=== PATIENT | male | born 1940 | race Caucasian/White ===

== ENCOUNTER 2017-04-26 20:16 | Emergency (ER) | payer MEDICARE ==
[~2017-04-26] VITALS: Ht 175.3 cm; Wt 79.4 kg
[~2017-04-26 20:16] MED LIST: PANT40TA5 PO; PRED-220 PO; PREG25CA PO
[2017-04-26] MEDS ORDERED: predniSONE 20 MG TABLET PO ONE (21:15)
[2017-04-26] MEDS ORDERED: ORPHENADRINE CITRATE 60 MG/2 ML VIAL. IM ONE (21:15)
--- NOTE | 2017-04-26 21:32 | PHYS DOC ---
Past Medical History Past Medical History: Angina, DVT, Other Additional Past Medical Histor: CELLULITIS, back pain, Past Surgical History: Other Additional Past Surgical Histo: R LEG SURG Alcohol Use: Occasionally Drug Use: None Adult General Chief Complaint Chief Complaint: Neck Pain HPI HPI Patient is a 77 year old male who presents with complaint of left-sided neck pain. Patient states his symptoms started earlier this evening. The patient states that he fell sleep in his recliner for a nap. Patient states that he awoke approximately 2-3 hours prior to arrival stating that he started feeling sharp pain in the left side of his neck as he woke. Patient states the pain radiates towards the proximal portion of the left shoulder but does not radiate into his left arm. Patient states that the pain worsens when he tries to turn his head to the left. Patient states that he does not feel any significant pain when turning his head to the right. Patient does not have any associated chest pain, vision loss, difficulty with speech or swallowing, or shortness of breath. Patient has not taken medications for his symptoms. Patient states he has not experienced any pain similar to what he is complaining of at this time which caused him concern, thus he came to the emergency department for evaluation. Patient rates his pain as 9 out of 10 one every tries to turn his head to the left. Review of Systems Review of Systems Constitutional: Denies fever or chills [] Eyes: Denies change in visual acuity, redness, or eye pain [] HENT: Denies nasal congestion or sore throat [] Respiratory: Denies cough or shortness of breath [] Cardiovascular: Denies chest pain or edema[] GI: Denies abdominal pain, nausea, vomiting, bloody stools or diarrhea [] : Denies dysuria or hematuria [] Musculoskeletal: Left-sided neck pain[] Integument: Denies rash or skin lesions [] Neurologic: Denies headache, focal weakness or sensory changes [] All other systems were reviewed and found to be within normal limits, except as documented in this note. Current Medications Current Medications Current Medications Medications (Trade) Dose Ordered Sig/Christina Start Time Stop Time Status Last Admin Dose Admin Orphenadrine Citrate (Norflex) 60 mg 1X ONCE 04/26/17 21:15 04/26/17 21:16 DC 04/26/17 21:16 60 MG Prednisone (Prednisone) 40 mg 1X ONCE 04/26/17 21:15 04/26/17 21:16 DC 04/26/17 21:13 40 MG Allergies Allergies Allergies Coded Allergies Type Severity Reaction Last Updated Verified No Known Drug Allergies 09/22/16 No Physical Exam Physical Exam Constitutional: Alert, afebrile, appears in mild to moderate discomfort[] HENT: Normocephalic, atraumatic, bilateral external ears normal, oropharynx moist, no oral exudates, nose normal. [] Eyes: PERRLA, EOMI, conjunctiva normal, no discharge. [] Neck: Tenderness palpation along left sternocleidomastoid muscle causing reproducible tenderness, palpable spasm, no midline tenderness, trachea midline , no stridor. [] Cardiovascular:Heart rate regular rhythm, no murmur [] Lungs & Thorax: Bilateral breath sounds clear to auscultation [] Abdomen: Bowel sounds normal, soft, no tenderness, no masses, no pulsatile masses. [] Skin: Warm, dry, no erythema, no rash. [] Back: No tenderness, no CVA tenderness. [] Extremities: No tenderness, no cyanosis, no clubbing, ROM intact, no edema. [] Neurologic: Alert and oriented X 3, normal motor function, normal sensory function, no focal deficits noted. [] Current Patient Data Vital Signs Vital Signs Date Time Temp Pulse Resp B/P (MAP) Pulse Ox O2 Delivery O2 Flow Rate FiO2 04/26/17 20:30 98.4 106 14 155/79 (104) 94 Room Air 98.4 EKG EKG Not performed[] Radiology/Procedures Radiology/Procedures Not performed[] Course & Med Decision Making Course & Med Decision Making Pertinent Labs and Imaging studies reviewed. (See chart for details) Patient was given IM Norflex and oral prednisone in the emergency department. The patient's symptoms appear consistent with acute neck muscle strain versus possible cervical radiculopathy. Patient will continue on Flexeril and prednisone for outpatient treatment. Advise follow-up in 3-5 days a primary doctor for reevaluation and return to emergency department for any worsening symptoms. Patient voiced understanding and in agreement with treatment plan. Dragon Disclaimer Dragon Disclaimer This electronic medical record was generated, in whole or in part, using a voice recognition dictation system. Departure Departure Impression: Primary Impression: Strain of sternocleidomastoid muscle Disposition: HOME, SELF-CARE Condition: IMPROVED Referrals: NO PCP (PCP) Patient Instructions: Muscle Strain Additional Instructions: Follow-up with your primary doctor in 3-5 days for reevaluation. Return to emergency department for any worsening symptoms. Scripts Cyclobenzaprine Hcl (CYCLOBENZAPRINE HCL) 10 Mg Tablet 1 TAB PO QHS Y for MUSCLE PAIN, #30 TAB Prov: GIFTY OLIVARES MD 04/26/17 Methylprednisolone (MEDROL) 4 Mg Tab.ds.pk 1 PKG PO UD, #1 PKG Prov: GIFTY OLIVARES MD 04/26/17 Problem Qualifiers Primary Impression: Strain of sternocleidomastoid muscle Encounter type: initial encounter Qualified Codes: S16.1XXA - Strain of muscle, fascia and tendon at neck level, initial encounter GIFTY OLIVARES MD Apr 26, 2017 21:32
[2017-04-26] MEDS ORDERED: CYCL10TA2 PO (22:06)
[2017-04-26] MEDS ORDERED: METH4TAB2 PO (22:06)
[2017-04-26 22:15] VITALS: BP 115/67
== END 2017-04-26 22:18 | disposition home or self-care (01) ==
LOC: ER 20:16
DX: S16.1XXA Strain of muscle, fascia and tendon at neck level, initial encounter (principal); Z86.718 Personal history of other venous thrombosis and embolism; X58.XXXA Exposure to other specified factors, initial encounter; Y93.89 Activity, other specified; Y92.89 Other specified places as the place of occurrence of the external cause; Y99.8 Other external cause status
CPT/HCPCS: 96372; 99284; J2360; J7512

== ENCOUNTER 2018-05-07 18:13 | Inpatient (IN) | payer MEDICARE ==
[~2018-05-07] VITALS: Ht 177.8 cm; Wt 73.2 kg
[~2018-05-07 18:13] MED LIST changes: +APIX5TAB PO; +CYCL10TA2 PO; +METH4TAB2 PO
[2018-05-07] MEDS ORDERED: IV NORMAL SALINE 1000ML BAG 1,000 ML IV ONE (19:00)
[2018-05-07 19:33] LABS: BASO % 0 % (0-3); EOS # 0.1 x10^3/uL (0.0-0.7); EOS % 2 % (0-3); HEMOGLOBIN 20.1 g/dL (13.0-17.5); LYMPH # 1.4 x10^3/uL (1.0-4.8); LYMPH % 19 % (24-48); MEAN CORPUSCULAR HEMOGLOBIN 33 pg (25-35); MEAN CORPUSCULAR HGB CONC 35 g/dL (31-37); MEAN CORPUSCULAR VOLUME 94 fL (79-100); MONO # 0.9 x10^3/uL (0.0-1.1); MONO % 12 % (0-9); NEUT # 4.9 x10^3uL (1.8-7.7); NEUT % 67 % (31-73); PLATELET COUNT 148 x10^3/uL (140-400); RED BLOOD COUNT 6.19 x10^6/uL (4.30-5.70); RED CELL DISTRIBUTION WIDTH 17.2 % (11.5-14.5); WHITE BLOOD COUNT 7.4 x10^3/uL (4.0-11.0)
--- NOTE | 2018-05-07 19:36 | PHYS DOC ---
Past Medical History Past Medical History: Angina, DVT, Other Additional Past Medical Histor: CELLULITIS, back pain, Past Surgical History: Other Additional Past Surgical Histo: R LEG SURG Alcohol Use: Occasionally Drug Use: None Adult General Chief Complaint Chief Complaint: FOOT INJURY PAIN HPI HPI Patient is a 78 year old male with history of DVT, cellulitis who presents with right foot read leg swelling for the past several days with deep foot ulcer over the dorsum of right lateral mid foot. Patient states ulcer began as a blister which burst and he then developed a rash. Patient denies fever chills, nausea vomiting or sweats. He has not seen by a doctor for this condition. Denies injury.[] Review of Systems Review of Systems ROS as per HPI All other systems were reviewed and found to be within normal limits, except as documented in this note. Current Medications Current Medications Current Medications Medications (Trade) Dose Ordered Sig/Christina Start Time Stop Time Status Last Admin Dose Admin Sodium Chloride 1,000 ml @ 1,000 mls/hr 1X ONCE 05/07/18 19:00 05/07/18 19:59 05/07/18 19:19 1,000 MLS/HR Allergies Allergies Allergies Coded Allergies Type Severity Reaction Last Updated Verified No Known Drug Allergies 09/22/16 No Physical Exam Physical Exam Constitutional: Well developed, well nourished, no acute distress, non-toxic appearance. [] HENT: Normocephalic, atraumatic, bilateral external ears normal, oropharynx moist,, nose normal. [] Eyes: PERRLA, EOMI, conjunctiva normal, no discharge. [] Neck: Normal range of motion, no tenderness, supple, no stridor. [] Cardiovascular:Heart rate regular rhythm, no murmur [] Lungs & Thorax: Bilateral breath sounds clear to auscultation [] Abdomen: Bowel sounds normal, soft, no tenderness, no masses, no pulsatile masses. [] Skin: Ichthyosis of B lower extremity with warm, dry, cracked skin. Moderate erythema involving R foot and calf, extending from toes toes to mid calf. Deep ulcer over medial aspect of R lateral forefoot. 1+ bipedal pulses, symmetric.[] Extremities: of bilateral lower extremities, negative Homans sign. [] Neurologic: Alert and oriented X 3, normal motor function, normal sensory function. [] Psychologic: Affect normal, judgement normal, mood normal. [] Current Patient Data Vital Signs Vital Signs Date Time Temp Pulse Resp B/P (MAP) Pulse Ox O2 Delivery O2 Flow Rate FiO2 05/07/18 18:30 98.5 107 20 130/70 (90) 93 Room Air 98.5 EKG EKG [] Radiology/Procedures Radiology/Procedures [XR r foot: No obvious displaced fx on preliminary ED read. ] Course & Med Decision Making Course & Med Decision Making Pertinent Labs and Imaging studies reviewed. (See chart for details) [Right foot ulcer with cellulitis of the right lower extremity. Patient clinically does not appear to be septic. IV fluids antibiotics started. Will admit to the hospital service.] Dragon Disclaimer Dragon Disclaimer This electronic medical record was generated, in whole or in part, using a voice recognition dictation system. Departure Departure Impression: Primary Impression: Right foot ulcer Additional Impression: Cellulitis of right lower leg Disposition: ADMITTED INPATIENT Admitting Physician: Brittney Hunter Referrals: NO PCP (PCP) Problem Qualifiers JOANN OLIVER DO May 07, 2018 19:36
[2018-05-07 19:41] LABS: CALCIUM 9.2 mg/dL (8.5-10.1); GFR 72.3; POTASSIUM 4.4 mmol/L (3.5-5.1)
[2018-05-07] MEDS ORDERED: VANCOMYCIN 2 GM in IV NORMAL SALINE 500ML BAG 500 ML IV ONE (19:45)
[2018-05-07 19:46] LABS: ALBUMIN 3.5 g/dL (3.4-5.0); ALBUMIN/GLOBULIN RATIO 0.9 (1.0-1.7); C-REACTIVE PROTEIN 7.7 mg/L (0-3.3); TOTAL BILIRUBIN 0.6 mg/dL (0.2-1.0); TOTAL PROTEIN 7.4 g/dL (6.4-8.2)
--- NOTE | 2018-05-07 21:14 | RAD ---
Examination: VENOUS LOWER EXTREMITY RIGHT History: RT FOOT PAIN, OPEN WOUND RT FOOT, THICK SCALY SKIN RT LOWER LEG

NO EVIDENCE OF DVT
REACTIVE LYMPH NODE IN GROIN

LIMITED VIS OF CALF VEINS Comparison/Correlation: None Findings: Right lower extremity venous duplex ultrasound exam was performed. Visualization of the calf veins is limited. Compression and augmentation utilized. Spectral, color Doppler, and grayscale imaging was performed. Right common femoral, superficial femoral, popliteal, and partially visualized posterior tibial veins are unremarkable. Partially visualized right profunda femoris vein is unremarkable. Right groin lymph node is borderline and presumably reactive. Impression: No right lower extremity DVT. Electronically signed by: Hal Muñoz MD (05/07/2018 9:10 PM) [facility]
[2018-05-07] MEDS ORDERED: ONDANSETRON PF 4 MG/2 ML VIAL. IV PRN (21:15)
[2018-05-07 23:01] VITALS: BP 136/73
[2018-05-08] MEDS: IV NORMAL SALINE 1000ML BAG 1,000 ML IV SCH ×3 (01:08→20:01)
[2018-05-08] MEDS: fentaNYL PF VIAL 100 MCG/2 ML VIAL IV PRN ×4 (01:58→20:01)
[2018-05-08] MEDS: VANCOMYCIN PER PHARMACY MC PRN (02:01)
[2018-05-08 03:18] VITALS: BP 134/69
[2018-05-08 07:00] VITALS: BP 121/73
--- NOTE | 2018-05-08 08:45 | RAD ---
Examination: 3 views of the right foot HISTORY: History of infection of the right foot COMPARISON: None available FINDINGS: The alignment of the tarsal bones grossly appears unremarkable. The tarsometatarsal joints, tarsophalangeal, interphalangeal joints grossly appears unremarkable. Mild soft tissue swelling identified dorsal to the metatarsals. IMPRESSION: 1. Mild soft tissue swelling identified dorsal to the metatarsal could be edema or soft tissue infection. 2. No acute osseous findings. Electronically signed by: Johnathan Dumont MD (05/08/2018 8:41 AM) [id number]
[2018-05-08] MEDS: VANCOMYCIN 1.25 GM in IV NORMAL SALINE 250ML 250 ML IV SCH ×2 (09:14→20:10)
[2018-05-08] MEDS: LACTOBACILLUS RHAMNOSUS GG 1 CAPSULE. PO SCH ×2 (09:15→20:01)
[2018-05-08 10:10] LABS: BASO % 0 % (0-3); EOS # 0.1 x10^3/uL (0.0-0.7); EOS % 2 % (0-3); HEMOGLOBIN 18.7 g/dL (13.0-17.5); LYMPH # 1.3 x10^3/uL (1.0-4.8); LYMPH % 17 % (24-48); MEAN CORPUSCULAR HEMOGLOBIN 32 pg (25-35); MEAN CORPUSCULAR HGB CONC 33 g/dL (31-37); MEAN CORPUSCULAR VOLUME 95 fL (79-100); MONO # 0.9 x10^3/uL (0.0-1.1); MONO % 11 % (0-9); NEUT # 5.5 x10^3uL (1.8-7.7); NEUT % 70 % (31-73); PLATELET COUNT 133 x10^3/uL (140-400); RED BLOOD COUNT 5.89 x10^6/uL (4.30-5.70); WHITE BLOOD COUNT 7.9 x10^3/uL (4.0-11.0)
--- NOTE | 2018-05-08 10:36 | PDOC1 ---
History and Physical Date of Admission Date of Admission DATE: 05/08/18 TIME: 10:35 Identification/Chief Complaint Chief Complaint SEEN IN ER 78 year old male with history of DVT, cellulitis who presented with right foot read leg swelling for the past several days with deep foot ulcer over the dorsum of right lateral mid foot. Patient states ulcer began as a blister which burst and he then developed a rash.,denies fever chills, nausea vomiting or sweats Past Medical History Past Medical History Past Medical History Past Medical History: Angina, DVT, Other PVD Additional Past Medical Histor: CELLULITIS, back pain, Past Surgical History: Other Additional Past Surgical Histo: R LEG SURG Alcohol Use: Occasionally Drug Use: None family hx ashd Cardiovascular: No pertinent hx, Hyperlipidemia Pulmonary: No pertinent hx, COPD GI: No pertinent hx Hepatobiliary: No pertinent hx Psych: Addictions Musculoskeletal: Osteoarthritis Infectious disease: Other Renal/: No pertinent hx Endocrine: No pertinent hx Family History Family History: No Significant, High Cholestrol Social History Smoke: <1 pack per day ALCOHOL: rare Drugs: None Current Problem List Problem List Problems Medical Problems: (1) Cellulitis of right lower leg Status: Acute (2) Right foot ulcer Status: Acute Current Medications Current Medications Current Medications Sodium Chloride 1,000 ml @ 1,000 mls/hr 1X ONCE IV Last administered on 05/07at 19:19; Start 05/07/18 at 19:00; Stop 05/07/18 at 19:59; Status DC Vancomycin HCl (Vanco Per Pharmacy) 1 each PRN DAILY PRN MC SEE COMMENTS Last administered on 05/08/18at 02:01; Start 05/07/18 at 19:45 Vancomycin HCl 2 gm/Sodium Chloride 500 ml @ 250 mls/hr ONCE ONCE IV Last administered on 05/07/18at 20:00; Start 05/07/18 at 19:45; Stop 05/07/18 at 21 :44; Status DC Ondansetron HCl (Zofran) 4 mg PRN Q8HRS PRN IV NAUSEA/VOMITING 1ST CHOICE; Start 05/07/18 at 21:15; Stop 05/08/18 at 21:14 Sodium Chloride 1,000 ml @ 125 mls/hr Q8H IV Last administered on 05/08/18at 09:14; Start 05/07/18 at 21:03; Stop 05/08/18 at 21:02 Fentanyl Citrate (Fentanyl 2ml Vial) 25 mcg PRN Q2HR PRN IV SEVERE PAIN Last administered on 05/08/18at 09:14; Start 05/08/18 at 01:45 Vancomycin HCl 1.25 gm/Sodium Chloride 250 ml @ 167 mls/hr Q12H IV Last administered on 05/08/18at 09:14; Start 05/08/18 at 08:00 Vancomycin HCl (Vancomycin Trough Level) 1 each 1X ONCE MC ; Start 05/10/18 at 07:30; Stop 05/10/18 at 07:31 Lactobacillus Rhamnosus (Culturelle) 1 cap BID PO Last administered on at 09:15; Start 05/08/18 at 09:00 Active Scripts Active Reported Eliquis (Apixaban) 5 Mg Tablet 5 Mg PO BID Allergies Allergies: Coded Allergies: No Known Drug Allergies (Unverified , 09/22/16) ROS Review of System Review of Systems Review of Systems ROS as per HPI 14 pt systems were reviewed and found to be within normal limits, except as documented PSYCHOLOGICAL ROS: No: Anxiety, Behavioral Disorder, Concentration difficultie , Decreased libido, Depression, Disorientation, Hallucinations, Hostility, Irritablity, Memory difficulties, Mood Swings, Obsessive thoughts, Physical abuse, Sexual abuse, Sleep disturbances, Suicidal ideation, Other ALLERGY AND IMMUNOLOGY: No: Hives, Insect Bite Sensitivity, Itchy/Watery Eyes, Nasal Congestion, Post Nasal Drip, Seasonal Allergies, Other Hematological and Lymphatic: No: Bleeding Problems, Blood Clots, Blood Transfusions, Brusing, Night Sweats, Pallor, Swollen Lymph Nodes, Other Respiratory: No: Cough, Hemoptysis, Orthopnea, Pleuritic Pain, Shortness of breath, SOB with excertion, Sputum Changes, Stridor, Tachypnea, Wheezing, Other Cardiovascular: No Chest Pain, No Palpitations, No Orthopnea, No Paroxysmal Noc. Dyspnea, No Edema, No Lt Headedness, No Other Gastrointestinal: No Nausea, No Vomiting, No Abdominal Pain, No Diarrhea, No Constipation, No Melena, No Hematochezia, No Other Musculoskeletal: Yes Gait Disturbance, Yes Joint Pain, Yes Joint Swelling Skin: Yes Skin Lesion Changes Physical Exam Physical Exam Physical Exam Physical Exam Constitutional: Well developed, well nourished, no acute distress, non-toxic appearance. [] HENT: Normocephalic, atraumatic, bilateral external ears normal, oropharynx moist,, nose normal. [] Eyes: PERRLA, EOMI, conjunctiva normal, no discharge. [] Neck: Normal range of motion, no tenderness, supple, no stridor. [] Cardiovascular:Heart rate regular rhythm, no murmur [] Lungs & Thorax: Bilateral breath sounds clear to auscultation [] Abdomen: Bowel sounds normal, soft, no tenderness, no masses, no pulsatile masses. [] Skin: Ichthyosis of B lower extremity with warm, dry, cracked skin. Moderate erythema involving R foot and calf, extending from toes toes to mid calf. Deep ulcer over medial aspect of R lateral forefoot. 1+ bipedal pulses, symmetric.[] Extremities: of bilateral lower extremities, negative Homans sign. [] Neurologic: Alert and oriented X 3, normal motor function, normal sensory function. [] Psychologic: Affect normal, judgement normal, mood normal. [] General: Alert, Oriented X3, Cooperative, mild distress HEENT: Atraumatic, PERRLA, EOMI, Mucous membr. moist/pink Lungs: Clear to auscultation, Normal air movement Heart: no gallops Breasts: Not examined Abdomen: Normal bowel sounds, Soft Rectal Exam: not examined Extremities: No cyanosis Neuro: Normal speech, Cranial nerves 3-12 NL Psych/Mental Status: Mood NL Vitals Vitals Vital Signs Date Time Temp Pulse Resp B/P (MAP) Pulse Ox O2 Delivery O2 Flow Rate FiO2 05/08/18 09:14 93 Room Air 05/08/18 07:00 98.3 89 20 121/73 (89) 2.0 98.3 Labs Labs Laboratory Tests Test 05/07/18 19:20 05/08/18 08:35 White Blood Count 7.4 x10^3/uL (4.0-11.0) 7.9 x10^3/uL (4.0-11.0) Red Blood Count 6.19 x10^6/uL (4.30-5.70) 5.89 x10^6/uL (4.30-5.70) Hemoglobin 20.1 g/dL (13.0-17.5) 18.7 g/dL (13.0-17.5) Hematocrit 58.0 % (39.0-53.0) 56.0 % (39.0-53.0) Mean Corpuscular Volume 94 fL (79-100) 95 fL (79-100) Mean Corpuscular Hemoglobin 33 pg (25-35) 32 pg (25-35) Mean Corpuscular Hemoglobin Concent 35 g/dL (31-37) 33 g/dL (31-37) Red Cell Distribution Width 17.2 % (11.5-14.5) 17.0 % (11.5-14.5) Platelet Count 148 x10^3/uL (140-400) 133 x10^3/uL (140-400) Neutrophils (%) (Auto) 67 % (31-73) 70 % (31-73) Lymphocytes (%) (Auto) 19 % (24-48) 17 % (24-48) Monocytes (%) (Auto) 12 % (0-9) 11 % (0-9) Eosinophils (%) (Auto) 2 % (0-3) 2 % (0-3) Basophils (%) (Auto) 0 % (0-3) 0 % (0-3) Neutrophils # (Auto) 4.9 x10^3uL (1.8-7.7) 5.5 x10^3uL (1.8-7.7) Lymphocytes # (Auto) 1.4 x10^3/uL (1.0-4.8) 1.3 x10^3/uL (1.0-4.8) Monocytes # (Auto) 0.9 x10^3/uL (0.0-1.1) 0.9 x10^3/uL (0.0-1.1) Eosinophils # (Auto) 0.1 x10^3/uL (0.0-0.7) 0.1 x10^3/uL (0.0-0.7) Basophils # (Auto) 0.0 x10^3/uL (0.0-0.2) 0.0 x10^3/uL (0.0-0.2) Erythrocyte Sedimentation Rate 0 (0-15) Sodium Level 140 mmol/L (136-145) Potassium Level 4.4 mmol/L (3.5-5.1) Chloride Level 103 mmol/L (98-107) Carbon Dioxide Level 29 mmol/L (21-32) Anion Gap 8 (6-14) Blood Urea Nitrogen 10 mg/dL (8-26) Creatinine 1.0 mg/dL (0.7-1.3) Estimated GFR (Cockcroft-Gault) 72.3 BUN/Creatinine Ratio 10 (6-20) Glucose Level 88 mg/dL (70-99) Calcium Level 9.2 mg/dL (8.5-10.1) Total Bilirubin 0.6 mg/dL (0.2-1.0) Aspartate Amino Transf (AST/SGOT) 16 U/L (15-37) Alanine Aminotransferase (ALT/SGPT) 15 U/L (16-63) Alkaline Phosphatase 101 U/L (46-116) C-Reactive Protein, Quantitative 7.7 mg/L (0-3.3) Total Protein 7.4 g/dL (6.4-8.2) Albumin 3.5 g/dL (3.4-5.0) Albumin/Globulin Ratio 0.9 (1.0-1.7) Laboratory Tests Test 05/07/18 19:20 05/08/18 08:35 White Blood Count 7.4 x10^3/uL (4.0-11.0) 7.9 x10^3/uL (4.0-11.0) Red Blood Count 6.19 x10^6/uL (4.30-5.70) 5.89 x10^6/uL (4.30-5.70) Hemoglobin 20.1 g/dL (13.0-17.5) 18.7 g/dL (13.0-17.5) Hematocrit 58.0 % (39.0-53.0) 56.0 % (39.0-53.0) Mean Corpuscular Volume 94 fL (79-100) 95 fL (79-100) Mean Corpuscular Hemoglobin 33 pg (25-35) 32 pg (25-35) Mean Corpuscular Hemoglobin Concent 35 g/dL (31-37) 33 g/dL (31-37) Red Cell Distribution Width 17.2 % (11.5-14.5) 17.0 % (11.5-14.5) Platelet Count 148 x10^3/uL (140-400) 133 x10^3/uL (140-400) Neutrophils (%) (Auto) 67 % (31-73) 70 % (31-73) Lymphocytes (%) (Auto) 19 % (24-48) 17 % (24-48) Monocytes (%) (Auto) 12 % (0-9) 11 % (0-9) Eosinophils (%) (Auto) 2 % (0-3) 2 % (0-3) Basophils (%) (Auto) 0 % (0-3) 0 % (0-3) Neutrophils # (Auto) 4.9 x10^3uL (1.8-7.7) 5.5 x10^3uL (1.8-7.7) Lymphocytes # (Auto) 1.4 x10^3/uL (1.0-4.8) 1.3 x10^3/uL (1.0-4.8) Monocytes # (Auto) 0.9 x10^3/uL (0.0-1.1) 0.9 x10^3/uL (0.0-1.1) Eosinophils # (Auto) 0.1 x10^3/uL (0.0-0.7) 0.1 x10^3/uL (0.0-0.7) Basophils # (Auto) 0.0 x10^3/uL (0.0-0.2) 0.0 x10^3/uL (0.0-0.2) Erythrocyte Sedimentation Rate 0 (0-15) Sodium Level 140 mmol/L (136-145) Potassium Level 4.4 mmol/L (3.5-5.1) Chloride Level 103 mmol/L (98-107) Carbon Dioxide Level 29 mmol/L (21-32) Anion Gap 8 (6-14) Blood Urea Nitrogen 10 mg/dL (8-26) Creatinine 1.0 mg/dL (0.7-1.3) Estimated GFR (Cockcroft-Gault) 72.3 BUN/Creatinine Ratio 10 (6-20) Glucose Level 88 mg/dL (70-99) Calcium Level 9.2 mg/dL (8.5-10.1) Total Bilirubin 0.6 mg/dL (0.2-1.0) Aspartate Amino Transf (AST/SGOT) 16 U/L (15-37) Alanine Aminotransferase (ALT/SGPT) 15 U/L (16-63) Alkaline Phosphatase 101 U/L (46-116) C-Reactive Protein, Quantitative 7.7 mg/L (0-3.3) Total Protein 7.4 g/dL (6.4-8.2) Albumin 3.5 g/dL (3.4-5.0) Albumin/Globulin Ratio 0.9 (1.0-1.7) Images Images : 1940 LOCATION: [address] [place] [address] AGE: 76 SEX: M EXAM STATUS: ADM IN ORD. PHYSICIAN: DUSTY YAÑEZ MD REASON: leg pain PROCEDURE: CT ANGIO ABD ILEO/FEMOR RUNOFF Indication pain. CTA targeted to the abdominal aorta and the major runoff vessels was performed. Images were reformatted in the coronal and sagittal planes. Volume rendered images were also generated and reviewed. Note is made of the abnormal arterial Doppler study earlier in the day. Approximately 95 cc of Omnipaque 350 was administered. No similar imaging is available. There is some minimal volume loss, likely reflecting scar, in the right middle lobe. A definite significant finding and the visualized lung bases is not seen. There is a periumbilical hernia containing a bowel loop which appears uncomplicated. There is a right inguinal hernia containing fat also appearing uncomplicated. The liver and spleen appear unremarkable and the gallbladder appears grossly normal. No adrenal or renal anomalies are seen. The pancreas appears unremarkable. Acute finding in the abdomen is not seen. The prostate is moderately enlarged. No acute finding is seen in the pelvis. There are a few lymph nodes seen in the groin which are likely incidental. A significant soft tissue finding in either lower extremity is not seen There is intimal thickening involving the abdominal aorta. There is no aneurysm. The celiac and SMA are widely patent at their origins. The SHANNAN is not seen. There are single main renal arteries bilaterally which are widely patent. 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 Collateral vessels reconstitute the internal iliac artery. The superficial femoral artery reconstitutes in the upper thigh there is severe narrowing of the more distal right superficial femoral artery. There is no significant flow seen in the popliteal artery. There is two-vessel runoff to the ankle. On the left there is a web with probable moderate stenosis associated with the common iliac artery. The internal and external iliac arteries are patent. The common femoral is patent. There is marked narrowing of the distal superficial femoral artery. There is no significant flow seen in the popliteal artery. There is single vessel runoff to the ankle. The posterior tibial artery is patent to the ankle. The peroneal artery reconstitutes in the mid calf. 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 Collateral flow reconstitutes the right superficial femoral artery proximally but more distally the vessel is severely tapered and probably occluded. There is no significant flow seen in the right popliteal artery. There is two-vessel runoff to the ankle from reconstituted collateral vessels. On the left there is some moderate narrowing associated with the common iliac artery. There is marked narrowing of the superficial femoral artery distally and no significant flow is seen in the popliteal artery. There is single vessel runoff to the foot. Ventral wall abdominal hernia and right inguinal hernia, both of which appear uncomplicated.. Enlarged prostate. PQRS Compliance Statement: One or more of the following individualized dose reduction techniques were utilized for this examination: 1. Automated exposure control 2. Adjustment of the mA and/or kV according to patient size 3. Use of iterative reconstruction technique VTE Prophylaxis Ordered VTE Prophylaxis Devices: Contraindicated VTE Pharmacological Prophylaxi: Yes Assessment/Plan Assessment/Plan impression 1. cellulitis right foot and leg 2. Mild soft tissue swelling identified dorsal to the metatarsal could be edema or soft tissue infection. 3. No acute osseous findings. 4. tobacco abuse disorder 5. 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 Collateral flow reconstitutes the right superficial femoral artery proximally but more distally the vessel is severely tapered and probably occluded. There is no significant flow seen in the right popliteal artery. There is two-vessel runoff to the ankle from reconstituted collateral vessels. in 2017 6. HX PE plan iv vanc Q 12 HRS ID CONSULT WOUND CARE CONSULT dvt prophylaxis blood cult vascular consult NAZIA MORRIS MD May 08, 2018 10:36
[2018-05-08 10:38] LABS: ALBUMIN 3.1 g/dL (3.4-5.0); ALBUMIN/GLOBULIN RATIO 0.9 (1.0-1.7); CALCIUM 8.6 mg/dL (8.5-10.1); CREATININE 0.9 mg/dL (0.7-1.3); GFR 81.6; POTASSIUM 3.9 mmol/L (3.5-5.1); TOTAL BILIRUBIN 0.8 mg/dL (0.2-1.0); TOTAL PROTEIN 6.4 g/dL (6.4-8.2)
[2018-05-08 11:00] VITALS: BP 104/50
[2018-05-08 15:00] VITALS: BP 99/50
[2018-05-08] MEDS: APIXABAN 5 MG TABLET. PO SCH (17:13)
[2018-05-08 19:00] VITALS: BP 102/46
[2018-05-08 23:03] VITALS: BP 95/56
[2018-05-09] MEDS: fentaNYL PF VIAL 100 MCG/2 ML VIAL IV PRN ×2 (01:04→09:05)
[2018-05-09 03:22] VITALS: BP 112/51
[2018-05-09 07:00] VITALS: BP 116/53
[2018-05-09 08:32] LABS: VANC TR 15.6 mcg/mL (10.0-20.0)
[2018-05-09] MEDS: APIXABAN 5 MG TABLET. PO SCH ×2 (09:04→21:12)
[2018-05-09] MEDS: VANCOMYCIN 1.25 GM in IV NORMAL SALINE 250ML 250 ML IV SCH ×2 (09:04→21:10)
[2018-05-09] MEDS: LACTOBACILLUS RHAMNOSUS GG 1 CAPSULE. PO SCH ×2 (09:04→21:12)
[2018-05-09 11:00] VITALS: BP 120/55
--- NOTE | 2018-05-09 11:33 | PDOC ---
PROGRESS NOTES History of Present Illness History of Present Illness Assessment/Plan Assessment/Plan impression 1. cellulitis right foot and leg 2. Mild soft tissue swelling identified dorsal to the metatarsal could be edema or soft tissue infection. 3. No acute osseous findings. 4. tobacco abuse disorder 5. 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 Collateral flow reconstitutes the right superficial femoral artery proximally but more distally the vessel is severely tapered and probably occluded. There is no significant flow seen in the right popliteal artery. There is two-vessel runoff to the ankle from reconstituted collateral vessels. in 2017 6. HX PE plan iv vanc Q 12 HRS ID CONSULT WOUND CARE CONSULT dvt prophylaxis blood cult vascular consult Vitals Vitals Vital Signs Date Time Temp Pulse Resp B/P (MAP) Pulse Ox O2 Delivery O2 Flow Rate FiO2 05/09/18 09:35 Room Air 05/09/18 09:05 92 05/09/18 07:00 98.7 83 22 116/53 (74) 98.7 05/08/18 15:00 2.0 Physical Exam General: Alert, Oriented X3, Cooperative, mild distress Heart: Regular rate, Normal S1, Normal S2 Lungs: Clear Abdomen: Normal bowel sounds, Soft Extremities: No cyanosis, Other (ISCHEMIC ULCER RIGHT FOOT/ CELLULITIS) Labs LABS STATUS: ADM IN ORD. PHYSICIAN: DUSTY YAÑEZ MD REASON: leg pain PROCEDURE: CT ANGIO ABD ILEO/FEMOR RUNOFF Indication pain. CTA targeted to the abdominal aorta and the major runoff vessels was performed. Images were reformatted in the coronal and sagittal planes. Volume rendered images were also generated and reviewed. Note is made of the abnormal arterial Doppler study earlier in the day. Approximately 95 cc of Omnipaque 350 was administered. No similar imaging is available. There is some minimal volume loss, likely reflecting scar, in the right middle lobe. A definite significant finding and the visualized lung bases is not seen. There is a periumbilical hernia containing a bowel loop which appears uncomplicated. There is a right inguinal hernia containing fat also appearing uncomplicated. The liver and spleen appear unremarkable and the gallbladder appears grossly normal. No adrenal or renal anomalies are seen. The pancreas appears unremarkable. Acute finding in the abdomen is not seen. The prostate is moderately enlarged. No acute finding is seen in the pelvis. There are a few lymph nodes seen in the groin which are likely incidental. A significant soft tissue finding in either lower extremity is not seen There is intimal thickening involving the abdominal aorta. There is no aneurysm. The celiac and SMA are widely patent at their origins. The SHANNAN is not seen. There are single main renal arteries bilaterally which are widely patent. 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 Collateral vessels reconstitute the internal iliac artery. The superficial femoral artery reconstitutes in the upper thigh there is severe narrowing of the more distal right superficial femoral artery. There is no significant flow seen in the popliteal artery. There is two-vessel runoff to the ankle. On the left there is a web with probable moderate stenosis associated with the common iliac artery. The internal and external iliac arteries are patent. The common femoral is patent. There is marked narrowing of the distal superficial femoral artery. There is no significant flow seen in the popliteal artery. There is single vessel runoff to the ankle. The posterior tibial artery is patent to the ankle. The peroneal artery reconstitutes in the mid calf. 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 Collateral flow reconstitutes the right superficial femoral artery proximally but more distally the vessel is severely tapered and probably occluded. There is no significant flow seen in the right popliteal artery. There is two-vessel runoff to the ankle from reconstituted collateral vessels. On the left there is some moderate narrowing associated with the common iliac artery. There is marked narrowing of the superficial femoral artery distally and no significant flow is seen in the popliteal artery. There is single vessel runoff to the foot. Ventral wall abdominal hernia and right inguinal hernia, both of which appear uncomplicated.. Enlarged prostate. 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 Collateral flow reconstitutes the right superficial femoral artery proximally but more distally the vessel is severely tapered and probably occluded. There is no significant flow seen in the right popliteal artery. There is two-vessel runoff to the ankle from reconstituted collateral vessels. Comment Review of Relevant I have reviewed the following items lee (where applicable) has been applied. Labs Laboratory Tests Test 05/07/18 19:20 05/08/18 08:35 05/09/18 07:35 White Blood Count 7.4 x10^3/uL (4.0-11.0) 7.9 x10^3/uL (4.0-11.0) Red Blood Count 6.19 x10^6/uL (4.30-5.70) 5.89 x10^6/uL (4.30-5.70) Hemoglobin 20.1 g/dL (13.0-17.5) 18.7 g/dL (13.0-17.5) Hematocrit 58.0 % (39.0-53.0) 56.0 % (39.0-53.0) Mean Corpuscular Volume 94 fL (79-100) 95 fL (79-100) Mean Corpuscular Hemoglobin 33 pg (25-35) 32 pg (25-35) Mean Corpuscular Hemoglobin Concent 35 g/dL (31-37) 33 g/dL (31-37) Red Cell Distribution Width 17.2 % (11.5-14.5) 17.0 % (11.5-14.5) Platelet Count 148 x10^3/uL (140-400) 133 x10^3/uL (140-400) Neutrophils (%) (Auto) 67 % (31-73) 70 % (31-73) Lymphocytes (%) (Auto) 19 % (24-48) 17 % (24-48) Monocytes (%) (Auto) 12 % (0-9) 11 % (0-9) Eosinophils (%) (Auto) 2 % (0-3) 2 % (0-3) Basophils (%) (Auto) 0 % (0-3) 0 % (0-3) Neutrophils # (Auto) 4.9 x10^3uL (1.8-7.7) 5.5 x10^3uL (1.8-7.7) Lymphocytes # (Auto) 1.4 x10^3/uL (1.0-4.8) 1.3 x10^3/uL (1.0-4.8) Monocytes # (Auto) 0.9 x10^3/uL (0.0-1.1) 0.9 x10^3/uL (0.0-1.1) Eosinophils # (Auto) 0.1 x10^3/uL (0.0-0.7) 0.1 x10^3/uL (0.0-0.7) Basophils # (Auto) 0.0 x10^3/uL (0.0-0.2) 0.0 x10^3/uL (0.0-0.2) Erythrocyte Sedimentation Rate 0 (0-15) Sodium Level 140 mmol/L (136-145) 142 mmol/L (136-145) Potassium Level 4.4 mmol/L (3.5-5.1) 3.9 mmol/L (3.5-5.1) Chloride Level 103 mmol/L (98-107) 107 mmol/L (98-107) Carbon Dioxide Level 29 mmol/L (21-32) 25 mmol/L (21-32) Anion Gap 8 (6-14) 10 (6-14) Blood Urea Nitrogen 10 mg/dL (8-26) 7 mg/dL (8-26) Creatinine 1.0 mg/dL (0.7-1.3) 0.9 mg/dL (0.7-1.3) Estimated GFR (Cockcroft-Gault) 72.3 81.6 BUN/Creatinine Ratio 10 (6-20) 8 (6-20) Glucose Level 88 mg/dL (70-99) 105 mg/dL (70-99) Calcium Level 9.2 mg/dL (8.5-10.1) 8.6 mg/dL (8.5-10.1) Total Bilirubin 0.6 mg/dL (0.2-1.0) 0.8 mg/dL (0.2-1.0) Aspartate Amino Transf (AST/SGOT) 16 U/L (15-37) 13 U/L (15-37) Alanine Aminotransferase (ALT/SGPT) 15 U/L (16-63) 11 U/L (16-63) Alkaline Phosphatase 101 U/L (46-116) 86 U/L (46-116) C-Reactive Protein, Quantitative 7.7 mg/L (0-3.3) Total Protein 7.4 g/dL (6.4-8.2) 6.4 g/dL (6.4-8.2) Albumin 3.5 g/dL (3.4-5.0) 3.1 g/dL (3.4-5.0) Albumin/Globulin Ratio 0.9 (1.0-1.7) 0.9 (1.0-1.7) Vancomycin Level Trough 15.6 mcg/mL (10.0-20.0) Vancomycin Last Dose Date 05/08/18 Vancomycin Last Dose Time 1999 Laboratory Tests Test 05/09/18 07:35 Vancomycin Level Trough 15.6 mcg/mL (10.0-20.0) Vancomycin Last Dose Date 05/08/18 Vancomycin Last Dose Time 1999 Microbiology 05/07/18 Blood Culture - Preliminary, Resulted NO GROWTH AFTER 1 DAY Medications Current Medications Sodium Chloride 1,000 ml @ 1,000 mls/hr 1X ONCE IV Last administered on 05/07at 19:19; Start 05/07/18 at 19:00; Stop 05/07/18 at 19:59; Status DC Vancomycin HCl (Vanco Per Pharmacy) 1 each PRN DAILY PRN MC SEE COMMENTS Last administered on 05/08/18at 02:01; Start 05/07/18 at 19:45 Vancomycin HCl 2 gm/Sodium Chloride 500 ml @ 250 mls/hr ONCE ONCE IV Last administered on 05/07/18at 20:00; Start 05/07/18 at 19:45; Stop 05/07/18 at 21 :44; Status DC Ondansetron HCl (Zofran) 4 mg PRN Q8HRS PRN IV NAUSEA/VOMITING 1ST CHOICE; Start 05/07/18 at 21:15; Stop 05/08/18 at 21:14; Status DC Sodium Chloride 1,000 ml @ 125 mls/hr Q8H IV Last administered on 05/08/18at 20:01; Start 05/07/18 at 21:03; Stop 05/08/18 at 21:02; Status DC Fentanyl Citrate (Fentanyl 2ml Vial) 25 mcg PRN Q2HR PRN IV SEVERE PAIN Last administered on 05/08/18at 13:59; Start 05/08/18 at 01:45; Stop 05/08/18 at 14 :39; Status DC Vancomycin HCl 1.25 gm/Sodium Chloride 250 ml @ 167 mls/hr Q12H IV Last administered on 05/09/18at 09:04; Start 05/08/18 at 08:00 Vancomycin HCl (Vancomycin Trough Level) 1 each 1X ONCE MC ; Start 05/10/18 at 07:30; Stop 05/10/18 at 07:31 Lactobacillus Rhamnosus (Culturelle) 1 cap BID PO Last administered on at 09:04; Start 05/08/18 at 09:00 Fentanyl Citrate (Fentanyl 2ml Vial) 50 mcg PRN Q2HR PRN IV SEVERE PAIN Last administered on 05/09/18at 09:05; Start 05/08/18 at 14:45 Apixaban (Eliquis) 5 mg BID PO Last administered on 05/09/18at 09:04; Start at 15:00 Acetaminophen/ Hydrocodone Bitart (Lortab 7.5/325) 1 tab PRN Q4HRS PRN PO PAIN ; Start 05/09/18 at 11:15 Info (Anti-Coagulation Monitoring By Pharmacy) 1 each PRN DAILY PRN MC SEE COMMENTS; Start 05/09/18 at 11:30 Active Scripts Active Reported Eliquis (Apixaban) 5 Mg Tablet 5 Mg PO BID Vitals/I & O Vital Sign - Last 24 Hours 05/08/18 05/08/18 05/08/18 05/08/18 13:59 14:01 15:00 19:00 Temp 98.4 98.2 98.4 98.2 Pulse 83 86 Resp 20 20 B/P (MAP) 99/50 (66) 102/46 (64) Pulse Ox 96 92 93 O2 Delivery Room Air Room Air Nasal Cannula Room Air O2 Flow Rate 2.0 2.0 05/08/18 05/08/18 05/08/18 05/09/18 20:00 20:01 23:03 01:04 Temp 97.9 97.9 Pulse 65 Resp 20 20 20 B/P (MAP) 95/56 (69) Pulse Ox 93 92 92 O2 Delivery Room Air Room Air Room Air Room Air 05/09/18 05/09/18 05/09/18 05/09/18 01:34 03:22 07:00 09:05 Temp 98.5 98.7 98.5 98.7 Pulse 83 83 Resp 18 20 22 B/P (MAP) 112/51 (71) 116/53 (74) Pulse Ox 93 93 92 92 O2 Delivery Room Air Room Air Room Air 05/09/18 09:35 O2 Delivery Room Air Intake and Output 05/08/18 05/08/18 05/09/18 15:01 23:01 07:01 Output Total 500 ml 200 ml 800 ml Balance -500 ml -200 ml -800 ml NAZIA MORRIS MD May 09, 2018 11:33
[2018-05-09] MEDS: VANCOMYCIN PER PHARMACY MC PRN (13:03)
[2018-05-09] MEDS: MAGNESIUM HYDROXIDE 2,400 MG/30 ML ORAL.SUSP. PO PRN (14:28)
[2018-05-09 15:00] VITALS: BP 102/50
[2018-05-09] MEDS: HYDROcodone/APAP 7.5/325MG 1 TAB TABLET PO PRN ×2 (17:30→22:48)
--- NOTE | 2018-05-09 17:38 | PDOC2 ---
CONSULT Date of Consult Date of Consult DATE: 05/09/18 TIME: 17:20 Reason for Consult Reason for Consult: Painful ulceration right foot and right gotti Identification/Chief Complaint Chief Complaint Painful ulceration of the right gotti and right foot History of Present Illness Reason for Visit: This is a 78-year-old male with a long-standing history of chronic tobacco use. He has known peripheral vascular disease. He had a CTA performed September 2016. CTA showed that he had a right common iliac and external iliac artery occlusion. He reconstitutes his profunda femoris artery and he had a right superficial femoral artery occlusion with reconstitution of the popliteal artery. Despite extensive arterial occlusive disease patient was not having any right leg symptoms. In addition the patient had a focal high-grade left common iliac artery stenosis. Patient had a long-standing history of chronic tobacco use and underlying polycythemia This admission patient comes in with a painful ulceration anterolateral aspect of his right gotti and an open ulcer on the right foot. He has a history of peripheral edema which is under control at this point in time with diuretic therapy. His hemoglobin remains elevated Past Medical History Cardiovascular: No pertinent hx, Hyperlipidemia Pulmonary: No pertinent hx, COPD GI: No pertinent hx Hepatobiliary: No pertinent hx Psych: Addictions Musculoskeletal: Osteoarthritis Infectious disease: Other Renal/: No pertinent hx Endocrine: No pertinent hx Past Surgical History Past Surgical History Right femoral popliteal bypass [place] [address] Herrera Family History Family History: No Significant, High Cholestrol Social History <1 pack per day ALCOHOL: rare Drugs: None Current Problem List Problem List Problems Medical Problems: (1) Cellulitis of right lower leg Status: Acute (2) Right foot ulcer Status: Acute Current Medications Current Medications Current Medications Sodium Chloride 1,000 ml @ 1,000 mls/hr 1X ONCE IV Last administered on 05/07at 19:19; Start 05/07/18 at 19:00; Stop 05/07/18 at 19:59; Status DC Vancomycin HCl (Vanco Per Pharmacy) 1 each PRN DAILY PRN MC SEE COMMENTS Last administered on 05/09/18at 13:03; Start 05/07/18 at 19:45 Vancomycin HCl 2 gm/Sodium Chloride 500 ml @ 250 mls/hr ONCE ONCE IV Last administered on 05/07/18at 20:00; Start 05/07/18 at 19:45; Stop 05/07/18 at 21 :44; Status DC Ondansetron HCl (Zofran) 4 mg PRN Q8HRS PRN IV NAUSEA/VOMITING 1ST CHOICE; Start 05/07/18 at 21:15; Stop 05/08/18 at 21:14; Status DC Sodium Chloride 1,000 ml @ 125 mls/hr Q8H IV Last administered on 05/08/18at 20:01; Start 05/07/18 at 21:03; Stop 05/08/18 at 21:02; Status DC Fentanyl Citrate (Fentanyl 2ml Vial) 25 mcg PRN Q2HR PRN IV SEVERE PAIN Last administered on 05/08/18at 13:59; Start 05/08/18 at 01:45; Stop 05/08/18 at 14 :39; Status DC Vancomycin HCl 1.25 gm/Sodium Chloride 250 ml @ 167 mls/hr Q12H IV Last administered on 05/09/18at 09:04; Start 05/08/18 at 08:00 Vancomycin HCl (Vancomycin Trough Level) 1 each 1X ONCE MC ; Start 05/10/18 at 07:30; Stop 05/10/18 at 07:30; Status DC Lactobacillus Rhamnosus (Culturelle) 1 cap BID PO Last administered on at 09:04; Start 05/08/18 at 09:00 Fentanyl Citrate (Fentanyl 2ml Vial) 50 mcg PRN Q2HR PRN IV SEVERE PAIN Last administered on 05/09/18at 09:05; Start 05/08/18 at 14:45 Apixaban (Eliquis) 5 mg BID PO Last administered on 05/09/18at 09:04; Start at 15:00 Acetaminophen/ Hydrocodone Bitart (Lortab 7.5/325) 1 tab PRN Q4HRS PRN PO PAIN ; Start 05/09/18 at 11:15 Info (Anti-Coagulation Monitoring By Pharmacy) 1 each PRN DAILY PRN MC SEE COMMENTS; Start 05/09/18 at 11:30 Magnesium Hydroxide (Milk Of Magnesia) 2,400 mg PRN DAILY PRN PO CONSTIPATION Last administered on 05/09/18at 14:28; Start 05/09/18 at 14:15 Active Scripts Active Reported Eliquis (Apixaban) 5 Mg Tablet 5 Mg PO BID Allergies Allergies: Coded Allergies: No Known Drug Allergies (Unverified , 09/22/16) Physical Exam Physical Exam 2+ radial pulses bilaterally absent femoral pulses bilaterally Absent popliteal pulses bilaterally absent pedal pulses bilaterally General: Alert, Oriented X3 Abdomen: Normal bowel sounds, No tenderness, Other MUSCULOSKELETAL: Other (open ulcer on the anterolateral aspect of the right foot which extends down through the skin and subcutaneous tissue) Vitals VITALS Vital Signs Date Time Temp Pulse Resp B/P (MAP) Pulse Ox O2 Delivery O2 Flow Rate FiO2 05/09/18 15:00 98.8 85 20 102/50 (67) 94 Room Air 98.8 05/08/18 15:00 2.0 Labs Labs Laboratory Tests Test 05/07/18 19:20 05/08/18 08:35 05/09/18 07:35 White Blood Count 7.4 x10^3/uL (4.0-11.0) 7.9 x10^3/uL (4.0-11.0) Red Blood Count 6.19 x10^6/uL (4.30-5.70) 5.89 x10^6/uL (4.30-5.70) Hemoglobin 20.1 g/dL (13.0-17.5) 18.7 g/dL (13.0-17.5) Hematocrit 58.0 % (39.0-53.0) 56.0 % (39.0-53.0) Mean Corpuscular Volume 94 fL (79-100) 95 fL (79-100) Mean Corpuscular Hemoglobin 33 pg (25-35) 32 pg (25-35) Mean Corpuscular Hemoglobin Concent 35 g/dL (31-37) 33 g/dL (31-37) Red Cell Distribution Width 17.2 % (11.5-14.5) 17.0 % (11.5-14.5) Platelet Count 148 x10^3/uL (140-400) 133 x10^3/uL (140-400) Neutrophils (%) (Auto) 67 % (31-73) 70 % (31-73) Lymphocytes (%) (Auto) 19 % (24-48) 17 % (24-48) Monocytes (%) (Auto) 12 % (0-9) 11 % (0-9) Eosinophils (%) (Auto) 2 % (0-3) 2 % (0-3) Basophils (%) (Auto) 0 % (0-3) 0 % (0-3) Neutrophils # (Auto) 4.9 x10^3uL (1.8-7.7) 5.5 x10^3uL (1.8-7.7) Lymphocytes # (Auto) 1.4 x10^3/uL (1.0-4.8) 1.3 x10^3/uL (1.0-4.8) Monocytes # (Auto) 0.9 x10^3/uL (0.0-1.1) 0.9 x10^3/uL (0.0-1.1) Eosinophils # (Auto) 0.1 x10^3/uL (0.0-0.7) 0.1 x10^3/uL (0.0-0.7) Basophils # (Auto) 0.0 x10^3/uL (0.0-0.2) 0.0 x10^3/uL (0.0-0.2) Erythrocyte Sedimentation Rate 0 (0-15) Sodium Level 140 mmol/L (136-145) 142 mmol/L (136-145) Potassium Level 4.4 mmol/L (3.5-5.1) 3.9 mmol/L (3.5-5.1) Chloride Level 103 mmol/L (98-107) 107 mmol/L (98-107) Carbon Dioxide Level 29 mmol/L (21-32) 25 mmol/L (21-32) Anion Gap 8 (6-14) 10 (6-14) Blood Urea Nitrogen 10 mg/dL (8-26) 7 mg/dL (8-26) Creatinine 1.0 mg/dL (0.7-1.3) 0.9 mg/dL (0.7-1.3) Estimated GFR (Cockcroft-Gault) 72.3 81.6 BUN/Creatinine Ratio 10 (6-20) 8 (6-20) Glucose Level 88 mg/dL (70-99) 105 mg/dL (70-99) Calcium Level 9.2 mg/dL (8.5-10.1) 8.6 mg/dL (8.5-10.1) Total Bilirubin 0.6 mg/dL (0.2-1.0) 0.8 mg/dL (0.2-1.0) Aspartate Amino Transf (AST/SGOT) 16 U/L (15-37) 13 U/L (15-37) Alanine Aminotransferase (ALT/SGPT) 15 U/L (16-63) 11 U/L (16-63) Alkaline Phosphatase 101 U/L (46-116) 86 U/L (46-116) C-Reactive Protein, Quantitative 7.7 mg/L (0-3.3) Total Protein 7.4 g/dL (6.4-8.2) 6.4 g/dL (6.4-8.2) Albumin 3.5 g/dL (3.4-5.0) 3.1 g/dL (3.4-5.0) Albumin/Globulin Ratio 0.9 (1.0-1.7) 0.9 (1.0-1.7) Vancomycin Level Trough 15.6 mcg/mL (10.0-20.0) Vancomycin Last Dose Date 05/08/18 Vancomycin Last Dose Time 1999 Laboratory Tests Test 05/09/18 07:35 Vancomycin Level Trough 15.6 mcg/mL (10.0-20.0) Vancomycin Last Dose Date 05/08/18 Vancomycin Last Dose Time 1999 Assessment/Plan Assessment/Plan Ischemic ulceration of the right foot and right gotti. Known arterial occlusive disease. Given the extent of disease noted on his 2016 CTA the patient will need aorto femoral bypass graft and possible right femoral popliteal bypass graft. Have recommended preoperative cardiac assessment. Patient will need to be evaluated by claims technician regarding his polycythemia. His hemoglobin will need to be controlled around 15 g postoperatively and further duration is his polycythemia increases his risk of graft thrombosis Patient needs carotid duplex imaging studies. When Studies have been completed and consultation is completed we will schedule him for surgical intervention. TUYET MERCER MD May 09, 2018 17:38
[2018-05-09 19:00] VITALS: BP 90/45
[2018-05-09 23:00] VITALS: BP 112/59
[2018-05-10 02:46] VITALS: BP 102/48
[2018-05-10 06:44] LABS: CREATININE 0.9 mg/dL (0.7-1.3); GFR 81.6
[2018-05-10 07:00] VITALS: BP 125/56
[2018-05-10] MEDS: HYDROcodone/APAP 7.5/325MG 1 TAB TABLET PO PRN ×2 (08:40→20:30)
[2018-05-10] MEDS: LACTOBACILLUS RHAMNOSUS GG 1 CAPSULE. PO SCH ×2 (08:41→20:02)
[2018-05-10] MEDS: APIXABAN 5 MG TABLET. PO SCH ×2 (08:41→20:02)
[2018-05-10] MEDS: VANCOMYCIN 1.25 GM in IV NORMAL SALINE 250ML 250 ML IV SCH ×2 (08:41→20:02)
--- NOTE | 2018-05-10 09:00 | RAD ---
DOPPLER CAROTID BILAT Clinical Indication: PRE-OP. Procedure: Pulsed wave and color-flow duplex imaging was utilized to evaluate the extracranial carotid arteries. Comparison: None. Findings: RIGHT SIDE: Mild atherosclerotic plaque on xiong-scale images. Distal CCA peak systolic velocity 119 cm/sec. ICA peak systolic velocity 94 cm/sec. The right ICA/CCA ratio is 0.8. Flow within the right vertebral artery and right ECA is directed antegrade. Biphasic waveforms are seen in the subclavian artery without elevated velocities. LEFT SIDE: Mild atherosclerotic plaque on xiong-scale images. Distal CCA peak systolic velocity 111 cm/sec. ICA peak systolic velocity 97 cm/sec. The left ICA/CCA ratio is 0.9. Flow within the left vertebral artery and left ECA is directed antegrade. Carotid legend: CCA = common carotid artery ICA = internal carotid artery ECA = external carotid artery IMPRESSION: No hemodynamically significant stenosis. Electronically signed by: Gregorio Britton DO (05/10/2018 8:56 AM) [facility]
--- NOTE | 2018-05-10 09:27 | PDOC ---
PROGRESS NOTES History of Present Illness History of Present Illness Assessment/Plan Assessment/Plan impression 1. cellulitis right foot and leg 2. Mild soft tissue swelling identified dorsal to the metatarsal could be edema or soft tissue infection. 3. No acute osseous findings. 4. tobacco abuse disorder 5. 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 Collateral flow reconstitutes the right superficial femoral artery proximally but more distally the vessel is severely tapered and probably occluded. There is no significant flow seen in the right popliteal artery. There is two-vessel runoff to the ankle from reconstituted collateral vessels. in 2017 6. HX PE 7. POLYCYTHEMIA plan KERRY-2 assay PULM CONSULT HEME CONSULT iv vanc Q 12 HRS ID CONSULT WOUND CARE CONSULT dvt prophylaxis blood cult vascular consult reviewed Vitals Vitals Vital Signs Date Time Temp Pulse Resp B/P (MAP) Pulse Ox O2 Delivery O2 Flow Rate FiO2 05/10/18 08:40 18 Room Air 05/10/18 07:00 98.0 86 125/56 (79) 94 98.0 Physical Exam General: Alert, Oriented X3, Cooperative, mild distress Heart: Regular rate, Normal S1, Normal S2 Lungs: Clear Abdomen: Normal bowel sounds, No tenderness, Other Extremities: No cyanosis, Other (ISCHEMIC ULCER RIGHT FOOT/ CELLULITIS) Labs LABS Indication pain. CTA targeted to the abdominal aorta and the major runoff vessels was performed. Images were reformatted in the coronal and sagittal planes. Volume rendered images were also generated and reviewed. Note is made of the abnormal arterial Doppler study earlier in the day. Approximately 95 cc of Omnipaque 350 was administered. No similar imaging is available. There is some minimal volume loss, likely reflecting scar, in the right middle lobe. A definite significant finding and the visualized lung bases is not seen. There is a periumbilical hernia containing a bowel loop which appears uncomplicated. There is a right inguinal hernia containing fat also appearing uncomplicated. The liver and spleen appear unremarkable and the gallbladder appears grossly normal. No adrenal or renal anomalies are seen. The pancreas appears unremarkable. Acute finding in the abdomen is not seen. The prostate is moderately enlarged. No acute finding is seen in the pelvis. There are a few lymph nodes seen in the groin which are likely incidental. A significant soft tissue finding in either lower extremity is not seen There is intimal thickening involving the abdominal aorta. There is no aneurysm. The celiac and SMA are widely patent at their origins. The SHANNAN is not seen. There are single main renal arteries bilaterally which are widely patent. 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 Collateral vessels reconstitute the internal iliac artery. The superficial femoral artery reconstitutes in the upper thigh there is severe narrowing of the more distal right superficial femoral artery. There is no significant flow seen in the popliteal artery. There is two-vessel runoff to the ankle. On the left there is a web with probable moderate stenosis associated with the common iliac artery. The internal and external iliac arteries are patent. The common femoral is patent. There is marked narrowing of the distal superficial femoral artery. There is no significant flow seen in the popliteal artery. There is single vessel runoff to the ankle. The posterior tibial artery is patent to the ankle. The peroneal artery reconstitutes in the mid calf. 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 Collateral flow reconstitutes the right superficial femoral artery proximally but more distally the vessel is severely tapered and probably occluded. There is no significant flow seen in the right popliteal artery. There is two-vessel runoff to the ankle from reconstituted collateral vessels. On the left there is some moderate narrowing associated with the common iliac artery. There is marked narrowing of the superficial femoral artery distally and no significant flow is seen in the popliteal artery. There is single vessel runoff to the foot. Ventral wall abdominal hernia and right inguinal hernia, both of which appear uncomplicated.. Enlarged prostate. PQRS Compliance Statement: Laboratory Tests STATUS: ADM IN ORD. PHYSICIAN: JOANN OLIVER DO REASON: foot pain PROCEDURE: VENOUS LOWER EXTREMITY RIGHT Examination: VENOUS LOWER EXTREMITY RIGHT History: RT FOOT PAIN, OPEN WOUND RT FOOT, THICK SCALY SKIN RT LOWER LEG

NO EVIDENCE OF DVT
REACTIVE LYMPH NODE IN GROIN

LIMITED VIS OF CALF VEINS Comparison/Correlation: None Findings: Right lower extremity venous duplex ultrasound exam was performed. Visualization of the calf veins is limited. Compression and augmentation utilized. Spectral, color Doppler, and grayscale imaging was performed. Right common femoral, superficial femoral, popliteal, and partially visualized posterior tibial veins are unremarkable. Partially visualized right profunda femoris vein is unremarkable. Right groin lymph node is borderline and presumably reactive. Impression: No right lower extremity DVT. Electronically signed by: Hal Muñoz MD (05/07/2018 9:10 PM) [facility] DOPPLER CAROTID BILAT Clinical Indication: PRE-OP. Procedure: Pulsed wave and color-flow duplex imaging was utilized to evaluate the extracranial carotid arteries. Comparison: None. Findings: RIGHT SIDE: Mild atherosclerotic plaque on xiong-scale images. Distal CCA peak systolic velocity 119 cm/sec. ICA peak systolic velocity 94 cm/sec. The right ICA/CCA ratio is 0.8. Flow within the right vertebral artery and right ECA is directed antegrade. Biphasic waveforms are seen in the subclavian artery without elevated velocities. LEFT SIDE: Mild atherosclerotic plaque on xiong-scale images. Distal CCA peak systolic velocity 111 cm/sec. ICA peak systolic velocity 97 cm/sec. The left ICA/CCA ratio is 0.9. Flow within the left vertebral artery and left ECA is directed antegrade. Carotid legend: CCA = common carotid artery ICA = internal carotid artery ECA = external carotid artery IMPRESSION: No hemodynamically significant stenosis. Electronically signed by: Gregorio Britton DO (05/10/2018 8:56 AM) [facility] Laboratory Tests Test 05/10/18 05:40 Creatinine 0.9 mg/dL (0.7-1.3) Estimated GFR (Cockcroft-Gault) 81.6 Assessment and Plan Assessmemt and Plan Problems Medical Problems: (1) Cellulitis of right lower leg Status: Acute (2) Right foot ulcer Status: Acute Comment Review of Relevant I have reviewed the following items lee (where applicable) has been applied. Labs Laboratory Tests Test 05/09/18 07:35 05/10/18 05:40 Vancomycin Level Trough 15.6 mcg/mL (10.0-20.0) Vancomycin Last Dose Date 05/08/18 Vancomycin Last Dose Time 1999 Creatinine 0.9 mg/dL (0.7-1.3) Estimated GFR (Cockcroft-Gault) 81.6 Laboratory Tests Test 05/10/18 05:40 Creatinine 0.9 mg/dL (0.7-1.3) Estimated GFR (Cockcroft-Gault) 81.6 Microbiology 05/07/18 Blood Culture - Preliminary, Resulted NO GROWTH AFTER 2 DAYS Medications Current Medications Sodium Chloride 1,000 ml @ 1,000 mls/hr 1X ONCE IV Last administered on 05/07at 19:19; Start 05/07/18 at 19:00; Stop 05/07/18 at 19:59; Status DC Vancomycin HCl (Vanco Per Pharmacy) 1 each PRN DAILY PRN MC SEE COMMENTS Last administered on 05/09/18at 13:03; Start 05/07/18 at 19:45 Vancomycin HCl 2 gm/Sodium Chloride 500 ml @ 250 mls/hr ONCE ONCE IV Last administered on 05/07/18at 20:00; Start 05/07/18 at 19:45; Stop 05/07/18 at 21 :44; Status DC Ondansetron HCl (Zofran) 4 mg PRN Q8HRS PRN IV NAUSEA/VOMITING 1ST CHOICE; Start 05/07/18 at 21:15; Stop 05/08/18 at 21:14; Status DC Sodium Chloride 1,000 ml @ 125 mls/hr Q8H IV Last administered on 05/08/18at 20:01; Start 05/07/18 at 21:03; Stop 05/08/18 at 21:02; Status DC Fentanyl Citrate (Fentanyl 2ml Vial) 25 mcg PRN Q2HR PRN IV SEVERE PAIN Last administered on 05/08/18at 13:59; Start 05/08/18 at 01:45; Stop 05/08/18 at 14 :39; Status DC Vancomycin HCl 1.25 gm/Sodium Chloride 250 ml @ 167 mls/hr Q12H IV Last administered on 05/10/18at 08:41; Start 05/08/18 at 08:00 Vancomycin HCl (Vancomycin Trough Level) 1 each 1X ONCE MC ; Start 05/10/18 at 07:30; Stop 05/10/18 at 07:30; Status DC Lactobacillus Rhamnosus (Culturelle) 1 cap BID PO Last administered on at 08:41; Start 05/08/18 at 09:00 Fentanyl Citrate (Fentanyl 2ml Vial) 50 mcg PRN Q2HR PRN IV SEVERE PAIN Last administered on 05/09/18at 09:05; Start 05/08/18 at 14:45 Apixaban (Eliquis) 5 mg BID PO Last administered on 05/10/18at 08:41; Start at 15:00 Acetaminophen/ Hydrocodone Bitart (Lortab 7.5/325) 1 tab PRN Q4HRS PRN PO PAIN Last administered on 05/10/18at 08:40; Start 05/09/18 at 11:15 Info (Anti-Coagulation Monitoring By Pharmacy) 1 each PRN DAILY PRN MC SEE COMMENTS; Start 05/09/18 at 11:30 Magnesium Hydroxide (Milk Of Magnesia) 2,400 mg PRN DAILY PRN PO CONSTIPATION Last administered on 05/09/18at 14:28; Start 05/09/18 at 14:15 Active Scripts Active Reported Eliquis (Apixaban) 5 Mg Tablet 5 Mg PO BID Vitals/I & O Vital Sign - Last 24 Hours 05/09/18 05/09/18 05/09/18 05/09/18 09:35 11:00 15:00 17:30 Temp 98.5 98.8 98.5 98.8 Pulse 82 85 Resp 20 20 18 B/P (MAP) 120/55 (76) 102/50 (67) Pulse Ox 92 94 O2 Delivery Room Air Room Air Room Air Room Air 05/09/18 05/09/18 05/09/18 05/09/18 18:39 19:00 21:10 22:48 Temp 98.6 98.6 Pulse 80 Resp 17 20 B/P (MAP) 90/45 (60) Pulse Ox 94 96 O2 Delivery Room Air Room Air Room Air 05/09/18 05/09/18 05/10/18 05/10/18 23:00 23:56 02:46 07:00 Temp 98.4 98.0 98.4 98.0 Pulse 73 73 86 Resp 17 20 19 20 B/P (MAP) 112/59 (76) 102/48 (66) 125/56 (79) Pulse Ox 96 93 94 O2 Delivery Room Air Room Air Room Air Room Air 05/10/18 08:40 Resp 18 O2 Delivery Room Air Intake and Output 05/09/18 05/09/18 05/10/18 15:00 23:00 07:00 Intake Total 360 ml 430 ml Output Total 650 ml 600 ml 400 ml Balance -290 ml -170 ml -400 ml NAZIA MORRIS MD May 10, 2018 09:27
[2018-05-10 11:00] VITALS: BP 103/52
--- NOTE | 2018-05-10 11:37 | PDOC ---
PULMONARY PROGRESS NOTES Vitals Vital Signs Date Time Temp Pulse Resp B/P (MAP) Pulse Ox O2 Delivery O2 Flow Rate FiO2 05/10/18 09:40 16 Room Air 05/10/18 07:00 98.0 86 125/56 (79) 94 98.0 Lungs: Clear Cardiovascular: S1, S2 Abdomen: Soft Extremities: No Edema Labs Laboratory Tests Test 05/09/18 07:35 05/10/18 05:40 Vancomycin Level Trough 15.6 mcg/mL (10.0-20.0) Vancomycin Last Dose Date 05/08/18 Vancomycin Last Dose Time 1999 Creatinine 0.9 mg/dL (0.7-1.3) Estimated GFR (Cockcroft-Gault) 81.6 Laboratory Tests Test 05/10/18 05:40 Creatinine 0.9 mg/dL (0.7-1.3) Estimated GFR (Cockcroft-Gault) 81.6 Medications Active Scripts Medications Dose Route/Sig Max Daily Dose Days Date Category Eliquis (Apixaban) 5 Mg Tablet 5 Mg PO BID 07/18/17 Reported Impression . NOTE DICTATED H/O PE PT NEVER FOLLOW UP WITH ME WILL REPEAT CTA OF CHEST CONTINUE THE SAME FOR NOW IF SURGERY IS NEEDED RESP STATUS IS COMPENSATED TO [facility] YUE JARAMILLO MD May 10, 2018 11:37
[2018-05-10] MEDS ORDERED: IOHEXOL 300 MG/ML 100ML VIAL. IV ONE (11:45)
[2018-05-10] MEDS ORDERED: CONTRAST GIVEN. MC PRN (11:45)
--- NOTE | 2018-05-10 12:28 | CONS ---
DATE OF CONSULTATION: 05/10/2018 ATTENDING PHYSICIAN: Ji Candelaria MD. REASON FOR CONSULTATION: The patient seen in pulmonary consultation at the request of Dr. Candelaria for history of PE and preoperative evaluation. HISTORY OF PRESENT ILLNESS: The patient is a 78-year-old that was last seen by our service back in June. At that time, he presented with increasing shortness of breath, hemoptysis, had a CT chest, which revealed pulmonary embolism and pneumonia. The patient was treated for the above. He was discharged home. He has not followed up in the office. He claims that he does not have a primary care doctor. He presented now with a history of peripheral vascular disease with right common iliac and external iliac artery occlusion. He has been seen by Vascular Surgery for the ischemic ulceration of the right foot and right gotti. There is a possibility of requiring aortofemoral bypass graft and possible right femoral popliteal bypass graft. I was asked to see him in consultation for preoperative evaluation. The patient is currently on Eliquis. He denies hemoptysis. No progressive dyspnea or tachypnea. No fever, chills or night sweats. PAST MEDICAL HISTORY: 1. COPD, he does not wear oxygen at home. 2. Peripheral vascular disease as indicated above. 3. Coronary artery disease. 4. Hyperlipidemia. 5. Tobacco dependence. PAST SURGICAL HISTORY: Status post previous inguinal hernia repair. FAMILY HISTORY: Diabetes. SOCIAL HISTORY: He continues to smoke. Denies any alcohol intake. REVIEW OF SYSTEMS: CONSTITUTIONAL: No fever or chills. EYES: No changes in visual acuity. HENT: No nasal congestion or sore throat. PULMONARY: As indicated above. CARDIOVASCULAR: No chest pain or pressure. GASTROINTESTINAL: No nausea, vomiting, diarrhea. GENITOURINARY: No dysuria or frequency. MUSCULOSKELETAL: No localized muscle aches or joint pain. SKIN: No new skin rashes. ALLERGIES: No known drug allergies. CURRENT MEDICATIONS: List was reviewed. PHYSICAL EXAMINATION: GENERAL: The patient was in no respiratory distress. VITAL SIGNS: Stable. O2 saturation currently 94%. HEENT: Eyes, the sclerae were nonicteric. NECK: Jugular venous distention was not elevated. No lymphadenopathy. CHEST: Full expansion. LUNGS: Adequate airway flow with no wheezes. CARDIOVASCULAR: Regular rate and rhythm with distant S1, S2, no S3. ABDOMEN: Soft, nontender, nondistended. EXTREMITIES: No clubbing or cyanosis. He had dressing on the right foot. NEUROLOGIC: The patient was awake, alert, following commands. A detailed neuro exam was not performed. LABORATORY DATA: Reviewed. White count was normal. Hemoglobin and hematocrit were noted. Electrolytes were noted. Right lower extremity venous Doppler was negative. IMPRESSION: 1. History of pulmonary embolism. 2. Chronic obstructive pulmonary disease. 3. Tobacco dependence. 4. Peripheral vascular disease. 5. Chronic obstructive pulmonary disease. 6. 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 PLAN: 1. We will repeat CT angiogram, the patient has not followed up in the outpatient department. I do not think he needs long-term anticoagulation. 2. Follow Cardiology input. 3. Follow Hematology input. 4. Nebulized treatments. I do appreciate the privilege in sharing in the patient's care. If the patient requires surgical intervention, I do not see any absolute contraindications, from a pulmonary standpoint of view. YUE JARAMILLO MD DR: BERHANE/regina JOB#: [id number] / [id number]
[2018-05-10] MEDS: VANCOMYCIN PER PHARMACY MC PRN (12:34)
[2018-05-10] MEDS: ANTI-COAG MONITOR BY PHARMACY. MC PRN (12:39)
--- NOTE | 2018-05-10 12:52 | RAD ---
PQRS Compliance statement: One or more of the following individualized dose reduction techniques were utilized for this examination: 1. Automated exposure control. 2. Adjustment of the mA and/or kV according to patient size. 3. Use of iterative reconstruction technique. Indication:SHORTNESS OF BREATH, R/O PE, HX OF DVT
OMNI 300 100ML, PRIOR SENT TECHNIQUE: CT angiogram of the chest with IV contrast with multiplanar MIP reformats. COMPARISON:07/14/2017 FINDINGS: Diagnostic quality PE study. There are no central, segmental or subsegmental filling defects in the pulmonary arteries. Heart is normal in size. No pericardial or pleural effusion. Calcified subcarinal and right hilar lymph nodes. No enlarged axillary adenopathy. Central airways are patent. Subpleural scarring or subsegmental atelectasis is seen in the right middle lobe, lingula and right lower lobe. Visualized sections through the liver, spleen, gallbladder, pancreas, adrenals and kidneys within normal limits. No suspicious bony lesion. IMPRESSION: 1. No PE. 2. No pneumonia. Electronically signed by: Gregorio Britton DO (05/10/2018 12:48 PM) [facility]
--- NOTE | 2018-05-10 13:02 | RAD ---
Indication:COPD/polycythemia vera TECHNIQUE:Portable AP chest X-ray COMPARISON: CT from the same day FINDINGS: Heart is normal in size. Mild bilateral subpleural scarring or subsegmental atelectasis seen better seen on CT chest from the same day. No focal consolidation. No pneumothorax or pleural effusion. Visualized bony thorax is within normal limits. IMPRESSION: No acute pulmonary process. Please see report on CT chest from the same day. Electronically signed by: Gregorio Britton DO (05/10/2018 12:59 PM) [facility]
--- NOTE | 2018-05-10 14:11 | PDOC2 ---
CONSULT Date of Consult Date of Consult DATE: 05/10/18 TIME: 14:04 Reason for Consult Reason for Consult: Probable history of coronary artery disease, preoperative evaluation Referring Physician Referring Physician: Dr. Hunter Identification/Chief Complaint Chief Complaint Right foot pain Source Source: Chart review, Patient History of Present Illness Reason for Visit: The patient is a 78-year-old male who developed a right foot ulcer and pain over the last several days. He came to the emergency room for workup. He is a somewhat difficult historian but does have a history of possible coronary artery disease, a pulmonary embolism, cellulitis, peripheral arterial disease. Initial workup on CT scanning shows severe peripheral arterial disease with an occluded right common iliac and severe disease in the left superficial femoral artery. He has an ulcer on his right foot and has been evaluated by the vascular surgery service probable upcoming surgery. He has a history of COPD and continues to smoke less than one pack per day. He is relatively comfortable in his bed this morning. Past Medical History Cardiovascular: No pertinent hx, HTN, Hyperlipidemia, Other (possible coronary artery disease) Pulmonary: No pertinent hx, COPD GI: No pertinent hx Hepatobiliary: No pertinent hx Psych: Addictions Musculoskeletal: Osteoarthritis Infectious disease: Other Renal/: No pertinent hx Endocrine: No pertinent hx Family History Family History: No Significant, High Cholestrol, Hypertension Social History <1 pack per day ALCOHOL: rare Drugs: None Current Problem List Problem List Problems Medical Problems: (1) Cellulitis of right lower leg Status: Acute (2) Right foot ulcer Status: Acute Current Medications Current Medications Current Medications Sodium Chloride 1,000 ml @ 1,000 mls/hr 1X ONCE IV Last administered on 05/07at 19:19; Start 05/07/18 at 19:00; Stop 05/07/18 at 19:59; Status DC Vancomycin HCl (Vanco Per Pharmacy) 1 each PRN DAILY PRN MC SEE COMMENTS Last administered on 05/10/18at 12:34; Start 05/07/18 at 19:45 Vancomycin HCl 2 gm/Sodium Chloride 500 ml @ 250 mls/hr ONCE ONCE IV Last administered on 05/07/18at 20:00; Start 05/07/18 at 19:45; Stop 05/07/18 at 21 :44; Status DC Ondansetron HCl (Zofran) 4 mg PRN Q8HRS PRN IV NAUSEA/VOMITING 1ST CHOICE; Start 05/07/18 at 21:15; Stop 05/08/18 at 21:14; Status DC Sodium Chloride 1,000 ml @ 125 mls/hr Q8H IV Last administered on 05/08/18at 20:01; Start 05/07/18 at 21:03; Stop 05/08/18 at 21:02; Status DC Fentanyl Citrate (Fentanyl 2ml Vial) 25 mcg PRN Q2HR PRN IV SEVERE PAIN Last administered on 05/08/18at 13:59; Start 05/08/18 at 01:45; Stop 05/08/18 at 14 :39; Status DC Vancomycin HCl 1.25 gm/Sodium Chloride 250 ml @ 167 mls/hr Q12H IV Last administered on 05/10/18 08:41; Start 05/08/18 at 08:00 Vancomycin HCl (Vancomycin Trough Level) 1 each 1X ONCE MC ; Start 05/10/18 at 07:30; Stop 05/10/18 at 07:30; Status DC Lactobacillus Rhamnosus (Culturelle) 1 cap BID PO Last administered on at 08:41; Start 05/08/18 at 09:00 Fentanyl Citrate (Fentanyl 2ml Vial) 50 mcg PRN Q2HR PRN IV SEVERE PAIN Last administered on 05/09/18 09:05; Start 05/08/18 at 14:45 Apixaban (Eliquis) 5 mg BID PO Last administered on 05/10/18 08:41; Start at 15:00 Acetaminophen/ Hydrocodone Bitart (Lortab 7.5/325) 1 tab PRN Q4HRS PRN PO PAIN Last administered on 05/10/18at 08:40; Start 05/09/18 at 11:15 Info (Anti-Coagulation Monitoring By Pharmacy) 1 each PRN DAILY PRN MC SEE COMMENTS Last administered on 05/10/18 12:39; Start 05/09/18 at 11:30 Magnesium Hydroxide (Milk Of Magnesia) 2,400 mg PRN DAILY PRN PO CONSTIPATION Last administered on 05/09/18 14:28; Start 05/09/18 at 14:15 Iohexol (Omnipaque 300 Mg/ml) 100 ml 1X ONCE IV Last administered on at 11:45; Start 05/10/18 at 11:45; Stop 05/10/18 at 11:46; Status DC Info (CONTRAST GIVEN -- Rx MONITORING) 1 each PRN DAILY PRN MC SEE COMMENTS; Start 05/10/18 at 11:45; Stop 05/12/18 at 11:44 Active Scripts Active Reported Eliquis (Apixaban) 5 Mg Tablet 5 Mg PO BID Allergies Allergies: Coded Allergies: No Known Drug Allergies (Unverified , 09/22/16) ROS Skin: Yes Other (right foot pain) Physical Exam General: mild distress HEENT: Atraumatic Lungs: Clear to auscultation Heart: Regular rate Abdomen: Normal bowel sounds Vitals VITALS Vital Signs Date Time Temp Pulse Resp B/P (MAP) Pulse Ox O2 Delivery O2 Flow Rate FiO2 05/10/18 11:00 98.4 73 21 103/52 (69) 99 Room Air 98.4 05/10/18 08:00 2.0 Labs Labs Laboratory Tests Test 05/09/18 07:35 05/10/18 05:40 Vancomycin Level Trough 15.6 mcg/mL (10.0-20.0) Vancomycin Last Dose Date 05/08/18 Vancomycin Last Dose Time 1999 Creatinine 0.9 mg/dL (0.7-1.3) Estimated GFR (Cockcroft-Gault) 81.6 Laboratory Tests Test 05/10/18 05:40 Creatinine 0.9 mg/dL (0.7-1.3) Estimated GFR (Cockcroft-Gault) 81.6 Images Images Lower extremity CTA as above. Assessment/Plan Assessment/Plan 1. Severe peripheral arterial disease. Right foot ulcer as above. CTA showing severe bilateral disease. Evaluated by the vascular surgery service with probable upcoming surgery. Antibiotics as per ID. From a cardiac viewpoint we will check an echocardiogram for LV function. We'll also check a Lexiscan nuclear test to exclude underlying coronary ischemia. 2. Hypertension. Patient's blood pressures under better control. Will continue to monitor. 3. Uncertain cholesterol level. We'll check a cholesterol panel. 4. History of a PE. CT scan of the chest is pending. 5. COPD. Adjusting medications. Pulmonary consult in progress. Thank you for allowing us to participate in the care of your patient. YANG JENKINS MD May 10, 2018 14:11
[2018-05-10 15:00] VITALS: BP 96/51
--- NOTE | 2018-05-10 16:22 | CONS ---
DATE OF CONSULTATION: 05/10/2018 REQUESTING PHYSICIAN: Dr. Ji Candelaria. REASON FOR CONSULTATION: Evaluation for polycythemia in a patient needing surgery for peripheral vascular disease. HISTORY OF PRESENT ILLNESS: The patient is a 78-year-old gentleman who was noted to have polycythemia at least since 2014. He has had a hematocrit around 20 and his platelets have been low at times around 110. He had an erythropoietin level done in 2014 that was low at 2.5. A JAK2 mutation was done previously, but was negative. He was evaluated by Dr. Nichole Holbrook on 09/24/2016 at [facility] when he was admitted for hip pain. Dr. Holbrook recommended phlebotomy and JAK2 NGS testing, which was not done as it was not available. Dr. Holbrook recommended a followup, but he never returned to the office. He did receive 1 phlebotomy on 09/24/2016. I reviewed labs from [facility] including old records. He has had elevated hemoglobin of 19.9 on 09/22/2016 and the hematocrit was 58.6 on 09/22/2016 and it was 56.0 on 05/08/2018. He denies any nosebleeds or gum bleeding. No hematemesis, melena or hematochezia. No hemoptysis or hematuria. He has a history of pulmonary embolism in 2018. A CT angiogram on 07/14/2017 revealed suboptimal study. There was evidence of proximal segmental PE on the right side, supplying right middle lobe and right lower lobe and distal segmental PE in the left lower lobe. Suggestion of pulmonary infarct in the right middle lobe. He was started on Eliquis. The patient was supposed to follow up with Pulmonary Medicine, but he never kept his appointment. He had a followup CT angiogram on 05/10/2018, which was negative for pulmonary embolism and negative for pneumonia. I discussed with Dr. Arzola. The patient was admitted to [facility] on 05/07/2018 for management of cellulitis. His right foot was red and swollen. The patient was evaluated by Vascular Surgery. The patient was noted to have painful ulceration of the right gotti and the right foot. 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 There is also high-grade left common iliac artery stenosis. The patient will need aortofemoral bypass graft and possible right femoral popliteal bypass graft per Dr. Bobby Wick. Dr. Wick recommended a Hematology consultation for evaluation of polycythemia and to hopefully bring the hemoglobin down to around 15 before he proceed with surgery. Hence, I was consulted for further evaluation. PAST MEDICAL HISTORY: History of angina, DVT, history of pulmonary embolism in 06/2017, which has resolved per CT angiogram of 04/2018. He has a history of polycythemia, but never diagnosed as polycythemia vera and he has had 1 phlebotomy on 09/24/2016 and he declined further phlebotomies and he declined further followup with Dr. Nichole Holbrook. He also has a history of COPD, osteoarthritis. FAMILY HISTORY: Positive for hypercholesterolemia. SOCIAL HISTORY: He has history of smoking less than 1 pack per day. REVIEW OF SYSTEMS: A 12-point review of system was performed. Pertinent positives are mentioned in the history of present illness. Rest of the system review is negative. PHYSICAL EXAMINATION: GENERAL APPEARANCE: The patient is a 78-year-old gentleman who is in no acute cardiorespiratory distress. VITAL SIGNS: Blood pressure 125/56, temperature 98 degrees. HEAD: Atraumatic, normocephalic. EYES: No icterus. NECK: Supple. CHEST: Bilaterally symmetrical. No crepitations or rhonchi heard. HEART: S1, S2 normal. ABDOMEN: Soft, nontender, no hepatosplenomegaly. CENTRAL NERVOUS SYSTEM: No focal deficits. LYMPHATICS: No lymphadenopathy. SKIN: No rashes. PSYCHOLOGIC: Mood and affect are appropriate. MUSCULOSKELETAL: He has open ulcer on the anterolateral aspect of the right foot, which extends down through the skin and subcutaneous tissue. He has dressing in place. LABORATORY DATA: On 05/08/2018, WBC 7.9, hemoglobin 18.7, platelet count 133, hematocrit 56, creatinine 0.9. IMPRESSION AND PLAN: 1. Polycythemia. He has had elevated hemoglobin and hematocrit since 2014. His erythropoietin was low at 2.5 in 2014. However, the JAK2 mutation was negative. I agree to proceed with further testing with next generation sequencing for JAK2 mutation. It appears that this was ordered by Dr. Nichole Holbrook in 2016 and I will check with Pathology if this was completed. 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 The patient does understand that he had a phlebotomy on 09/24/2016, but he did not understand that it is therapeutic phlebotomy and he felt the old bag of blood was taken for testing. I educated him that phlebotomy was a therapeutic procedure. In addition, he has not been compliant with followup appointments. He did not keep his appointment with Dr. Nichole Holbrook and he did not keep his appointment with Dr. Michael Arzola. I have advised him to be compliant for followup and management. 2. Pulmonary embolism in 06/2017. He also has a history of DVT in the past. He is on Eliquis and the pulmonary embolism has resolved as of CT angiogram done on 05/10/2018. I discussed with Dr. Arzola and Dr. Arzola is considering to discontinue, so I discussed with Dr. Arzola. 3. Peripheral arterial disease. Appreciate Vascular Surgery consultation. He will need surgery after the hemoglobin and hematocrit are controlled and after the workup is completed. 4. Thrombocytopenia. AMY SWEENEY MD DR: MILAGROS/regina JOB#: [id number] / [id number] SUDHA
--- NOTE | 2018-05-10 18:10 | PDOC ---
Infectious Disease Note Vital Sign Vital Signs Vital Signs Date Time Temp Pulse Resp B/P (MAP) Pulse Ox O2 Delivery O2 Flow Rate FiO2 05/10/18 15:00 98.2 92 20 96/51 (66) 94 Room Air 98.2 05/10/18 08:00 2.0 Labs Lab Laboratory Tests Test 05/10/18 05:40 Creatinine 0.9 mg/dL (0.7-1.3) Estimated GFR (Cockcroft-Gault) 81.6 Micro Microbiology 05/07/18 Blood Culture - Preliminary, Resulted NO GROWTH AFTER 2 DAYS Objective Assessment RLE ulcerations and cellulitis Arterial occlusive disease, vascular following. May need aorto-fem bypass graft and possible right [id number] graft h/o DVT/PE Tobacco dependence COPD Plan Plan of Care continue vanc and add Zosyn wound culture in process Monitor labs/temp/renal function closely Local wound care Thank you [phone] Patient seen and examined. Chart reviewed in detail. Case discussed with GETTERER. Agree with above plan MICHELLE WARD APRN May 10, 2018 18:10 INDU ROMEO MD May 10, 2018 20:19
[2018-05-10] MEDS: PIPERACILLIN/TAZOBACTAM 3.375 GM in IV NORMAL SALINE 50ML 50 ML IV SCH ×2 (18:14→23:45)
[2018-05-10 19:00] VITALS: BP 105/54
[2018-05-10] MEDS: MAGNESIUM HYDROXIDE 2,400 MG/30 ML ORAL.SUSP. PO PRN (20:01)
[2018-05-10 23:00] VITALS: BP 94/56
[2018-05-11] MEDS: HYDROcodone/APAP 7.5/325MG 1 TAB TABLET PO PRN ×3 (00:43→20:07)
[2018-05-11 03:00] VITALS: BP 93/57
[2018-05-11] MEDS: PIPERACILLIN/TAZOBACTAM 3.375 GM in IV NORMAL SALINE 50ML 50 ML IV SCH ×4 (05:45→23:46)
--- NOTE | 2018-05-11 06:14 | CONS ---
DATE OF CONSULTATION: 05/10/2018 Kam Tipton APRN, dictating for Indu Romeo MD REFERRING PHYSICIAN: Dr. Candelaria. REASON FOR CONSULTATION: Ischemic foot with cellulitis and wound. HISTORY OF PRESENT ILLNESS: This patient is a 78-year-old male with a past medical history of polycythemia, DVT/PE and peripheral arterial disease. He says he noticed an ulcer develop on his right foot about 3 weeks ago that has increased in size and depth with drainage and area of redness and swelling. He also has developed a smaller ulcer along the right gotti. An x-ray of the right foot showed mild soft tissue swelling identified dorsal to the metatarsal. No acute osseous findings. Venous ultrasound was negative for DVT. Right groin lymph node borderline and presumably reactive. He had a normal white blood cell count and a sed rate of 0 and CRP 7.7. A culture was obtained earlier today. He is currently on vancomycin. The patient was evaluated by Dr. Wick. A CTA in 2017 showed occlusive disease of the right common iliac artery with collateral flow. The need for aortofemoral bypass graft and possible right femoral popliteal bypass graft is under consideration. The patient says he has had history of cellulitis in the past along with chronic swelling of his right leg. He complains of quite a bit of dryness as well as dry skin. He denies fevers, chills, sweats or body aches. Denies nausea, vomiting or diarrhea. Denies shortness of air, cough or chest discomfort. PAST MEDICAL HISTORY: Peripheral vascular disease, tinnitus, constipation, hyperlipidemia, chronic obstructive pulmonary disease, addictions and osteoarthritis. PAST SURGICAL HISTORY: Right femoral popliteal bypass graft in 2003. FAMILY HISTORY: Positive for hypercholesterol. SOCIAL HISTORY: The patient is single and lives at home. He is a current smoker and drinks alcohol rarely. ALLERGIES: No known drug allergies. MEDICATIONS: Vancomycin. Other medications are available and have been reviewed on the JUL. PHYSICAL EXAMINATION: VITAL SIGNS: Temperature 98.2, blood pressure 96/51, heart rate 92, respiratory rate 20, pulse oximetry 94% on room air. GENERAL: The patient is propped up in bed, alert and watching TV. HEENT: Pupils equally round. Normal conjunctivae. Oral cavity: Pharynx pink and moist. NECK: Supple. LUNGS: Clear to auscultation. HEART: S1, S2. ABDOMEN: Nondistended, soft and nontender with bowel sounds present. EXTREMITIES: No gross edema or cyanosis. Right lower extremity rubor with wrinkles and dry flaky skin. He has 2 ulcers located anterolateral aspect of the gotti and dorsal aspect of the right foot with bleeding. Dorsalis pedis pulse difficult to palpate. His toe nails are thick and yellow. SKIN: Warm without rash. NEUROLOGIC: Alert and oriented x 3. LABORATORY DATA: From 05/08/2018, WBC 7.9; hemoglobin 18.7; platelet count 133,000. Recent creatinine 0.9, BUN 7, electrolytes unremarkable. Glucose 105, AST 13, ALT 11, total bilirubin 0.8, albumin 3.1. Vancomycin trough from 05/09 is 15.6. Blood cultures from 05/07 negative to date. Chest CTA showed no PE or pneumonia. Chest x-ray showed no acute pulmonary process. Carotid Doppler study showed no hemodynamically significant stenosis. Lower extremity ultrasound as mentioned above. Foot x-ray as mentioned above. Anaerobic, aerobic culture pending. IMPRESSION: 1. Right lower extremity ulcerations and cellulitis. 2. Arterial occlusive disease. Vascular is following. 3. History of deep venous thrombosis/pulmonary embolism. 4. Tobacco dependence. 5. Chronic obstructive pulmonary disease. PLAN: Continue the vancomycin and add Zosyn. We will follow up on wound culture results. Continue to monitor laboratory values, temperature and renal function closely. Local wound care. Thank you, Dr. Candelaria, for asking us to participate in this patient's care. Should you have further questions or concerns, please call. INDU ROMEO MD DR: ABRAM/regina JOB#: [id number] / [id number]
[2018-05-11 07:00] VITALS: BP 100/50
--- NOTE | 2018-05-11 08:13 | PDOC ---
Infectious Disease Note Subjective Subjective Feeling alright this morning Denies pain/F/C/N/V/D/SOA ROS ROS per HPI Vital Sign Vital Signs Vital Signs Date Time Temp Pulse Resp B/P (MAP) Pulse Ox O2 Delivery O2 Flow Rate FiO2 05/11/18 03:00 97.9 70 20 93/57 (69) 91 Room Air 97.9 05/10/18 08:00 2.0 Physical Exam PHYSICAL EXAM GENERAL: Resting quietly HEENT: Normal conjunctivae. Oral cavity: Pharynx pink and moist. NECK: Supple. LUNGS: Clear to auscultation. HEART: S1, S2. ABDOMEN: Nondistended, soft and nontender with bowel sounds present. EXTREMITIES: No gross edema or cyanosis. Right lower extremity rubor with wrinkles and dry flaky skin. He has 2 ulcers located anterolateral aspect of the gotti and dorsal aspect of the right foot with bleeding. Dorsalis pedis pulse difficult to palpate. His toe nails are thick and yellow. SKIN: Warm without rash. NEUROLOGIC: Alert and oriented x 3. Labs Micro 05/07/18 Blood Culture - Preliminary, Resulted NO GROWTH AFTER 3 DAYS Objective Assessment RLE ulcerations and cellulitis Arterial occlusive disease, vascular following. May need aorto-fem bypass graft and possible right [id number]-rkl-[id number] graft h/o DVT/PE Tobacco dependence COPD Plan Plan of Care continue vanc and Zosyn wound culture in process Monitor labs/temp/renal function closely Local wound care Patient seen and examined. Chart reviewed in detail. Case discussed with LABORATORY ASST. Agree with above Plan MICHELLE WARD APRN May 11, 2018 08:13 INDU ROMEO MD May 11, 2018 22:16
[2018-05-11] MEDS: VANCOMYCIN 1.25 GM in IV NORMAL SALINE 250ML 250 ML IV SCH ×2 (08:14→20:04)
[2018-05-11] MEDS: LACTOBACILLUS RHAMNOSUS GG 1 CAPSULE. PO SCH ×2 (09:39→20:05)
[2018-05-11] MEDS: APIXABAN 5 MG TABLET. PO SCH ×2 (09:39→20:05)
--- NOTE | 2018-05-11 10:55 | PDOC ---
PULMONARY PROGRESS NOTES Subjective PT NOT MORE SOA Vitals Vital Signs Date Time Temp Pulse Resp B/P (MAP) Pulse Ox O2 Delivery O2 Flow Rate FiO2 05/11/18 09:39 18 Room Air 05/11/18 07:00 97.9 79 100/50 (67) 91 97.9 05/10/18 08:00 2.0 ROS: No Nausea, No Chest Pain, No Abdominal Pain, No Increase Cough Lungs: Clear Cardiovascular: S1, S2 Abdomen: Soft Neuro Exam: Alert Extremities: No Edema Skin: Warm Labs Laboratory Tests Test 05/10/18 05:40 Creatinine 0.9 mg/dL (0.7-1.3) Estimated GFR (Cockcroft-Gault) 81.6 Medications Active Scripts Medications Dose Route/Sig Max Daily Dose Days Date Category Eliquis (Apixaban) 5 Mg Tablet 5 Mg PO BID 07/18/17 Reported Impression . IMPRESSION: 1. History of pulmonary embolism. 2. Chronic obstructive pulmonary disease. 3. Tobacco dependence. 4. Peripheral vascular disease. 5. Chronic obstructive pulmonary disease. 6. 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 CT CHEST IMPRESSION: 1. No PE. 2. No pneumonia. Plan . RESP STATUS IS COMPENSATED D/W DR SWEENEY YESTERDAY POSSIBLE BONE MARROW NO PE NO NEED FOR CONTINUED ANTICOAGULATION IF SURGERY IS NEEDED OK BY YUE BEACH MD May 11, 2018 10:55
[2018-05-11 11:00] VITALS: BP 104/52
--- NOTE | 2018-05-11 11:03 | PDOC ---
PROGRESS NOTES History of Present Illness History of Present Illness Assessment/Plan Assessment/Plan impression 1. cellulitis right foot and leg 2. Mild soft tissue swelling identified dorsal to the metatarsal could be edema or soft tissue infection. 3. No acute osseous findings. 4. tobacco abuse disorder 5. 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 Collateral flow reconstitutes the right superficial femoral artery proximally but more distally the vessel is severely tapered and probably occluded. There is no significant flow seen in the right popliteal artery. There is two-vessel runoff to the ankle from reconstituted collateral vessels. in 2017 6. HX PE 7. POLYCYTHEMIA 8. HYPOKALEMIA plan REPLACE K repeat CT angiogram to more clearly delineate arterial anatomy prior to scheduling KERRY-2 assay NEG 2017 PULM CONSULT HEME CONSULT REVIEWED iv vanc Q 12 HRS ID CONSULT WOUND CARE CONSULT dvt prophylaxis blood cult vascular consult reviewed Vitals Vitals Vital Signs Date Time Temp Pulse Resp B/P (MAP) Pulse Ox O2 Delivery O2 Flow Rate FiO2 05/11/18 09:39 18 Room Air 05/11/18 07:00 97.9 79 100/50 (67) 91 97.9 05/10/18 08:00 2.0 Physical Exam Physical Exam GENERAL: Resting quietly HEENT: Normal conjunctivae. Oral cavity: Pharynx pink and moist. NECK: Supple. LUNGS: Clear to auscultation. HEART: S1, S2. ABDOMEN: Nondistended, soft and nontender with bowel sounds present. EXTREMITIES: No gross edema or cyanosis. Right lower extremity rubor with wrinkles and dry flaky skin. He has 2 ulcers located anterolateral aspect of the gotti and dorsal aspect of the right foot with bleeding. Dorsalis pedis pulse difficult to palpate. His toe nails are thick and yellow. SKIN: Warm without rash. NEUROLOGIC: Alert and oriented x 3. General: Alert, Oriented X3, Cooperative, mild distress Heart: Regular rate, Normal S1 Lungs: Clear Abdomen: Normal bowel sounds Extremities: No cyanosis, Other (ISCHEMIC ULCER RIGHT FOOT/ CELLULITIS) Assessment and Plan Assessmemt and Plan Problems Medical Problems: (1) Cellulitis of right lower leg Status: Acute (2) Right foot ulcer Status: Acute Comment Review of Relevant I have reviewed the following items lee (where applicable) has been applied. Labs Laboratory Tests Test 05/10/18 05:40 Creatinine 0.9 mg/dL (0.7-1.3) Estimated GFR (Cockcroft-Gault) 81.6 Microbiology 05/07/18 Blood Culture - Preliminary, Resulted NO GROWTH AFTER 3 DAYS Medications Current Medications Sodium Chloride 1,000 ml @ 1,000 mls/hr 1X ONCE IV Last administered on 05/07at 19:19; Start 05/07/18 at 19:00; Stop 05/07/18 at 19:59; Status DC Vancomycin HCl (Vanco Per Pharmacy) 1 each PRN DAILY PRN MC SEE COMMENTS Last administered on 05/10/18at 12:34; Start 05/07/18 at 19:45 Vancomycin HCl 2 gm/Sodium Chloride 500 ml @ 250 mls/hr ONCE ONCE IV Last administered on 05/07/18at 20:00; Start 05/07/18 at 19:45; Stop 05/07/18 at 21 :44; Status DC Ondansetron HCl (Zofran) 4 mg PRN Q8HRS PRN IV NAUSEA/VOMITING 1ST CHOICE; Start 05/07/18 at 21:15; Stop 05/08/18 at 21:14; Status DC Sodium Chloride 1,000 ml @ 125 mls/hr Q8H IV Last administered on 05/08/18at 20:01; Start 05/07/18 at 21:03; Stop 05/08/18 at 21:02; Status DC Fentanyl Citrate (Fentanyl 2ml Vial) 25 mcg PRN Q2HR PRN IV SEVERE PAIN Last administered on 05/08/18at 13:59; Start 05/08/18 at 01:45; Stop 05/08/18 at 14 :39; Status DC Vancomycin HCl 1.25 gm/Sodium Chloride 250 ml @ 167 mls/hr Q12H IV Last administered on 05/11/18at 08:14; Start 05/08/18 at 08:00 Vancomycin HCl (Vancomycin Trough Level) 1 each 1X ONCE MC ; Start 05/10/18 at 07:30; Stop 05/10/18 at 07:30; Status DC Lactobacillus Rhamnosus (Culturelle) 1 cap BID PO Last administered on at 09:39; Start 05/08/18 at 09:00 Fentanyl Citrate (Fentanyl 2ml Vial) 50 mcg PRN Q2HR PRN IV SEVERE PAIN Last administered on 05/09/18at 09:05; Start 05/08/18 at 14:45 Apixaban (Eliquis) 5 mg BID PO Last administered on 05/11/18at 09:39; Start at 15:00 Acetaminophen/ Hydrocodone Bitart (Lortab 7.5/325) 1 tab PRN Q4HRS PRN PO PAIN Last administered on 05/11/18at 09:39; Start 05/09/18 at 11:15 Info (Anti-Coagulation Monitoring By Pharmacy) 1 each PRN DAILY PRN MC SEE COMMENTS Last administered on 05/10/18at 12:39; Start 05/09/18 at 11:30 Magnesium Hydroxide (Milk Of Magnesia) 2,400 mg PRN DAILY PRN PO CONSTIPATION Last administered on 05/10/18at 20:01; Start 05/09/18 at 14:15 Iohexol (Omnipaque 300 Mg/ml) 100 ml 1X ONCE IV Last administered on at 11:45; Start 05/10/18 at 11:45; Stop 05/10/18 at 11:46; Status DC Info (CONTRAST GIVEN -- Rx MONITORING) 1 each PRN DAILY PRN MC SEE COMMENTS; Start 05/10/18 at 11:45; Stop 05/12/18 at 11:44 Piperacillin Sod/ Tazobactam Sod 3.375 gm/Sodium Chloride 50 ml @ 100 mls/hr Q6HRS IV Last administered on 05/11/18at 05:45; Start 05/10/18 at 18:30 Active Scripts Active Reported Eliquis (Apixaban) 5 Mg Tablet 5 Mg PO BID Vitals/I & O Vital Sign - Last 24 Hours 05/10/18 05/10/18 05/10/18 05/10/18 15:00 19:00 20:00 20:30 Temp 98.2 96.6 98.2 96.6 Pulse 92 80 Resp 20 20 20 B/P (MAP) 96/51 (66) 105/54 (71) Pulse Ox 94 90 94 O2 Delivery Room Air Room Air Room Air Room Air 05/10/18 05/10/18 05/11/18 05/11/18 21:30 23:00 00:43 03:00 Temp 98.1 97.9 98.1 97.9 Pulse 75 70 Resp 18 20 20 20 B/P (MAP) 94/56 (69) 93/57 (69) Pulse Ox 91 90 92 91 O2 Delivery Room Air Nasal Cannula Room Air Room Air 05/11/18 05/11/18 07:00 09:39 Temp 97.9 97.9 Pulse 79 Resp 20 18 B/P (MAP) 100/50 (67) Pulse Ox 91 O2 Delivery Room Air Room Air Intake and Output 05/10/18 05/10/18 05/11/18 15:01 23:01 07:01 Intake Total 120 ml 200 ml Output Total 150 ml 850 ml Balance -30 ml -650 ml NAZIA MORRIS MD May 11, 2018 11:03
--- NOTE | 2018-05-11 11:41 | PDOC ---
Provider Note Provider Note Vascular F/U Consultation from cardiology, hematology and infectious disease appreciated. We'll obtain a repeat CT angiogram to more clearly delineate arterial anatomy prior to scheduling this patient for aortofemoral reconstruction TUYET MERCER MD May 11, 2018 11:41
[2018-05-11 11:54] LABS: BASO % 1 % (0-3); EOS # 0.3 x10^3/uL (0.0-0.7); EOS % 4 % (0-3); HEMATOCRIT 54.6 % (39.0-53.0); HEMOGLOBIN 18.4 g/dL (13.0-17.5); LYMPH # 0.9 x10^3/uL (1.0-4.8); LYMPH % 14 % (24-48); MEAN CORPUSCULAR HEMOGLOBIN 32 pg (25-35); MEAN CORPUSCULAR HGB CONC 34 g/dL (31-37); MEAN CORPUSCULAR VOLUME 95 fL (79-100); MONO # 0.7 x10^3/uL (0.0-1.1); MONO % 11 % (0-9); NEUT # 4.5 x10^3uL (1.8-7.7); NEUT % 70 % (31-73); PLATELET COUNT 138 x10^3/uL (140-400); RED BLOOD COUNT 5.74 x10^6/uL (4.30-5.70); RED CELL DISTRIBUTION WIDTH 16.7 % (11.5-14.5); WHITE BLOOD COUNT 6.5 x10^3/uL (4.0-11.0)
[2018-05-11 12:25] LABS: ALBUMIN 2.7 g/dL (3.4-5.0); ALBUMIN/GLOBULIN RATIO 0.8 (1.0-1.7); CALCIUM 8.4 mg/dL (8.5-10.1); CREATININE 0.9 mg/dL (0.7-1.3); GFR 81.6; POTASSIUM 3.4 mmol/L (3.5-5.1); TOTAL PROTEIN 6.3 g/dL (6.4-8.2)
--- NOTE | 2018-05-11 12:25 | PDOC ---
PROGRESS NOTES Subjective Subjective HPI - f/u of Polycythemia ROS - no CP Objective Objective Vital Signs Date Time Temp Pulse Resp B/P (MAP) Pulse Ox O2 Delivery O2 Flow Rate FiO2 05/11/18 10:39 16 05/11/18 09:39 Room Air 05/11/18 08:00 2.0 05/11/18 07:00 97.9 79 100/50 (67) 91 97.9 Intake and Output 05/11/18 07:01 Intake Total 320 ml Output Total 1000 ml Balance -680 ml Intake Oral 320 ml Output Urine Total 1000 ml Physical Exam Heart: Regular rate, Normal S1, Normal S2 General: Alert, Oriented X3 Lungs: Clear to auscultation Neuro: Normal speech Psych/Mental Status: Mental status NL Assessment Assessment Problems Medical Problems: (1) Cellulitis of right lower leg Status: Acute (2) Right foot ulcer Status: Acute IMPRESSION AND PLAN: 1. Polycythemia. He has had elevated hemoglobin and hematocrit since 2014. His erythropoietin was low at 2.5 in 2014. However, the JAK2 mutation was negative. I agree to proceed with further testing with next generation sequencing for JAK2 mutation. It appears that this was ordered by Dr. Nichole Holbrook in 2016 and I will check with Pathology if this was completed. 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 The patient does understand that he had a phlebotomy on 09/24/2016, but he did not understand that it is therapeutic phlebotomy and he felt the old bag of blood was taken for testing. I educated him that phlebotomy was a therapeutic procedure. In addition, he has not been compliant with followup appointments. He did not keep his appointment with Dr. Nichole Holbrook and he did not keep his appointment with Dr. Michael Arzola. I have advised him to be compliant for followup and management. Hb 18.4 on 05/11/18. 2. Pulmonary embolism in 06/2017. He also has a history of DVT in the past. He is on Eliquis and the pulmonary embolism has resolved as of CT angiogram done on 05/10/2018. I discussed with Dr. Arzola and Dr. Arzola is considering to discontinue. No h/o DVT, he reports blood clot in rt leg in 2004, but did not receive anticoagulation per pt and hence unlikely that this was DVT. 3. Peripheral arterial disease. Appreciate Vascular Surgery consultation. He will need surgery after the hemoglobin and hematocrit are controlled and after the workup is completed. 4. Thrombocytopenia, monitor cbc Comment Review of Relevant I have reviewed the following items lee (where applicable) has been applied. Labs Laboratory Tests Test 05/10/18 05:40 05/11/18 09:15 Creatinine 0.9 mg/dL (0.7-1.3) Estimated GFR (Cockcroft-Gault) 81.6 White Blood Count 6.5 x10^3/uL (4.0-11.0) Red Blood Count 5.74 x10^6/uL (4.30-5.70) Hemoglobin 18.4 g/dL (13.0-17.5) Hematocrit 54.6 % (39.0-53.0) Mean Corpuscular Volume 95 fL (79-100) Mean Corpuscular Hemoglobin 32 pg (25-35) Mean Corpuscular Hemoglobin Concent 34 g/dL (31-37) Red Cell Distribution Width 16.7 % (11.5-14.5) Platelet Count 138 x10^3/uL (140-400) Neutrophils (%) (Auto) 70 % (31-73) Lymphocytes (%) (Auto) 14 % (24-48) Monocytes (%) (Auto) 11 % (0-9) Eosinophils (%) (Auto) 4 % (0-3) Basophils (%) (Auto) 1 % (0-3) Neutrophils # (Auto) 4.5 x10^3uL (1.8-7.7) Lymphocytes # (Auto) 0.9 x10^3/uL (1.0-4.8) Monocytes # (Auto) 0.7 x10^3/uL (0.0-1.1) Eosinophils # (Auto) 0.3 x10^3/uL (0.0-0.7) Basophils # (Auto) 0.0 x10^3/uL (0.0-0.2) Laboratory Tests Test 05/11/18 09:15 White Blood Count 6.5 x10^3/uL (4.0-11.0) Red Blood Count 5.74 x10^6/uL (4.30-5.70) Hemoglobin 18.4 g/dL (13.0-17.5) Hematocrit 54.6 % (39.0-53.0) Mean Corpuscular Volume 95 fL (79-100) Mean Corpuscular Hemoglobin 32 pg (25-35) Mean Corpuscular Hemoglobin Concent 34 g/dL (31-37) Red Cell Distribution Width 16.7 % (11.5-14.5) Platelet Count 138 x10^3/uL (140-400) Neutrophils (%) (Auto) 70 % (31-73) Lymphocytes (%) (Auto) 14 % (24-48) Monocytes (%) (Auto) 11 % (0-9) Eosinophils (%) (Auto) 4 % (0-3) Basophils (%) (Auto) 1 % (0-3) Neutrophils # (Auto) 4.5 x10^3uL (1.8-7.7) Lymphocytes # (Auto) 0.9 x10^3/uL (1.0-4.8) Monocytes # (Auto) 0.7 x10^3/uL (0.0-1.1) Eosinophils # (Auto) 0.3 x10^3/uL (0.0-0.7) Basophils # (Auto) 0.0 x10^3/uL (0.0-0.2) Microbiology 05/07/18 Blood Culture - Preliminary, Resulted NO GROWTH AFTER 3 DAYS Medications Current Medications Sodium Chloride 1,000 ml @ 1,000 mls/hr 1X ONCE IV Last administered on 05/07at 19:19; Start 05/07/18 at 19:00; Stop 05/07/18 at 19:59; Status DC Vancomycin HCl (Vanco Per Pharmacy) 1 each PRN DAILY PRN MC SEE COMMENTS Last administered on 05/10/18at 12:34; Start 05/07/18 at 19:45 Vancomycin HCl 2 gm/Sodium Chloride 500 ml @ 250 mls/hr ONCE ONCE IV Last administered on 05/07/18at 20:00; Start 05/07/18 at 19:45; Stop 05/07/18 at 21 :44; Status DC Ondansetron HCl (Zofran) 4 mg PRN Q8HRS PRN IV NAUSEA/VOMITING 1ST CHOICE; Start 05/07/18 at 21:15; Stop 05/08/18 at 21:14; Status DC Sodium Chloride 1,000 ml @ 125 mls/hr Q8H IV Last administered on 05/08/18at 20:01; Start 05/07/18 at 21:03; Stop 05/08/18 at 21:02; Status DC Fentanyl Citrate (Fentanyl 2ml Vial) 25 mcg PRN Q2HR PRN IV SEVERE PAIN Last administered on 05/08/18at 13:59; Start 05/08/18 at 01:45; Stop 05/08/18 at 14 :39; Status DC Vancomycin HCl 1.25 gm/Sodium Chloride 250 ml @ 167 mls/hr Q12H IV Last administered on 05/11/18at 08:14; Start 05/08/18 at 08:00 Vancomycin HCl (Vancomycin Trough Level) 1 each 1X ONCE MC ; Start 05/10/18 at 07:30; Stop 05/10/18 at 07:30; Status DC Lactobacillus Rhamnosus (Culturelle) 1 cap BID PO Last administered on at 09:39; Start 05/08/18 at 09:00 Fentanyl Citrate (Fentanyl 2ml Vial) 50 mcg PRN Q2HR PRN IV SEVERE PAIN Last administered on 05/09/18at 09:05; Start 05/08/18 at 14:45 Apixaban (Eliquis) 5 mg BID PO Last administered on 05/11/18at 09:39; Start at 15:00 Acetaminophen/ Hydrocodone Bitart (Lortab 7.5/325) 1 tab PRN Q4HRS PRN PO PAIN Last administered on 05/11/18at 09:39; Start 05/09/18 at 11:15 Info (Anti-Coagulation Monitoring By Pharmacy) 1 each PRN DAILY PRN MC SEE COMMENTS Last administered on 05/10/18at 12:39; Start 05/09/18 at 11:30 Magnesium Hydroxide (Milk Of Magnesia) 2,400 mg PRN DAILY PRN PO CONSTIPATION Last administered on 05/10/18at 20:01; Start 05/09/18 at 14:15 Iohexol (Omnipaque 300 Mg/ml) 100 ml 1X ONCE IV Last administered on at 11:45; Start 05/10/18 at 11:45; Stop 05/10/18 at 11:46; Status DC Info (CONTRAST GIVEN -- Rx MONITORING) 1 each PRN DAILY PRN MC SEE COMMENTS; Start 05/10/18 at 11:45; Stop 05/12/18 at 11:44 Piperacillin Sod/ Tazobactam Sod 3.375 gm/Sodium Chloride 50 ml @ 100 mls/hr Q6HRS IV Last administered on 05/11/18at 11:30; Start 05/10/18 at 18:30 Active Scripts Active Reported Eliquis (Apixaban) 5 Mg Tablet 5 Mg PO BID Vitals/I & O Vital Sign - Last 24 Hours 05/10/18 05/10/18 05/10/18 05/10/18 15:00 19:00 20:00 20:30 Temp 98.2 96.6 98.2 96.6 Pulse 92 80 Resp 20 20 20 B/P (MAP) 96/51 (66) 105/54 (71) Pulse Ox 94 90 94 O2 Delivery Room Air Room Air Room Air Room Air 05/10/18 05/10/18 05/11/18 05/11/18 21:30 23:00 00:43 03:00 Temp 98.1 97.9 98.1 97.9 Pulse 75 70 Resp 20 20 20 B/P (MAP) 94/56 (69) 93/57 (69) Pulse Ox 91 90 92 91 O2 Delivery Room Air Nasal Cannula Room Air Room Air 05/11/18 05/11/18 05/11/18 05/11/18 07:00 08:00 09:39 10:39 Temp 97.9 97.9 Pulse 79 Resp 20 18 16 B/P (MAP) 100/50 (67) Pulse Ox 91 O2 Delivery Room Air Room Air Room Air O2 Flow Rate 2.0 Intake and Output 05/10/18 05/10/18 05/11/18 15:01 23:01 07:01 Intake Total 120 ml 200 ml Output Total 150 ml 850 ml Balance -30 ml -650 ml AMY SWEENEY MD May 11, 2018 12:25
[2018-05-11] MEDS: ANTI-COAG MONITOR BY PHARMACY. MC PRN (13:08)
[2018-05-11] MEDS: VANCOMYCIN PER PHARMACY MC PRN (13:44)
[2018-05-11] MEDS ORDERED: POTASSIUM CHLORIDE 20 MEQ TABLET.ER. PO ONE (14:30)
[2018-05-11] MEDS ORDERED: IOHEXOL 300 MG/ML 100ML VIAL. IV ONE (14:45)
[2018-05-11] MEDS ORDERED: CONTRAST GIVEN. MC PRN (15:00)
[2018-05-11 15:28] VITALS: BP 100/50
--- NOTE | 2018-05-11 16:03 | RAD ---
PQRS Compliance statement: One or more of the following individualized dose reduction techniques were utilized for this examination: 1. Automated exposure control. 2. Adjustment of the mA and/or kV according to patient size. 3. Use of iterative reconstruction technique. Indication:ulcer to left foot TECHNIQUE: CT angiogram of the abdomen, pelvis and bilateral extrarenal of with IV contrast with multiplanar MIP reformats. COMPARISON: 09/22/2016 FINDINGS: Heart is normal in size. No pericardial or pleural effusion. Mild diffuse atherosclerotic disease seen of the suprarenal aorta. The celiac axis, splenic artery, left gastric artery, common hepatic artery, SMA, bilateral renal arteries are patent. Moderate atherosclerotic disease is seen of the infrarenal aorta with circumferential soft plaque and mild narrowing of the aortic lumen. 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 The right internal iliac artery supplied by lumbar collaterals. Mild narrowing seen in the proximal left common iliac artery which demonstrates circumferential soft plaque. There is complete occlusion of the left external iliac artery which is new from previous exam. The left internal iliac arteries patent. The bilateral common femoral arteries are occluded. The right superficial femoral artery and popliteal arteries are occluded. The right profunda femoris artery is patent. The right anterior tibial artery is nonvisualized which may be secondary to diffuse high-grade stenosis or occlusion. The right peroneal artery is patent up to the level of hindfoot. The right posterior tibial artery is patent up to the level of plantar branches. The peroneal and posterior tibial arteries are supplied by collaterals from genicular arteries. The left superficial femoral and popliteal artery is occluded. The left profunda femoris artery is patent and is supplied by gluteal collaterals. The anterior tibial artery is nonopacified likely secondary to diffuse high-grade stenosis or occlusion. The left peroneal arteries are visualized. The posterior tibial artery is patent up to the level of plantar branches. Mild bibasilar subsegmental atelectasis or scarring seen in the subpleural region. The arterial phase appearance of the liver, spleen, gallbladder, pancreas, adrenals and kidneys is within normal limits. No enlarged retroperitoneal or pelvic adenopathy. No free pelvic fluid or ascites. Small bilateral fat-containing inguinal hernias. Prostate is enlarged measuring 5.8 x 4.8 cm. Urinary bladder within normal limits. No bowel obstruction. No enlarged retroperitoneal or pelvic adenopathy. No pneumoperitoneum. Small omental fat-containing medical hernia. Enlarged right groin lymph node measuring 2.7 x 1.0 cm and left groin lymph node measuring 1.8 x 1.1 cm. No suspicious bony lesion. IMPRESSION: 1. 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 2. 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 3. Nonvisualization of the bilateral anterior tibial arteries be secondary to a diffuse high-grade stenosis or complete occlusion. Please see above for details. 4. Enlarged prostate. Correlate with physical exam and PSA. 5. 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 6. Mildly enlarged bilateral inguinal lymph nodes, nonspecific most likely reactive. Critical findings were identified on 05/11/2018 3:39 PM, read back and verified with Nurse Susan on 05/11/2018 3:[address] Gregorio Britton DO. Electronically signed by: Gregorio Britton DO (05/11/2018 3:58 PM) [facility]
--- NOTE | 2018-05-11 17:09 | PDOC ---
PROGRESS NOTES Subjective Subjective Patient seen and examined Objective Objective Vital Signs Date Time Temp Pulse Resp B/P (MAP) Pulse Ox O2 Delivery O2 Flow Rate FiO2 05/11/18 15:28 98.2 75 20 100/50 (67) 94 Room Air 98.2 05/11/18 08:00 2.0 Intake and Output 05/11/18 07:01 Intake Total 320 ml Output Total 1000 ml Balance -680 ml Intake Oral 320 ml Output Urine Total 1000 ml Physical Exam Abdomen: Normal bowel sounds Heart: Regular rate General: mild distress Lungs: Clear to auscultation Assessment Assessment Problems Medical Problems: (1) Cellulitis of right lower leg Status: Acute (2) Right foot ulcer Status: Acute 1. Severe peripheral arterial disease. Right foot ulcer as above. CTA showing severe bilateral disease. Followed by the vascular surgery service. Echocardiogram today. Lexiscan nuclear stress test scheduled today will need to be removed tomorrow since the patient was given breakfast. Evaluated by the vascular surgery service with probable upcoming surgery. 2. Hypertension. Patient's blood pressures under better control. Will continue to monitor. 3. Uncertain cholesterol level. Cholesterol panel. 4. History of a PE. CT scan of the chest. 5. COPD. Adjusting medications. Pulmonary consult in progress. Comment Review of Relevant I have reviewed the following items lee (where applicable) has been applied. Labs Laboratory Tests Test 05/10/18 05:40 05/11/18 09:15 Creatinine 0.9 mg/dL (0.7-1.3) 0.9 mg/dL (0.7-1.3) Estimated GFR (Cockcroft-Gault) 81.6 81.6 White Blood Count 6.5 x10^3/uL (4.0-11.0) Red Blood Count 5.74 x10^6/uL (4.30-5.70) Hemoglobin 18.4 g/dL (13.0-17.5) Hematocrit 54.6 % (39.0-53.0) Mean Corpuscular Volume 95 fL (79-100) Mean Corpuscular Hemoglobin 32 pg (25-35) Mean Corpuscular Hemoglobin Concent 34 g/dL (31-37) Red Cell Distribution Width 16.7 % (11.5-14.5) Platelet Count 138 x10^3/uL (140-400) Neutrophils (%) (Auto) 70 % (31-73) Lymphocytes (%) (Auto) 14 % (24-48) Monocytes (%) (Auto) 11 % (0-9) Eosinophils (%) (Auto) 4 % (0-3) Basophils (%) (Auto) 1 % (0-3) Neutrophils # (Auto) 4.5 x10^3uL (1.8-7.7) Lymphocytes # (Auto) 0.9 x10^3/uL (1.0-4.8) Monocytes # (Auto) 0.7 x10^3/uL (0.0-1.1) Eosinophils # (Auto) 0.3 x10^3/uL (0.0-0.7) Basophils # (Auto) 0.0 x10^3/uL (0.0-0.2) Sodium Level 140 mmol/L (136-145) Potassium Level 3.4 mmol/L (3.5-5.1) Chloride Level 104 mmol/L (98-107) Carbon Dioxide Level 27 mmol/L (21-32) Anion Gap 9 (6-14) Blood Urea Nitrogen 12 mg/dL (8-26) BUN/Creatinine Ratio 13 (6-20) Glucose Level 127 mg/dL (70-99) Calcium Level 8.4 mg/dL (8.5-10.1) Total Bilirubin 1.0 mg/dL (0.2-1.0) Aspartate Amino Transf (AST/SGOT) 22 U/L (15-37) Alanine Aminotransferase (ALT/SGPT) 17 U/L (16-63) Alkaline Phosphatase 78 U/L (46-116) Total Protein 6.3 g/dL (6.4-8.2) Albumin 2.7 g/dL (3.4-5.0) Albumin/Globulin Ratio 0.8 (1.0-1.7) Laboratory Tests Test 05/11/18 09:15 White Blood Count 6.5 x10^3/uL (4.0-11.0) Red Blood Count 5.74 x10^6/uL (4.30-5.70) Hemoglobin 18.4 g/dL (13.0-17.5) Hematocrit 54.6 % (39.0-53.0) Mean Corpuscular Volume 95 fL (79-100) Mean Corpuscular Hemoglobin 32 pg (25-35) Mean Corpuscular Hemoglobin Concent 34 g/dL (31-37) Red Cell Distribution Width 16.7 % (11.5-14.5) Platelet Count 138 x10^3/uL (140-400) Neutrophils (%) (Auto) 70 % (31-73) Lymphocytes (%) (Auto) 14 % (24-48) Monocytes (%) (Auto) 11 % (0-9) Eosinophils (%) (Auto) 4 % (0-3) Basophils (%) (Auto) 1 % (0-3) Neutrophils # (Auto) 4.5 x10^3uL (1.8-7.7) Lymphocytes # (Auto) 0.9 x10^3/uL (1.0-4.8) Monocytes # (Auto) 0.7 x10^3/uL (0.0-1.1) Eosinophils # (Auto) 0.3 x10^3/uL (0.0-0.7) Basophils # (Auto) 0.0 x10^3/uL (0.0-0.2) Sodium Level 140 mmol/L (136-145) Potassium Level 3.4 mmol/L (3.5-5.1) Chloride Level 104 mmol/L (98-107) Carbon Dioxide Level 27 mmol/L (21-32) Anion Gap 9 (6-14) Blood Urea Nitrogen 12 mg/dL (8-26) Creatinine 0.9 mg/dL (0.7-1.3) Estimated GFR (Cockcroft-Gault) 81.6 BUN/Creatinine Ratio 13 (6-20) Glucose Level 127 mg/dL (70-99) Calcium Level 8.4 mg/dL (8.5-10.1) Total Bilirubin 1.0 mg/dL (0.2-1.0) Aspartate Amino Transf (AST/SGOT) 22 U/L (15-37) Alanine Aminotransferase (ALT/SGPT) 17 U/L (16-63) Alkaline Phosphatase 78 U/L (46-116) Total Protein 6.3 g/dL (6.4-8.2) Albumin 2.7 g/dL (3.4-5.0) Albumin/Globulin Ratio 0.8 (1.0-1.7) Microbiology 05/07/18 Blood Culture - Preliminary, Resulted NO GROWTH AFTER 3 DAYS Medications Current Medications Sodium Chloride 1,000 ml @ 1,000 mls/hr 1X ONCE IV Last administered on 05/07at 19:19; Start 05/07/18 at 19:00; Stop 05/07/18 at 19:59; Status DC Vancomycin HCl (Vanco Per Pharmacy) 1 each PRN DAILY PRN MC SEE COMMENTS Last administered on 05/11/18at 13:44; Start 05/07/18 at 19:45 Vancomycin HCl 2 gm/Sodium Chloride 500 ml @ 250 mls/hr ONCE ONCE IV Last administered on 05/07/18at 20:00; Start 05/07/18 at 19:45; Stop 05/07/18 at 21 :44; Status DC Ondansetron HCl (Zofran) 4 mg PRN Q8HRS PRN IV NAUSEA/VOMITING 1ST CHOICE; Start 05/07/18 at 21:15; Stop 05/08/18 at 21:14; Status DC Sodium Chloride 1,000 ml @ 125 mls/hr Q8H IV Last administered on 05/08/18at 20:01; Start 05/07/18 at 21:03; Stop 05/08/18 at 21:02; Status DC Fentanyl Citrate (Fentanyl 2ml Vial) 25 mcg PRN Q2HR PRN IV SEVERE PAIN Last administered on 05/08/18at 13:59; Start 05/08/18 at 01:45; Stop 05/08/18 at 14 :39; Status DC Vancomycin HCl 1.25 gm/Sodium Chloride 250 ml @ 167 mls/hr Q12H IV Last administered on 05/11/18at 08:14; Start 05/08/18 at 08:00 Vancomycin HCl (Vancomycin Trough Level) 1 each 1X ONCE MC ; Start 05/10/18 at 07:30; Stop 05/10/18 at 07:30; Status DC Lactobacillus Rhamnosus (Culturelle) 1 cap BID PO Last administered on at 09:39; Start 05/08/18 at 09:00 Fentanyl Citrate (Fentanyl 2ml Vial) 50 mcg PRN Q2HR PRN IV SEVERE PAIN Last administered on 05/09/18at 09:05; Start 05/08/18 at 14:45 Apixaban (Eliquis) 5 mg BID PO Last administered on 05/11/18at 09:39; Start at 15:00 Acetaminophen/ Hydrocodone Bitart (Lortab 7.5/325) 1 tab PRN Q4HRS PRN PO PAIN Last administered on 05/11/18at 09:39; Start 05/09/18 at 11:15 Info (Anti-Coagulation Monitoring By Pharmacy) 1 each PRN DAILY PRN MC SEE COMMENTS Last administered on 05/11/18at 13:08; Start 05/09/18 at 11:30 Magnesium Hydroxide (Milk Of Magnesia) 2,400 mg PRN DAILY PRN PO CONSTIPATION Last administered on 05/10/18at 20:01; Start 05/09/18 at 14:15 Iohexol (Omnipaque 300 Mg/ml) 100 ml 1X ONCE IV Last administered on at 11:45; Start 05/10/18 at 11:45; Stop 05/10/18 at 11:46; Status DC Info (CONTRAST GIVEN -- Rx MONITORING) 1 each PRN DAILY PRN MC SEE COMMENTS; Start 05/10/18 at 11:45; Stop 05/12/18 at 11:44 Piperacillin Sod/ Tazobactam Sod 3.375 gm/Sodium Chloride 50 ml @ 100 mls/hr Q6HRS IV Last administered on 05/11/18at 11:30; Start 05/10/18 at 18:30 Potassium Chloride (Klor-Con) 40 meq 1X ONCE PO ; Start 05/11/18 at 14:30; Stop 05/11/18 at 14:31; Status DC Potassium Chloride (Klor-Con) 20 meq DAILYWBKFT PO ; Start 05/12/18 at 08:00 Iohexol (Omnipaque 300 Mg/ml) 95 ml 1X ONCE IV Last administered on at 15:09; Start 05/11/18 at 14:45; Stop 05/11/18 at 14:47; Status DC Info (CONTRAST GIVEN -- Rx MONITORING) 1 each PRN DAILY PRN MC SEE COMMENTS; Start 05/11/18 at 15:00; Stop 05/13/18 at 14:59 Active Scripts Active Reported Eliquis (Apixaban) 5 Mg Tablet 5 Mg PO BID Vitals/I & O Vital Sign - Last 24 Hours 05/10/18 05/10/18 05/10/1805/10/18 19:00 20:00 20:30 21:30 Temp 96.6 96.6 Pulse 80 Resp 20 20 B/P (MAP) 105/54 (71) Pulse Ox 90 94 91 O2 Delivery Room Air Room Air Room Air Room Air 05/10/18 05/11/18 05/11/18 05/11/18 23:00 00:43 03:00 07:00 Temp 98.1 97.9 97.9 98.1 97.9 97.9 Pulse 75 70 79 Resp 20 20 20 20 B/P (MAP) 94/56 (69) 93/57 (69) 100/50 (67) Pulse Ox 90 92 91 91 O2 Delivery Nasal Cannula Room Air Room Air Room Air 05/11/18 05/11/18 05/11/18 05/11/18 08:00 09:39 10:39 11:00 Temp 98.1 98.1 Pulse 76 Resp 18 16 18 B/P (MAP) 104/52 (69) Pulse Ox 94 O2 Delivery Room Air Room Air Nasal Cannula O2 Flow Rate 2.0 05/11/18 15:28 Temp 98.2 98.2 Pulse 75 Resp 20 B/P (MAP) 100/50 (67) Pulse Ox 94 O2 Delivery Room Air Intake and Output 05/10/18 05/10/18 05/11/18 15:01 23:01 07:01 Intake Total 120 ml 200 ml Output Total 150 ml 850 ml Balance -30 ml -650 ml YANG JENKINS MD May 11, 2018 17:09
--- NOTE | 2018-05-11 18:57 | CARD ---
MR#: [id number] Date of Study: 05/11/2018 Ordering Physician: YANG ALEXANDER, Referring Physician: MICKY DURHAM Tech: Shandra Walker RDCS APPROVED REPORT EXAM: Two-dimensional and M-mode echocardiogram with Doppler and color Doppler. Other Information Quality : Good INDICATION Cardiac Disease: CAD 2D DIMENSIONS RVDd2.6 (2.9-3.5cm)Left Atrium(2D)3.9 (1.6-4.0cm) IVSd1.2 (0.7-1.1cm)Aortic Root(2D)3.2 (2.0-3.7cm) LVDd5.0 (3.9-5.9cm)LVOT Diameter2.0 (1.8-2.4cm) PWd1.3 (0.7-1.1cm)LVDs3.3 (2.5-4.0cm) FS (%) 35.6 %SV78.4 ml LVEF(%)60.0 (>50%) Aortic Valve AoV Peak Jesus.108.1cm/sAoV VTI17.5cm AO Peak GR.4.7mmHgLVOT VTI 13.31cm AO Mean GR.2mmHgAVA (VTI)2.40cm2 Mitral Valve MV E Hoxzgtvd27.3cm/sMV DECEL [id number] MV A Tcvtlgqm76.0cm/sE/A Ratio0.7 TDI Lateral E' P. V7.59cm/sMedial E' P. V9.53cm/s E/Lateral E'7.4E/Medial E'5.9 Tricuspid Valve TR P. Fdclxxln304fo/sRAP [id number] TR Peak Gr.12hzHzRTSY56xvGm Pulmonary Vein S1 Xirkzxoo70.0cm/sS2 Nrjzrabg53.89cm/s D2 Jawsmrqe82.9cm/s LEFT VENTRICLE The left ventricle is normal size. There is mild concentric left ventricular hypertrophy. The left ve ntricular systolic function is normal and the ejection fraction is within normal range. The Ejection Fraction is 55-60%. There is normal LV segmental wall motion. Transmitral Doppler flow pattern is Gra de I-abnormal relaxation pattern. RIGHT VENTRICLE The right ventricle is normal size. The right ventricular systolic function is normal. ATRIA The left atrium size is normal. The right atrium size is normal. The interatrial septum is intact wit h no evidence for an atrial septal defect or patent foramen ovale as noted on 2-D or Doppler imaging. AORTIC VALVE The aortic valve is calcified but opens well. Doppler and Color Flow revealed no significant aortic r egurgitation. There is no significant aortic valvular stenosis. MITRAL VALVE The mitral valve is calcified but opens well. There is no evidence of mitral valve prolapse. There is no mitral valve stenosis. Doppler and Color Flow revealed no mitral valve regurgitation noted. TRICUSPID VALVE The tricuspid valve is normal in structure and function. Doppler and Color Flow revealed mild tricusp id regurgitation. There is mild pulmonary hypertension. The PA pressure was estimated at 36 mmHg. The re is no tricuspid valve stenosis. PULMONIC VALVE The pulmonic valve is not well visualized. Doppler and Color Flow revealed no pulmonic valvular regur gitation. There is no pulmonic valvular stenosis. GREAT VESSELS The aortic root is normal in size. The ascending aorta is normal in size. The IVC is normal in size a nd collapses <50% with inspiration. PERICARDIAL EFFUSION There is no evidence of significant pericardial effusion. Critical Notification Critical Value: No <Conclusion> The left ventricle is normal size. The left ventricular systolic function is normal and the ejection fraction is within normal range. The Ejection Fraction is 55-60%. There is mild concentric left ventricular hypertrophy. There is no significant aortic valvular stenosis. Doppler and Color Flow revealed no significant aortic regurgitation. Doppler and Color Flow revealed no mitral valve regurgitation noted. Doppler and Color Flow revealed mild tricuspid regurgitation. There is mild pulmonary hypertension. The PA pressure was estimated at 36 mmHg. Signed by : Yang Alexander MD Electronically Approved : 05/11/2018 18:55:36
[2018-05-11 19:00] VITALS: BP 125/47
[2018-05-11 23:00] VITALS: BP 105/48
[2018-05-12] VITALS (9 sets, daily range): BP systolic 99–123; BP diastolic 51–94
[2018-05-12] MEDS: HYDROcodone/APAP 7.5/325MG 1 TAB TABLET PO PRN ×2 (01:14→05:27)
[2018-05-12] MEDS: PIPERACILLIN/TAZOBACTAM 3.375 GM in IV NORMAL SALINE 50ML 50 ML IV SCH ×3 (05:02→17:00)
[2018-05-12 07:28] LABS: BASO % 1 % (0-3); EOS # 0.3 x10^3/uL (0.0-0.7); EOS % 5 % (0-3); HEMATOCRIT 53.1 % (39.0-53.0); LYMPH # 1.1 x10^3/uL (1.0-4.8); LYMPH % 18 % (24-48); MEAN CORPUSCULAR HEMOGLOBIN 32 pg (25-35); MEAN CORPUSCULAR HGB CONC 34 g/dL (31-37); MEAN CORPUSCULAR VOLUME 95 fL (79-100); MONO # 0.8 x10^3/uL (0.0-1.1); MONO % 13 % (0-9); NEUT # 3.8 x10^3uL (1.8-7.7); NEUT % 63 % (31-73); PLATELET COUNT 145 x10^3/uL (140-400); RED BLOOD COUNT 5.59 x10^6/uL (4.30-5.70); RED CELL DISTRIBUTION WIDTH 16.3 % (11.5-14.5); WHITE BLOOD COUNT 6.1 x10^3/uL (4.0-11.0)
[2018-05-12 07:45] LABS: CALCIUM 8.5 mg/dL (8.5-10.1); GFR 72.3; POTASSIUM 4.1 mmol/L (3.5-5.1)
[2018-05-12] MEDS ORDERED: REGADENOSON 0.4 MG/5 ML DISP.SYRIN. IV ONE (08:30)
--- NOTE | 2018-05-12 08:36 | PDOC ---
PROGRESS NOTES Subjective Subjective HPI - f/u of Polycythemia ROS - no fever Objective Objective Vital Signs Date Time Temp Pulse Resp B/P (MAP) Pulse Ox O2 Delivery O2 Flow Rate FiO2 05/12/18 07:00 98.1 68 18 113/70 (84) 92 Room Air 98.1 05/12/18 05:27 2.0 Intake and Output 05/12/18 07:01 Intake Total 400 ml Output Total 1300 ml Balance -900 ml IV Total 400 ml Output Urine Total 1300 ml Physical Exam General: Alert, Oriented X3, No acute distress Neuro: Normal speech Psych/Mental Status: Mental status NL Assessment Assessment Problems Medical Problems: (1) Cellulitis of right lower leg Status: Acute (2) Right foot ulcer Status: Acute IMPRESSION AND PLAN: 1. Polycythemia. He has had elevated hemoglobin and hematocrit since 2014. His erythropoietin was low at 2.5 in 2014. However, the JAK2 mutation was negative. I agree to proceed with further testing with next generation sequencing for JAK2 mutation. It appears that this was ordered by Dr. Nichole Holbrook in 2016 and I will check with Pathology if this was completed. 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 The patient does understand that he had a phlebotomy on 09/24/2016, but he did not understand that it is therapeutic phlebotomy and he felt the old bag of blood was taken for testing. I educated him that phlebotomy was a therapeutic procedure. In addition, he has not been compliant with followup appointments. He did not keep his appointment with Dr. Nichole Holbrook and he did not keep his appointment with Dr. Michael Arzola. I have advised him to be compliant for followup and management. Hb 18.4 on 05/11/18. Hb 18 on 05/12/18. Bone marrow bx 05/12/18. f/u with me in 2 weeks. 2. Pulmonary embolism in 06/2017. He also has a history of DVT in the past. He is on Eliquis and the pulmonary embolism has resolved as of CT angiogram done on 05/10/2018. I discussed with Dr. Arzola and Dr. Arzola is considering to discontinue. No h/o DVT, he reports blood clot in rt leg in 2004, but did not receive anticoagulation per pt and hence unlikely that this was DVT. 3. Peripheral arterial disease. Appreciate Vascular Surgery consultation. He will need surgery after the hemoglobin and hematocrit are controlled and after the workup is completed. 4. Thrombocytopenia, monitor cbc, plt better at 145 on 05/12/18. Comment Review of Relevant I have reviewed the following items lee (where applicable) has been applied. Labs Laboratory Tests Test 05/11/18 09:15 05/12/18 06:05 05/12/18 06:50 White Blood Count 6.5 x10^3/uL (4.0-11.0) 6.1 x10^3/uL (4.0-11.0) Red Blood Count 5.74 x10^6/uL (4.30-5.70) 5.59 x10^6/uL (4.30-5.70) Hemoglobin 18.4 g/dL (13.0-17.5) 18.0 g/dL (13.0-17.5) Hematocrit 54.6 % (39.0-53.0) 53.1 % (39.0-53.0) Mean Corpuscular Volume 95 fL (79-100) 95 fL (79-100) Mean Corpuscular Hemoglobin 32 pg (25-35) 32 pg (25-35) Mean Corpuscular Hemoglobin Concent 34 g/dL (31-37) 34 g/dL (31-37) Red Cell Distribution Width 16.7 % (11.5-14.5) 16.3 % (11.5-14.5) Platelet Count 138 x10^3/uL (140-400) 145 x10^3/uL (140-400) Neutrophils (%) (Auto) 70 % (31-73) 63 % (31-73) Lymphocytes (%) (Auto) 14 % (24-48) 18 % (24-48) Monocytes (%) (Auto) 11 % (0-9) 13 % (0-9) Eosinophils (%) (Auto) 4 % (0-3) 5 % (0-3) Basophils (%) (Auto) 1 % (0-3) 1 % (0-3) Neutrophils # (Auto) 4.5 x10^3uL (1.8-7.7) 3.8 x10^3uL (1.8-7.7) Lymphocytes # (Auto) 0.9 x10^3/uL (1.0-4.8) 1.1 x10^3/uL (1.0-4.8) Monocytes # (Auto) 0.7 x10^3/uL (0.0-1.1) 0.8 x10^3/uL (0.0-1.1) Eosinophils # (Auto) 0.3 x10^3/uL (0.0-0.7) 0.3 x10^3/uL (0.0-0.7) Basophils # (Auto) 0.0 x10^3/uL (0.0-0.2) 0.0 x10^3/uL (0.0-0.2) Sodium Level 140 mmol/L (136-145) 141 mmol/L (136-145) Potassium Level 3.4 mmol/L (3.5-5.1) 4.1 mmol/L (3.5-5.1) Chloride Level 104 mmol/L (98-107) 106 mmol/L (98-107) Carbon Dioxide Level 27 mmol/L (21-32) 26 mmol/L (21-32) Anion Gap 9 (6-14) 9 (6-14) Blood Urea Nitrogen 12 mg/dL (8-26) 10 mg/dL (8-26) Creatinine 0.9 mg/dL (0.7-1.3) 1.0 mg/dL (0.7-1.3) Estimated GFR (Cockcroft-Gault) 81.6 72.3 BUN/Creatinine Ratio 13 (6-20) Glucose Level 127 mg/dL (70-99) 80 mg/dL (70-99) Calcium Level 8.4 mg/dL (8.5-10.1) 8.5 mg/dL (8.5-10.1) Total Bilirubin 1.0 mg/dL (0.2-1.0) Aspartate Amino Transf (AST/SGOT) 22 U/L (15-37) Alanine Aminotransferase (ALT/SGPT) 17 U/L (16-63) Alkaline Phosphatase 78 U/L (46-116) Total Protein 6.3 g/dL (6.4-8.2) Albumin 2.7 g/dL (3.4-5.0) Albumin/Globulin Ratio 0.8 (1.0-1.7) Prothrombin Time 15.0 SEC (11.7-14.0) Prothromb Time International Ratio 1.2 (0.8-1.1) Laboratory Tests Test 05/11/18 09:15 05/12/18 06:05 05/12/18 06:50 White Blood Count 6.5 x10^3/uL (4.0-11.0) 6.1 x10^3/uL (4.0-11.0) Red Blood Count 5.74 x10^6/uL (4.30-5.70) 5.59 x10^6/uL (4.30-5.70) Hemoglobin 18.4 g/dL (13.0-17.5) 18.0 g/dL (13.0-17.5) Hematocrit 54.6 % (39.0-53.0) 53.1 % (39.0-53.0) Mean Corpuscular Volume 95 fL (79-100) 95 fL (79-100) Mean Corpuscular Hemoglobin 32 pg (25-35) 32 pg (25-35) Mean Corpuscular Hemoglobin Concent 34 g/dL (31-37) 34 g/dL (31-37) Red Cell Distribution Width 16.7 % (11.5-14.5) 16.3 % (11.5-14.5) Platelet Count 138 x10^3/uL (140-400) 145 x10^3/uL (140-400) Neutrophils (%) (Auto) 70 % (31-73) 63 % (31-73) Lymphocytes (%) (Auto) 14 % (24-48) 18 % (24-48) Monocytes (%) (Auto) 11 % (0-9) 13 % (0-9) Eosinophils (%) (Auto) 4 % (0-3) 5 % (0-3) Basophils (%) (Auto) 1 % (0-3) 1 % (0-3) Neutrophils # (Auto) 4.5 x10^3uL (1.8-7.7) 3.8 x10^3uL (1.8-7.7) Lymphocytes # (Auto) 0.9 x10^3/uL (1.0-4.8) 1.1 x10^3/uL (1.0-4.8) Monocytes # (Auto) 0.7 x10^3/uL (0.0-1.1) 0.8 x10^3/uL (0.0-1.1) Eosinophils # (Auto) 0.3 x10^3/uL (0.0-0.7) 0.3 x10^3/uL (0.0-0.7) Basophils # (Auto) 0.0 x10^3/uL (0.0-0.2) 0.0 x10^3/uL (0.0-0.2) Sodium Level 140 mmol/L (136-145) 141 mmol/L (136-145) Potassium Level 3.4 mmol/L (3.5-5.1) 4.1 mmol/L (3.5-5.1) Chloride Level 104 mmol/L (98-107) 106 mmol/L (98-107) Carbon Dioxide Level 27 mmol/L (21-32) 26 mmol/L (21-32) Anion Gap 9 (6-14) 9 (6-14) Blood Urea Nitrogen 12 mg/dL (8-26) 10 mg/dL (8-26) Creatinine 0.9 mg/dL (0.7-1.3) 1.0 mg/dL (0.7-1.3) Estimated GFR (Cockcroft-Gault) 81.6 72.3 BUN/Creatinine Ratio 13 (6-20) Glucose Level 127 mg/dL (70-99) 80 mg/dL (70-99) Calcium Level 8.4 mg/dL (8.5-10.1) 8.5 mg/dL (8.5-10.1) Total Bilirubin 1.0 mg/dL (0.2-1.0) Aspartate Amino Transf (AST/SGOT) 22 U/L (15-37) Alanine Aminotransferase (ALT/SGPT) 17 U/L (16-63) Alkaline Phosphatase 78 U/L (46-116) Total Protein 6.3 g/dL (6.4-8.2) Albumin 2.7 g/dL (3.4-5.0) Albumin/Globulin Ratio 0.8 (1.0-1.7) Prothrombin Time 15.0 SEC (11.7-14.0) Prothromb Time International Ratio 1.2 (0.8-1.1) Microbiology 05/07/18 Blood Culture - Preliminary, Resulted NO GROWTH AFTER 4 DAYS Medications Current Medications Sodium Chloride 1,000 ml @ 1,000 mls/hr 1X ONCE IV Last administered on 05/07at 19:19; Start 05/07/18 at 19:00; Stop 05/07/18 at 19:59; Status DC Vancomycin HCl (Vanco Per Pharmacy) 1 each PRN DAILY PRN MC SEE COMMENTS Last administered on 05/11/18at 13:44; Start 05/07/18 at 19:45 Vancomycin HCl 2 gm/Sodium Chloride 500 ml @ 250 mls/hr ONCE ONCE IV Last administered on 05/07/18at 20:00; Start 05/07/18 at 19:45; Stop 05/07/18 at 21 :44; Status DC Ondansetron HCl (Zofran) 4 mg PRN Q8HRS PRN IV NAUSEA/VOMITING 1ST CHOICE; Start 05/07/18 at 21:15; Stop 05/08/18 at 21:14; Status DC Sodium Chloride 1,000 ml @ 125 mls/hr Q8H IV Last administered on 05/08/18at 20:01; Start 05/07/18 at 21:03; Stop 05/08/18 at 21:02; Status DC Fentanyl Citrate (Fentanyl 2ml Vial) 25 mcg PRN Q2HR PRN IV SEVERE PAIN Last administered on 05/08/18at 13:59; Start 05/08/18 at 01:45; Stop 05/08/18 at 14 :39; Status DC Vancomycin HCl 1.25 gm/Sodium Chloride 250 ml @ 167 mls/hr Q12H IV Last administered on 05/11/18at 20:04; Start 05/08/18 at 08:00 Vancomycin HCl (Vancomycin Trough Level) 1 each 1X ONCE MC ; Start 05/10/18 at 07:30; Stop 05/10/18 at 07:30; Status DC Lactobacillus Rhamnosus (Culturelle) 1 cap BID PO Last administered on at 20:05; Start 05/08/18 at 09:00 Fentanyl Citrate (Fentanyl 2ml Vial) 50 mcg PRN Q2HR PRN IV SEVERE PAIN Last administered on 05/09/18at 09:05; Start 05/08/18 at 14:45 Apixaban (Eliquis) 5 mg BID PO Last administered on 05/11/18at 09:39; Start at 15:00 Acetaminophen/ Hydrocodone Bitart (Lortab 7.5/325) 1 tab PRN Q4HRS PRN PO PAIN Last administered on 05/12/18at 05:27; Start 05/09/18 at 11:15 Info (Anti-Coagulation Monitoring By Pharmacy) 1 each PRN DAILY PRN MC SEE COMMENTS Last administered on 05/11/18at 13:08; Start 05/09/18 at 11:30 Magnesium Hydroxide (Milk Of Magnesia) 2,400 mg PRN DAILY PRN PO CONSTIPATION Last administered on 05/10/18at 20:01; Start 05/09/18 at 14:15 Iohexol (Omnipaque 300 Mg/ml) 100 ml 1X ONCE IV Last administered on at 11:45; Start 05/10/18 at 11:45; Stop 05/10/18 at 11:46; Status DC Info (CONTRAST GIVEN -- Rx MONITORING) 1 each PRN DAILY PRN MC SEE COMMENTS; Start 05/10/18 at 11:45; Stop 05/12/18 at 11:44 Piperacillin Sod/ Tazobactam Sod 3.375 gm/Sodium Chloride 50 ml @ 100 mls/hr Q6HRS IV Last administered on 05/12/18at 05:02; Start 05/10/18 at 18:30 Potassium Chloride (Klor-Con) 40 meq 1X ONCE PO Last administered on at 17:44; Start 05/11/18 at 14:30; Stop 05/11/18 at 14:31; Status DC Potassium Chloride (Klor-Con) 20 meq DAILYWBKFT PO ; Start 05/12/18 at 08:00 Iohexol (Omnipaque 300 Mg/ml) 95 ml 1X ONCE IV Last administered on at 15:09; Start 05/11/18 at 14:45; Stop 05/11/18 at 14:47; Status DC Info (CONTRAST GIVEN -- Rx MONITORING) 1 each PRN DAILY PRN MC SEE COMMENTS; Start 05/11/18 at 15:00; Stop 05/13/18 at 14:59 Regadenoson (Lexiscan) 0.4 mg 1X ONCE IV ; Start 05/12/18 at 08:30; Stop at 08:31; Status DC Active Scripts Active Reported Eliquis (Apixaban) 5 Mg Tablet 5 Mg PO BID Vitals/I & O Vital Sign - Last 24 Hours 05/11/18 05/11/18 05/11/18 05/11/18 09:39 11:00 15:28 19:00 Temp 98.1 98.2 98.1 98.1 98.2 98.1 Pulse 76 75 71 Resp 18 18 20 17 B/P (MAP) 104/52 (69) 100/50 (67) 125/47 (73) Pulse Ox 94 94 94 O2 Delivery Room Air Nasal Cannula Room Air Room Air 05/11/18 05/11/18 05/11/18 05/12/18 20:00 20:07 23:00 01:14 Temp 98.2 98.2 Pulse 77 Resp 18 18 B/P (MAP) 105/48 (67) Pulse Ox 94 93 93 O2 Delivery Room Air Room Air Room Air Room Air O2 Flow Rate 2.0 05/12/18 05/12/18 05/12/18 05/12/18 03:00 05:27 06:27 07:00 Temp 98.1 98.1 98.1 98.1 Pulse 75 68 Resp 16 18 18 18 B/P (MAP) 102/52 (69) 113/70 (84) Pulse Ox 93 93 93 92 O2 Delivery Room Air Room Air Room Air Room Air O2 Flow Rate 2.0 Intake and Output 05/11/18 05/11/18 05/12/18 15:01 23:01 07:01 Intake Total 300 ml 100 ml Output Total 100 ml 1200 ml Balance -100 ml 300 ml -1100 ml AMY SWEENEY MD May 12, 2018 08:36
--- NOTE | 2018-05-12 08:44 | PDOC ---
Provider Note Provider Note Spoke with pt briefly prior to transport taking him down for stress test. Discussed his arterial disease and need for surgery, however pending cardiac clearance and heme workup. He exhibited understanding. Please see full consult note for details. Pt is going for stress test and bone marrow biopsy today. Had CTA yesterday confirming severity of disease. Pt Will need aortofemoral reconstruction after the hemoglobin and hematocrit are controlled and after the workup is completed. He is undergoing preoperative cardiac assessment. His hemoglobin will need to be controlled around 15 g postoperatively and further duration as his polycythemia increases his risk of graft thrombosis. Pt does not have significant carotid stenosis, US done . Surgery scheduling pending the above. MASTER NAPOLES May 12, 2018 08:44
[2018-05-12] MEDS ORDERED: fentaNYL PF VIAL 100 MCG/2 ML VIAL ONE (09:55)
[2018-05-12] MEDS ORDERED: MIDAZOLAM HCL/PF 2 MG/2 ML VIAL. ONE (09:55)
[2018-05-12] MEDS ORDERED: LIDOCAINE WITH 8.4% SOD BICARB 3 ML DISP.SYRIN. ONE (09:57)
[2018-05-12] MEDS ORDERED: LIDOCAINE WITH 8.4% SOD BICARB 3 ML DISP.SYRIN. IJ ONE (10:00)
[2018-05-12] MEDS ORDERED: MIDAZOLAM HCL/PF 2 MG/2 ML VIAL. IV ONE (10:00)
[2018-05-12] MEDS ORDERED: fentaNYL PF VIAL 100 MCG/2 ML VIAL IV ONE (10:00)
--- NOTE | 2018-05-12 11:27 | RAD ---
CT-guided bone marrow biopsy. 05/12/2018 11:22 AM Indication: polycythemia Discussion: The risks and benefits of the procedure, including but not limited to, bleeding and infection were discussed patient. Informed consent was obtained. The patient was brought to the CT scanner and placed in the prone position. A timeout procedure was performed. Turbine Engine Assembler CT imaging of the pelvis demonstrated left ilium amenable to bone marrow biopsy. The overlying soft tissues were prepped and draped using maximum sterile barrier technique. 1% lidocaine without epinephrine was administered for local anesthesia. Under intermittent CT guidance, an OncControl needle was advanced into the bone marrow of the left iliac crest. 2 Aspirates and 1 core biopsy samples were obtained. Samples were delivered to pathology was present at the time of procedure. The needle was removed and manual pressure held to achieve hemostasis. No immediate complications were identified. The procedure was performed under conscious sedation including continuous cardiopulmonary monitoring via dedicated sedation nurse. Sedation time: 20 minutes Impression: Successful CT-guided bone marrow biopsy of the left iliac crest . PQRS Compliance Statement: One or more of the following individualized dose reduction techniques were utilized for this examination: 1. Automated exposure control 2. Adjustment of the mA and/or kV according to patient size 3. Use of iterative reconstruction technique
--- NOTE | 2018-05-12 11:31 | PDOC ---
Infectious Disease Note Subjective Subjective Feeling alright this morning Denies pain/F/C/N/V/D/SOA ROS ROS no n/v/d/sob Vital Sign Vital Signs Vital Signs Date Time Temp Pulse Resp B/P (MAP) Pulse Ox O2 Delivery O2 Flow Rate FiO2 05/12/18 10:28 85 16 96 Nasal Cannula 2.0 05/12/18 07:00 98.1 113/70 (84) 98.1 Physical Exam PHYSICAL EXAM GENERAL: Resting quietly HEENT: Normal conjunctivae. Oral cavity: Pharynx pink and moist. NECK: Supple. LUNGS: Clear to auscultation. HEART: S1, S2. ABDOMEN: Nondistended, soft and nontender with bowel sounds present. EXTREMITIES: No gross edema or cyanosis. Right lower extremity rubor with wrinkles and dry flaky skin. He has 2 ulcers located anterolateral aspect of the gotti and dorsal aspect of the right foot with bleeding. Dorsalis pedis pulse difficult to palpate. His toe nails are thick and yellow. SKIN: Warm without rash. NEUROLOGIC: Alert and oriented x 3. Labs Lab Laboratory Tests Test 05/12/18 06:05 05/12/18 06:50 White Blood Count 6.1 x10^3/uL (4.0-11.0) Red Blood Count 5.59 x10^6/uL (4.30-5.70) Hemoglobin 18.0 g/dL (13.0-17.5) Hematocrit 53.1 % (39.0-53.0) Mean Corpuscular Volume 95 fL (79-100) Mean Corpuscular Hemoglobin 32 pg (25-35) Mean Corpuscular Hemoglobin Concent 34 g/dL (31-37) Red Cell Distribution Width 16.3 % (11.5-14.5) Platelet Count 145 x10^3/uL (140-400) Neutrophils (%) (Auto) 63 % (31-73) Lymphocytes (%) (Auto) 18 % (24-48) Monocytes (%) (Auto) 13 % (0-9) Eosinophils (%) (Auto) 5 % (0-3) Basophils (%) (Auto) 1 % (0-3) Neutrophils # (Auto) 3.8 x10^3uL (1.8-7.7) Lymphocytes # (Auto) 1.1 x10^3/uL (1.0-4.8) Monocytes # (Auto) 0.8 x10^3/uL (0.0-1.1) Eosinophils # (Auto) 0.3 x10^3/uL (0.0-0.7) Basophils # (Auto) 0.0 x10^3/uL (0.0-0.2) Reticulocyte Count (auto) 0.9 % (0.5-2.5) Prothrombin Time 15.0 SEC (11.7-14.0) Prothromb Time International Ratio 1.2 (0.8-1.1) Sodium Level 141 mmol/L (136-145) Potassium Level 4.1 mmol/L (3.5-5.1) Chloride Level 106 mmol/L (98-107) Carbon Dioxide Level 26 mmol/L (21-32) Anion Gap 9 (6-14) Blood Urea Nitrogen 10 mg/dL (8-26) Creatinine 1.0 mg/dL (0.7-1.3) Estimated GFR (Cockcroft-Gault) 72.3 Glucose Level 80 mg/dL (70-99) Calcium Level 8.5 mg/dL (8.5-10.1) Micro ANAEROBIC-AEROBIC CULTURE PENDING ANAEROBIC RES 1 PENDING AEROBIC CULT PENDING AEROBIC RES 1 PENDING GRAM STAIN Final Final report GRAM STAIN RES 1 Final Comment No white blood cells seen. GRAM STAIN RES 2 Final Comment Moderate number of gram negative diplococci. Performed at: DA - [facility], [place], [place] [id number] Garage Door Service Technician: ADIEL Lorenzo MD, Phone: [phone] Objective Assessment RLE ulcerations and cellulitis Arterial occlusive disease, vascular following. May need aorto-fem bypass graft and possible right [id number] graft h/o DVT/PE Tobacco dependence COPD Plan Plan of Care continue vanc and Zosyn wound culture in process Monitor labs/temp/renal function closely Local wound care ROLO GALVAN MD May 12, 2018 11:31
--- NOTE | 2018-05-12 11:49 | PDOC ---
TJ VILLAFUERTE INTEGRATED CIRCUIT FABRICATOR 05/12/18 1149: CARDIO Progress Notes Date and Time Date of Service 05/12/18 Subjective Subjective: No Chest Pain, No shortness of breath, No Palpitations Vitals Vitals Vital Signs Date Time Temp Pulse Resp B/P (MAP) Pulse Ox O2 Delivery O2 Flow Rate FiO2 05/12/18 10:28 85 16 96 Nasal Cannula 2.0 05/12/18 07:00 98.1 113/70 (84) 98.1 Weight Weight [ ] Input and Output Intake and Output Intake and Output 05/12/18 07:01 Intake Total 400 ml Output Total 1300 ml Balance -900 ml IV Total 400 ml Output Urine Total 1300 ml Laboratory Labs Laboratory Tests Test 05/12/18 06:05 05/12/18 06:50 White Blood Count 6.1 x10^3/uL (4.0-11.0) Red Blood Count 5.59 x10^6/uL (4.30-5.70) Hemoglobin 18.0 g/dL (13.0-17.5) Hematocrit 53.1 % (39.0-53.0) Mean Corpuscular Volume 95 fL (79-100) Mean Corpuscular Hemoglobin 32 pg (25-35) Mean Corpuscular Hemoglobin Concent 34 g/dL (31-37) Red Cell Distribution Width 16.3 % (11.5-14.5) Platelet Count 145 x10^3/uL (140-400) Neutrophils (%) (Auto) 63 % (31-73) Lymphocytes (%) (Auto) 18 % (24-48) Monocytes (%) (Auto) 13 % (0-9) Eosinophils (%) (Auto) 5 % (0-3) Basophils (%) (Auto) 1 % (0-3) Neutrophils # (Auto) 3.8 x10^3uL (1.8-7.7) Lymphocytes # (Auto) 1.1 x10^3/uL (1.0-4.8) Monocytes # (Auto) 0.8 x10^3/uL (0.0-1.1) Eosinophils # (Auto) 0.3 x10^3/uL (0.0-0.7) Basophils # (Auto) 0.0 x10^3/uL (0.0-0.2) Reticulocyte Count (auto) 0.9 % (0.5-2.5) Prothrombin Time 15.0 SEC (11.7-14.0) Prothromb Time International Ratio 1.2 (0.8-1.1) Sodium Level 141 mmol/L (136-145) Potassium Level 4.1 mmol/L (3.5-5.1) Chloride Level 106 mmol/L (98-107) Carbon Dioxide Level 26 mmol/L (21-32) Anion Gap 9 (6-14) Blood Urea Nitrogen 10 mg/dL (8-26) Creatinine 1.0 mg/dL (0.7-1.3) Estimated GFR (Cockcroft-Gault) 72.3 Glucose Level 80 mg/dL (70-99) Calcium Level 8.5 mg/dL (8.5-10.1) Microbiology Micro Microbiology 05/07/18 Blood Culture - Preliminary, Resulted NO GROWTH AFTER 4 DAYS 05/10/18 Anaerobic/Aerobic Culture, Resulted Pending 05/10/18 Anaerobic Culture Result 1 (JUHI), Resulted Pending 05/10/18 Aerobic Culture, Resulted Pending 05/10/18 Aerobic Culture Result 1 (JUHI), Resulted Pending 05/10/18 Gram Stain - Final, Resulted 05/10/18 Gram Stain Result 1 (JUHI) - Final, Resulted 05/10/18 Gram Stain Result 2 (JUHI) - Final, Resulted Physical Exam HEENT: Neck Supple W Full Motion Chest: Symmetric LUNGS: Clear to Auscultation Heart: S1S2, RRR, no gallops Abdomen: Soft N/T Extremities: Other (DRSg intact to bilateral LE. erythema of RLE) Neurology: alert, follow commands, other Assessment Assessment 1. Severe bilateral PAD with RLE wound/ulceration. CTA showing extensive disease. Vascular surgery following; aortofemoral reconstruction planned pending further workup. Echo showed preserved LV systolic function. 2. RLE cellulitis 3. Hypertension; low normotensive 4. Hyperlipidemia 5. H/o PE; tx with Eliquis. CTA with resolution 6. Polycythemia; bone marrow biopsy today. Recommendations Check lipids; statin if indications Add ASA MPI today for further risk stratification. CRISTY LUEVANO MD 05/12/18 1412: CARDIO Progress Notes Plan Plan Pt. seen and examined. Agree with above MOTORCYCLE MECHANIC APPRENTICE note. MPI negative. He will undergoing extensive vascular surgery, from a purely CV standpoint, he would be deemed low to moderate risk. Supportive care. Eliquis stopped. Will start asa. Statin added. TJ VILLAFUERTE APRN May 12, 2018 11:49 CRISTY LUEVANO MD May 12, 2018 14:12
[2018-05-12] MEDS: VANCOMYCIN PER PHARMACY MC PRN (12:02)
--- NOTE | 2018-05-12 12:47 | PDOC ---
PROGRESS NOTES History of Present Illness History of Present Illness Assessment/Plan Assessment/Plan impression 1. cellulitis right foot and leg DEEP DORSAL FOOT WOUND POOR CAPILLARY REFILL 2. Mild soft tissue swelling identified dorsal to the metatarsal could be edema or soft tissue infection. 3. No acute osseous findings. 4. tobacco abuse disorder 5. 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 Collateral flow reconstitutes the right superficial femoral artery proximally but more distally the vessel is severely tapered and probably occluded. There is no significant flow seen in the right popliteal artery. There is two-vessel runoff to the ankle from reconstituted collateral vessels. in 2017 6. HX PE 7. POLYCYTHEMIA 8. HYPOKALEMIA 9. SEPSIS plan REPLACE K repeat CT angiogram to more clearly delineate arterial anatomy prior to scheduling KERRY-2 assay NEG 2017 PULM CONSULT HEME CONSULT REVIEWED iv vanc Q 12 HRS ID CONSULT WOUND CARE CONSULT dvt prophylaxis blood cult vascular consult reviewed Vitals Vitals Vital Signs Date Time Temp Pulse Resp B/P (MAP) Pulse Ox O2 Delivery O2 Flow Rate FiO2 05/12/18 11:00 97.2 76 18 101/59 (73) 93 Room Air 97.2 05/12/18 10:28 2.0 Physical Exam Physical Exam GENERAL: Resting quietly HEENT: Normal conjunctivae. Oral cavity: Pharynx pink and moist. NECK: Supple. LUNGS: Clear to auscultation. HEART: S1, S2. ABDOMEN: Nondistended, soft and nontender with bowel sounds present. EXTREMITIES: No gross edema or cyanosis. Right lower extremity rubor with wrinkles and dry flaky skin. He has 2 ulcers located anterolateral aspect of the gotti and dorsal aspect of the right foot with bleeding. Dorsalis pedis pulse difficult to palpate. His toe nails are thick and yellow. SKIN: Warm without rash. NEUROLOGIC: Alert and oriented x 3. General: Alert, Oriented X3, No acute distress Heart: Regular rate, Normal S1, Normal S2, No murmurs Lungs: Clear Abdomen: Normal bowel sounds, Soft, No tenderness Extremities: No cyanosis, Other (ISCHEMIC ULCER RIGHT FOOT/ CELLULITIS DEEP DORSAL FOOT WOUND) Skin: Other (MARKED VASCULAR INSUFF CHANGES RIGHT LOWER LEG, SKIN DRY,FRAGILE) Labs LABS YUE JARAMILLO MD ORDERED: ANAER/AEROB/GS Procedure Result ANAEROBIC-AEROBIC CULTURE PENDING ANAEROBIC RES 1 PENDING AEROBIC CULT PENDING AEROBIC RES 1 PENDING GRAM STAIN Final Final report GRAM STAIN RES 1 Final Comment No white blood cells seen. GRAM STAIN RES 2 Final Comment Moderate number of gram negative diplococci. Performed at: - [facility], [place], [place] [id number] Piano Accompanist: ADIEL Lorenzo MD, Phone: [phone] Laboratory Tests Test 05/12/18 06:05 05/12/18 06:50 White Blood Count 6.1 x10^3/uL (4.0-11.0) Red Blood Count 5.59 x10^6/uL (4.30-5.70) Hemoglobin 18.0 g/dL (13.0-17.5) Hematocrit 53.1 % (39.0-53.0) Mean Corpuscular Volume 95 fL (79-100) Mean Corpuscular Hemoglobin 32 pg (25-35) Mean Corpuscular Hemoglobin Concent 34 g/dL (31-37) Red Cell Distribution Width 16.3 % (11.5-14.5) Platelet Count 145 x10^3/uL (140-400) Neutrophils (%) (Auto) 63 % (31-73) Lymphocytes (%) (Auto) 18 % (24-48) Monocytes (%) (Auto) 13 % (0-9) Eosinophils (%) (Auto) 5 % (0-3) Basophils (%) (Auto) 1 % (0-3) Neutrophils # (Auto) 3.8 x10^3uL (1.8-7.7) Lymphocytes # (Auto) 1.1 x10^3/uL (1.0-4.8) Monocytes # (Auto) 0.8 x10^3/uL (0.0-1.1) Eosinophils # (Auto) 0.3 x10^3/uL (0.0-0.7) Basophils # (Auto) 0.0 x10^3/uL (0.0-0.2) Reticulocyte Count (auto) 0.9 % (0.5-2.5) Prothrombin Time 15.0 SEC (11.7-14.0) Prothromb Time International Ratio 1.2 (0.8-1.1) Sodium Level 141 mmol/L (136-145) Potassium Level 4.1 mmol/L (3.5-5.1) Chloride Level 106 mmol/L (98-107) Carbon Dioxide Level 26 mmol/L (21-32) Anion Gap 9 (6-14) Blood Urea Nitrogen 10 mg/dL (8-26) Creatinine 1.0 mg/dL (0.7-1.3) Estimated GFR (Cockcroft-Gault) 72.3 Glucose Level 80 mg/dL (70-99) Calcium Level 8.5 mg/dL (8.5-10.1) Assessment and Plan Assessmemt and Plan Problems Medical Problems: (1) Cellulitis of right lower leg Status: Acute (2) Right foot ulcer Status: Acute INTERPRETATION Stress EKG Conclusion: No evidence of stress induced EKG changes. Imaging Protocol IMAGE PROTOCOL: Rest Tc-99m/stress Tc-99m 1 day Rest: Stress: Viability: Radiopharm. Tc99m Sestamibi Tc99m Sestamibi Dose 10.4mCi 32.8mCi Duration 13min. 13min. Img Date 05/12/2018 05/12/2018 Inj-Img Time 60min. 60min. Rest Admin Site: IV - Left [employer] Building Supervisor: Sandrine Cain, RT (R)(N ) Stress Admin Site: IV - Left [employer] Supervisor: LATRICIA Beltran STRESS DATA End Diast. Vol. 90.0ml Av. Heart Rate 74.0bpm LVEDV index BSA 48.0ml Cardiac Output 0.0L/min End Syst. Vol. 34.0ml CO Index BSA 0.0L/min LVESV index BSA 18.0ml Myocardial Mass 120.0g Eject. Fraction 62.0% Stress Scores Regional WT 2.00 Summed WT 23.00 Regional WM 0.00 Summed WM 0.00 The rest and stress images show normal perfusion, normal contraction and thickening. LV Perf. Quant 17 Seg. SSS 2.00 17 Seg. SRS 9.00 17 Seg. SDS 0.00 Stress Defect Extent (% LAD) 5.00 Rest Defect Extent (% LAD) 10.00 Rev. Defect Extent (% LAD) 0.00 Stress Defect Extent (% LCX) 8.80 Rest Defect Extent (% LCX) 37.50 Rev. Defect Extent (% LCX) 0.00 Stress Defect Extent (% RCA) 0.00 Rest Defect Extent (% RCA) 25.60 Rev. Defect Extent (% RCA) 0.00 Stress Defect Extent (% CLARISSA) 4.80 Rest Defect Extent (% CLARISSA) 21.30 Rev. Defect Extent (% CLARISSA) 0.00 Other Information Quality:Good Risk Assessment: Low Risk Signed by : Cristy Roe, Electronically Approved : 05/12/2018 13:34:51 DICTATED and SIGNED BY: CRISTY ROE MD DATE: 05/12/18 [id number] Comment Review of Relevant I have reviewed the following items lee (where applicable) has been applied. Labs Laboratory Tests Test 05/11/18 09:15 05/12/18 06:05 05/12/18 06:50 White Blood Count 6.5 x10^3/uL (4.0-11.0) 6.1 x10^3/uL (4.0-11.0) Red Blood Count 5.74 x10^6/uL (4.30-5.70) 5.59 x10^6/uL (4.30-5.70) Hemoglobin 18.4 g/dL (13.0-17.5) 18.0 g/dL (13.0-17.5) Hematocrit 54.6 % (39.0-53.0) 53.1 % (39.0-53.0) Mean Corpuscular Volume 95 fL (79-100) 95 fL (79-100) Mean Corpuscular Hemoglobin 32 pg (25-35) 32 pg (25-35) Mean Corpuscular Hemoglobin Concent 34 g/dL (31-37) 34 g/dL (31-37) Red Cell Distribution Width 16.7 % (11.5-14.5) 16.3 % (11.5-14.5) Platelet Count 138 x10^3/uL (140-400) 145 x10^3/uL (140-400) Neutrophils (%) (Auto) 70 % (31-73) 63 % (31-73) Lymphocytes (%) (Auto) 14 % (24-48) 18 % (24-48) Monocytes (%) (Auto) 11 % (0-9) 13 % (0-9) Eosinophils (%) (Auto) 4 % (0-3) 5 % (0-3) Basophils (%) (Auto) 1 % (0-3) 1 % (0-3) Neutrophils # (Auto) 4.5 x10^3uL (1.8-7.7) 3.8 x10^3uL (1.8-7.7) Lymphocytes # (Auto) 0.9 x10^3/uL (1.0-4.8) 1.1 x10^3/uL (1.0-4.8) Monocytes # (Auto) 0.7 x10^3/uL (0.0-1.1) 0.8 x10^3/uL (0.0-1.1) Eosinophils # (Auto) 0.3 x10^3/uL (0.0-0.7) 0.3 x10^3/uL (0.0-0.7) Basophils # (Auto) 0.0 x10^3/uL (0.0-0.2) 0.0 x10^3/uL (0.0-0.2) Sodium Level 140 mmol/L (136-145) 141 mmol/L (136-145) Potassium Level 3.4 mmol/L (3.5-5.1) 4.1 mmol/L (3.5-5.1) Chloride Level 104 mmol/L (98-107) 106 mmol/L (98-107) Carbon Dioxide Level 27 mmol/L (21-32) 26 mmol/L (21-32) Anion Gap 9 (6-14) 9 (6-14) Blood Urea Nitrogen 12 mg/dL (8-26) 10 mg/dL (8-26) Creatinine 0.9 mg/dL (0.7-1.3) 1.0 mg/dL (0.7-1.3) Estimated GFR (Cockcroft-Gault) 81.6 72.3 BUN/Creatinine Ratio 13 (6-20) Glucose Level 127 mg/dL (70-99) 80 mg/dL (70-99) Calcium Level 8.4 mg/dL (8.5-10.1) 8.5 mg/dL (8.5-10.1) Total Bilirubin 1.0 mg/dL (0.2-1.0) Aspartate Amino Transf (AST/SGOT) 22 U/L (15-37) Alanine Aminotransferase (ALT/SGPT) 17 U/L (16-63) Alkaline Phosphatase 78 U/L (46-116) Total Protein 6.3 g/dL (6.4-8.2) Albumin 2.7 g/dL (3.4-5.0) Albumin/Globulin Ratio 0.8 (1.0-1.7) Reticulocyte Count (auto) 0.9 % (0.5-2.5) Prothrombin Time 15.0 SEC (11.7-14.0) Prothromb Time International Ratio 1.2 (0.8-1.1) Laboratory Tests Test 05/12/18 06:05 05/12/18 06:50 White Blood Count 6.1 x10^3/uL (4.0-11.0) Red Blood Count 5.59 x10^6/uL (4.30-5.70) Hemoglobin 18.0 g/dL (13.0-17.5) Hematocrit 53.1 % (39.0-53.0) Mean Corpuscular Volume 95 fL (79-100) Mean Corpuscular Hemoglobin 32 pg (25-35) Mean Corpuscular Hemoglobin Concent 34 g/dL (31-37) Red Cell Distribution Width 16.3 % (11.5-14.5) Platelet Count 145 x10^3/uL (140-400) Neutrophils (%) (Auto) 63 % (31-73) Lymphocytes (%) (Auto) 18 % (24-48) Monocytes (%) (Auto) 13 % (0-9) Eosinophils (%) (Auto) 5 % (0-3) Basophils (%) (Auto) 1 % (0-3) Neutrophils # (Auto) 3.8 x10^3uL (1.8-7.7) Lymphocytes # (Auto) 1.1 x10^3/uL (1.0-4.8) Monocytes # (Auto) 0.8 x10^3/uL (0.0-1.1) Eosinophils # (Auto) 0.3 x10^3/uL (0.0-0.7) Basophils # (Auto) 0.0 x10^3/uL (0.0-0.2) Reticulocyte Count (auto) 0.9 % (0.5-2.5) Prothrombin Time 15.0 SEC (11.7-14.0) Prothromb Time International Ratio 1.2 (0.8-1.1) Sodium Level 141 mmol/L (136-145) Potassium Level 4.1 mmol/L (3.5-5.1) Chloride Level 106 mmol/L (98-107) Carbon Dioxide Level 26 mmol/L (21-32) Anion Gap 9 (6-14) Blood Urea Nitrogen 10 mg/dL (8-26) Creatinine 1.0 mg/dL (0.7-1.3) Estimated GFR (Cockcroft-Gault) 72.3 Glucose Level 80 mg/dL (70-99) Calcium Level 8.5 mg/dL (8.5-10.1) Microbiology 05/07/18 Blood Culture - Preliminary, Resulted NO GROWTH AFTER 4 DAYS 05/10/18 Anaerobic/Aerobic Culture, Resulted Pending 05/10/18 Anaerobic Culture Result 1 (JUHI), Resulted Pending 05/10/18 Aerobic Culture, Resulted Pending 05/10/18 Aerobic Culture Result 1 (JUHI), Resulted Pending 05/10/18 Gram Stain - Final, Resulted 05/10/18 Gram Stain Result 1 (JUHI) - Final, Resulted 05/10/18 Gram Stain Result 2 (JUHI) - Final, Resulted Medications Current Medications Sodium Chloride 1,000 ml @ 1,000 mls/hr 1X ONCE IV Last administered on 05/07at 19:19; Start 05/07/18 at 19:00; Stop 05/07/18 at 19:59; Status DC Vancomycin HCl (Vanco Per Pharmacy) 1 each PRN DAILY PRN MC SEE COMMENTS Last administered on 05/12/18at 12:02; Start 05/07/18 at 19:45 Vancomycin HCl 2 gm/Sodium Chloride 500 ml @ 250 mls/hr ONCE ONCE IV Last administered on 05/07/18at 20:00; Start 05/07/18 at 19:45; Stop 05/07/18 at 21 :44; Status DC Ondansetron HCl (Zofran) 4 mg PRN Q8HRS PRN IV NAUSEA/VOMITING 1ST CHOICE; Start 05/07/18 at 21:15; Stop 05/08/18 at 21:14; Status DC Sodium Chloride 1,000 ml @ 125 mls/hr Q8H IV Last administered on 05/08/18at 20:01; Start 05/07/18 at 21:03; Stop 05/08/18 at 21:02; Status DC Fentanyl Citrate (Fentanyl 2ml Vial) 25 mcg PRN Q2HR PRN IV SEVERE PAIN Last administered on 05/08/18at 13:59; Start 05/08/18 at 01:45; Stop 05/08/18 at 14 :39; Status DC Vancomycin HCl 1.25 gm/Sodium Chloride 250 ml @ 167 mls/hr Q12H IV Last administered on 05/11/18at 20:04; Start 05/08/18 at 08:00 Vancomycin HCl (Vancomycin Trough Level) 1 each 1X ONCE MC ; Start 05/10/18 at 07:30; Stop 05/10/18 at 07:30; Status DC Lactobacillus Rhamnosus (Culturelle) 1 cap BID PO Last administered on at 20:05; Start 05/08/18 at 09:00 Fentanyl Citrate (Fentanyl 2ml Vial) 50 mcg PRN Q2HR PRN IV SEVERE PAIN Last administered on 05/09/18at 09:05; Start 05/08/18 at 14:45 Apixaban (Eliquis) 5 mg BID PO Last administered on 05/11/18at 09:39; Start at 15:00; Stop 05/12/18 at 11:45; Status DC Acetaminophen/ Hydrocodone Bitart (Lortab 7.5/325) 1 tab PRN Q4HRS PRN PO PAIN Last administered on 05/12/18at 05:27; Start 05/09/18 at 11:15 Info (Anti-Coagulation Monitoring By Pharmacy) 1 each PRN DAILY PRN MC SEE COMMENTS Last administered on 05/11/18at 13:08; Start 05/09/18 at 11:30; Stop 05/12/18 at 11:45; Status DC Magnesium Hydroxide (Milk Of Magnesia) 2,400 mg PRN DAILY PRN PO CONSTIPATION Last administered on 05/10/18at 20:01; Start 05/09/18 at 14:15 Iohexol (Omnipaque 300 Mg/ml) 100 ml 1X ONCE IV Last administered on at 11:45; Start 05/10/18 at 11:45; Stop 05/10/18 at 11:46; Status DC Info (CONTRAST GIVEN -- Rx MONITORING) 1 each PRN DAILY PRN MC SEE COMMENTS; Start 05/10/18 at 11:45; Stop 05/12/18 at 11:33; Status DC Piperacillin Sod/ Tazobactam Sod 3.375 gm/Sodium Chloride 50 ml @ 100 mls/hr Q6HRS IV Last administered on 05/12/18at 05:02; Start 05/10/18 at 18:30 Potassium Chloride (Klor-Con) 40 meq 1X ONCE PO Last administered on at 17:44; Start 05/11/18 at 14:30; Stop 05/11/18 at 14:31; Status DC Potassium Chloride (Klor-Con) 20 meq DAILYWBKFT PO ; Start 05/12/18 at 08:00 Iohexol (Omnipaque 300 Mg/ml) 95 ml 1X ONCE IV Last administered on at 15:09; Start 05/11/18 at 14:45; Stop 05/11/18 at 14:47; Status DC Info (CONTRAST GIVEN -- Rx MONITORING) 1 each PRN DAILY PRN MC SEE COMMENTS; Start 05/11/18 at 15:00; Stop 05/13/18 at 14:59 Regadenoson (Lexiscan) 0.4 mg 1X ONCE IV Last administered on 05/12/18at 08:30 ; Start 05/12/18 at 08:30; Stop 05/12/18 at 08:31; Status DC Midazolam HCl (Versed) 2 mg STK-MED ONCE .ROUTE ; Start 05/12/18 at 09:55; Stop 05/12/18 at 09:56; Status DC Fentanyl Citrate (Fentanyl 2ml Vial) 100 mcg STK-MED ONCE .ROUTE ; Start at 09:55; Stop 05/12/18 at 09:56; Status DC Lidocaine/Sodium Bicarbonate (Buffered Lidocaine 1%) 3 ml STK-MED ONCE .ROUTE ; Start 05/12/18 at 09:57; Stop 05/12/18 at 09:58; Status DC Lidocaine/Sodium Bicarbonate (Buffered Lidocaine 1%) 3 ml 1X ONCE IJ Last administered on 05/12/18at 10:25; Start 05/12/18 at 10:00; Stop 05/12/18 at 10 :12; Status DC Midazolam HCl (Versed) 2 mg 1X ONCE IV Last administered on 05/12/18at 10:26; Start 05/12/18 at 10:00; Stop 05/12/18 at 10:12; Status DC Fentanyl Citrate (Fentanyl 2ml Vial) 100 mcg 1X ONCE IV Last administered on 05/12/18at 10:27; Start 05/12/18 at 10:00; Stop 05/12/18 at 10:12; Status DC Active Scripts Active Reported Eliquis (Apixaban) 5 Mg Tablet 5 Mg PO BID Vitals/I & O Vital Sign - Last 24 Hours 05/11/18 05/11/18 05/11/18 05/11/18 15:28 19:00 20:00 20:07 Temp 98.2 98.1 98.2 98.1 Pulse 75 71 Resp 20 17 18 B/P (MAP) 100/50 (67) 125/47 (73) Pulse Ox 94 94 94 O2 Delivery Room Air Room Air Room Air Room Air O2 Flow Rate 2.0 05/11/18 05/12/18 05/12/18 05/12/18 23:00 01:14 03:00 05:27 Temp 98.2 98.1 98.2 98.1 Pulse 77 75 Resp 18 16 18 B/P (MAP) 105/48 (67) 102/52 (69) Pulse Ox 93 93 93 93 O2 Delivery Room Air Room Air Room Air Room Air O2 Flow Rate 2.0 05/12/18 05/12/18 05/12/18 05/12/18 06:27 07:00 07:45 10:16 Temp 98.1 98.1 Pulse 68 84 Resp 18 18 16 B/P (MAP) 113/70 (84) Pulse Ox 93 92 98 O2 Delivery Room Air Room Air Room Air Nasal Cannula O2 Flow Rate 2.0 2.0 05/12/18 05/12/18 05/12/18 05/12/18 10:21 10:27 10:28 11:00 Temp 97.2 97.2 Pulse 93 85 76 Resp 14 14 16 18 B/P (MAP) 101/59 (73) Pulse Ox 97 96 96 93 O2 Delivery Nasal Cannula Nasal Cannula Nasal Cannula Room Air O2 Flow Rate 2.0 2.0 2.0 Intake and Output 05/11/18 05/11/18 05/12/18 15:01 23:01 07:01 Intake Total 300 ml 100 ml Output Total 100 ml 1200 ml Balance -100 ml 300 ml -1100 ml NAZIA MORRIS MD May 12, 2018 12:47
[2018-05-12] MEDS: POTASSIUM CHLORIDE 20 MEQ TABLET.ER. PO SCH (12:54)
[2018-05-12] MEDS: LACTOBACILLUS RHAMNOSUS GG 1 CAPSULE. PO SCH ×2 (12:54→22:10)
[2018-05-12] MEDS: VANCOMYCIN 1.25 GM in IV NORMAL SALINE 250ML 250 ML IV SCH ×2 (12:58→20:11)
--- NOTE | 2018-05-12 13:36 | RAD ---
MR#: [id number] Date of Study: 05/12/2018 Ordering Physician: YANG JENKINS, Referring Physician: BRADFORD PURVIS Tech: RT Ginna Randall) (N) APPROVED REPORT Test Type: Pharmacological Stress Nurse/Tech: Sunita Romeo RN Test Indications: CAD, preop foot wound Cardiac History: Hypertension,smoker,COPD Medications: See Electronic Medical Record Medical History: See Electronic Medical Record Resting ECG: SR with BBB Resting Heart Rate: 79 bpm Resting Blood Pressure: 108/55mmHg Pretest Chest Pain: No chest pain Nurse/Tech Notes S1,S2 and lungs are clear to auscultation. Consent: The procedure was explained to the patient in lay terms. Informed consent was witnessed. Villa eout was entered into [facility]. History and Stress Test performed by RT Tonia (R) (N) Pharm. Details Pharmacologic stress testing was performed using 0.4mg per 5ml of regadenoson given intravenously ove r 7-10 seconds. Stress Symptoms Dyspnea POST EXERCISE Reason for Termination: Infusion complete Target HR: Yes Max HR: 154 bpm Max Blood Pressure: 116/50mmHg Blood Pressure response to exercise: Normal blood pressure response during stress. Heart Rate response to exercise: WNL Chest Pain: No. Arrhythmia: No. ST Change: No. INTERPRETATION Stress EKG Conclusion: No evidence of stress induced EKG changes. Imaging Protocol IMAGE PROTOCOL: Rest Tc-99m/stress Tc-99m 1 day Rest: Stress: Viability: Radiopharm.Tc99m [id number] Sestamibi Dose10.4mCi 32.8mCi Duration 13min. 13min. Img Date 05/12/2018 05/12/2018 Inj-Img [id number]. 60min. Rest Admin Site:IV - Left AntecubitalAdministrator:RT Tonia (Chuckie)(N) Stress Admin Site: IV - Left AntecubitalAdministrator: LATRICIA Beltran STRESS DATA End Diast. Vol.90.0mlAv. Heart Rate74.0bpm LVEDV index BSA48.0mlCardiac Output0.0L/min End Syst. Vol.34.0mlCO Index BSA0.0L/min LVESV index BSA18.0mlMyocardial Eksw398.0g Eject. Tiauoryq62.0% Stress Scores Regional WT2.00Summed WT23.00 Regional WM0.00Summed WM0.00 The rest and stress images show normal perfusion, normal contraction and thickening. LV Perf. Quant 17 Seg. SSS2.00 17 Seg. SRS9.00 17 Seg. SDS0.00 Stress Defect Extent (% LAD)5.00Rest Defect Extent (% LAD)10.00Rev. Defect Extent (% LAD)0.00 Stress Defect Extent (% LCX) 8.80Rest Defect Extent (% LCX)37.50Rev. Defect Extent (% LCX)0.00 Stress Defect Extent (% RCA)0.00Rest Defect Extent (% RCA)25.60Rev. Defect Extent (% RCA)0.00 Stress Defect Extent (% CLARISSA)4.80Rest Defect Extent (% CLARISSA)21.30Rev. Defect Extent (% CLARISSA)0.00 Other Information Quality:Good Risk Assessment: Low Risk Conclusion 1. No evidence of EKG changes with stress testing. 2. Normal perfusion at stress/rest. 3. Low risk study. 4. EF > 60%. Signed by : Luis Roe, Electronically Approved : 05/12/2018 13:34:51
[2018-05-12] MEDS ORDERED: ASPIRIN ENTERIC COATED 325 MG TABLET.DR. PO ONE (14:15)
[2018-05-12] MEDS: MAGNESIUM HYDROXIDE 2,400 MG/30 ML ORAL.SUSP. PO PRN (20:09)
[2018-05-12] MEDS: ATORVASTATIN CALCIUM 40 MG TABLET. PO SCH (22:10)
[2018-05-13] MEDS: PIPERACILLIN/TAZOBACTAM 3.375 GM in IV NORMAL SALINE 50ML 50 ML IV SCH ×5 (00:06→23:40)
[2018-05-13 03:00] VITALS: BP 113/72
[2018-05-13 03:44] LABS: BASO % 1 % (0-3); EOS # 0.3 x10^3/uL (0.0-0.7); EOS % 6 % (0-3); HEMATOCRIT 53.8 % (39.0-53.0); HEMOGLOBIN 18.4 g/dL (13.0-17.5); LYMPH % 17 % (24-48); MEAN CORPUSCULAR HEMOGLOBIN 32 pg (25-35); MEAN CORPUSCULAR HGB CONC 34 g/dL (31-37); MEAN CORPUSCULAR VOLUME 95 fL (79-100); MONO # 0.8 x10^3/uL (0.0-1.1); MONO % 14 % (0-9); NEUT # 3.8 x10^3uL (1.8-7.7); NEUT % 63 % (31-73); PLATELET COUNT 146 x10^3/uL (140-400); RED BLOOD COUNT 5.69 x10^6/uL (4.30-5.70); RED CELL DISTRIBUTION WIDTH 16.8 % (11.5-14.5)
[2018-05-13 07:00] VITALS: BP 104/56
[2018-05-13] MEDS: ASPIRIN ENTERIC COATED 81 MG TABLET.DR. PO SCH (08:49)
[2018-05-13] MEDS: VANCOMYCIN 1.25 GM in IV NORMAL SALINE 250ML 250 ML IV SCH ×2 (08:49→21:02)
[2018-05-13] MEDS: LACTOBACILLUS RHAMNOSUS GG 1 CAPSULE. PO SCH ×2 (08:50→21:03)
[2018-05-13] MEDS: POTASSIUM CHLORIDE 20 MEQ TABLET.ER. PO SCH (08:50)
--- NOTE | 2018-05-13 08:54 | PDOC ---
Infectious Disease Note Subjective Subjective Feeling alright this morning Denies pain/F/C/N/V/D/SOA ROS ROS no n/v/d/ Vital Sign Vital Signs Vital Signs Date Time Temp Pulse Resp B/P (MAP) Pulse Ox O2 Delivery O2 Flow Rate FiO2 05/13/18 07:00 98.3 67 18 104/56 (72) 92 Room Air 98.3 05/12/18 11:00 2.0 Physical Exam PHYSICAL EXAM GENERAL: Resting quietly HEENT: Normal conjunctivae. Oral cavity: Pharynx pink and moist. NECK: Supple. LUNGS: Clear to auscultation. HEART: S1, S2. ABDOMEN: Nondistended, soft and nontender with bowel sounds present. EXTREMITIES: No gross edema or cyanosis. Right lower extremity rubor with wrinkles and dry flaky skin. He has 2 ulcers located anterolateral aspect of the gotti and dorsal aspect of the right foot with bleeding. Dorsalis pedis pulse difficult to palpate. His toe nails are thick and yellow. SKIN: Warm without rash. NEUROLOGIC: Alert and oriented x 3. Labs Lab Laboratory Tests Test 05/13/18 02:40 White Blood Count 6.0 x10^3/uL (4.0-11.0) Red Blood Count 5.69 x10^6/uL (4.30-5.70) Hemoglobin 18.4 g/dL (13.0-17.5) Hematocrit 53.8 % (39.0-53.0) Mean Corpuscular Volume 95 fL (79-100) Mean Corpuscular Hemoglobin 32 pg (25-35) Mean Corpuscular Hemoglobin Concent 34 g/dL (31-37) Red Cell Distribution Width 16.8 % (11.5-14.5) Platelet Count 146 x10^3/uL (140-400) Neutrophils (%) (Auto) 63 % (31-73) Lymphocytes (%) (Auto) 17 % (24-48) Monocytes (%) (Auto) 14 % (0-9) Eosinophils (%) (Auto) 6 % (0-3) Basophils (%) (Auto) 1 % (0-3) Neutrophils # (Auto) 3.8 x10^3uL (1.8-7.7) Lymphocytes # (Auto) 1.0 x10^3/uL (1.0-4.8) Monocytes # (Auto) 0.8 x10^3/uL (0.0-1.1) Eosinophils # (Auto) 0.3 x10^3/uL (0.0-0.7) Basophils # (Auto) 0.0 x10^3/uL (0.0-0.2) Micro ANAEROBIC-AEROBIC CULTURE PENDING ANAEROBIC RES 1 PENDING AEROBIC CULT PENDING AEROBIC RES 1 PENDING GRAM STAIN Final Final report GRAM STAIN RES 1 Final Comment No white blood cells seen. GRAM STAIN RES 2 Final Comment Moderate number of gram negative diplococci. Performed at: DA - [facility] [address], [place], [place] [id number] Director Of Trauma: ADIEL Lorenzo MD, Phone: [phone] Objective Assessment RLE ulcerations and cellulitis Arterial occlusive disease, vascular following. May need aorto-fem bypass graft and possible right [id number] graft h/o DVT/PE Tobacco dependence COPD Plan Plan of Care continue vanc and Zosyn wound culture in process Monitor labs/temp/renal function closely Local wound care surgery planned ROLO GALVAN MD May 13, 2018 08:54
--- NOTE | 2018-05-13 08:54 | PDOC ---
PROGRESS NOTES Chief Complaint Chief Complaint 1. Severe bilateral PAD with RLE wound/ulceration. CTA showing extensive disease. Vascular surgery following; aortofemoral reconstruction planned pending further workup. Echo showed preserved LV systolic function. 2. RLE cellulitis 3. Hypertension; low normotensive 4. Hyperlipidemia 5. H/o PE; tx with Eliquis. CTA with resolution 6. Polycythemia; bone marrow biopsy 05/12 7. Dry skin History of Present Illness History of Present Illness Extensive specialists notes reviewed Had phlebotomy by Dr. 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 has been sent VAs surgery has plans of PAD reconstruction/recirculation for extensive arterial occlusion on both legs. Patient does have claudication pain Otherwise patient has no complaints Patient lives alone at home with no assistive device of ambulation Plan: CPM Await vas surgery plans of revascularization of bilateral arterial occlusion Cardiac hernandez doing well, has preserved EF Mentions a polycythemia vera on note-hemoglobin is now normal, from hematocrit of 20 on admission dw RN at bedside Did well with PT - no PT needs so far [place] of eucerin for severe dry skin Vitals Vitals Vital Signs Date Time Temp Pulse Resp B/P (MAP) Pulse Ox O2 Delivery O2 Flow Rate FiO2 05/13/18 07:00 98.3 67 18 104/56 (72) 92 Room Air 98.3 05/12/18 11:00 2.0 Physical Exam Physical Exam GENERAL: Resting quietly HEENT: Normal conjunctivae. Oral cavity: Pharynx pink and moist. NECK: Supple. LUNGS: Clear to auscultation. HEART: S1, S2. ABDOMEN: Nondistended, soft and nontender with bowel sounds present. EXTREMITIES: No gross edema or cyanosis. Right lower extremity rubor with wrinkles and dry flaky skin. He has 2 ulcers located anterolateral aspect of the gotti and dorsal aspect of the right foot with bleeding. Dorsalis pedis pulse difficult to palpate. His toe nails are thick and yellow. SKIN: Warm without rash. NEUROLOGIC: Alert and oriented x 3. General: Alert, Oriented X3, No acute distress Heart: Regular rate, Normal S1, Normal S2, No murmurs Lungs: Clear Abdomen: Normal bowel sounds, Soft, No tenderness Extremities: No cyanosis, Other (ISCHEMIC ULCER RIGHT FOOT/ CELLULITIS DEEP DORSAL FOOT WOUND) Skin: Other (MARKED VASCULAR INSUFF CHANGES RIGHT LOWER LEG, SKIN DRY,FRAGILE) Labs LABS Laboratory Tests Test 05/13/18 02:40 White Blood Count 6.0 x10^3/uL (4.0-11.0) Red Blood Count 5.69 x10^6/uL (4.30-5.70) Hemoglobin 18.4 g/dL (13.0-17.5) Hematocrit 53.8 % (39.0-53.0) Mean Corpuscular Volume 95 fL (79-100) Mean Corpuscular Hemoglobin 32 pg (25-35) Mean Corpuscular Hemoglobin Concent 34 g/dL (31-37) Red Cell Distribution Width 16.8 % (11.5-14.5) Platelet Count 146 x10^3/uL (140-400) Neutrophils (%) (Auto) 63 % (31-73) Lymphocytes (%) (Auto) 17 % (24-48) Monocytes (%) (Auto) 14 % (0-9) Eosinophils (%) (Auto) 6 % (0-3) Basophils (%) (Auto) 1 % (0-3) Neutrophils # (Auto) 3.8 x10^3uL (1.8-7.7) Lymphocytes # (Auto) 1.0 x10^3/uL (1.0-4.8) Monocytes # (Auto) 0.8 x10^3/uL (0.0-1.1) Eosinophils # (Auto) 0.3 x10^3/uL (0.0-0.7) Basophils # (Auto) 0.0 x10^3/uL (0.0-0.2) Review of Systems Review of Systems claudication, otherwise the rest of ROS 14 point negative Assessment and Plan Assessmemt and Plan Problems Medical Problems: (1) Cellulitis of right lower leg Status: Acute (2) Right foot ulcer Status: Acute Comment Review of Relevant I have reviewed the following items lee (where applicable) has been applied. Labs Laboratory Tests Test 05/11/18 09:15 05/12/18 06:05 05/12/18 06:50 05/13/18 02:40 White Blood Count 6.5 x10^3/uL (4.0-11.0) 6.1 x10^3/uL (4.0-11.0) 6.0 x10^3/uL (4.0-11.0) Red Blood Count 5.74 x10^6/uL (4.30-5.70) 5.59 x10^6/uL (4.30-5.70) 5.69 x10^6/uL (4.30-5.70) Hemoglobin 18.4 g/dL (13.0-17.5) 18.0 g/dL (13.0-17.5) 18.4 g/dL (13.0-17.5) Hematocrit 54.6 % (39.0-53.0) 53.1 % (39.0-53.0) 53.8 % (39.0-53.0) Mean Corpuscular Volume 95 fL (79-100) 95 fL (79-100) 95 fL (79-100) Mean Corpuscular Hemoglobin 32 pg (25-35) 32 pg (25-35) 32 pg (25-35) Mean Corpuscular Hemoglobin Concent 34 g/dL (31-37) 34 g/dL (31-37) 34 g/dL (31-37) Red Cell Distribution Width 16.7 % (11.5-14.5) 16.3 % (11.5-14.5) 16.8 % (11.5-14.5) Platelet Count 138 x10^3/uL (140-400) 145 x10^3/uL (140-400) 146 x10^3/uL (140-400) Neutrophils (%) (Auto) 70 % (31-73) 63 % (31-73) 63 % (31-73) Lymphocytes (%) (Auto) 14 % (24-48) 18 % (24-48) 17 % (24-48) Monocytes (%) (Auto) 11 % (0-9) 13 % (0-9) 14 % (0-9) Eosinophils (%) (Auto) 4 % (0-3) 5 % (0-3) 6 % (0-3) Basophils (%) (Auto) 1 % (0-3) 1 % (0-3) 1 % (0-3) Neutrophils # (Auto) 4.5 x10^3uL (1.8-7.7) 3.8 x10^3uL (1.8-7.7) 3.8 x10^3uL (1.8-7.7) Lymphocytes # (Auto) 0.9 x10^3/uL (1.0-4.8) 1.1 x10^3/uL (1.0-4.8) 1.0 x10^3/uL (1.0-4.8) Monocytes # (Auto) 0.7 x10^3/uL (0.0-1.1) 0.8 x10^3/uL (0.0-1.1) 0.8 x10^3/uL (0.0-1.1) Eosinophils # (Auto) 0.3 x10^3/uL (0.0-0.7) 0.3 x10^3/uL (0.0-0.7) 0.3 x10^3/uL (0.0-0.7) Basophils # (Auto) 0.0 x10^3/uL (0.0-0.2) 0.0 x10^3/uL (0.0-0.2) 0.0 x10^3/uL (0.0-0.2) Sodium Level 140 mmol/L (136-145) 141 mmol/L (136-145) Potassium Level 3.4 mmol/L (3.5-5.1) 4.1 mmol/L (3.5-5.1) Chloride Level 104 mmol/L (98-107) 106 mmol/L (98-107) Carbon Dioxide Level 27 mmol/L (21-32) 26 mmol/L (21-32) Anion Gap 9 (6-14) 9 (6-14) Blood Urea Nitrogen 12 mg/dL (8-26) 10 mg/dL (8-26) Creatinine 0.9 mg/dL (0.7-1.3) 1.0 mg/dL (0.7-1.3) Estimated GFR (Cockcroft-Gault) 81.6 72.3 BUN/Creatinine Ratio 13 (6-20) Glucose Level 127 mg/dL (70-99) 80 mg/dL (70-99) Calcium Level 8.4 mg/dL (8.5-10.1) 8.5 mg/dL (8.5-10.1) Total Bilirubin 1.0 mg/dL (0.2-1.0) Aspartate Amino Transf (AST/SGOT) 22 U/L (15-37) Alanine Aminotransferase (ALT/SGPT) 17 U/L (16-63) Alkaline Phosphatase 78 U/L (46-116) Total Protein 6.3 g/dL (6.4-8.2) Albumin 2.7 g/dL (3.4-5.0) Albumin/Globulin Ratio 0.8 (1.0-1.7) Reticulocyte Count (auto) 0.9 % (0.5-2.5) Prothrombin Time 15.0 SEC (11.7-14.0) Prothromb Time International Ratio 1.2 (0.8-1.1) Laboratory Tests Test 05/13/18 02:40 White Blood Count 6.0 x10^3/uL (4.0-11.0) Red Blood Count 5.69 x10^6/uL (4.30-5.70) Hemoglobin 18.4 g/dL (13.0-17.5) Hematocrit 53.8 % (39.0-53.0) Mean Corpuscular Volume 95 fL (79-100) Mean Corpuscular Hemoglobin 32 pg (25-35) Mean Corpuscular Hemoglobin Concent 34 g/dL (31-37) Red Cell Distribution Width 16.8 % (11.5-14.5) Platelet Count 146 x10^3/uL (140-400) Neutrophils (%) (Auto) 63 % (31-73) Lymphocytes (%) (Auto) 17 % (24-48) Monocytes (%) (Auto) 14 % (0-9) Eosinophils (%) (Auto) 6 % (0-3) Basophils (%) (Auto) 1 % (0-3) Neutrophils # (Auto) 3.8 x10^3uL (1.8-7.7) Lymphocytes # (Auto) 1.0 x10^3/uL (1.0-4.8) Monocytes # (Auto) 0.8 x10^3/uL (0.0-1.1) Eosinophils # (Auto) 0.3 x10^3/uL (0.0-0.7) Basophils # (Auto) 0.0 x10^3/uL (0.0-0.2) Microbiology 05/07/18 Blood Culture - Final, Complete NO GROWTH AFTER 5 DAYS 05/10/18 Anaerobic/Aerobic Culture, Resulted Pending 05/10/18 Anaerobic Culture Result 1 (JUHI), Resulted Pending 05/10/18 Aerobic Culture, Resulted Pending 05/10/18 Aerobic Culture Result 1 (JUHI), Resulted Pending 05/10/18 Gram Stain - Final, Resulted 05/10/18 Gram Stain Result 1 (JUHI) - Final, Resulted 05/10/18 Gram Stain Result 2 (JUHI) - Final, Resulted Medications Current Medications Sodium Chloride 1,000 ml @ 1,000 mls/hr 1X ONCE IV Last administered on 05/07at 19:19; Start 05/07/18 at 19:00; Stop 05/07/18 at 19:59; Status DC Vancomycin HCl (Vanco Per Pharmacy) 1 each PRN DAILY PRN MC SEE COMMENTS Last administered on 05/12/18at 12:02; Start 05/07/18 at 19:45 Vancomycin HCl 2 gm/Sodium Chloride 500 ml @ 250 mls/hr ONCE ONCE IV Last administered on 05/07/18at 20:00; Start 05/07/18 at 19:45; Stop 05/07/18 at 21 :44; Status DC Ondansetron HCl (Zofran) 4 mg PRN Q8HRS PRN IV NAUSEA/VOMITING 1ST CHOICE; Start 05/07/18 at 21:15; Stop 05/08/18 at 21:14; Status DC Sodium Chloride 1,000 ml @ 125 mls/hr Q8H IV Last administered on 05/08/18at 20:01; Start 05/07/18 at 21:03; Stop 05/08/18 at 21:02; Status DC Fentanyl Citrate (Fentanyl 2ml Vial) 25 mcg PRN Q2HR PRN IV SEVERE PAIN Last administered on 05/08/18at 13:59; Start 05/08/18 at 01:45; Stop 05/08/18 at 14 :39; Status DC Vancomycin HCl 1.25 gm/Sodium Chloride 250 ml @ 167 mls/hr Q12H IV Last administered on 05/12/18at 20:11; Start 05/08/18 at 08:00 Vancomycin HCl (Vancomycin Trough Level) 1 each 1X ONCE MC ; Start 12/22/18 at 07:30; Stop 05/10/18 at 07:30; Status DC Lactobacillus Rhamnosus (Culturelle) 1 cap BID PO Last administered on at 22:10; Start 05/08/18 at 09:00 Fentanyl Citrate (Fentanyl 2ml Vial) 50 mcg PRN Q2HR PRN IV SEVERE PAIN Last administered on 05/09/18at 09:05; Start 05/08/18 at 14:45 Apixaban (Eliquis) 5 mg BID PO Last administered on 05/11/18at 09:39; Start at 15:00; Stop 05/12/18 at 11:45; Status DC Acetaminophen/ Hydrocodone Bitart (Lortab 7.5/325) 1 tab PRN Q4HRS PRN PO PAIN Last administered on 05/12/18 05:27; Start 05/09/18 at 11:15 Info (Anti-Coagulation Monitoring By Pharmacy) 1 each PRN DAILY PRN MC SEE COMMENTS Last administered on 05/11/18at 13:08; Start 05/09/18 at 11:30; Stop 05/12/18 at 11:45; Status DC Magnesium Hydroxide (Milk Of Magnesia) 2,400 mg PRN DAILY PRN PO CONSTIPATION Last administered on 05/12/18at 20:09; Start 05/09/18 at 14:15 Iohexol (Omnipaque 300 Mg/ml) 100 ml 1X ONCE IV Last administered on at 11:45; Start 05/10/18 at 11:45; Stop 05/10/18 at 11:46; Status DC Info (CONTRAST GIVEN -- Rx MONITORING) 1 each PRN DAILY PRN MC SEE COMMENTS; Start 05/10/18 at 11:45; Stop 05/12/18 at 11:33; Status DC Piperacillin Sod/ Tazobactam Sod 3.375 gm/Sodium Chloride 50 ml @ 100 mls/hr Q6HRS IV Last administered on 05/13/18at 06:36; Start 05/10/18 at 18:30 Potassium Chloride (Klor-Con) 40 meq 1X ONCE PO Last administered on at 17:44; Start 05/11/18 at 14:30; Stop 05/11/18 at 14:31; Status DC Potassium Chloride (Klor-Con) 20 meq DAILYWBKFT PO Last administered on at 12:54; Start 05/12/18 at 08:00 Iohexol (Omnipaque 300 Mg/ml) 95 ml 1X ONCE IV Last administered on at 15:09; Start 05/11/18 at 14:45; Stop 05/11/18 at 14:47; Status DC Info (CONTRAST GIVEN -- Rx MONITORING) 1 each PRN DAILY PRN MC SEE COMMENTS; Start 05/11/18 at 15:00; Stop 05/13/18 at 14:59 Regadenoson (Lexiscan) 0.4 mg 1X ONCE IV Last administered on 05/12/18at 08:30 ; Start 05/12/18 at 08:30; Stop 05/12/18 at 08:31; Status DC Midazolam HCl (Versed) 2 mg STK-MED ONCE .ROUTE ; Start 05/12/18 at 09:55; Stop 05/12/18 at 09:56; Status DC Fentanyl Citrate (Fentanyl 2ml Vial) 100 mcg STK-MED ONCE .ROUTE ; Start at 09:55; Stop 05/12/18 at 09:56; Status DC Lidocaine/Sodium Bicarbonate (Buffered Lidocaine 1%) 3 ml STK-MED ONCE .ROUTE ; Start 05/12/18 at 09:57; Stop 05/12/18 at 09:58; Status DC Lidocaine/Sodium Bicarbonate (Buffered Lidocaine 1%) 3 ml 1X ONCE IJ Last administered on 05/12/18at 10:25; Start 05/12/18 at 10:00; Stop 05/12/18 at 10 :12; Status DC Midazolam HCl (Versed) 2 mg 1X ONCE IV Last administered on 05/12/18at 10:26; Start 05/12/18 at 10:00; Stop 05/12/18 at 10:12; Status DC Fentanyl Citrate (Fentanyl 2ml Vial) 100 mcg 1X ONCE IV Last administered on 05/12/18at 10:27; Start 05/12/18 at 10:00; Stop 05/12/18 at 10:12; Status DC Atorvastatin Calcium (Lipitor) 40 mg QHS PO Last administered on 05/12/18at 22: 10; Start 05/12/18 at 21:00 Aspirin (Ecotrin) 81 mg DAILYWBKFT PO ; Start 05/13/18 at 08:00 Aspirin (Ecotrin) 325 mg 1X ONCE PO Last administered on 05/12/18at 14:15; Start 05/12/18 at 14:15; Stop 05/12/18 at 14:16; Status DC Active Scripts Active Reported Eliquis (Apixaban) 5 Mg Tablet 5 Mg PO BID Vitals/I & O Vital Sign - Last 24 Hours 05/12/18 05/12/18 05/12/18 05/12/18 10:16 10:21 10:27 10:28 Pulse 84 93 85 Resp 16 14 14 16 Pulse Ox 98 97 96 96 O2 Delivery Nasal Cannula Nasal Cannula Nasal Cannula Nasal Cannula O2 Flow Rate 2.0 2.0 2.0 2.0 05/12/18 05/12/18 05/12/18 05/12/18 11:00 11:00 15:00 19:00 Temp 97.2 98.4 97.2 98.4 Pulse 76 87 83 Resp 18 18 18 B/P (MAP) 101/59 (73) 120/94 (103) 114/61 (78) Pulse Ox 93 93 92 93 O2 Delivery Room Air Room Air O2 Flow Rate 2.0 05/12/18 05/12/18 05/13/18 05/13/18 20:30 23:00 03:00 07:00 Temp 98.1 98.1 98.3 98.1 98.1 98.3 Pulse 63 73 67 Resp 20 20 18 B/P (MAP) 99/51 (67) 113/72 (86) 104/56 (72) Pulse Ox 92 94 92 O2 Delivery Room Air Room Air Intake and Output 05/12/18 05/12/18 05/13/18 15:01 23:01 07:01 Intake Total 0 ml Output Total 650 ml 200 ml Balance -650 ml -200 ml TYRELL YEBOAH MD May 13, 2018 08:54
[2018-05-13] MEDS ORDERED: MINERAL OIL/PETROLATUM TOPICAL CREAM 113GM JAR. TP PRN (09:00)
[2018-05-13] MEDS: VANCOMYCIN PER PHARMACY MC PRN (09:44)
[2018-05-13 11:00] VITALS: BP 133/64
--- NOTE | 2018-05-13 11:27 | PDOC ---
PULMONARY PROGRESS NOTES Subjective PT NOT MORE SOA Vitals Vital Signs Date Time Temp Pulse Resp B/P (MAP) Pulse Ox O2 Delivery O2 Flow Rate FiO2 05/13/18 07:00 98.3 67 18 104/56 (72) 92 Room Air 98.3 05/12/18 11:00 2.0 ROS: No Nausea, No Chest Pain, No Abdominal Pain, No Increase Cough Lungs: Clear Cardiovascular: S1, S2 Abdomen: Soft Neuro Exam: Alert Extremities: No Edema Skin: Warm Labs Laboratory Tests Test 05/12/18 06:05 05/12/18 06:50 05/13/18 02:40 White Blood Count 6.1 x10^3/uL (4.0-11.0) 6.0 x10^3/uL (4.0-11.0) Red Blood Count 5.59 x10^6/uL (4.30-5.70) 5.69 x10^6/uL (4.30-5.70) Hemoglobin 18.0 g/dL (13.0-17.5) 18.4 g/dL (13.0-17.5) Hematocrit 53.1 % (39.0-53.0) 53.8 % (39.0-53.0) Mean Corpuscular Volume 95 fL (79-100) 95 fL (79-100) Mean Corpuscular Hemoglobin 32 pg (25-35) 32 pg (25-35) Mean Corpuscular Hemoglobin Concent 34 g/dL (31-37) 34 g/dL (31-37) Red Cell Distribution Width 16.3 % (11.5-14.5) 16.8 % (11.5-14.5) Platelet Count 145 x10^3/uL (140-400) 146 x10^3/uL (140-400) Neutrophils (%) (Auto) 63 % (31-73) 63 % (31-73) Lymphocytes (%) (Auto) 18 % (24-48) 17 % (24-48) Monocytes (%) (Auto) 13 % (0-9) 14 % (0-9) Eosinophils (%) (Auto) 5 % (0-3) 6 % (0-3) Basophils (%) (Auto) 1 % (0-3) 1 % (0-3) Neutrophils # (Auto) 3.8 x10^3uL (1.8-7.7) 3.8 x10^3uL (1.8-7.7) Lymphocytes # (Auto) 1.1 x10^3/uL (1.0-4.8) 1.0 x10^3/uL (1.0-4.8) Monocytes # (Auto) 0.8 x10^3/uL (0.0-1.1) 0.8 x10^3/uL (0.0-1.1) Eosinophils # (Auto) 0.3 x10^3/uL (0.0-0.7) 0.3 x10^3/uL (0.0-0.7) Basophils # (Auto) 0.0 x10^3/uL (0.0-0.2) 0.0 x10^3/uL (0.0-0.2) Reticulocyte Count (auto) 0.9 % (0.5-2.5) Prothrombin Time 15.0 SEC (11.7-14.0) Prothromb Time International Ratio 1.2 (0.8-1.1) Sodium Level 141 mmol/L (136-145) Potassium Level 4.1 mmol/L (3.5-5.1) Chloride Level 106 mmol/L (98-107) Carbon Dioxide Level 26 mmol/L (21-32) Anion Gap 9 (6-14) Blood Urea Nitrogen 10 mg/dL (8-26) Creatinine 1.0 mg/dL (0.7-1.3) Estimated GFR (Cockcroft-Gault) 72.3 Glucose Level 80 mg/dL (70-99) Calcium Level 8.5 mg/dL (8.5-10.1) Laboratory Tests Test 05/13/18 02:40 White Blood Count 6.0 x10^3/uL (4.0-11.0) Red Blood Count 5.69 x10^6/uL (4.30-5.70) Hemoglobin 18.4 g/dL (13.0-17.5) Hematocrit 53.8 % (39.0-53.0) Mean Corpuscular Volume 95 fL (79-100) Mean Corpuscular Hemoglobin 32 pg (25-35) Mean Corpuscular Hemoglobin Concent 34 g/dL (31-37) Red Cell Distribution Width 16.8 % (11.5-14.5) Platelet Count 146 x10^3/uL (140-400) Neutrophils (%) (Auto) 63 % (31-73) Lymphocytes (%) (Auto) 17 % (24-48) Monocytes (%) (Auto) 14 % (0-9) Eosinophils (%) (Auto) 6 % (0-3) Basophils (%) (Auto) 1 % (0-3) Neutrophils # (Auto) 3.8 x10^3uL (1.8-7.7) Lymphocytes # (Auto) 1.0 x10^3/uL (1.0-4.8) Monocytes # (Auto) 0.8 x10^3/uL (0.0-1.1) Eosinophils # (Auto) 0.3 x10^3/uL (0.0-0.7) Basophils # (Auto) 0.0 x10^3/uL (0.0-0.2) Medications Active Scripts Medications Dose Route/Sig Max Daily Dose Days Date Category Eliquis (Apixaban) 5 Mg Tablet 5 Mg PO BID 07/18/17 Reported Impression . IMPRESSION: 1. History of pulmonary embolism. 2. Chronic obstructive pulmonary disease. 3. Tobacco dependence. 4. Peripheral vascular disease. 5. Chronic obstructive pulmonary disease. 6. 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 CT CHEST IMPRESSION: 1. No PE. 2. No pneumonia. Plan . RESP STATUS IS COMPENSATED D/W DR SWEENEY YESTERDAY POSSIBLE BONE MARROW NO PE NO NEED FOR CONTINUED ANTICOAGULATION IF SURGERY IS NEEDED OK BY YUE BEACH MD May 13, 2018 11:27
--- NOTE | 2018-05-13 11:41 | PDOC ---
Provider Note Provider Note Pt will require aortobilateral femoral bypass, possible right fem pop bypass after hematology evaluation completed. Hgb still 18.4. Bone marrow biopsy pending. SIMONE SHORT II, MD May 13, 2018 11:41
[2018-05-13 15:00] VITALS: BP 120/59
[2018-05-13 19:00] VITALS: BP 106/78
[2018-05-13] MEDS: ATORVASTATIN CALCIUM 40 MG TABLET. PO SCH (21:02)
[2018-05-13] MEDS: MAGNESIUM HYDROXIDE 2,400 MG/30 ML ORAL.SUSP. PO PRN (21:09)
[2018-05-13 22:49] VITALS: BP 111/66
[2018-05-14 02:55] VITALS: BP 120/68
[2018-05-14] MEDS: PIPERACILLIN/TAZOBACTAM 3.375 GM in IV NORMAL SALINE 50ML 50 ML IV SCH ×4 (05:48→23:50)
[2018-05-14 07:00] VITALS: BP 111/70
[2018-05-14 08:19] LABS: VANC TR 20.1 mcg/mL (10.0-20.0)
[2018-05-14] MEDS: VANCOMYCIN PER PHARMACY MC PRN ×2 (08:29→12:35)
--- NOTE | 2018-05-14 09:34 | PDOC ---
PULMONARY PROGRESS NOTES Subjective PT NOT MORE SOA Vitals Vital Signs Date Time Temp Pulse Resp B/P (MAP) Pulse Ox O2 Delivery O2 Flow Rate FiO2 05/14/18 07:00 97.6 76 14 111/70 (84) 94 Room Air 97.6 ROS: No Nausea, No Chest Pain, No Abdominal Pain, No Increase Cough Lungs: Clear Cardiovascular: S1, S2 Abdomen: Soft Neuro Exam: Alert Extremities: No Edema Skin: Warm Labs Laboratory Tests Test 05/13/18 02:40 05/14/18 07:35 White Blood Count 6.0 x10^3/uL (4.0-11.0) Red Blood Count 5.69 x10^6/uL (4.30-5.70) Hemoglobin 18.4 g/dL (13.0-17.5) Hematocrit 53.8 % (39.0-53.0) Mean Corpuscular Volume 95 fL (79-100) Mean Corpuscular Hemoglobin 32 pg (25-35) Mean Corpuscular Hemoglobin Concent 34 g/dL (31-37) Red Cell Distribution Width 16.8 % (11.5-14.5) Platelet Count 146 x10^3/uL (140-400) Neutrophils (%) (Auto) 63 % (31-73) Lymphocytes (%) (Auto) 17 % (24-48) Monocytes (%) (Auto) 14 % (0-9) Eosinophils (%) (Auto) 6 % (0-3) Basophils (%) (Auto) 1 % (0-3) Neutrophils # (Auto) 3.8 x10^3uL (1.8-7.7) Lymphocytes # (Auto) 1.0 x10^3/uL (1.0-4.8) Monocytes # (Auto) 0.8 x10^3/uL (0.0-1.1) Eosinophils # (Auto) 0.3 x10^3/uL (0.0-0.7) Basophils # (Auto) 0.0 x10^3/uL (0.0-0.2) Vancomycin Level Trough 20.1 mcg/mL (10.0-20.0) Vancomycin Last Dose Date 05/13/18 Vancomycin Last Dose Time 1999 Laboratory Tests Test 05/14/18 07:35 Vancomycin Level Trough 20.1 mcg/mL (10.0-20.0) Vancomycin Last Dose Date 05/13/18 Vancomycin Last Dose Time 1999 Medications Active Scripts Medications Dose Route/Sig Max Daily Dose Days Date Category Eliquis (Apixaban) 5 Mg Tablet 5 Mg PO BID 07/18/17 Reported Impression . IMPRESSION: 1. History of pulmonary embolism. 2. Chronic obstructive pulmonary disease. 3. Tobacco dependence. 4. Peripheral vascular disease. 5. Chronic obstructive pulmonary disease. 6. 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 CT CHEST IMPRESSION: 1. No PE. 2. No pneumonia. Plan . RESP STATUS IS COMPENSATED NO PE NO NEED FOR CONTINUED ANTICOAGULATION IF SURGERY IS NEEDED OK BY YUE BEACH MD May 14, 2018 09:34
--- NOTE | 2018-05-14 10:11 | PDOC ---
Infectious Disease Note Subjective Subjective Feeling alright this morning Denies pain/F/C/N/V/D/SOA Vital Sign Vital Signs Vital Signs Date Time Temp Pulse Resp B/P (MAP) Pulse Ox O2 Delivery O2 Flow Rate FiO2 05/14/18 07:00 97.6 76 14 111/70 (84) 94 Room Air 97.6 Physical Exam PHYSICAL EXAM GENERAL: Resting quietly HEENT: Normal conjunctivae. Oral cavity: Pharynx pink and moist. NECK: Supple. LUNGS: Clear to auscultation. HEART: S1, S2. ABDOMEN: Nondistended, soft and nontender with bowel sounds present. EXTREMITIES: No gross edema or cyanosis. Right lower extremity rubor with wrinkles and dry flaky skin. He has 2 ulcers located anterolateral aspect of the gotti and dorsal aspect of the right foot with bleeding. Dorsalis pedis pulse difficult to palpate. His toe nails are thick and yellow. SKIN: Warm without rash. NEUROLOGIC: Alert and oriented x 3. Labs Lab Laboratory Tests Test 05/14/18 07:35 Vancomycin Level Trough 20.1 mcg/mL (10.0-20.0) Vancomycin Last Dose Date 05/13/18 Vancomycin Last Dose Time 2000 Micro ANAEROBIC-AEROBIC CULTURE PENDING ANAEROBIC RES 1 PENDING AEROBIC CULT PENDING AEROBIC RES 1 PENDING GRAM STAIN Final Final report GRAM STAIN RES 1 Final Comment No white blood cells seen. GRAM STAIN RES 2 Final Comment Moderate number of gram negative diplococci. Performed at: - [facility], [place], [place] [id number] [employer] Speculator: ADIEL Lorenzo MD, Phone: [phone] Objective Assessment RLE ulcerations and cellulitis Arterial occlusive disease, vascular following. May need aorto-fem bypass graft and possible right [id number] graft h/o DVT/PE Tobacco dependence COPD Plan Plan of Care continue vanc and Zosyn wound culture in process Monitor labs/temp/renal function closely Local wound care if surgery not planned for this admission then change antibiotics to po augmentin and doxy for 7 days ROLO GALVAN MD May 14, 2018 10:11
[2018-05-14] MEDS: LACTOBACILLUS RHAMNOSUS GG 1 CAPSULE. PO SCH ×2 (10:21→20:11)
[2018-05-14] MEDS: ASPIRIN ENTERIC COATED 81 MG TABLET.DR. PO SCH (10:21)
[2018-05-14] MEDS: POTASSIUM CHLORIDE 20 MEQ TABLET.ER. PO SCH (10:21)
[2018-05-14] MEDS: VANCOMYCIN 1.25 GM in IV NORMAL SALINE 250ML 250 ML IV SCH ×2 (10:22→20:10)
[2018-05-14 11:00] VITALS: BP 118/68
--- NOTE | 2018-05-14 11:38 | PDOC ---
PROGRESS NOTES Chief Complaint Chief Complaint 1. Severe bilateral PAD with RLE wound/ulceration. CTA showing extensive disease. Vascular surgery following; aortofemoral reconstruction planned pending further workup. Echo showed preserved LV systolic function. 2. RLE cellulitis 3. Hypertension; low normotensive 4. Hyperlipidemia 5. H/o PE; tx with Eliquis. CTA with resolution 6. Polycythemia; bone marrow biopsy 05/12 7. Dry skin History of Present Illness History of Present Illness Pt seen and examined, spoke with nursing staff. Pt resting with NAD, was awakened with examination of R. Lower extremity. Bandaging examined and is CDI. After more direct questioning, pt reluctantly reports tobacco dependency. Vitals Vitals Vital Signs Date Time Temp Pulse Resp B/P (MAP) Pulse Ox O2 Delivery O2 Flow Rate FiO2 05/14/18 11:00 97.9 68 16 118/68 (85) 93 Room Air 97.9 Physical Exam Physical Exam GENERAL: Resting quietly HEENT: Normal conjunctivae. Oral cavity: Pharynx pink and moist. NECK: Supple. LUNGS: Clear to auscultation. HEART: S1, S2. ABDOMEN: Nondistended, soft and nontender with bowel sounds present. EXTREMITIES: No gross edema or cyanosis. Right lower extremity rubor with wrinkles and dry flaky skin. He has 2 ulcers located anterolateral aspect of the gotti and dorsal aspect of the right foot with bleeding. Dorsalis pedis pulse difficult to palpate. His toe nails are thick and yellow. SKIN: Warm without rash. NEUROLOGIC: Alert and oriented x 3. General: Alert, Oriented X3, No acute distress Heart: Regular rate, Normal S1, Normal S2, No murmurs Lungs: Clear Abdomen: Normal bowel sounds, Soft, No tenderness Extremities: No cyanosis, Other (ISCHEMIC ULCER RIGHT FOOT/ CELLULITIS DEEP DORSAL FOOT WOUND) Skin: Other (MARKED VASCULAR INSUFF CHANGES RIGHT LOWER LEG, SKIN DRY,FRAGILE) Labs LABS Laboratory Tests Test 05/14/18 07:35 Vancomycin Level Trough 20.1 mcg/mL (10.0-20.0) Vancomycin Last Dose Date 05/13/18 Vancomycin Last Dose Time 1999 Review of Systems Review of Systems Denies CP Denies SOB Denies N/V Assessment and Plan Assessmemt and Plan Assessment: 1. Severe bilateral PAD with RLE wound/ulceration. CTA showing extensive disease. Vascular surgery following; aortofemoral reconstruction planned pending further workup. Echo showed preserved LV systolic function. 2. RLE cellulitis 3. Hypertension; low normotensive 4. Hyperlipidemia 5. H/o PE; tx with Eliquis. CTA with resolution 6. Polycythemia; bone marrow biopsy 05/12 7. Dry skin Plan: Vascular Surgeon consultation pending Wound care Continue IV antibiotics PTOT Home meds Labs D/C disposition pending Comment Review of Relevant I have reviewed the following items lee (where applicable) has been applied. Labs Laboratory Tests Test 05/13/18 02:40 05/14/18 07:35 White Blood Count 6.0 x10^3/uL (4.0-11.0) Red Blood Count 5.69 x10^6/uL (4.30-5.70) Hemoglobin 18.4 g/dL (13.0-17.5) Hematocrit 53.8 % (39.0-53.0) Mean Corpuscular Volume 95 fL (79-100) Mean Corpuscular Hemoglobin 32 pg (25-35) Mean Corpuscular Hemoglobin Concent 34 g/dL (31-37) Red Cell Distribution Width 16.8 % (11.5-14.5) Platelet Count 146 x10^3/uL (140-400) Neutrophils (%) (Auto) 63 % (31-73) Lymphocytes (%) (Auto) 17 % (24-48) Monocytes (%) (Auto) 14 % (0-9) Eosinophils (%) (Auto) 6 % (0-3) Basophils (%) (Auto) 1 % (0-3) Neutrophils # (Auto) 3.8 x10^3uL (1.8-7.7) Lymphocytes # (Auto) 1.0 x10^3/uL (1.0-4.8) Monocytes # (Auto) 0.8 x10^3/uL (0.0-1.1) Eosinophils # (Auto) 0.3 x10^3/uL (0.0-0.7) Basophils # (Auto) 0.0 x10^3/uL (0.0-0.2) Vancomycin Level Trough 20.1 mcg/mL (10.0-20.0) Vancomycin Last Dose Date 05/13/18 Vancomycin Last Dose Time 1999 Laboratory Tests Test 05/14/18 07:35 Vancomycin Level Trough 20.1 mcg/mL (10.0-20.0) Vancomycin Last Dose Date 05/13/18 Vancomycin Last Dose Time 1999 Microbiology 05/07/18 Blood Culture - Final, Complete NO GROWTH AFTER 5 DAYS 05/10/18 Anaerobic/Aerobic Culture, Resulted Pending 05/10/18 Anaerobic Culture Result 1 (JUHI), Resulted Pending 05/10/18 Aerobic Culture - Preliminary, Resulted 05/10/18 Aerobic Culture Result 1 (JUHI) - Preliminary, Resulted 05/10/18 Aerobic Culture Result 2 (JUHI) - Preliminary, Resulted 05/10/18 Aerobic Culture Result 3 (JUHI) - Preliminary, Resulted 05/10/18 Gram Stain - Final, Resulted 05/10/18 Gram Stain Result 1 (JUHI) - Final, Resulted 05/10/18 Gram Stain Result 2 (JUHI) - Final, Resulted Medications Current Medications Sodium Chloride 1,000 ml @ 1,000 mls/hr 1X ONCE IV Last administered on 05/07at 19:19; Start 05/07/18 at 19:00; Stop 05/07/18 at 19:59; Status DC Vancomycin HCl (Vanco Per Pharmacy) 1 each PRN DAILY PRN MC SEE COMMENTS Last administered on 05/14/18at 08:29; Start 05/07/18 at 19:45 Vancomycin HCl 2 gm/Sodium Chloride 500 ml @ 250 mls/hr ONCE ONCE IV Last administered on 05/07/18at 20:00; Start 05/07/18 at 19:45; Stop 05/07/18 at 21 :44; Status DC Ondansetron HCl (Zofran) 4 mg PRN Q8HRS PRN IV NAUSEA/VOMITING 1ST CHOICE; Start 05/07/18 at 21:15; Stop 05/08/18 at 21:14; Status DC Sodium Chloride 1,000 ml @ 125 mls/hr Q8H IV Last administered on 05/08/18at 20:01; Start 05/07/18 at 21:03; Stop 05/08/18 at 21:02; Status DC Fentanyl Citrate (Fentanyl 2ml Vial) 25 mcg PRN Q2HR PRN IV SEVERE PAIN Last administered on 05/08/18at 13:59; Start 05/08/18 at 01:45; Stop 05/08/18 at 14 :39; Status DC Vancomycin HCl 1.25 gm/Sodium Chloride 250 ml @ 167 mls/hr Q12H IV Last administered on 05/14/18at 10:22; Start 05/08/18 at 08:00 Vancomycin HCl (Vancomycin Trough Level) 1 each 1X ONCE MC ; Start 05/10/18 at 07:30; Stop 05/10/18 at 07:30; Status DC Lactobacillus Rhamnosus (Culturelle) 1 cap BID PO Last administered on at 10:21; Start 05/08/18 at 09:00 Fentanyl Citrate (Fentanyl 2ml Vial) 50 mcg PRN Q2HR PRN IV SEVERE PAIN Last administered on 05/09/18at 09:05; Start 05/08/18 at 14:45 Apixaban (Eliquis) 5 mg BID PO Last administered on 05/11/18at 09:39; Start at 15:00; Stop 05/12/18 at 11:45; Status DC Acetaminophen/ Hydrocodone Bitart (Lortab 7.5/325) 1 tab PRN Q4HRS PRN PO PAIN Last administered on 05/12/18at 05:27; Start 05/09/18 at 11:15 Info (Anti-Coagulation Monitoring By Pharmacy) 1 each PRN DAILY PRN MC SEE COMMENTS Last administered on 05/11/18at 13:08; Start 05/09/18 at 11:30; Stop 05/12/18 at 11:45; Status DC Magnesium Hydroxide (Milk Of Magnesia) 2,400 mg PRN DAILY PRN PO CONSTIPATION Last administered on 05/13/18at 21:09; Start 05/09/18 at 14:15 Iohexol (Omnipaque 300 Mg/ml) 100 ml 1X ONCE IV Last administered on at 11:45; Start 05/10/18 at 11:45; Stop 05/10/18 at 11:46; Status DC Info (CONTRAST GIVEN -- Rx MONITORING) 1 each PRN DAILY PRN MC SEE COMMENTS; Start 05/10/18 at 11:45; Stop 05/12/18 at 11:33; Status DC Piperacillin Sod/ Tazobactam Sod 3.375 gm/Sodium Chloride 50 ml @ 100 mls/hr Q6HRS IV Last administered on 05/14/18at 05:48; Start 05/10/18 at 18:30 Potassium Chloride (Klor-Con) 40 meq 1X ONCE PO Last administered on at 17:44; Start 05/11/18 at 14:30; Stop 05/11/18 at 14:31; Status DC Potassium Chloride (Klor-Con) 20 meq DAILYWBKFT PO Last administered on at 10:21; Start 05/12/18 at 08:00 Iohexol (Omnipaque 300 Mg/ml) 95 ml 1X ONCE IV Last administered on at 15:09; Start 05/11/18 at 14:45; Stop 05/11/18 at 14:47; Status DC Info (CONTRAST GIVEN -- Rx MONITORING) 1 each PRN DAILY PRN MC SEE COMMENTS; Start 05/11/18 at 15:00; Stop 05/13/18 at 14:59; Status DC Regadenoson (Lexiscan) 0.4 mg 1X ONCE IV Last administered on 05/12/18at 08:30 ; Start 05/12/18 at 08:30; Stop 05/12/18 at 08:31; Status DC Midazolam HCl (Versed) 2 mg STK-MED ONCE .ROUTE ; Start 05/12/18 at 09:55; Stop 05/12/18 at 09:56; Status DC Fentanyl Citrate (Fentanyl 2ml Vial) 100 mcg STK-MED ONCE .ROUTE ; Start at 09:55; Stop 05/12/18 at 09:56; Status DC Lidocaine/Sodium Bicarbonate (Buffered Lidocaine 1%) 3 ml STK-MED ONCE .ROUTE ; Start 05/12/18 at 09:57; Stop 05/12/18 at 09:58; Status DC Lidocaine/Sodium Bicarbonate (Buffered Lidocaine 1%) 3 ml 1X ONCE IJ Last administered on 05/12/18at 10:25; Start 05/12/18 at 10:00; Stop 05/12/18 at 10 :12; Status DC Midazolam HCl (Versed) 2 mg 1X ONCE IV Last administered on 05/12/18at 10:26; Start 05/12/18 at 10:00; Stop 05/12/18 at 10:12; Status DC Fentanyl Citrate (Fentanyl 2ml Vial) 100 mcg 1X ONCE IV Last administered on 05/12/18at 10:27; Start 05/12/18 at 10:00; Stop 05/12/18 at 10:12; Status DC Atorvastatin Calcium (Lipitor) 40 mg QHS PO Last administered on 05/13/18at 21: 02; Start 05/12/18 at 21:00 Aspirin (Ecotrin) 81 mg DAILYWBKFT PO Last administered on 05/14/18at 10:21; Start 05/13/18 at 08:00 Aspirin (Ecotrin) 325 mg 1X ONCE PO Last administered on 05/12/18at 14:15; Start 05/12/18 at 14:15; Stop 05/12/18 at 14:16; Status DC Multi-Ingred Cream/Lotion/Oil/ Oint (Hydrocerin Cream) 1 jorge PRN Q1HR PRN TP DRY SKIN / SCALING; Start 05/13/18 at 09:00 Vancomycin HCl (Vancomycin Trough Level) 1 each 1X ONCE MC ; Start 05/14/18 at 07:30; Stop 05/14/18 at 07:31; Status DC Active Scripts Active Reported Eliquis (Apixaban) 5 Mg Tablet 5 Mg PO BID Vitals/I & O Vital Sign - Last 24 Hours 05/13/18 05/13/18 05/13/18 05/13/18 15:00 19:00 20:20 22:49 Temp 98.3 98.7 98.5 98.3 98.7 98.5 Pulse 72 73 76 Resp 20 18 18 B/P (MAP) 120/59 (79) 106/78 (87) 111/66 (81) Pulse Ox 93 93 94 O2 Delivery Room Air Room Air Room Air Room Air 05/14/18 05/14/18 05/14/18 02:55 07:00 11:00 Temp 98.5 97.6 97.9 98.5 97.6 97.9 Pulse 74 76 68 Resp 18 14 16 B/P (MAP) 120/68 (85) 111/70 (84) 118/68 (85) Pulse Ox 93 94 93 O2 Delivery Room Air Room Air Room Air Intake and Output 05/13/18 05/13/18 05/14/18 15:01 23:01 07:01 Intake Total 540 ml 550 ml 250 ml Output Total 950 ml 400 ml 1625 ml Balance -410 ml 150 ml -1375 ml MICKY DURHAM K III DO May 14, 2018 11:38
[2018-05-14 15:00] VITALS: BP 98/57
--- NOTE | 2018-05-14 18:23 | PDOC ---
Provider Note Provider Note Vascular F/U F/U PVD, S/P remote rt fem-pop bypass [address] Javier De lower leg wounds CTA elsie common and external iliac occlusions Imp: Severe PVD Plan: Aorto bi femoral bypass when cleared for surgery ? Saturday ? KUMAR DYE MD May 14, 2018 18:23
[2018-05-14 19:00] VITALS: BP 111/59
[2018-05-14] MEDS: ATORVASTATIN CALCIUM 40 MG TABLET. PO SCH (20:11)
[2018-05-14 22:54] VITALS: BP 116/60
[2018-05-15 03:00] VITALS: BP 121/72
[2018-05-15 06:06] LABS: BASO % 1 % (0-3); EOS # 0.5 x10^3/uL (0.0-0.7); EOS % 8 % (0-3); HEMATOCRIT 54.9 % (39.0-53.0); HEMOGLOBIN 18.9 g/dL (13.0-17.5); LYMPH # 0.8 x10^3/uL (1.0-4.8); LYMPH % 14 % (24-48); MEAN CORPUSCULAR HEMOGLOBIN 32 pg (25-35); MEAN CORPUSCULAR HGB CONC 34 g/dL (31-37); MEAN CORPUSCULAR VOLUME 94 fL (79-100); MONO # 0.9 x10^3/uL (0.0-1.1); MONO % 14 % (0-9); NEUT % 64 % (31-73); PLATELET COUNT 158 x10^3/uL (140-400); RED BLOOD COUNT 5.84 x10^6/uL (4.30-5.70); RED CELL DISTRIBUTION WIDTH 16.5 % (11.5-14.5); WHITE BLOOD COUNT 6.2 x10^3/uL (4.0-11.0)
[2018-05-15] MEDS: PIPERACILLIN/TAZOBACTAM 3.375 GM in IV NORMAL SALINE 50ML 50 ML IV SCH ×3 (06:06→17:21)
[2018-05-15 06:25] LABS: CALCIUM 8.9 mg/dL (8.5-10.1); GFR 72.3; POTASSIUM 4.3 mmol/L (3.5-5.1)
[2018-05-15 07:00] VITALS: BP 118/70
--- NOTE | 2018-05-15 09:10 | PDOC ---
Infectious Disease Note Subjective Subjective Feeling alright this morning Denies pain/F/C/N/V/D/SOA Vital Sign Vital Signs Vital Signs Date Time Temp Pulse Resp B/P (MAP) Pulse Ox O2 Delivery O2 Flow Rate FiO2 05/15/18 07:00 98.0 79 20 118/70 (86) 95 Room Air 98.0 05/14/18 08:00 2.0 Physical Exam PHYSICAL EXAM GENERAL: Resting quietly HEENT: Normal conjunctivae. Oral cavity: Pharynx pink and moist. NECK: Supple. LUNGS: Clear to auscultation. HEART: S1, S2. ABDOMEN: Nondistended, soft and nontender with bowel sounds present. EXTREMITIES: No gross edema or cyanosis. Right lower extremity rubor with wrinkles and dry flaky skin. He has 2 ulcers located anterolateral aspect of the gotti and dorsal aspect of the right foot with bleeding. Dorsalis pedis pulse difficult to palpate. His toe nails are thick and yellow. SKIN: Warm without rash. NEUROLOGIC: Alert and oriented x 3. Labs Lab Laboratory Tests Test 05/15/18 04:35 White Blood Count 6.2 x10^3/uL (4.0-11.0) Red Blood Count 5.84 x10^6/uL (4.30-5.70) Hemoglobin 18.9 g/dL (13.0-17.5) Hematocrit 54.9 % (39.0-53.0) Mean Corpuscular Volume 94 fL (79-100) Mean Corpuscular Hemoglobin 32 pg (25-35) Mean Corpuscular Hemoglobin Concent 34 g/dL (31-37) Red Cell Distribution Width 16.5 % (11.5-14.5) Platelet Count 158 x10^3/uL (140-400) Neutrophils (%) (Auto) 64 % (31-73) Lymphocytes (%) (Auto) 14 % (24-48) Monocytes (%) (Auto) 14 % (0-9) Eosinophils (%) (Auto) 8 % (0-3) Basophils (%) (Auto) 1 % (0-3) Neutrophils # (Auto) 4.0 x10^3uL (1.8-7.7) Lymphocytes # (Auto) 0.8 x10^3/uL (1.0-4.8) Monocytes # (Auto) 0.9 x10^3/uL (0.0-1.1) Eosinophils # (Auto) 0.5 x10^3/uL (0.0-0.7) Basophils # (Auto) 0.0 x10^3/uL (0.0-0.2) Sodium Level 141 mmol/L (136-145) Potassium Level 4.3 mmol/L (3.5-5.1) Chloride Level 105 mmol/L (98-107) Carbon Dioxide Level 24 mmol/L (21-32) Anion Gap 12 (6-14) Blood Urea Nitrogen 20 mg/dL (8-26) Creatinine 1.0 mg/dL (0.7-1.3) Estimated GFR (Cockcroft-Gault) 72.3 Glucose Level 101 mg/dL (70-99) Calcium Level 8.9 mg/dL (8.5-10.1) Micro ANAEROBIC-AEROBIC CULTURE Preliminary Preliminary report ANAEROBIC RES 1 Preliminary Comment No anaerobes recovered in 48 hours. AEROBIC CULT Final Final report AEROBIC RES 1 Final Klebsiella oxytoca 4+ AEROBIC RES 2 Final Escherichia coli 4+ AEROBIC RES 3 Final Staphylococcus aureus 1+ Based on susceptibility to oxacillin this isolate would be susceptible to: *Penicillinase-stable penicillins, such as: Cloxacillin, Dicloxacillin, Nafcillin *Beta-lactam combination agents, such as: Amoxicillin-clavulanic acid, Ampicillin-sulbactam, Piperacillin-tazobactam *Oral cephems, such as: CONTINUED ON NEXT PAGE RUN DATE: 05/14/18 PAGE 2 RUN TIME: 2012 [facility] [address] [place] [address] Alexandru Vincent M.D., Spindle Setter SPEC: [id number] PATIENT: SHIVANI SUMMERS [id number] ( Continued) Procedure Result AEROBIC RES 3 Final (continued) Cefaclor, Cefdinir, Cefpodoxime, Cefprozil, Cefuroxime, Cephalexin, Loracarbef *Parenteral cephems, such as: Cefazolin, Cefepime, Cefotaxime, Cefotetan, Ceftaroline, Ceftizoxime, Ceftriaxone, Cefuroxime *Carbapenems, such as: Doripenem, Ertapenem, Imipenem, Meropenem ANTIMICROBIAL SUSCEPTIBILITY Final Comment S = Susceptible; I = Intermediate; R = Resistant P = Positive; N = Negative MICS are expressed in micrograms per mL Antibiotic RSLT#1 RSLT#2 RSLT#3 RSLT#4 Amoxicillin/Clavulanic Acid S<=2 S =8 Ampicillin R =R R>=32 Cefazolin R =8 Cefepime S<=0.12 S<=0.12 Ceftriaxone S<=0.25 S<=0.25 Cefuroxime S =4 S =4 Ciprofloxacin S<=0.25 S<=0.25 S<=0.5 Clindamycin S<=0.25 Ertapenem S<=0.12 S<=0.12 Erythromycin S<=0.25 Gentamicin S<=1 S<=1 S<=0.5 Imipenem S<=0.25 S<=0.25 Levofloxacin S<=0.12 S<=0.12 S<=0.12 Linezolid S =2 Meropenem S<=0.25 S<=0.25 Moxifloxacin S<=0.25 Oxacillin S<=0.25 Penicillin R>=0.5 Piperacillin/Tazobactam S<=4 Quinupristin/Dalfopristin S<=0.25 Rifampin S<=0.5 Tetracycline S<=1 S<=1 S<=1 Tobramycin S<=1 S<=1 Trimethoprim/Sulfa S<=20 R>=320 S<=10 Vancomycin S<=0.5 GRAM STAIN Final Final report CONTINUED ON NEXT PAGE RUN DATE: 05/14/18 PAGE 3 RUN TIME: 2012 [facility] [address] [place] [address] Alexandru Vincent M.D., Spindle Setter SPEC: [id number] PATIENT: SHIVANI SUMMERS [id number] ( Continued) Procedure Result GRAM STAIN RES 1 Final Comment No white blood cells seen. GRAM STAIN RES 2 Final Comment Moderate number of gram negative diplococci. Performed at: - [facility] [id number] [facility] [address], [place], [place] [id number] Purchasing Engineer: ADIEL Lorenzo MD, Phone: [phone] Objective Assessment RLE ulcerations and cellulitis Arterial occlusive disease, vascular following. May need aorto-fem bypass graft and possible right [id number] graft h/o DVT/PE Tobacco dependence COPD Plan Plan of Care continue Zosyn d/c vanc wound culture in process Monitor labs/temp/renal function closely Local wound care if surgery not planned for this admission then change antibiotics to po augmentin for 7 days ROLO GALVAN MD May 15, 2018 09:10
--- NOTE | 2018-05-15 09:16 | PDOC ---
PULMONARY PROGRESS NOTES Subjective PT NOT MORE SOA Vitals Vital Signs Date Time Temp Pulse Resp B/P (MAP) Pulse Ox O2 Delivery O2 Flow Rate FiO2 05/15/18 07:00 98.0 79 20 118/70 (86) 95 Room Air 98.0 05/14/18 08:00 2.0 ROS: No Nausea, No Chest Pain, No Abdominal Pain, No Increase Cough Lungs: Clear Cardiovascular: S1, S2 Abdomen: Soft Neuro Exam: Alert Extremities: No Edema Skin: Warm Labs Laboratory Tests Test 05/14/18 07:35 05/15/18 04:35 Vancomycin Level Trough 20.1 mcg/mL (10.0-20.0) Vancomycin Last Dose Date 05/13/18 Vancomycin Last Dose Time 1999 White Blood Count 6.2 x10^3/uL (4.0-11.0) Red Blood Count 5.84 x10^6/uL (4.30-5.70) Hemoglobin 18.9 g/dL (13.0-17.5) Hematocrit 54.9 % (39.0-53.0) Mean Corpuscular Volume 94 fL (79-100) Mean Corpuscular Hemoglobin 32 pg (25-35) Mean Corpuscular Hemoglobin Concent 34 g/dL (31-37) Red Cell Distribution Width 16.5 % (11.5-14.5) Platelet Count 158 x10^3/uL (140-400) Neutrophils (%) (Auto) 64 % (31-73) Lymphocytes (%) (Auto) 14 % (24-48) Monocytes (%) (Auto) 14 % (0-9) Eosinophils (%) (Auto) 8 % (0-3) Basophils (%) (Auto) 1 % (0-3) Neutrophils # (Auto) 4.0 x10^3uL (1.8-7.7) Lymphocytes # (Auto) 0.8 x10^3/uL (1.0-4.8) Monocytes # (Auto) 0.9 x10^3/uL (0.0-1.1) Eosinophils # (Auto) 0.5 x10^3/uL (0.0-0.7) Basophils # (Auto) 0.0 x10^3/uL (0.0-0.2) Sodium Level 141 mmol/L (136-145) Potassium Level 4.3 mmol/L (3.5-5.1) Chloride Level 105 mmol/L (98-107) Carbon Dioxide Level 24 mmol/L (21-32) Anion Gap 12 (6-14) Blood Urea Nitrogen 20 mg/dL (8-26) Creatinine 1.0 mg/dL (0.7-1.3) Estimated GFR (Cockcroft-Gault) 72.3 Glucose Level 101 mg/dL (70-99) Calcium Level 8.9 mg/dL (8.5-10.1) Laboratory Tests Test 05/15/18 04:35 White Blood Count 6.2 x10^3/uL (4.0-11.0) Red Blood Count 5.84 x10^6/uL (4.30-5.70) Hemoglobin 18.9 g/dL (13.0-17.5) Hematocrit 54.9 % (39.0-53.0) Mean Corpuscular Volume 94 fL (79-100) Mean Corpuscular Hemoglobin 32 pg (25-35) Mean Corpuscular Hemoglobin Concent 34 g/dL (31-37) Red Cell Distribution Width 16.5 % (11.5-14.5) Platelet Count 158 x10^3/uL (140-400) Neutrophils (%) (Auto) 64 % (31-73) Lymphocytes (%) (Auto) 14 % (24-48) Monocytes (%) (Auto) 14 % (0-9) Eosinophils (%) (Auto) 8 % (0-3) Basophils (%) (Auto) 1 % (0-3) Neutrophils # (Auto) 4.0 x10^3uL (1.8-7.7) Lymphocytes # (Auto) 0.8 x10^3/uL (1.0-4.8) Monocytes # (Auto) 0.9 x10^3/uL (0.0-1.1) Eosinophils # (Auto) 0.5 x10^3/uL (0.0-0.7) Basophils # (Auto) 0.0 x10^3/uL (0.0-0.2) Sodium Level 141 mmol/L (136-145) Potassium Level 4.3 mmol/L (3.5-5.1) Chloride Level 105 mmol/L (98-107) Carbon Dioxide Level 24 mmol/L (21-32) Anion Gap 12 (6-14) Blood Urea Nitrogen 20 mg/dL (8-26) Creatinine 1.0 mg/dL (0.7-1.3) Estimated GFR (Cockcroft-Gault) 72.3 Glucose Level 101 mg/dL (70-99) Calcium Level 8.9 mg/dL (8.5-10.1) Medications Active Scripts Medications Dose Route/Sig Max Daily Dose Days Date Category Eliquis (Apixaban) 5 Mg Tablet 5 Mg PO BID 07/18/17 Reported Impression . IMPRESSION: 1. History of pulmonary embolism. 2. Chronic obstructive pulmonary disease. 3. Tobacco dependence. 4. Peripheral vascular disease. 5. Chronic obstructive pulmonary disease. 6. 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 CT CHEST IMPRESSION: 1. No PE. 2. No pneumonia. Plan . RESP STATUS IS COMPENSATED FOLLOW UP ON BONE MARROW NO PE NO NEED FOR CONTINUED ANTICOAGULATION IF SURGERY IS NEEDED OK BY YUE BEACH MD May 15, 2018 09:16
[2018-05-15] MEDS: ASPIRIN ENTERIC COATED 81 MG TABLET.DR. PO SCH (09:25)
[2018-05-15] MEDS: LACTOBACILLUS RHAMNOSUS GG 1 CAPSULE. PO SCH ×2 (09:26→21:22)
[2018-05-15] MEDS: POTASSIUM CHLORIDE 20 MEQ TABLET.ER. PO SCH (09:26)
--- NOTE | 2018-05-15 09:30 | PDOC ---
Provider Note Provider Note Vascular S: Patient complains of dry skin, some tenderness right leg. O: Awake and alert HRR Non-labored respirations Abdomen soft, NTND, umbilical hernia present Right leg with foot and gotti ulcer, superficial and unchanged, extremely dry skin A/P: F/U PVD, S/P remote rt fem-pop bypass [address] Javier De lower leg wounds CTA elsie common and external iliac occlusions Imp: Severe PVD Thrombocytopenia-Hemoglobin remains at 18 Plan: Aorto bi femoral bypass when cleared for surgery, discussed with nurse she has discussed with Dr. Hunter, please see his plan of care. Will order bilateral lower and upper extremity vein mapping in anticipation that right leg bypass is needed. Will likely be next week for surgical intervention. Will schedule when patient' s Hemogram improved. PURNIMA MOONEY [employer] SALES CONSULTANT May 15, 2018 09:30
--- NOTE | 2018-05-15 11:44 | PDOC ---
PROGRESS NOTES Chief Complaint Chief Complaint 1. Severe bilateral PAD with RLE wound/ulceration. CTA showing extensive disease. Vascular surgery following; aortofemoral reconstruction planned pending further workup. Echo showed preserved LV systolic function. 2. RLE cellulitis 3. Hypertension; low normotensive 4. Hyperlipidemia 5. H/o PE; tx with Eliquis. CTA with resolution 6. Polycythemia; bone marrow biopsy 05/12 7. Dry skin History of Present Illness History of Present Illness Pt seen and examined, spoke with nursing staff. Pt was awake when prior to interview today. Pt has no complaints today, and has an increased appetite. Wound Bandages are FRANCISCO. Surgery is proposed for Saturday, if the pt's Hgb comes down to at least 15. Will consider Phlebotomy towards this end. Vitals Vitals Vital Signs Date Time Temp Pulse Resp B/P (MAP) Pulse Ox O2 Delivery O2 Flow Rate FiO2 05/15/18 07:00 98.0 79 20 118/70 (86) 95 Room Air 98.0 05/14/18 08:00 2.0 Physical Exam Physical Exam GENERAL: Resting quietly HEENT: Normal conjunctivae. Oral cavity: Pharynx pink and moist. NECK: Supple. LUNGS: Clear to auscultation. HEART: S1, S2. ABDOMEN: Nondistended, soft and nontender with bowel sounds present. EXTREMITIES: No gross edema or cyanosis. Right lower extremity rubor with wrinkles and dry flaky skin. He has 2 ulcers located anterolateral aspect of the gotti and dorsal aspect of the right foot with bleeding. Dorsalis pedis pulse difficult to palpate. His toe nails are thick and yellow. SKIN: Warm without rash. NEUROLOGIC: Alert and oriented x 3. General: Alert, Oriented X3, No acute distress Heart: Regular rate, Normal S1, Normal S2, No murmurs Lungs: Clear Abdomen: Normal bowel sounds, Soft, No tenderness Extremities: No cyanosis, Other (ISCHEMIC ULCER RIGHT FOOT/ CELLULITIS DEEP DORSAL FOOT WOUND) Skin: Other (MARKED VASCULAR INSUFF CHANGES RIGHT LOWER LEG, SKIN DRY,FRAGILE) Labs LABS Laboratory Tests Test 05/15/18 04:35 White Blood Count 6.2 x10^3/uL (4.0-11.0) Red Blood Count 5.84 x10^6/uL (4.30-5.70) Hemoglobin 18.9 g/dL (13.0-17.5) Hematocrit 54.9 % (39.0-53.0) Mean Corpuscular Volume 94 fL (79-100) Mean Corpuscular Hemoglobin 32 pg (25-35) Mean Corpuscular Hemoglobin Concent 34 g/dL (31-37) Red Cell Distribution Width 16.5 % (11.5-14.5) Platelet Count 158 x10^3/uL (140-400) Neutrophils (%) (Auto) 64 % (31-73) Lymphocytes (%) (Auto) 14 % (24-48) Monocytes (%) (Auto) 14 % (0-9) Eosinophils (%) (Auto) 8 % (0-3) Basophils (%) (Auto) 1 % (0-3) Neutrophils # (Auto) 4.0 x10^3uL (1.8-7.7) Lymphocytes # (Auto) 0.8 x10^3/uL (1.0-4.8) Monocytes # (Auto) 0.9 x10^3/uL (0.0-1.1) Eosinophils # (Auto) 0.5 x10^3/uL (0.0-0.7) Basophils # (Auto) 0.0 x10^3/uL (0.0-0.2) Sodium Level 141 mmol/L (136-145) Potassium Level 4.3 mmol/L (3.5-5.1) Chloride Level 105 mmol/L (98-107) Carbon Dioxide Level 24 mmol/L (21-32) Anion Gap 12 (6-14) Blood Urea Nitrogen 20 mg/dL (8-26) Creatinine 1.0 mg/dL (0.7-1.3) Estimated GFR (Cockcroft-Gault) 72.3 Glucose Level 101 mg/dL (70-99) Calcium Level 8.9 mg/dL (8.5-10.1) Review of Systems Review of Systems Denies CP Denies SOB Denies N/V Assessment and Plan Assessmemt and Plan Assessment: 1. Severe bilateral PAD with RLE wound/ulceration. CTA showing extensive disease. Vascular surgery following; aortofemoral reconstruction planned pending further workup. Echo showed preserved LV systolic function. 2. RLE cellulitis 3. Hypertension; low normotensive 4. Hyperlipidemia 5. H/o PE; tx with Eliquis. CTA with resolution 6. Polycythemia; bone marrow biopsy 05/12 7. Dry skin Plan: Wound care PTOT Home meds Labs Surgery proposed for Saturday [Aorto Bi Femoral bypass] if Hgb comes down to 15. D/C Disposition Pending sometime next week Comment Review of Relevant I have reviewed the following items lee (where applicable) has been applied. Labs Laboratory Tests Test 05/14/18 07:35 05/15/18 04:35 Vancomycin Level Trough 20.1 mcg/mL (10.0-20.0) Vancomycin Last Dose Date 05/13/18 Vancomycin Last Dose Time 1999 White Blood Count 6.2 x10^3/uL (4.0-11.0) Red Blood Count 5.84 x10^6/uL (4.30-5.70) Hemoglobin 18.9 g/dL (13.0-17.5) Hematocrit 54.9 % (39.0-53.0) Mean Corpuscular Volume 94 fL (79-100) Mean Corpuscular Hemoglobin 32 pg (25-35) Mean Corpuscular Hemoglobin Concent 34 g/dL (31-37) Red Cell Distribution Width 16.5 % (11.5-14.5) Platelet Count 158 x10^3/uL (140-400) Neutrophils (%) (Auto) 64 % (31-73) Lymphocytes (%) (Auto) 14 % (24-48) Monocytes (%) (Auto) 14 % (0-9) Eosinophils (%) (Auto) 8 % (0-3) Basophils (%) (Auto) 1 % (0-3) Neutrophils # (Auto) 4.0 x10^3uL (1.8-7.7) Lymphocytes # (Auto) 0.8 x10^3/uL (1.0-4.8) Monocytes # (Auto) 0.9 x10^3/uL (0.0-1.1) Eosinophils # (Auto) 0.5 x10^3/uL (0.0-0.7) Basophils # (Auto) 0.0 x10^3/uL (0.0-0.2) Sodium Level 141 mmol/L (136-145) Potassium Level 4.3 mmol/L (3.5-5.1) Chloride Level 105 mmol/L (98-107) Carbon Dioxide Level 24 mmol/L (21-32) Anion Gap 12 (6-14) Blood Urea Nitrogen 20 mg/dL (8-26) Creatinine 1.0 mg/dL (0.7-1.3) Estimated GFR (Cockcroft-Gault) 72.3 Glucose Level 101 mg/dL (70-99) Calcium Level 8.9 mg/dL (8.5-10.1) Laboratory Tests Test 05/15/18 04:35 White Blood Count 6.2 x10^3/uL (4.0-11.0) Red Blood Count 5.84 x10^6/uL (4.30-5.70) Hemoglobin 18.9 g/dL (13.0-17.5) Hematocrit 54.9 % (39.0-53.0) Mean Corpuscular Volume 94 fL (79-100) Mean Corpuscular Hemoglobin 32 pg (25-35) Mean Corpuscular Hemoglobin Concent 34 g/dL (31-37) Red Cell Distribution Width 16.5 % (11.5-14.5) Platelet Count 158 x10^3/uL (140-400) Neutrophils (%) (Auto) 64 % (31-73) Lymphocytes (%) (Auto) 14 % (24-48) Monocytes (%) (Auto) 14 % (0-9) Eosinophils (%) (Auto) 8 % (0-3) Basophils (%) (Auto) 1 % (0-3) Neutrophils # (Auto) 4.0 x10^3uL (1.8-7.7) Lymphocytes # (Auto) 0.8 x10^3/uL (1.0-4.8) Monocytes # (Auto) 0.9 x10^3/uL (0.0-1.1) Eosinophils # (Auto) 0.5 x10^3/uL (0.0-0.7) Basophils # (Auto) 0.0 x10^3/uL (0.0-0.2) Sodium Level 141 mmol/L (136-145) Potassium Level 4.3 mmol/L (3.5-5.1) Chloride Level 105 mmol/L (98-107) Carbon Dioxide Level 24 mmol/L (21-32) Anion Gap 12 (6-14) Blood Urea Nitrogen 20 mg/dL (8-26) Creatinine 1.0 mg/dL (0.7-1.3) Estimated GFR (Cockcroft-Gault) 72.3 Glucose Level 101 mg/dL (70-99) Calcium Level 8.9 mg/dL (8.5-10.1) Microbiology 05/07/18 Blood Culture - Final, Complete NO GROWTH AFTER 5 DAYS 05/10/18 Anaerobic/Aerobic Culture - Preliminary, Resulted 05/10/18 Anaerobic Culture Result 1 (JUHI) - Preliminary, Resulted 05/10/18 Aerobic Culture - Final, Resulted 05/10/18 Aerobic Culture Result 1 (JUHI) - Final, Resulted 05/10/18 Aerobic Culture Result 2 (JUHI) - Final, Resulted 05/10/18 Aerobic Culture Result 3 (JUHI) - Final, Resulted 05/10/18 Antimicrobic Susceptibility - Final, Resulted 05/10/18 Gram Stain - Final, Resulted 05/10/18 Gram Stain Result 1 (JUHI) - Final, Resulted 05/10/18 Gram Stain Result 2 (JUHI) - Final, Resulted Medications Current Medications Sodium Chloride 1,000 ml @ 1,000 mls/hr 1X ONCE IV Last administered on 05/07at 19:19; Start 05/07/18 at 19:00; Stop 05/07/18 at 19:59; Status DC Vancomycin HCl (Vanco Per Pharmacy) 1 each PRN DAILY PRN MC SEE COMMENTS Last administered on 05/14/18at 12:35; Start 05/07/18 at 19:45; Stop 05/15/18 at 09 :15; Status DC Vancomycin HCl 2 gm/Sodium Chloride 500 ml @ 250 mls/hr ONCE ONCE IV Last administered on 05/07/18at 20:00; Start 05/07/18 at 19:45; Stop 05/07/18 at 21 :44; Status DC Ondansetron HCl (Zofran) 4 mg PRN Q8HRS PRN IV NAUSEA/VOMITING 1ST CHOICE; Start 05/07/18 at 21:15; Stop 05/08/18 at 21:14; Status DC Sodium Chloride 1,000 ml @ 125 mls/hr Q8H IV Last administered on 05/08/18at 20:01; Start 05/07/18 at 21:03; Stop 05/08/18 at 21:02; Status DC Fentanyl Citrate (Fentanyl 2ml Vial) 25 mcg PRN Q2HR PRN IV SEVERE PAIN Last administered on 05/08/18at 13:59; Start 05/08/18 at 01:45; Stop 05/08/18 at 14 :39; Status DC Vancomycin HCl 1.25 gm/Sodium Chloride 250 ml @ 167 mls/hr Q12H IV Last administered on 05/14/18at 20:10; Start 05/08/18 at 08:00; Stop 05/15/18 at 09 :15; Status DC Vancomycin HCl (Vancomycin Trough Level) 1 each 1X ONCE MC ; Start 05/10/18 at 07:30; Stop 05/10/18 at 07:30; Status DC Lactobacillus Rhamnosus (Culturelle) 1 cap BID PO Last administered on at 09:26; Start 05/08/18 at 09:00 Fentanyl Citrate (Fentanyl 2ml Vial) 50 mcg PRN Q2HR PRN IV SEVERE PAIN Last administered on 05/09/18at 09:05; Start 05/08/18 at 14:45 Apixaban (Eliquis) 5 mg BID PO Last administered on 05/11/18at 09:39; Start at 15:00; Stop 05/12/18 at 11:45; Status DC Acetaminophen/ Hydrocodone Bitart (Lortab 7.5/325) 1 tab PRN Q4HRS PRN PO PAIN Last administered on 05/12/18at 05:27; Start 05/09/18 at 11:15 Info (Anti-Coagulation Monitoring By Pharmacy) 1 each PRN DAILY PRN MC SEE COMMENTS Last administered on 05/11/18at 13:08; Start 05/09/18 at 11:30; Stop 05/12/18 at 11:45; Status DC Magnesium Hydroxide (Milk Of Magnesia) 2,400 mg PRN DAILY PRN PO CONSTIPATION Last administered on 05/13/18at 21:09; Start 05/09/18 at 14:15 Iohexol (Omnipaque 300 Mg/ml) 100 ml 1X ONCE IV Last administered on at 11:45; Start 05/10/18 at 11:45; Stop 05/10/18 at 11:46; Status DC Info (CONTRAST GIVEN -- Rx MONITORING) 1 each PRN DAILY PRN MC SEE COMMENTS; Start 05/10/18 at 11:45; Stop 05/12/18 at 11:33; Status DC Piperacillin Sod/ Tazobactam Sod 3.375 gm/Sodium Chloride 50 ml @ 100 mls/hr Q6HRS IV Last administered on 05/15/18at 06:06; Start 05/10/18 at 18:30 Potassium Chloride (Klor-Con) 40 meq 1X ONCE PO Last administered on at 17:44; Start 05/11/18 at 14:30; Stop 05/11/18 at 14:31; Status DC Potassium Chloride (Klor-Con) 20 meq DAILYWBKFT PO Last administered on at 09:26; Start 05/12/18 at 08:00 Iohexol (Omnipaque 300 Mg/ml) 95 ml 1X ONCE IV Last administered on at 15:09; Start 05/11/18 at 14:45; Stop 05/11/18 at 14:47; Status DC Info (CONTRAST GIVEN -- Rx MONITORING) 1 each PRN DAILY PRN MC SEE COMMENTS; Start 05/11/18 at 15:00; Stop 05/13/18 at 14:59; Status DC Regadenoson (Lexiscan) 0.4 mg 1X ONCE IV Last administered on 05/12/18at 08:30 ; Start 05/12/18 at 08:30; Stop 05/12/18 at 08:31; Status DC Midazolam HCl (Versed) 2 mg STK-MED ONCE .ROUTE ; Start 05/12/18 at 09:55; Stop 05/12/18 at 09:56; Status DC Fentanyl Citrate (Fentanyl 2ml Vial) 100 mcg STK-MED ONCE .ROUTE ; Start at 09:55; Stop 05/12/18 at 09:56; Status DC Lidocaine/Sodium Bicarbonate (Buffered Lidocaine 1%) 3 ml STK-MED ONCE .ROUTE ; Start 05/12/18 at 09:57; Stop 05/12/18 at 09:58; Status DC Lidocaine/Sodium Bicarbonate (Buffered Lidocaine 1%) 3 ml 1X ONCE IJ Last administered on 05/12/18at 10:25; Start 05/12/18 at 10:00; Stop 05/12/18 at 10 :12; Status DC Midazolam HCl (Versed) 2 mg 1X ONCE IV Last administered on 05/12/18at 10:26; Start 05/12/18 at 10:00; Stop 05/12/18 at 10:12; Status DC Fentanyl Citrate (Fentanyl 2ml Vial) 100 mcg 1X ONCE IV Last administered on 05/12/18at 10:27; Start 05/12/18 at 10:00; Stop 05/12/18 at 10:12; Status DC Atorvastatin Calcium (Lipitor) 40 mg QHS PO Last administered on 05/14/18at 20: 11; Start 05/12/18 at 21:00 Aspirin (Ecotrin) 81 mg DAILYWBKFT PO Last administered on 05/15/18at 09:25; Start 05/13/18 at 08:00 Aspirin (Ecotrin) 325 mg 1X ONCE PO Last administered on 05/12/18at 14:15; Start 05/12/18 at 14:15; Stop 05/12/18 at 14:16; Status DC Multi-Ingred Cream/Lotion/Oil/ Oint (Hydrocerin Cream) 1 jorge PRN Q1HR PRN TP DRY SKIN / SCALING; Start 05/13/18 at 09:00 Vancomycin HCl (Vancomycin Trough Level) 1 each 1X ONCE MC ; Start 05/14/18 at 07:30; Stop 05/14/18 at 07:31; Status DC Polyethylene Glycol (miraLAX PACKET) 17 gm 1X ONCE PO ; Start 05/18/18 at 09: 00; Stop 05/18/18 at 09:01 Active Scripts Active Reported Eliquis (Apixaban) 5 Mg Tablet 5 Mg PO BID Vitals/I & O Vital Sign - Last 24 Hours 05/14/18 05/14/18 05/14/18 05/14/18 15:00 19:00 20:00 22:54 Temp 98.6 97.8 98.6 98.6 97.8 98.6 Pulse 70 78 82 Resp 16 18 18 B/P (MAP) 98/57 (71) 111/59 (76) 116/60 (78) Pulse Ox 95 92 94 O2 Delivery Room Air Room Air Room Air Room Air 05/15/18 05/15/18 03:00 07:00 Temp 98.1 98.0 98.1 98.0 Pulse 60 79 Resp 18 20 B/P (MAP) 121/72 (88) 118/70 (86) Pulse Ox 93 95 O2 Delivery Room Air Room Air Intake and Output 05/14/18 05/14/18 05/15/18 15:01 23:01 07:01 Intake Total 360 ml 370 ml 150 ml Output Total 825 ml 275 ml 1550 ml Balance -465 ml 95 ml -1400 ml MICKY DURHAM III DO May 15, 2018 11:43
--- NOTE | 2018-05-15 12:08 | RAD ---
Bilateral upper extremity vein mapping, 05/15/2018: HISTORY: Bypass graft planning Grayscale, color-flow and spectral Doppler analysis was utilized in examination of the basilic and cephalic veins in both upper extremities. On the right, the cephalic vein in the upper arm is patent but quite small, measuring 0.7 to 2.1 mm. In the forearm it is thrombosed. The basilic vein in the right upper arm is patent measuring 2.0 to 2.9 mm. In the forearm it is tiny and incompletely visualized. On the left, the cephalic vein is small, measuring 0.9 to 1.6 mm in the upper arm and 1.7 to 2.8 mm in the forearm. The basilic vein in the left upper arm measures 4.2 to 4.9 mm. It is predominantly thrombosed in the forearm. IMPRESSION: The largest patent superficial upper extremity vein is the left basilic vein in the upper arm as described above. Electronically signed by: Tano Zhu MD (05/15/2018 12:03 PM) [facility]
--- NOTE | 2018-05-15 12:11 | RAD ---
Bilateral lower extremity vein mapping, 05/15/2018: Duplex evaluation of the greater saphenous and lesser saphenous veins in both lower extremities was performed including grayscale, color-flow and spectral Doppler analysis. On the right, the greater saphenous vein has reportedly been previously harvested for graft purposes. The right lesser saphenous vein is patent measuring 1.6 to 6.1 mm in the lower leg. The left greater saphenous vein is patent measuring 2.9 to 5.9 mm in the thigh and 2.0 to 2.6 mm in the lower leg. The left lesser saphenous vein is patent measuring 2.3 to 2.7 mm in the lower leg. Incidental note is made of a mildly prominent left inguinal lymph node. IMPRESSION: Patent left greater saphenous and bilateral lesser saphenous veins with measurements as described above and fully delineated on the technologist worksheet available in the [employer] PACs system. Electronically signed by: Tano Zhu MD (05/15/2018 12:07 PM) [facility]
--- NOTE | 2018-05-15 12:16 | PDOC ---
PROGRESS NOTES Subjective Subjective HPI - f/u of Polycythemia ROS - no CP Objective Objective Vital Signs Date Time Temp Pulse Resp B/P (MAP) Pulse Ox O2 Delivery O2 Flow Rate FiO2 05/15/18 07:00 98.0 79 20 118/70 (86) 95 Room Air 98.0 05/14/18 08:00 2.0 Intake and Output 05/15/18 07:01 Intake Total 880 ml Output Total 2650 ml Balance -1770 ml Intake Oral 580 ml IV Total 300 ml Output Urine Total 2650 ml # Voids 1 # Bowel Movements 1 Physical Exam Heart: Normal S1, Normal S2 General: Alert, Oriented X3 Lungs: Clear to auscultation Neuro: Normal speech Psych/Mental Status: Mental status NL Skin: No rashes Assessment Assessment Problems Medical Problems: (1) Cellulitis of right lower leg Status: Acute (2) Right foot ulcer Status: Acute IMPRESSION AND PLAN: 1. Polycythemia. He has had elevated hemoglobin and hematocrit since 2014. His erythropoietin was low at 2.5 in 2014. However, the JAK2 mutation was negative. I agree to proceed with further testing with next generation sequencing for JAK2 mutation. It appears that this was ordered by Dr. Nichole Holbrook in 2016 and I will check with Pathology if this was completed. 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 The patient does understand that he had a phlebotomy on 09/24/2016, but he did not understand that it is therapeutic phlebotomy and he felt the old bag of blood was taken for testing. I educated him that phlebotomy was a therapeutic procedure. In addition, he has not been compliant with followup appointments. He did not keep his appointment with Dr. Nichole Holbrook and he did not keep his appointment with Dr. Michael Arzola. I have advised him to be compliant for followup and management. Hb 18.4 on 05/11/18. Hb 18 on 05/12/18. Hb worse at 18.9 on 05/15/18. Bone marrow bx 05/12/18. I d/w pathology, results pending. Proceed with phlebotomy 500 cc to bring the Hb.Hct down prior to surgery. I d/w RN. 2. Pulmonary embolism in 06/2017. He also has a history of DVT in the past. He is on Eliquis and the pulmonary embolism has resolved as of CT angiogram done on 05/10/2018. I discussed with Dr. Arzola and Dr. Arzola is considering to discontinue. No h/o DVT, he reports blood clot in rt leg in 2004, but did not receive anticoagulation per pt and hence unlikely that this was DVT. 3. Peripheral arterial disease. Appreciate Vascular Surgery consultation. He will need surgery after the hemoglobin and hematocrit are controlled and after the workup is completed. 4. Thrombocytopenia, monitor cbc, plt better at 158 on 05/15/18. Comment Review of Relevant I have reviewed the following items lee (where applicable) has been applied. Labs Laboratory Tests Test 05/14/18 07:35 05/15/18 04:35 Vancomycin Level Trough 20.1 mcg/mL (10.0-20.0) Vancomycin Last Dose Date 05/13/18 Vancomycin Last Dose Time 1999 White Blood Count 6.2 x10^3/uL (4.0-11.0) Red Blood Count 5.84 x10^6/uL (4.30-5.70) Hemoglobin 18.9 g/dL (13.0-17.5) Hematocrit 54.9 % (39.0-53.0) Mean Corpuscular Volume 94 fL (79-100) Mean Corpuscular Hemoglobin 32 pg (25-35) Mean Corpuscular Hemoglobin Concent 34 g/dL (31-37) Red Cell Distribution Width 16.5 % (11.5-14.5) Platelet Count 158 x10^3/uL (140-400) Neutrophils (%) (Auto) 64 % (31-73) Lymphocytes (%) (Auto) 14 % (24-48) Monocytes (%) (Auto) 14 % (0-9) Eosinophils (%) (Auto) 8 % (0-3) Basophils (%) (Auto) 1 % (0-3) Neutrophils # (Auto) 4.0 x10^3uL (1.8-7.7) Lymphocytes # (Auto) 0.8 x10^3/uL (1.0-4.8) Monocytes # (Auto) 0.9 x10^3/uL (0.0-1.1) Eosinophils # (Auto) 0.5 x10^3/uL (0.0-0.7) Basophils # (Auto) 0.0 x10^3/uL (0.0-0.2) Sodium Level 141 mmol/L (136-145) Potassium Level 4.3 mmol/L (3.5-5.1) Chloride Level 105 mmol/L (98-107) Carbon Dioxide Level 24 mmol/L (21-32) Anion Gap 12 (6-14) Blood Urea Nitrogen 20 mg/dL (8-26) Creatinine 1.0 mg/dL (0.7-1.3) Estimated GFR (Cockcroft-Gault) 72.3 Glucose Level 101 mg/dL (70-99) Calcium Level 8.9 mg/dL (8.5-10.1) Laboratory Tests Test 05/15/18 04:35 White Blood Count 6.2 x10^3/uL (4.0-11.0) Red Blood Count 5.84 x10^6/uL (4.30-5.70) Hemoglobin 18.9 g/dL (13.0-17.5) Hematocrit 54.9 % (39.0-53.0) Mean Corpuscular Volume 94 fL (79-100) Mean Corpuscular Hemoglobin 32 pg (25-35) Mean Corpuscular Hemoglobin Concent 34 g/dL (31-37) Red Cell Distribution Width 16.5 % (11.5-14.5) Platelet Count 158 x10^3/uL (140-400) Neutrophils (%) (Auto) 64 % (31-73) Lymphocytes (%) (Auto) 14 % (24-48) Monocytes (%) (Auto) 14 % (0-9) Eosinophils (%) (Auto) 8 % (0-3) Basophils (%) (Auto) 1 % (0-3) Neutrophils # (Auto) 4.0 x10^3uL (1.8-7.7) Lymphocytes # (Auto) 0.8 x10^3/uL (1.0-4.8) Monocytes # (Auto) 0.9 x10^3/uL (0.0-1.1) Eosinophils # (Auto) 0.5 x10^3/uL (0.0-0.7) Basophils # (Auto) 0.0 x10^3/uL (0.0-0.2) Sodium Level 141 mmol/L (136-145) Potassium Level 4.3 mmol/L (3.5-5.1) Chloride Level 105 mmol/L (98-107) Carbon Dioxide Level 24 mmol/L (21-32) Anion Gap 12 (6-14) Blood Urea Nitrogen 20 mg/dL (8-26) Creatinine 1.0 mg/dL (0.7-1.3) Estimated GFR (Cockcroft-Gault) 72.3 Glucose Level 101 mg/dL (70-99) Calcium Level 8.9 mg/dL (8.5-10.1) Microbiology 05/07/18 Blood Culture - Final, Complete NO GROWTH AFTER 5 DAYS 05/10/18 Anaerobic/Aerobic Culture - Preliminary, Resulted 05/10/18 Anaerobic Culture Result 1 (JUHI) - Preliminary, Resulted 05/10/18 Aerobic Culture - Final, Resulted 05/10/18 Aerobic Culture Result 1 (JUHI) - Final, Resulted 05/10/18 Aerobic Culture Result 2 (JUHI) - Final, Resulted 05/10/18 Aerobic Culture Result 3 (JUHI) - Final, Resulted 05/10/18 Antimicrobic Susceptibility - Final, Resulted 05/10/18 Gram Stain - Final, Resulted 05/10/18 Gram Stain Result 1 (JUHI) - Final, Resulted 05/10/18 Gram Stain Result 2 (JUHI) - Final, Resulted Medications Current Medications Sodium Chloride 1,000 ml @ 1,000 mls/hr 1X ONCE IV Last administered on 05/07at 19:19; Start 05/07/18 at 19:00; Stop 05/07/18 at 19:59; Status DC Vancomycin HCl (Vanco Per Pharmacy) 1 each PRN DAILY PRN MC SEE COMMENTS Last administered on 05/14/18at 12:35; Start 05/07/18 at 19:45; Stop 05/15/18 at 09 :15; Status DC Vancomycin HCl 2 gm/Sodium Chloride 500 ml @ 250 mls/hr ONCE ONCE IV Last administered on 05/07/18at 20:00; Start 05/07/18 at 19:45; Stop 05/07/18 at 21 :44; Status DC Ondansetron HCl (Zofran) 4 mg PRN Q8HRS PRN IV NAUSEA/VOMITING 1ST CHOICE; Start 05/07/18 at 21:15; Stop 05/08/18 at 21:14; Status DC Sodium Chloride 1,000 ml @ 125 mls/hr Q8H IV Last administered on 05/08/18at 20:01; Start 05/07/18 at 21:03; Stop 05/08/18 at 21:02; Status DC Fentanyl Citrate (Fentanyl 2ml Vial) 25 mcg PRN Q2HR PRN IV SEVERE PAIN Last administered on 05/08/18at 13:59; Start 05/08/18 at 01:45; Stop 05/08/18 at 14 :39; Status DC Vancomycin HCl 1.25 gm/Sodium Chloride 250 ml @ 167 mls/hr Q12H IV Last administered on 05/14/18at 20:10; Start 05/08/18 at 08:00; Stop 05/15/18 at 09 :15; Status DC Vancomycin HCl (Vancomycin Trough Level) 1 each 1X ONCE MC ; Start 05/10/18 at 07:30; Stop 05/10/18 at 07:30; Status DC Lactobacillus Rhamnosus (Culturelle) 1 cap BID PO Last administered on at 09:26; Start 05/08/18 at 09:00 Fentanyl Citrate (Fentanyl 2ml Vial) 50 mcg PRN Q2HR PRN IV SEVERE PAIN Last administered on 05/09/18at 09:05; Start 05/08/18 at 14:45 Apixaban (Eliquis) 5 mg BID PO Last administered on 05/11/18at 09:39; Start at 15:00; Stop 05/12/18 at 11:45; Status DC Acetaminophen/ Hydrocodone Bitart (Lortab 7.5/325) 1 tab PRN Q4HRS PRN PO PAIN Last administered on 05/12/18at 05:27; Start 05/09/18 at 11:15 Info (Anti-Coagulation Monitoring By Pharmacy) 1 each PRN DAILY PRN MC SEE COMMENTS Last administered on 05/11/18at 13:08; Start 05/09/18 at 11:30; Stop 05/12/18 at 11:45; Status DC Magnesium Hydroxide (Milk Of Magnesia) 2,400 mg PRN DAILY PRN PO CONSTIPATION Last administered on 05/13/18at 21:09; Start 05/09/18 at 14:15 Iohexol (Omnipaque 300 Mg/ml) 100 ml 1X ONCE IV Last administered on at 11:45; Start 05/10/18 at 11:45; Stop 05/10/18 at 11:46; Status DC Info (CONTRAST GIVEN -- Rx MONITORING) 1 each PRN DAILY PRN MC SEE COMMENTS; Start 05/10/18 at 11:45; Stop 05/12/18 at 11:33; Status DC Piperacillin Sod/ Tazobactam Sod 3.375 gm/Sodium Chloride 50 ml @ 100 mls/hr Q6HRS IV Last administered on 05/15/18at 06:06; Start 05/10/18 at 18:30 Potassium Chloride (Klor-Con) 40 meq 1X ONCE PO Last administered on at 17:44; Start 05/11/18 at 14:30; Stop 05/11/18 at 14:31; Status DC Potassium Chloride (Klor-Con) 20 meq DAILYWBKFT PO Last administered on at 09:26; Start 05/12/18 at 08:00 Iohexol (Omnipaque 300 Mg/ml) 95 ml 1X ONCE IV Last administered on at 15:09; Start 05/11/18 at 14:45; Stop 05/11/18 at 14:47; Status DC Info (CONTRAST GIVEN -- Rx MONITORING) 1 each PRN DAILY PRN MC SEE COMMENTS; Start 05/11/18 at 15:00; Stop 05/13/18 at 14:59; Status DC Regadenoson (Lexiscan) 0.4 mg 1X ONCE IV Last administered on 05/12/18at 08:30 ; Start 05/12/18 at 08:30; Stop 05/12/18 at 08:31; Status DC Midazolam HCl (Versed) 2 mg STK-MED ONCE .ROUTE ; Start 05/12/18 at 09:55; Stop 05/12/18 at 09:56; Status DC Fentanyl Citrate (Fentanyl 2ml Vial) 100 mcg STK-MED ONCE .ROUTE ; Start at 09:55; Stop 05/12/18 at 09:56; Status DC Lidocaine/Sodium Bicarbonate (Buffered Lidocaine 1%) 3 ml STK-MED ONCE .ROUTE ; Start 05/12/18 at 09:57; Stop 05/12/18 at 09:58; Status DC Lidocaine/Sodium Bicarbonate (Buffered Lidocaine 1%) 3 ml 1X ONCE IJ Last administered on 05/12/18at 10:25; Start 05/12/18 at 10:00; Stop 05/12/18 at 10 :12; Status DC Midazolam HCl (Versed) 2 mg 1X ONCE IV Last administered on 05/12/18at 10:26; Start 05/12/18 at 10:00; Stop 05/12/18 at 10:12; Status DC Fentanyl Citrate (Fentanyl 2ml Vial) 100 mcg 1X ONCE IV Last administered on 05/12/18at 10:27; Start 05/12/18 at 10:00; Stop 05/12/18 at 10:12; Status DC Atorvastatin Calcium (Lipitor) 40 mg QHS PO Last administered on 05/14/18at 20: 11; Start 05/12/18 at 21:00 Aspirin (Ecotrin) 81 mg DAILYWBKFT PO Last administered on 05/15/18at 09:25; Start 05/13/18 at 08:00 Aspirin (Ecotrin) 325 mg 1X ONCE PO Last administered on 05/12/18at 14:15; Start 05/12/18 at 14:15; Stop 05/12/18 at 14:16; Status DC Multi-Ingred Cream/Lotion/Oil/ Oint (Hydrocerin Cream) 1 jorge PRN Q1HR PRN TP DRY SKIN / SCALING; Start 05/13/18 at 09:00 Vancomycin HCl (Vancomycin Trough Level) 1 each 1X ONCE MC ; Start 05/14/18 at 07:30; Stop 05/14/18 at 07:31; Status DC Polyethylene Glycol (miraLAX PACKET) 17 gm 1X ONCE PO ; Start 05/18/18 at 09: 00; Stop 05/18/18 at 09:01 Active Scripts Active Reported Eliquis (Apixaban) 5 Mg Tablet 5 Mg PO BID Vitals/I & O Vital Sign - Last 24 Hours 05/14/18 05/14/18 05/14/18 05/14/18 15:00 19:00 20:00 22:54 Temp 98.6 97.8 98.6 98.6 97.8 98.6 Pulse 70 78 82 Resp 16 18 18 B/P (MAP) 98/57 (71) 111/59 (76) 116/60 (78) Pulse Ox 95 92 94 O2 Delivery Room Air Room Air Room Air Room Air 05/15/18 05/15/18 03:00 07:00 Temp 98.1 98.0 98.1 98.0 Pulse 60 79 Resp 18 20 B/P (MAP) 121/72 (88) 118/70 (86) Pulse Ox 93 95 O2 Delivery Room Air Room Air Intake and Output 05/14/18 05/14/18 05/15/18 15:01 23:01 07:01 Intake Total 360 ml 370 ml 150 ml Output Total 825 ml 275 ml 1550 ml Balance -465 ml 95 ml -1400 ml AMY SWEENEY MD May 15, 2018 12:16
[2018-05-15 15:00] VITALS: BP 122/62
[2018-05-15] MEDS: IV NORMAL SALINE 1000ML BAG 1,000 ML IV SCH (16:17)
[2018-05-15 19:00] VITALS: BP 111/69
[2018-05-15] MEDS: ATORVASTATIN CALCIUM 40 MG TABLET. PO SCH (21:22)
[2018-05-15 23:00] VITALS: BP 133/75
[2018-05-16] MEDS: PIPERACILLIN/TAZOBACTAM 3.375 GM in IV NORMAL SALINE 50ML 50 ML IV SCH ×2 (00:01→06:08)
[2018-05-16 03:00] VITALS: BP 114/77
[2018-05-16] MEDS: IV NORMAL SALINE 1000ML BAG 1,000 ML IV SCH (06:07)
[2018-05-16 07:00] VITALS: BP 116/59
[2018-05-16 07:01] LABS: CREATININE 1.1 mg/dL (0.7-1.3); GFR 64.7; POTASSIUM 4.3 mmol/L (3.5-5.1)
[2018-05-16 07:04] LABS: BASO % 0 % (0-3); EOS # 0.5 x10^3/uL (0.0-0.7); EOS % 8 % (0-3); HEMATOCRIT 58.7 % (39.0-53.0); HEMOGLOBIN 20.2 g/dL (13.0-17.5); LYMPH # 1.3 x10^3/uL (1.0-4.8); LYMPH % 21 % (24-48); MEAN CORPUSCULAR HEMOGLOBIN 33 pg (25-35); MEAN CORPUSCULAR HGB CONC 35 g/dL (31-37); MEAN CORPUSCULAR VOLUME 95 fL (79-100); MONO # 0.9 x10^3/uL (0.0-1.1); MONO % 15 % (0-9); NEUT # 3.4 x10^3uL (1.8-7.7); NEUT % 56 % (31-73); PLATELET COUNT 170 x10^3/uL (140-400); RED BLOOD COUNT 6.21 x10^6/uL (4.30-5.70); RED CELL DISTRIBUTION WIDTH 16.3 % (11.5-14.5); WHITE BLOOD COUNT 6.1 x10^3/uL (4.0-11.0)
[2018-05-16] MEDS: ASPIRIN ENTERIC COATED 81 MG TABLET.DR. PO SCH (08:32)
[2018-05-16] MEDS: POTASSIUM CHLORIDE 20 MEQ TABLET.ER. PO SCH (08:33)
[2018-05-16] MEDS: LACTOBACILLUS RHAMNOSUS GG 1 CAPSULE. PO SCH (08:33)
--- NOTE | 2018-05-16 08:54 | PDOC ---
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 Tentatively scheduled for an aorto bi. femoral bypass on Saturday can move to Sat. if not ready by Saturday, nature of the procedure and risks explained KUMAR DYE MD May 16, 2018 08:54
--- NOTE | 2018-05-16 09:38 | PDOC ---
PROGRESS NOTES Subjective Subjective HPI - f/u of Polycythemia ROS - no CP Objective Objective Vital Signs Date Time Temp Pulse Resp B/P (MAP) Pulse Ox O2 Delivery O2 Flow Rate FiO2 05/16/18 07:00 97.9 80 116/59 (78) 94 97.9 05/16/18 03:00 18 Room Air 2.0 Intake and Output 05/16/18 07:01 Intake Total 540 ml Output Total 1152 ml Balance -612 ml Intake Oral 540 ml Output Urine Total 1150 ml Stool Total 2 ml Physical Exam Heart: Normal S1, Normal S2 General: Alert, Oriented X3 Lungs: Clear to auscultation Neuro: Normal speech Psych/Mental Status: Mental status NL Assessment Assessment Problems Medical Problems: (1) Cellulitis of right lower leg Status: Acute (2) Right foot ulcer Status: Acute IMPRESSION AND PLAN: 1. Polycythemia. He has had elevated hemoglobin and hematocrit since 2014. His erythropoietin was low at 2.5 in 2014. However, the JAK2 mutation was negative. I agree to proceed with further testing with next generation sequencing for JAK2 mutation. It appears that this was ordered by Dr. Nichole Holbrook in 2016 and I will check with Pathology if this was completed. 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 The patient does understand that he had a phlebotomy on 09/24/2016, but he did not understand that it is therapeutic phlebotomy and he felt the old bag of blood was taken for testing. I educated him that phlebotomy was a therapeutic procedure. In addition, he has not been compliant with followup appointments. He did not keep his appointment with Dr. Nichole Holbrook and he did not keep his appointment with Dr. Michael Arzola. I have advised him to be compliant for followup and management. Hb 18.4 on 05/11/18. Hb 18 on 05/12/18. Hb worse at 18.9 on 05/15/18. Bone marrow bx 05/12/18. I d/w pathology, results pending. Proceed with phlebotomy 500 cc to bring the Hb.Hct down prior to surgery. [facility] is not cetified for phlebotomy per RN and pathologist. Pt declined transfer to [facility] for phlebotomy. Plan outpatient phlebotomy if ok to discharge home and return for surgery at a later date. I d/w RN. 2. Pulmonary embolism in 06/2017. He also has a history of DVT in the past. He is on Eliquis and the pulmonary embolism has resolved as of CT angiogram done on 05/10/2018. I discussed with Dr. Arzola and Dr. Arzola is considering to discontinue. No h/o DVT, he reports blood clot in rt leg in 2004, but did not receive anticoagulation per pt and hence unlikely that this was DVT. 3. Peripheral arterial disease. Appreciate Vascular Surgery consultation. He will need surgery after the hemoglobin and hematocrit are controlled and after the workup is completed. 4. Thrombocytopenia, monitor cbc, plt better at 158 on 05/15/18. 5. Cellulitis Comment Review of Relevant I have reviewed the following items lee (where applicable) has been applied. Labs Laboratory Tests Test 05/15/18 04:35 05/16/18 06:01 05/16/18 06:07 White Blood Count 6.2 x10^3/uL (4.0-11.0) 6.1 x10^3/uL (4.0-11.0) Red Blood Count 5.84 x10^6/uL (4.30-5.70) 6.21 x10^6/uL (4.30-5.70) Hemoglobin 18.9 g/dL (13.0-17.5) 20.2 g/dL (13.0-17.5) Hematocrit 54.9 % (39.0-53.0) 58.7 % (39.0-53.0) Mean Corpuscular Volume 94 fL (79-100) 95 fL (79-100) Mean Corpuscular Hemoglobin 32 pg (25-35) 33 pg (25-35) Mean Corpuscular Hemoglobin Concent 34 g/dL (31-37) 35 g/dL (31-37) Red Cell Distribution Width 16.5 % (11.5-14.5) 16.3 % (11.5-14.5) Platelet Count 158 x10^3/uL (140-400) 170 x10^3/uL (140-400) Neutrophils (%) (Auto) 64 % (31-73) 56 % (31-73) Lymphocytes (%) (Auto) 14 % (24-48) 21 % (24-48) Monocytes (%) (Auto) 14 % (0-9) 15 % (0-9) Eosinophils (%) (Auto) 8 % (0-3) 8 % (0-3) Basophils (%) (Auto) 1 % (0-3) 0 % (0-3) Neutrophils # (Auto) 4.0 x10^3uL (1.8-7.7) 3.4 x10^3uL (1.8-7.7) Lymphocytes # (Auto) 0.8 x10^3/uL (1.0-4.8) 1.3 x10^3/uL (1.0-4.8) Monocytes # (Auto) 0.9 x10^3/uL (0.0-1.1) 0.9 x10^3/uL (0.0-1.1) Eosinophils # (Auto) 0.5 x10^3/uL (0.0-0.7) 0.5 x10^3/uL (0.0-0.7) Basophils # (Auto) 0.0 x10^3/uL (0.0-0.2) 0.0 x10^3/uL (0.0-0.2) Sodium Level 141 mmol/L (136-145) 140 mmol/L (136-145) Potassium Level 4.3 mmol/L (3.5-5.1) 4.3 mmol/L (3.5-5.1) Chloride Level 105 mmol/L (98-107) 106 mmol/L (98-107) Carbon Dioxide Level 24 mmol/L (21-32) 23 mmol/L (21-32) Anion Gap 12 (6-14) 11 (6-14) Blood Urea Nitrogen 20 mg/dL (8-26) 17 mg/dL (8-26) Creatinine 1.0 mg/dL (0.7-1.3) 1.1 mg/dL (0.7-1.3) Estimated GFR (Cockcroft-Gault) 72.3 64.7 Glucose Level 101 mg/dL (70-99) 104 mg/dL (70-99) Calcium Level 8.9 mg/dL (8.5-10.1) 9.0 mg/dL (8.5-10.1) Laboratory Tests Test 05/16/18 06:01 05/16/18 06:07 White Blood Count 6.1 x10^3/uL (4.0-11.0) Red Blood Count 6.21 x10^6/uL (4.30-5.70) Hemoglobin 20.2 g/dL (13.0-17.5) Hematocrit 58.7 % (39.0-53.0) Mean Corpuscular Volume 95 fL (79-100) Mean Corpuscular Hemoglobin 33 pg (25-35) Mean Corpuscular Hemoglobin Concent 35 g/dL (31-37) Red Cell Distribution Width 16.3 % (11.5-14.5) Platelet Count 170 x10^3/uL (140-400) Neutrophils (%) (Auto) 56 % (31-73) Lymphocytes (%) (Auto) 21 % (24-48) Monocytes (%) (Auto) 15 % (0-9) Eosinophils (%) (Auto) 8 % (0-3) Basophils (%) (Auto) 0 % (0-3) Neutrophils # (Auto) 3.4 x10^3uL (1.8-7.7) Lymphocytes # (Auto) 1.3 x10^3/uL (1.0-4.8) Monocytes # (Auto) 0.9 x10^3/uL (0.0-1.1) Eosinophils # (Auto) 0.5 x10^3/uL (0.0-0.7) Basophils # (Auto) 0.0 x10^3/uL (0.0-0.2) Sodium Level 140 mmol/L (136-145) Potassium Level 4.3 mmol/L (3.5-5.1) Chloride Level 106 mmol/L (98-107) Carbon Dioxide Level 23 mmol/L (21-32) Anion Gap 11 (6-14) Blood Urea Nitrogen 17 mg/dL (8-26) Creatinine 1.1 mg/dL (0.7-1.3) Estimated GFR (Cockcroft-Gault) 64.7 Glucose Level 104 mg/dL (70-99) Calcium Level 9.0 mg/dL (8.5-10.1) Microbiology 05/07/18 Blood Culture - Final, Complete NO GROWTH AFTER 5 DAYS 05/10/18 Anaerobic/Aerobic Culture - Final, Complete 05/10/18 Anaerobic Culture Result 1 (JUHI) - Final, Complete 05/10/18 Aerobic Culture - Final, Complete 05/10/18 Aerobic Culture Result 1 (JUHI) - Final, Complete 05/10/18 Aerobic Culture Result 2 (JUHI) - Final, Complete 05/10/18 Aerobic Culture Result 3 (JUHI) - Final, Complete 05/10/18 Antimicrobic Susceptibility - Final, Complete 05/10/18 Gram Stain - Final, Complete 05/10/18 Gram Stain Result 1 (JUHI) - Final, Complete 05/10/18 Gram Stain Result 2 (JUHI) - Final, Complete Medications Current Medications Sodium Chloride 1,000 ml @ 1,000 mls/hr 1X ONCE IV Last administered on 05/07at 19:19; Start 05/07/18 at 19:00; Stop 05/07/18 at 19:59; Status DC Vancomycin HCl (Vanco Per Pharmacy) 1 each PRN DAILY PRN MC SEE COMMENTS Last administered on 05/14/18at 12:35; Start 05/07/18 at 19:45; Stop 05/15/18 at 09 :15; Status DC Vancomycin HCl 2 gm/Sodium Chloride 500 ml @ 250 mls/hr ONCE ONCE IV Last administered on 05/07/18at 20:00; Start 05/07/18 at 19:45; Stop 05/07/18 at 21 :44; Status DC Ondansetron HCl (Zofran) 4 mg PRN Q8HRS PRN IV NAUSEA/VOMITING 1ST CHOICE; Start 05/07/18 at 21:15; Stop 05/08/18 at 21:14; Status DC Sodium Chloride 1,000 ml @ 125 mls/hr Q8H IV Last administered on 05/08/18at 20:01; Start 05/07/18 at 21:03; Stop 05/08/18 at 21:02; Status DC Fentanyl Citrate (Fentanyl 2ml Vial) 25 mcg PRN Q2HR PRN IV SEVERE PAIN Last administered on 05/08/18at 13:59; Start 05/08/18 at 01:45; Stop 05/08/18 at 14 :39; Status DC Vancomycin HCl 1.25 gm/Sodium Chloride 250 ml @ 167 mls/hr Q12H IV Last administered on 05/14/18at 20:10; Start 05/08/18 at 08:00; Stop 05/15/18 at 09 :15; Status DC Vancomycin HCl (Vancomycin Trough Level) 1 each 1X ONCE MC ; Start 05/10/18 at 07:30; Stop 05/10/18 at 07:30; Status DC Lactobacillus Rhamnosus (Culturelle) 1 cap BID PO Last administered on at 08:33; Start 05/08/18 at 09:00 Fentanyl Citrate (Fentanyl 2ml Vial) 50 mcg PRN Q2HR PRN IV SEVERE PAIN Last administered on 05/09/18at 09:05; Start 05/08/18 at 14:45 Apixaban (Eliquis) 5 mg BID PO Last administered on 05/11/18at 09:39; Start at 15:00; Stop 05/12/18 at 11:45; Status DC Acetaminophen/ Hydrocodone Bitart (Lortab 7.5/325) 1 tab PRN Q4HRS PRN PO PAIN Last administered on 05/12/18at 05:27; Start 05/09/18 at 11:15 Info (Anti-Coagulation Monitoring By Pharmacy) 1 each PRN DAILY PRN MC SEE COMMENTS Last administered on 05/11/18at 13:08; Start 05/09/18 at 11:30; Stop 05/12/18 at 11:45; Status DC Magnesium Hydroxide (Milk Of Magnesia) 2,400 mg PRN DAILY PRN PO CONSTIPATION Last administered on 05/13/18at 21:09; Start 05/09/18 at 14:15 Iohexol (Omnipaque 300 Mg/ml) 100 ml 1X ONCE IV Last administered on at 11:45; Start 05/10/18 at 11:45; Stop 05/10/18 at 11:46; Status DC Info (CONTRAST GIVEN -- Rx MONITORING) 1 each PRN DAILY PRN MC SEE COMMENTS; Start 05/10/18 at 11:45; Stop 05/12/18 at 11:33; Status DC Piperacillin Sod/ Tazobactam Sod 3.375 gm/Sodium Chloride 50 ml @ 100 mls/hr Q6HRS IV Last administered on 05/16/18at 06:08; Start 05/10/18 at 18:30 Potassium Chloride (Klor-Con) 40 meq 1X ONCE PO Last administered on at 17:44; Start 05/11/18 at 14:30; Stop 05/11/18 at 14:31; Status DC Potassium Chloride (Klor-Con) 20 meq DAILYWBKFT PO Last administered on at 08:33; Start 05/12/18 at 08:00 Iohexol (Omnipaque 300 Mg/ml) 95 ml 1X ONCE IV Last administered on at 15:09; Start 05/11/18 at 14:45; Stop 05/11/18 at 14:47; Status DC Info (CONTRAST GIVEN -- Rx MONITORING) 1 each PRN DAILY PRN MC SEE COMMENTS; Start 05/11/18 at 15:00; Stop 05/13/18 at 14:59; Status DC Regadenoson (Lexiscan) 0.4 mg 1X ONCE IV Last administered on 05/12/18at 08:30 ; Start 05/12/18 at 08:30; Stop 05/12/18 at 08:31; Status DC Midazolam HCl (Versed) 2 mg STK-MED ONCE .ROUTE ; Start 05/12/18 at 09:55; Stop 05/12/18 at 09:56; Status DC Fentanyl Citrate (Fentanyl 2ml Vial) 100 mcg STK-MED ONCE .ROUTE ; Start at 09:55; Stop 05/12/18 at 09:56; Status DC Lidocaine/Sodium Bicarbonate (Buffered Lidocaine 1%) 3 ml STK-MED ONCE .ROUTE ; Start 05/12/18 at 09:57; Stop 05/12/18 at 09:58; Status DC Lidocaine/Sodium Bicarbonate (Buffered Lidocaine 1%) 3 ml 1X ONCE IJ Last administered on 05/12/18at 10:25; Start 05/12/18 at 10:00; Stop 05/12/18 at 10 :12; Status DC Midazolam HCl (Versed) 2 mg 1X ONCE IV Last administered on 05/12/18at 10:26; Start 05/12/18 at 10:00; Stop 05/12/18 at 10:12; Status DC Fentanyl Citrate (Fentanyl 2ml Vial) 100 mcg 1X ONCE IV Last administered on 05/12/18at 10:27; Start 05/12/18 at 10:00; Stop 05/12/18 at 10:12; Status DC Atorvastatin Calcium (Lipitor) 40 mg QHS PO Last administered on 05/15/18at 21: 22; Start 05/12/18 at 21:00 Aspirin (Ecotrin) 81 mg DAILYWBKFT PO Last administered on 05/16/18at 08:32; Start 05/13/18 at 08:00 Aspirin (Ecotrin) 325 mg 1X ONCE PO Last administered on 05/12/18at 14:15; Start 05/12/18 at 14:15; Stop 05/12/18 at 14:16; Status DC Multi-Ingred Cream/Lotion/Oil/ Oint (Hydrocerin Cream) 1 jorge PRN Q1HR PRN TP DRY SKIN / SCALING; Start 05/13/18 at 09:00 Vancomycin HCl (Vancomycin Trough Level) 1 each 1X ONCE MC ; Start 05/14/18 at 07:30; Stop 05/14/18 at 07:31; Status DC Polyethylene Glycol (miraLAX PACKET) 17 gm 1X ONCE PO ; Start 05/18/18 at 09: 00; Stop 05/18/18 at 09:01 Sodium Chloride 1,000 ml @ 75 mls/hr [id number] IV Last administered on at 06:07; Start 05/15/18 at 16:00 Active Scripts Active Reported Eliquis (Apixaban) 5 Mg Tablet 5 Mg PO BID Vitals/I & O Vital Sign - Last 24 Hours 05/15/18 05/15/18 05/15/18 05/15/18 15:00 19:00 20:00 23:00 Temp 98.1 98.3 97.7 98.1 98.3 97.7 Pulse 78 70 79 Resp 18 18 18 B/P (MAP) 122/62 (82) 111/69 (83) 133/75 (94) Pulse Ox 94 94 93 O2 Delivery Room Air Room Air Room Air Room Air O2 Flow Rate 2.0 05/16/18 05/16/18 03:00 07:00 Temp 98.1 97.9 98.1 97.9 Pulse 73 80 Resp 18 B/P (MAP) 114/77 (89) 116/59 (78) Pulse Ox 95 94 O2 Delivery Room Air O2 Flow Rate 2.0 Intake and Output 05/15/18 05/15/18 05/16/18 15:01 23:01 07:01 Intake Total 360 ml 180 ml Output Total 750 ml 200 ml 202 ml Balance -390 ml -20 ml -202 ml AMY SWEENEY MD May 16, 2018 09:38
--- NOTE | 2018-05-16 10:09 | PDOC ---
Infectious Disease Note Subjective Subjective Feeling alright this morning Denies pain/F/C/N/V/D/SOA Vital Sign Vital Signs Vital Signs Date Time Temp Pulse Resp B/P (MAP) Pulse Ox O2 Delivery O2 Flow Rate FiO2 05/16/18 07:00 97.9 80 116/59 (78) 94 97.9 05/16/18 03:00 18 Room Air 2.0 Physical Exam PHYSICAL EXAM GENERAL: Resting quietly HEENT: Normal conjunctivae. Oral cavity: Pharynx pink and moist. NECK: Supple. LUNGS: Clear to auscultation. HEART: S1, S2. ABDOMEN: Nondistended, soft and nontender with bowel sounds present. EXTREMITIES: No gross edema or cyanosis. Right lower extremity rubor with wrinkles and dry flaky skin. He has 2 ulcers located anterolateral aspect of the gotti and dorsal aspect of the right foot with bleeding. Dorsalis pedis pulse difficult to palpate. His toe nails are thick and yellow. SKIN: Warm without rash. NEUROLOGIC: Alert and oriented x 3. Labs Lab Laboratory Tests Test 05/16/18 06:01 05/16/18 06:07 White Blood Count 6.1 x10^3/uL (4.0-11.0) Red Blood Count 6.21 x10^6/uL (4.30-5.70) Hemoglobin 20.2 g/dL (13.0-17.5) Hematocrit 58.7 % (39.0-53.0) Mean Corpuscular Volume 95 fL (79-100) Mean Corpuscular Hemoglobin 33 pg (25-35) Mean Corpuscular Hemoglobin Concent 35 g/dL (31-37) Red Cell Distribution Width 16.3 % (11.5-14.5) Platelet Count 170 x10^3/uL (140-400) Neutrophils (%) (Auto) 56 % (31-73) Lymphocytes (%) (Auto) 21 % (24-48) Monocytes (%) (Auto) 15 % (0-9) Eosinophils (%) (Auto) 8 % (0-3) Basophils (%) (Auto) 0 % (0-3) Neutrophils # (Auto) 3.4 x10^3uL (1.8-7.7) Lymphocytes # (Auto) 1.3 x10^3/uL (1.0-4.8) Monocytes # (Auto) 0.9 x10^3/uL (0.0-1.1) Eosinophils # (Auto) 0.5 x10^3/uL (0.0-0.7) Basophils # (Auto) 0.0 x10^3/uL (0.0-0.2) Sodium Level 140 mmol/L (136-145) Potassium Level 4.3 mmol/L (3.5-5.1) Chloride Level 106 mmol/L (98-107) Carbon Dioxide Level 23 mmol/L (21-32) Anion Gap 11 (6-14) Blood Urea Nitrogen 17 mg/dL (8-26) Creatinine 1.1 mg/dL (0.7-1.3) Estimated GFR (Cockcroft-Gault) 64.7 Glucose Level 104 mg/dL (70-99) Calcium Level 9.0 mg/dL (8.5-10.1) Micro ANAEROBIC-AEROBIC CULTURE Preliminary Preliminary report ANAEROBIC RES 1 Preliminary Comment No anaerobes recovered in 48 hours. AEROBIC CULT Final Final report AEROBIC RES 1 Final Klebsiella oxytoca 4+ AEROBIC RES 2 Final Escherichia coli 4+ AEROBIC RES 3 Final Staphylococcus aureus 1+ Based on susceptibility to oxacillin this isolate would be susceptible to: *Penicillinase-stable penicillins, such as: Cloxacillin, Dicloxacillin, Nafcillin *Beta-lactam combination agents, such as: Amoxicillin-clavulanic acid, Ampicillin-sulbactam, Piperacillin-tazobactam *Oral cephems, such as: CONTINUED ON NEXT PAGE RUN DATE: 05/14/18 PAGE 2 RUN TIME: 2012 [facility] [address] [place] [id number] Alexandru Vincent M.D., [employer] SPEC: [id number] PATIENT: SHIVANI SUMMERS [id number] ( Continued) Procedure Result AEROBIC RES 3 Final (continued) Cefaclor, Cefdinir, Cefpodoxime, Cefprozil, Cefuroxime, Cephalexin, Loracarbef *Parenteral cephems, such as: Cefazolin, Cefepime, Cefotaxime, Cefotetan, Ceftaroline, Ceftizoxime, Ceftriaxone, Cefuroxime *Carbapenems, such as: Doripenem, Ertapenem, Imipenem, Meropenem ANTIMICROBIAL SUSCEPTIBILITY Final Comment S = Susceptible; I = Intermediate; R = Resistant P = Positive; N = Negative MICS are expressed in micrograms per mL Antibiotic RSLT#1 RSLT#2 RSLT#3 RSLT#4 Amoxicillin/Clavulanic Acid S<=2 S =8 Ampicillin R =R R>=32 Cefazolin R =8 Cefepime S<=0.12 S<=0.12 Ceftriaxone S<=0.25 S<=0.25 Cefuroxime S =4 S =4 Ciprofloxacin S<=0.25 S<=0.25 S<=0.5 Clindamycin S<=0.25 Ertapenem S<=0.12 S<=0.12 Erythromycin S<=0.25 Gentamicin S<=1 S<=1 S<=0.5 Imipenem S<=0.25 S<=0.25 Levofloxacin S<=0.12 S<=0.12 S<=0.12 Linezolid S =2 Meropenem S<=0.25 S<=0.25 Moxifloxacin S<=0.25 Oxacillin S<=0.25 Penicillin R>=0.5 Piperacillin/Tazobactam S<=4 Quinupristin/Dalfopristin S<=0.25 Rifampin S<=0.5 Tetracycline S<=1 S<=1 S<=1 Tobramycin S<=1 S<=1 Trimethoprim/Sulfa S<=20 R>=320 S<=10 Vancomycin S<=0.5 GRAM STAIN Final Final report CONTINUED ON NEXT PAGE RUN DATE: 05/14/18 PAGE 3 RUN TIME: 2012 [facility] [address] [place] [address] Alexandru Vincent M.D., [employer] SPEC: [id number] PATIENT: SHIVANI SUMMERS [id number] ( Continued) Procedure Result GRAM STAIN RES 1 Final Comment No white blood cells seen. GRAM STAIN RES 2 Final Comment Moderate number of gram negative diplococci. Performed at: DA - [facility] [address], [place], [place] [id number] Field Recorder: ADIEL Lorenzo MD, Phone: [phone] Objective Assessment RLE ulcerations and cellulitis Arterial occlusive disease, vascular following. May need aorto-fem bypass graft and possible right [id number] graft h/o DVT/PE Tobacco dependence COPD Plan Plan of Care change antibiotics to po levaquin for d/c wound culture in process Monitor labs/temp/renal function closely Local wound care ROLO GALVAN MD May 16, 2018 10:09
--- NOTE | 2018-05-16 10:26 | DISCH ---
DISCHARGE WITH HOME HEALTH DISCHARGE INFORMATION: Discharge Date: May 16, 2018 Final Diagnosis: Problems Medical Problems: (1) Cellulitis of right lower leg Status: Acute (2) Right foot ulcer Status: Acute Condition on Discharge: Stable CODE STATUS: Code Status: Full HOME HEALTH: Face to Face: I certify this patient is under my care and that I, or a nurse practitioner or physician's temporary administrative assistant working with me, had a face to face encounter that meets the physician face to face encounter requirements with this patient on 05/16 Detention For: Medication Management, Wound Care Physical Therapy For: Evalulation/Treatment Occupational Therapy For: Evaluation/Treatment POST DISCHARGE ORDERS: Activity Instructions for Disc: Activity as tolerated DIET AFTER DISCHARGE: Regular TREATMENT/EQUIPMENT ORDERS: Adaptive Equipment Issued: None CERTIFICATION STATEMENT: Certification Statement: Certification Statement: Based on the above finding, I certify that this patient is confined to the home and needs intermittent senior care care, physical therapy and/or speech therapy, or continues to need occupational therapy.~ This patient is under my care, and I have initiated the establishment of the plan of care.~ This patient will be followed by myself or a community physician who will periodically review the plan of care. Home Meds Reported Medications Apixaban (ELIQUIS) 5 Mg Tablet, 5 MG PO BID, TAB 07/18/17 AUSTEN GODWIN MD May 16, 2018 10:26
[2018-05-16] MEDS ORDERED: AMOX1TAB61 PO (10:30)
[2018-05-16] MEDS ORDERED: ASPI-612 PO (10:30)
[2018-05-16] MEDS ORDERED: OXYC1TAB15 PO (10:30)
[2018-05-16] MEDS ORDERED: ATOR40TA59 PO (10:30)
--- NOTE | 2018-05-16 10:31 | PDOC ---
PROGRESS NOTES Chief Complaint Chief Complaint 1. Severe bilateral PAD with RLE wound/ulceration. CTA showing extensive disease. Vascular surgery following; aortofemoral reconstruction planned pending further workup. Echo showed preserved LV systolic function. 2. RLE cellulitis 3. Hypertension; low normotensive 4. Hyperlipidemia 5. H/o PE; tx with Eliquis. CTA with resolution 6. Polycythemia; bone marrow biopsy 05/12 7. Dry skin History of Present Illness History of Present Illness Pt seen and examined, spoke with nursing staff. Pt was awake when prior to interview today. Pt has no complaints today, and has an increased appetite. Wound Bandages are FRANCISCO. Surgery is proposed for Saturday, if the pt's Hgb comes down to at least 15. Will consider Phlebotomy towards this end. Vitals Vitals Vital Signs Date Time Temp Pulse Resp B/P (MAP) Pulse Ox O2 Delivery O2 Flow Rate FiO2 05/16/18 07:00 97.9 80 116/59 (78) 94 97.9 05/16/18 03:00 18 Room Air 2.0 Physical Exam Physical Exam GENERAL: Resting quietly HEENT: Normal conjunctivae. Oral cavity: Pharynx pink and moist. NECK: Supple. LUNGS: Clear to auscultation. HEART: S1, S2. ABDOMEN: Nondistended, soft and nontender with bowel sounds present. EXTREMITIES: No gross edema or cyanosis. Right lower extremity rubor with wrinkles and dry flaky skin. He has 2 ulcers located anterolateral aspect of the gotti and dorsal aspect of the right foot with bleeding. Dorsalis pedis pulse difficult to palpate. His toe nails are thick and yellow. SKIN: Warm without rash. NEUROLOGIC: Alert and oriented x 3. General: Alert, Oriented X3 Heart: Normal S1, Normal S2 Lungs: Clear Abdomen: Normal bowel sounds, Soft, No tenderness Extremities: No cyanosis, Other (ISCHEMIC ULCER RIGHT FOOT/ CELLULITIS DEEP DORSAL FOOT WOUND) Skin: No rashes Labs LABS Laboratory Tests Test 05/16/18 06:01 05/16/18 06:07 White Blood Count 6.1 x10^3/uL (4.0-11.0) Red Blood Count 6.21 x10^6/uL (4.30-5.70) Hemoglobin 20.2 g/dL (13.0-17.5) Hematocrit 58.7 % (39.0-53.0) Mean Corpuscular Volume 95 fL (79-100) Mean Corpuscular Hemoglobin 33 pg (25-35) Mean Corpuscular Hemoglobin Concent 35 g/dL (31-37) Red Cell Distribution Width 16.3 % (11.5-14.5) Platelet Count 170 x10^3/uL (140-400) Neutrophils (%) (Auto) 56 % (31-73) Lymphocytes (%) (Auto) 21 % (24-48) Monocytes (%) (Auto) 15 % (0-9) Eosinophils (%) (Auto) 8 % (0-3) Basophils (%) (Auto) 0 % (0-3) Neutrophils # (Auto) 3.4 x10^3uL (1.8-7.7) Lymphocytes # (Auto) 1.3 x10^3/uL (1.0-4.8) Monocytes # (Auto) 0.9 x10^3/uL (0.0-1.1) Eosinophils # (Auto) 0.5 x10^3/uL (0.0-0.7) Basophils # (Auto) 0.0 x10^3/uL (0.0-0.2) Sodium Level 140 mmol/L (136-145) Potassium Level 4.3 mmol/L (3.5-5.1) Chloride Level 106 mmol/L (98-107) Carbon Dioxide Level 23 mmol/L (21-32) Anion Gap 11 (6-14) Blood Urea Nitrogen 17 mg/dL (8-26) Creatinine 1.1 mg/dL (0.7-1.3) Estimated GFR (Cockcroft-Gault) 64.7 Glucose Level 104 mg/dL (70-99) Calcium Level 9.0 mg/dL (8.5-10.1) Assessment and Plan Assessmemt and Plan Problems Medical Problems: (1) Cellulitis of right lower leg Status: Acute (2) Right foot ulcer Status: Acute Comment Review of Relevant I have reviewed the following items lee (where applicable) has been applied. Labs Laboratory Tests Test 05/15/18 04:35 05/16/18 06:01 05/16/18 06:07 White Blood Count 6.2 x10^3/uL (4.0-11.0) 6.1 x10^3/uL (4.0-11.0) Red Blood Count 5.84 x10^6/uL (4.30-5.70) 6.21 x10^6/uL (4.30-5.70) Hemoglobin 18.9 g/dL (13.0-17.5) 20.2 g/dL (13.0-17.5) Hematocrit 54.9 % (39.0-53.0) 58.7 % (39.0-53.0) Mean Corpuscular Volume 94 fL (79-100) 95 fL (79-100) Mean Corpuscular Hemoglobin 32 pg (25-35) 33 pg (25-35) Mean Corpuscular Hemoglobin Concent 34 g/dL (31-37) 35 g/dL (31-37) Red Cell Distribution Width 16.5 % (11.5-14.5) 16.3 % (11.5-14.5) Platelet Count 158 x10^3/uL (140-400) 170 x10^3/uL (140-400) Neutrophils (%) (Auto) 64 % (31-73) 56 % (31-73) Lymphocytes (%) (Auto) 14 % (24-48) 21 % (24-48) Monocytes (%) (Auto) 14 % (0-9) 15 % (0-9) Eosinophils (%) (Auto) 8 % (0-3) 8 % (0-3) Basophils (%) (Auto) 1 % (0-3) 0 % (0-3) Neutrophils # (Auto) 4.0 x10^3uL (1.8-7.7) 3.4 x10^3uL (1.8-7.7) Lymphocytes # (Auto) 0.8 x10^3/uL (1.0-4.8) 1.3 x10^3/uL (1.0-4.8) Monocytes # (Auto) 0.9 x10^3/uL (0.0-1.1) 0.9 x10^3/uL (0.0-1.1) Eosinophils # (Auto) 0.5 x10^3/uL (0.0-0.7) 0.5 x10^3/uL (0.0-0.7) Basophils # (Auto) 0.0 x10^3/uL (0.0-0.2) 0.0 x10^3/uL (0.0-0.2) Sodium Level 141 mmol/L (136-145) 140 mmol/L (136-145) Potassium Level 4.3 mmol/L (3.5-5.1) 4.3 mmol/L (3.5-5.1) Chloride Level 105 mmol/L (98-107) 106 mmol/L (98-107) Carbon Dioxide Level 24 mmol/L (21-32) 23 mmol/L (21-32) Anion Gap 12 (6-14) 11 (6-14) Blood Urea Nitrogen 20 mg/dL (8-26) 17 mg/dL (8-26) Creatinine 1.0 mg/dL (0.7-1.3) 1.1 mg/dL (0.7-1.3) Estimated GFR (Cockcroft-Gault) 72.3 64.7 Glucose Level 101 mg/dL (70-99) 104 mg/dL (70-99) Calcium Level 8.9 mg/dL (8.5-10.1) 9.0 mg/dL (8.5-10.1) Laboratory Tests Test 05/16/18 06:01 05/16/18 06:07 White Blood Count 6.1 x10^3/uL (4.0-11.0) Red Blood Count 6.21 x10^6/uL (4.30-5.70) Hemoglobin 20.2 g/dL (13.0-17.5) Hematocrit 58.7 % (39.0-53.0) Mean Corpuscular Volume 95 fL (79-100) Mean Corpuscular Hemoglobin 33 pg (25-35) Mean Corpuscular Hemoglobin Concent 35 g/dL (31-37) Red Cell Distribution Width 16.3 % (11.5-14.5) Platelet Count 170 x10^3/uL (140-400) Neutrophils (%) (Auto) 56 % (31-73) Lymphocytes (%) (Auto) 21 % (24-48) Monocytes (%) (Auto) 15 % (0-9) Eosinophils (%) (Auto) 8 % (0-3) Basophils (%) (Auto) 0 % (0-3) Neutrophils # (Auto) 3.4 x10^3uL (1.8-7.7) Lymphocytes # (Auto) 1.3 x10^3/uL (1.0-4.8) Monocytes # (Auto) 0.9 x10^3/uL (0.0-1.1) Eosinophils # (Auto) 0.5 x10^3/uL (0.0-0.7) Basophils # (Auto) 0.0 x10^3/uL (0.0-0.2) Sodium Level 140 mmol/L (136-145) Potassium Level 4.3 mmol/L (3.5-5.1) Chloride Level 106 mmol/L (98-107) Carbon Dioxide Level 23 mmol/L (21-32) Anion Gap 11 (6-14) Blood Urea Nitrogen 17 mg/dL (8-26) Creatinine 1.1 mg/dL (0.7-1.3) Estimated GFR (Cockcroft-Gault) 64.7 Glucose Level 104 mg/dL (70-99) Calcium Level 9.0 mg/dL (8.5-10.1) Microbiology 05/07/18 Blood Culture - Final, Complete NO GROWTH AFTER 5 DAYS 05/10/18 Anaerobic/Aerobic Culture - Final, Complete 05/10/18 Anaerobic Culture Result 1 (JUHI) - Final, Complete 05/10/18 Aerobic Culture - Final, Complete 05/10/18 Aerobic Culture Result 1 (JUHI) - Final, Complete 05/10/18 Aerobic Culture Result 2 (JUHI) - Final, Complete 05/10/18 Aerobic Culture Result 3 (JUHI) - Final, Complete 05/10/18 Antimicrobic Susceptibility - Final, Complete 05/10/18 Gram Stain - Final, Complete 05/10/18 Gram Stain Result 1 (JUHI) - Final, Complete 05/10/18 Gram Stain Result 2 (JUHI) - Final, Complete Medications Current Medications Sodium Chloride 1,000 ml @ 1,000 mls/hr 1X ONCE IV Last administered on 05/07at 19:19; Start 05/07/18 at 19:00; Stop 05/07/18 at 19:59; Status DC Vancomycin HCl (Vanco Per Pharmacy) 1 each PRN DAILY PRN MC SEE COMMENTS Last administered on 05/14/18at 12:35; Start 05/07/18 at 19:45; Stop 05/15/18 at 09 :15; Status DC Vancomycin HCl 2 gm/Sodium Chloride 500 ml @ 250 mls/hr ONCE ONCE IV Last administered on 05/07/18at 20:00; Start 05/07/18 at 19:45; Stop 05/07/18 at 21 :44; Status DC Ondansetron HCl (Zofran) 4 mg PRN Q8HRS PRN IV NAUSEA/VOMITING 1ST CHOICE; Start 05/07/18 at 21:15; Stop 05/08/18 at 21:14; Status DC Sodium Chloride 1,000 ml @ 125 mls/hr Q8H IV Last administered on 05/08/18at 20:01; Start 05/07/18 at 21:03; Stop 05/08/18 at 21:02; Status DC Fentanyl Citrate (Fentanyl 2ml Vial) 25 mcg PRN Q2HR PRN IV SEVERE PAIN Last administered on 05/08/18at 13:59; Start 05/08/18 at 01:45; Stop 05/08/18 at 14 :39; Status DC Vancomycin HCl 1.25 gm/Sodium Chloride 250 ml @ 167 mls/hr Q12H IV Last administered on 05/14/18at 20:10; Start 05/08/18 at 08:00; Stop 05/15/18 at 09 :15; Status DC Vancomycin HCl (Vancomycin Trough Level) 1 each 1X ONCE MC ; Start 05/10/18 at 07:30; Stop 05/10/18 at 07:30; Status DC Lactobacillus Rhamnosus (Culturelle) 1 cap BID PO Last administered on at 08:33; Start 05/08/18 at 09:00 Fentanyl Citrate (Fentanyl 2ml Vial) 50 mcg PRN Q2HR PRN IV SEVERE PAIN Last administered on 05/09/18at 09:05; Start 05/08/18 at 14:45 Apixaban (Eliquis) 5 mg BID PO Last administered on 05/11/18at 09:39; Start at 15:00; Stop 05/12/18 at 11:45; Status DC Acetaminophen/ Hydrocodone Bitart (Lortab 7.5/325) 1 tab PRN Q4HRS PRN PO PAIN Last administered on 05/12/18at 05:27; Start 05/09/18 at 11:15 Info (Anti-Coagulation Monitoring By Pharmacy) 1 each PRN DAILY PRN MC SEE COMMENTS Last administered on 05/11/18at 13:08; Start 05/09/18 at 11:30; Stop 05/12/18 at 11:45; Status DC Magnesium Hydroxide (Milk Of Magnesia) 2,400 mg PRN DAILY PRN PO CONSTIPATION Last administered on 05/13/18at 21:09; Start 05/09/18 at 14:15 Iohexol (Omnipaque 300 Mg/ml) 100 ml 1X ONCE IV Last administered on at 11:45; Start 05/10/18 at 11:45; Stop 05/10/18 at 11:46; Status DC Info (CONTRAST GIVEN -- Rx MONITORING) 1 each PRN DAILY PRN MC SEE COMMENTS; Start 05/10/18 at 11:45; Stop 05/12/18 at 11:33; Status DC Piperacillin Sod/ Tazobactam Sod 3.375 gm/Sodium Chloride 50 ml @ 100 mls/hr Q6HRS IV Last administered on 05/16/18at 06:08; Start 05/10/18 at 18:30; Stop 05/16/18 at 10:10; Status DC Potassium Chloride (Klor-Con) 40 meq 1X ONCE PO Last administered on at 17:44; Start 05/11/18 at 14:30; Stop 05/11/18 at 14:31; Status DC Potassium Chloride (Klor-Con) 20 meq DAILYWBKFT PO Last administered on at 08:33; Start 05/12/18 at 08:00 Iohexol (Omnipaque 300 Mg/ml) 95 ml 1X ONCE IV Last administered on at 15:09; Start 05/11/18 at 14:45; Stop 05/11/18 at 14:47; Status DC Info (CONTRAST GIVEN -- Rx MONITORING) 1 each PRN DAILY PRN MC SEE COMMENTS; Start 05/11/18 at 15:00; Stop 05/13/18 at 14:59; Status DC Regadenoson (Lexiscan) 0.4 mg 1X ONCE IV Last administered on 05/12/18at 08:30 ; Start 05/12/18 at 08:30; Stop 05/12/18 at 08:31; Status DC Midazolam HCl (Versed) 2 mg STK-MED ONCE .ROUTE ; Start 05/12/18 at 09:55; Stop 05/12/18 at 09:56; Status DC Fentanyl Citrate (Fentanyl 2ml Vial) 100 mcg STK-MED ONCE .ROUTE ; Start at 09:55; Stop 05/12/18 at 09:56; Status DC Lidocaine/Sodium Bicarbonate (Buffered Lidocaine 1%) 3 ml STK-MED ONCE .ROUTE ; Start 05/12/18 at 09:57; Stop 05/12/18 at 09:58; Status DC Lidocaine/Sodium Bicarbonate (Buffered Lidocaine 1%) 3 ml 1X ONCE IJ Last administered on 05/12/18at 10:25; Start 05/12/18 at 10:00; Stop 05/12/18 at 10 :12; Status DC Midazolam HCl (Versed) 2 mg 1X ONCE IV Last administered on 05/12/18at 10:26; Start 05/12/18 at 10:00; Stop 05/12/18 at 10:12; Status DC Fentanyl Citrate (Fentanyl 2ml Vial) 100 mcg 1X ONCE IV Last administered on 05/12/18at 10:27; Start 05/12/18 at 10:00; Stop 05/12/18 at 10:12; Status DC Atorvastatin Calcium (Lipitor) 40 mg QHS PO Last administered on 05/15/18at 21: 22; Start 05/12/18 at 21:00 Aspirin (Ecotrin) 81 mg DAILYWBKFT PO Last administered on 05/16/18at 08:32; Start 05/13/18 at 08:00 Aspirin (Ecotrin) 325 mg 1X ONCE PO Last administered on 05/12/18at 14:15; Start 05/12/18 at 14:15; Stop 05/12/18 at 14:16; Status DC Multi-Ingred Cream/Lotion/Oil/ Oint (Hydrocerin Cream) 1 jorge PRN Q1HR PRN TP DRY SKIN / SCALING; Start 05/13/18 at 09:00 Vancomycin HCl (Vancomycin Trough Level) 1 each 1X ONCE MC ; Start 05/14/18 at 07:30; Stop 05/14/18 at 07:31; Status DC Polyethylene Glycol (miraLAX PACKET) 17 gm 1X ONCE PO ; Start 05/18/18 at 09: 00; Stop 05/18/18 at 09:00; Status DC Sodium Chloride 1,000 ml @ 75 mls/hr [id number] IV Last administered on at 06:07; Start 05/15/18 at 16:00 Polyethylene Glycol (miraLAX PACKET) 17 gm 1X ONCE PO ; Start 05/20/18 at 09:00 ; Stop 05/20/18 at 09:01 Levofloxacin (Levaquin) 500 mg DAILY06 PO ; Start 05/16/18 at 11:00 Active Scripts Active Aspirin Ec (Aspirin) 81 Mg Tablet. 81 Mg PO DAILYWBKFT Atorvastatin Calcium 40 Mg Tablet 40 Mg PO QHS Augmentin 875-125 Tablet (Amoxicillin/Potassium Clav) 1 Each Tablet 1 Tab PO BID Percocet 5-325 Mg Tablet (Oxycodone/Acetaminophen) 1 Each Tablet 1 Tab PO PRN Q6HRS PRN Reported Eliquis (Apixaban) 5 Mg Tablet 5 Mg PO BID Vitals/I & O Vital Sign - Last 24 Hours 05/15/18 05/15/18 05/15/18 05/15/18 15:00 19:00 20:00 23:00 Temp 98.1 98.3 97.7 98.1 98.3 97.7 Pulse 78 70 79 Resp 18 18 18 B/P (MAP) 122/62 (82) 111/69 (83) 133/75 (94) Pulse Ox 94 94 93 O2 Delivery Room Air Room Air Room Air Room Air O2 Flow Rate 2.0 05/16/18 05/16/18 03:00 07:00 Temp 98.1 97.9 98.1 97.9 Pulse 73 80 Resp 18 B/P (MAP) 114/77 (89) 116/59 (78) Pulse Ox 95 94 O2 Delivery Room Air O2 Flow Rate 2.0 Intake and Output 05/15/18 05/15/18 05/16/18 15:01 23:01 07:01 Intake Total 360 ml 180 ml Output Total 750 ml 200 ml 202 ml Balance -390 ml -20 ml -202 ml AUSTEN GODWIN MD May 16, 2018 10:31
--- NOTE | 2018-05-16 10:32 | PDOC ---
PULMONARY PROGRESS NOTES Subjective PT NOT MORE SOA Vitals Vital Signs Date Time Temp Pulse Resp B/P (MAP) Pulse Ox O2 Delivery O2 Flow Rate FiO2 05/16/18 07:00 97.9 80 116/59 (78) 94 97.9 05/16/18 03:00 18 Room Air 2.0 ROS: No Nausea, No Chest Pain, No Abdominal Pain, No Increase Cough Lungs: Clear Cardiovascular: S1, S2 Abdomen: Soft Neuro Exam: Alert Extremities: No Edema Skin: Warm Labs Laboratory Tests Test 05/15/18 04:35 05/16/18 06:01 05/16/18 06:07 White Blood Count 6.2 x10^3/uL (4.0-11.0) 6.1 x10^3/uL (4.0-11.0) Red Blood Count 5.84 x10^6/uL (4.30-5.70) 6.21 x10^6/uL (4.30-5.70) Hemoglobin 18.9 g/dL (13.0-17.5) 20.2 g/dL (13.0-17.5) Hematocrit 54.9 % (39.0-53.0) 58.7 % (39.0-53.0) Mean Corpuscular Volume 94 fL (79-100) 95 fL (79-100) Mean Corpuscular Hemoglobin 32 pg (25-35) 33 pg (25-35) Mean Corpuscular Hemoglobin Concent 34 g/dL (31-37) 35 g/dL (31-37) Red Cell Distribution Width 16.5 % (11.5-14.5) 16.3 % (11.5-14.5) Platelet Count 158 x10^3/uL (140-400) 170 x10^3/uL (140-400) Neutrophils (%) (Auto) 64 % (31-73) 56 % (31-73) Lymphocytes (%) (Auto) 14 % (24-48) 21 % (24-48) Monocytes (%) (Auto) 14 % (0-9) 15 % (0-9) Eosinophils (%) (Auto) 8 % (0-3) 8 % (0-3) Basophils (%) (Auto) 1 % (0-3) 0 % (0-3) Neutrophils # (Auto) 4.0 x10^3uL (1.8-7.7) 3.4 x10^3uL (1.8-7.7) Lymphocytes # (Auto) 0.8 x10^3/uL (1.0-4.8) 1.3 x10^3/uL (1.0-4.8) Monocytes # (Auto) 0.9 x10^3/uL (0.0-1.1) 0.9 x10^3/uL (0.0-1.1) Eosinophils # (Auto) 0.5 x10^3/uL (0.0-0.7) 0.5 x10^3/uL (0.0-0.7) Basophils # (Auto) 0.0 x10^3/uL (0.0-0.2) 0.0 x10^3/uL (0.0-0.2) Sodium Level 141 mmol/L (136-145) 140 mmol/L (136-145) Potassium Level 4.3 mmol/L (3.5-5.1) 4.3 mmol/L (3.5-5.1) Chloride Level 105 mmol/L (98-107) 106 mmol/L (98-107) Carbon Dioxide Level 24 mmol/L (21-32) 23 mmol/L (21-32) Anion Gap 12 (6-14) 11 (6-14) Blood Urea Nitrogen 20 mg/dL (8-26) 17 mg/dL (8-26) Creatinine 1.0 mg/dL (0.7-1.3) 1.1 mg/dL (0.7-1.3) Estimated GFR (Cockcroft-Gault) 72.3 64.7 Glucose Level 101 mg/dL (70-99) 104 mg/dL (70-99) Calcium Level 8.9 mg/dL (8.5-10.1) 9.0 mg/dL (8.5-10.1) Laboratory Tests Test 05/16/18 06:01 05/16/18 06:07 White Blood Count 6.1 x10^3/uL (4.0-11.0) Red Blood Count 6.21 x10^6/uL (4.30-5.70) Hemoglobin 20.2 g/dL (13.0-17.5) Hematocrit 58.7 % (39.0-53.0) Mean Corpuscular Volume 95 fL (79-100) Mean Corpuscular Hemoglobin 33 pg (25-35) Mean Corpuscular Hemoglobin Concent 35 g/dL (31-37) Red Cell Distribution Width 16.3 % (11.5-14.5) Platelet Count 170 x10^3/uL (140-400) Neutrophils (%) (Auto) 56 % (31-73) Lymphocytes (%) (Auto) 21 % (24-48) Monocytes (%) (Auto) 15 % (0-9) Eosinophils (%) (Auto) 8 % (0-3) Basophils (%) (Auto) 0 % (0-3) Neutrophils # (Auto) 3.4 x10^3uL (1.8-7.7) Lymphocytes # (Auto) 1.3 x10^3/uL (1.0-4.8) Monocytes # (Auto) 0.9 x10^3/uL (0.0-1.1) Eosinophils # (Auto) 0.5 x10^3/uL (0.0-0.7) Basophils # (Auto) 0.0 x10^3/uL (0.0-0.2) Sodium Level 140 mmol/L (136-145) Potassium Level 4.3 mmol/L (3.5-5.1) Chloride Level 106 mmol/L (98-107) Carbon Dioxide Level 23 mmol/L (21-32) Anion Gap 11 (6-14) Blood Urea Nitrogen 17 mg/dL (8-26) Creatinine 1.1 mg/dL (0.7-1.3) Estimated GFR (Cockcroft-Gault) 64.7 Glucose Level 104 mg/dL (70-99) Calcium Level 9.0 mg/dL (8.5-10.1) Medications Active Scripts Medications Dose Route/Sig Max Daily Dose Days Date Category Eliquis (Apixaban) 5 Mg Tablet 5 Mg PO BID 07/18/17 Reported Impression . IMPRESSION: 1. History of pulmonary embolism. 2. Chronic obstructive pulmonary disease. 3. Tobacco dependence. 4. Peripheral vascular disease. 5. Chronic obstructive pulmonary disease. 6. 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 CT CHEST IMPRESSION: 1. No PE. 2. No pneumonia. Plan . RESP STATUS IS COMPENSATED FOLLOW UP ON BONE MARROW NO PE NO NEED FOR CONTINUED ANTICOAGULATION IF SURGERY IS NEEDED OK BY YUE BEACH MD May 16, 2018 10:32
[2018-05-16 11:00] VITALS: BP 120/60
[2018-05-16] MEDS ORDERED: POLY17PO29 PO (13:35)
[2018-05-18] MEDS ORDERED: POLYETHYLENE GLYCOL 3350 17 GM PACKET. PO ONE (09:00)
--- NOTE | 2018-05-18 11:32 | PDOC ---
Date and Time Preop chart review for Vascular surgical procedure SatMay 21. Of note admit Hb over 18, it is now over 20. Patient has relatively low oxygen saturations (90 RA, 92-95 with supplemental oxygen), d/w Dr Arzola who does not think the polycythemia is from hypoxia. Patient had a bone marrow last week but results are pending at this time. Risks of arterial and venous thrombosis, bleeding and tissue ischemia are dramatically increased during anesthesia when Hct is this high. Hct should be below 50 (ideally 40 to 45) prior to having the proposed operation. Best case scenario would be to remove and store 3 or 4 units of blood with concurrent volume replacement (Lactated ringers 3ml per ml of blood removed or albumin 5% 1ml per ml blood removed) prior to operation. Doing this would provide a blood reserve should it be needed during or after the operation. Unfortunately the blood bank here cannot do autologous blood collection. [facility] apparently can but will likely not be able to remove a sufficient volume in time for an operation this Saturday and the patient has refused to go there in the past. Another option would be for us to remove blood and hemodilute in the operating room and store the blood in cell saver during the actual operation. The problem with this is that the blood will not be able to be stored for potential postoperative use. Will talk to surgeon re urgency of operation relative to correcting polycythemia preop. Current Medications Current Medications Sodium Chloride 1,000 ml @ 1,000 mls/hr 1X ONCE IV Last administered on 05/07at 19:19; Start 05/07/18 at 19:00; Stop 05/07/18 at 19:59; Status DC Vancomycin HCl (Vanco Per Pharmacy) 1 each PRN DAILY PRN MC SEE COMMENTS Last administered on 05/14/18at 12:35; Start 05/07/18 at 19:45; Stop 05/15/18 at 09 :15; Status DC Vancomycin HCl 2 gm/Sodium Chloride 500 ml @ 250 mls/hr ONCE ONCE IV Last administered on 05/07/18at 20:00; Start 05/07/18 at 19:45; Stop 05/07/18 at 21 :44; Status DC Ondansetron HCl (Zofran) 4 mg PRN Q8HRS PRN IV NAUSEA/VOMITING 1ST CHOICE; Start 05/07/18 at 21:15; Stop 05/08/18 at 21:14; Status DC Sodium Chloride 1,000 ml @ 125 mls/hr Q8H IV Last administered on 05/08/18at 20:01; Start 05/07/18 at 21:03; Stop 05/08/18 at 21:02; Status DC Fentanyl Citrate (Fentanyl 2ml Vial) 25 mcg PRN Q2HR PRN IV SEVERE PAIN Last administered on 05/08/18at 13:59; Start 05/08/18 at 01:45; Stop 05/08/18 at 14 :39; Status DC Vancomycin HCl 1.25 gm/Sodium Chloride 250 ml @ 167 mls/hr Q12H IV Last administered on 05/14/18at 20:10; Start 05/08/18 at 08:00; Stop 05/15/18 at 09 :15; Status DC Vancomycin HCl (Vancomycin Trough Level) 1 each 1X ONCE MC ; Start 05/10/18 at 07:30; Stop 05/10/18 at 07:30; Status DC Lactobacillus Rhamnosus (Culturelle) 1 cap BID PO Last administered on at 08:33; Start 05/08/18 at 09:00; Stop 05/16/18 at 17:16; Status DC Fentanyl Citrate (Fentanyl 2ml Vial) 50 mcg PRN Q2HR PRN IV SEVERE PAIN Last administered on 05/09/18at 09:05; Start 05/08/18 at 14:45; Stop 05/16/18 at 17 :16; Status DC Apixaban (Eliquis) 5 mg BID PO Last administered on 05/11/18at 09:39; Start at 15:00; Stop 05/12/18 at 11:45; Status DC Acetaminophen/ Hydrocodone Bitart (Lortab 7.5/325) 1 tab PRN Q4HRS PRN PO PAIN Last administered on 05/12/18at 05:27; Start 05/09/18 at 11:15; Stop 05/16/18 at 17:16; Status DC Info (Anti-Coagulation Monitoring By Pharmacy) 1 each PRN DAILY PRN MC SEE COMMENTS Last administered on 05/11/18at 13:08; Start 05/09/18 at 11:30; Stop 05/12/18 at 11:45; Status DC Magnesium Hydroxide (Milk Of Magnesia) 2,400 mg PRN DAILY PRN PO CONSTIPATION Last administered on 05/13/18at 21:09; Start 05/09/18 at 14:15; Stop 05/16/18 at 17:16; Status DC Iohexol (Omnipaque 300 Mg/ml) 100 ml 1X ONCE IV Last administered on at 11:45; Start 05/10/18 at 11:45; Stop 05/10/18 at 11:46; Status DC Info (CONTRAST GIVEN -- Rx MONITORING) 1 each PRN DAILY PRN MC SEE COMMENTS; Start 05/10/18 at 11:45; Stop 05/12/18 at 11:33; Status DC Piperacillin Sod/ Tazobactam Sod 3.375 gm/Sodium Chloride 50 ml @ 100 mls/hr Q6HRS IV Last administered on 05/16/18at 06:08; Start 05/10/18 at 18:30; Stop 05/16/18 at 10:10; Status DC Potassium Chloride (Klor-Con) 40 meq 1X ONCE PO Last administered on at 17:44; Start 05/11/18 at 14:30; Stop 05/11/18 at 14:31; Status DC Potassium Chloride (Klor-Con) 20 meq DAILYWBKFT PO Last administered on at 08:33; Start 05/12/18 at 08:00; Stop 05/16/18 at 17:16; Status DC Iohexol (Omnipaque 300 Mg/ml) 95 ml 1X ONCE IV Last administered on at 15:09; Start 05/11/18 at 14:45; Stop 05/11/18 at 14:47; Status DC Info (CONTRAST GIVEN -- Rx MONITORING) 1 each PRN DAILY PRN MC SEE COMMENTS; Start 05/11/18 at 15:00; Stop 05/13/18 at 14:59; Status DC Regadenoson (Lexiscan) 0.4 mg 1X ONCE IV Last administered on 05/12/18at 08:30 ; Start 05/12/18 at 08:30; Stop 05/12/18 at 08:31; Status DC Midazolam HCl (Versed) 2 mg STK-MED ONCE .ROUTE ; Start 05/12/18 at 09:55; Stop 05/12/18 at 09:56; Status DC Fentanyl Citrate (Fentanyl 2ml Vial) 100 mcg STK-MED ONCE .ROUTE ; Start at 09:55; Stop 05/12/18 at 09:56; Status DC Lidocaine/Sodium Bicarbonate (Buffered Lidocaine 1%) 3 ml STK-MED ONCE .ROUTE ; Start 05/12/18 at 09:57; Stop 05/12/18 at 09:58; Status DC Lidocaine/Sodium Bicarbonate (Buffered Lidocaine 1%) 3 ml 1X ONCE IJ Last administered on 05/12/18at 10:25; Start 05/12/18 at 10:00; Stop 05/12/18 at 10 :12; Status DC Midazolam HCl (Versed) 2 mg 1X ONCE IV Last administered on 05/12/18at 10:26; Start 05/12/18 at 10:00; Stop 05/12/18 at 10:12; Status DC Fentanyl Citrate (Fentanyl 2ml Vial) 100 mcg 1X ONCE IV Last administered on 05/12/18at 10:27; Start 05/12/18 at 10:00; Stop 05/12/18 at 10:12; Status DC Atorvastatin Calcium (Lipitor) 40 mg QHS PO Last administered on 05/15/18at 21: 22; Start 05/12/18 at 21:00; Stop 05/16/18 at 17:16; Status DC Aspirin (Ecotrin) 81 mg DAILYWBKFT PO Last administered on 05/16/18at 08:32; Start 05/13/18 at 08:00; Stop 05/16/18 at 17:16; Status DC Aspirin (Ecotrin) 325 mg 1X ONCE PO Last administered on 05/12/18at 14:15; Start 05/12/18 at 14:15; Stop 05/12/18 at 14:16; Status DC Multi-Ingred Cream/Lotion/Oil/ Oint (Hydrocerin Cream) 1 jorge PRN Q1HR PRN TP DRY SKIN / SCALING; Start 05/13/18 at 09:00; Stop 05/16/18 at 17:16; Status DC Vancomycin HCl (Vancomycin Trough Level) 1 each 1X ONCE MC ; Start 05/14/18 at 07:30; Stop 05/14/18 at 07:31; Status DC Polyethylene Glycol (miraLAX PACKET) 17 gm 1X ONCE PO ; Start 05/18/18 at 09: 00; Stop 05/18/18 at 09:00; Status DC Sodium Chloride 1,000 ml @ 75 mls/hr [id number] IV Last administered on at 06:07; Start 05/15/18 at 16:00; Stop 05/16/18 at 17:16; Status DC Polyethylene Glycol (miraLAX PACKET) 17 gm 1X ONCE PO ; Start 05/20/18 at 09:00 ; Stop 05/20/18 at 09:00; Status DC Levofloxacin (Levaquin) 500 mg DAILY06 PO Last administered on 05/16/18at 12:27 ; Start 05/16/18 at 11:00; Stop 05/16/18 at 17:16; Status DC Active Scripts Active Aspirin Ec (Aspirin) 81 Mg Tablet.dr 81 Mg PO DAILYWBKFT Atorvastatin Calcium 40 Mg Tablet 40 Mg PO QHS Augmentin 875-125 Tablet (Amoxicillin/Potassium Clav) 1 Each Tablet 1 Tab PO BID Percocet 5-325 Mg Tablet (Oxycodone/Acetaminophen) 1 Each Tablet 1 Tab PO PRN Q6HRS PRN Reported Miralax (Polyethylene Glycol 3350) 17 Gm Powd.pack 1 Packet PO 1X REGINA HOUGH MD May 18, 2018 11:32
[2018-05-20] MEDS ORDERED: POLYETHYLENE GLYCOL 3350 17 GM PACKET. PO ONE (09:00)
[2018-05-21] MEDS ORDERED: HYDROmorphone 2 MG/ML VIAL IV PRN (07:00)
[2018-05-21] MEDS ORDERED: ONDANSETRON PF 4 MG/2 ML VIAL. IV PRN (07:00)
[2018-05-21] MEDS ORDERED: PROCHLORPERAZINE 10 MG/2 ML VIAL. IV PRN (07:00)
[2018-05-21] MEDS ORDERED: MORPHINE SULFATE 2 MG/ML VIAL. IV PRN (07:00)
[2018-05-21] MEDS ORDERED: LIDOCAINE 1% PF 2 ML VIAL. ID PRN (07:00)
[2018-05-21] MEDS ORDERED: IV RINGERS,LACTATED 1000ML 1,000 ML IV SCH (07:00)
[2018-05-21] MEDS ORDERED: fentaNYL PF VIAL 100 MCG/2 ML VIAL IV PRN ×2 (07:00)
== END 2018-05-16 17:00 | disposition home or self-care (01) | DRG 872 ==
LOC: ER 18:13 → 5 NORTH 20:58
PROVIDERS: ADMIT Internal Medicine; ATTEND Internal Medicine
PROC: 07DR3ZX Extraction of Iliac Bone Marrow, Percutaneous Approach, Diagnostic (ICD-10-PCS; principal; 2018-05-12)
DX: A41.9 Sepsis, unspecified organism (principal); L03.115 Cellulitis of right lower limb; L97.819 Non-pressure chronic ulcer of other part of right lower leg with unspecified severity; I74.5 Embolism and thrombosis of iliac artery; D45 Polycythemia vera; E11.51 Type 2 diabetes mellitus with diabetic peripheral angiopathy without gangrene; D69.6 Thrombocytopenia, unspecified; E78.5 Hyperlipidemia, unspecified; E87.6 Hypokalemia; F17.210 Nicotine dependence, cigarettes, uncomplicated; I10 Essential (primary) hypertension; I25.10 Atherosclerotic heart disease of native coronary artery without angina pectoris; K40.90 Unilateral inguinal hernia, without obstruction or gangrene, not specified as recurrent; J44.9 Chronic obstructive pulmonary disease, unspecified; L97.519 Non-pressure chronic ulcer of other part of right foot with unspecified severity; M19.90 Unspecified osteoarthritis, unspecified site; E11.621 Type 2 diabetes mellitus with foot ulcer; L97.529 Non-pressure chronic ulcer of other part of left foot with unspecified severity; N40.0 Benign prostatic hyperplasia without lower urinary tract symptoms; Z79.01 Long term (current) use of anticoagulants; Z82.49 Family history of ischemic heart disease and other diseases of the circulatory system; Z83.3 Family history of diabetes mellitus; Z86.711 Personal history of pulmonary embolism; Z86.718 Personal history of other venous thrombosis and embolism; Z91.19 Patient's noncompliance with other medical treatment and regimen
CPT/HCPCS: 36415; 38222; 71046; 71275; 73630; 75635; 77012; 78452; 80048; 80053; 80202; 81270; 82565; 85025; 85045; 85610; 85651; 86140; 87040; 87071; 87075; 88184; 88185; 88237; 93017; 93306; 93880; 93970; 93971; 96374; 99152; A9500; J2250; J2543; J2785; J3010; J3370; J7030; J7040; J7050; Q9967; 97116; 97530; 97535; 99285-25

== ENCOUNTER → 2018-07-14 | Outpatient (CLI) | payer MEDICARE, OTHER ==
[2018-06-11 15:00] VITALS: BP 109/66
[~2018-07-14] MED LIST changes: +AMOX1TAB61 PO; +ASPI-612 PO; +ATOR40TA59 PO; +CIPR250T30 PO; +CIPR500T94 PO; +DOXY100T9 PO; +HYDR500C PO; +LINE600T PO; +OXYC1TAB15 PO; +POLY17PO29 PO; +[UNRECOGNIZED DRUG - CODE] PO
== END | disposition home or self-care (01) ==
LOC: PMGWOUND 12:06
PROVIDERS: ATTEND Emergency Medicine Undersea and Hyperbaric Medicine
DX: I70.235 Atherosclerosis of native arteries of right leg with ulceration of other part of foot (principal); L97.512 Non-pressure chronic ulcer of other part of right foot with fat layer exposed; I70.245 Atherosclerosis of native arteries of left leg with ulceration of other part of foot; L97.522 Non-pressure chronic ulcer of other part of left foot with fat layer exposed; I12.9 Hypertensive chronic kidney disease with stage 1 through stage 4 chronic kidney disease, or unspecified chronic kidney disease; N18.2 Chronic kidney disease, stage 2 (mild); E78.5 Hyperlipidemia, unspecified; I87.2 Venous insufficiency (chronic) (peripheral); J44.9 Chronic obstructive pulmonary disease, unspecified; D47.1 Chronic myeloproliferative disease; M19.90 Unspecified osteoarthritis, unspecified site; F17.210 Nicotine dependence, cigarettes, uncomplicated; Z86.718 Personal history of other venous thrombosis and embolism; Z86.711 Personal history of pulmonary embolism
CPT/HCPCS: 97597

== ENCOUNTER → 2018-07-22 | Outpatient (CLI) | payer MEDICARE, OTHER ==
[2018-06-11 15:00] VITALS: BP 109/66
== END | disposition home or self-care (01) ==
LOC: PMGWOUND 12:00
PROVIDERS: ATTEND Emergency Medicine Undersea and Hyperbaric Medicine
DX: I70.235 Atherosclerosis of native arteries of right leg with ulceration of other part of foot (principal); I70.245 Atherosclerosis of native arteries of left leg with ulceration of other part of foot; L97.512 Non-pressure chronic ulcer of other part of right foot with fat layer exposed; I12.9 Hypertensive chronic kidney disease with stage 1 through stage 4 chronic kidney disease, or unspecified chronic kidney disease; N18.2 Chronic kidney disease, stage 2 (mild); E78.5 Hyperlipidemia, unspecified; I87.2 Venous insufficiency (chronic) (peripheral); M19.90 Unspecified osteoarthritis, unspecified site; F17.210 Nicotine dependence, cigarettes, uncomplicated; J44.9 Chronic obstructive pulmonary disease, unspecified; I25.10 Atherosclerotic heart disease of native coronary artery without angina pectoris; Z86.711 Personal history of pulmonary embolism; Z86.718 Personal history of other venous thrombosis and embolism
CPT/HCPCS: 99214; G0463

== ENCOUNTER 2018-07-28 16:35 | Inpatient (IN) | payer MEDICARE, OTHER ==
[~2018-07-28] VITALS: Ht 176.5 cm; Wt 72.6 kg
[~2018-07-28 16:35] MED LIST changes: -CIPR250T30 PO; -DOXY100T9 PO; -HYDR500C PO; -LINE600T PO; -[UNRECOGNIZED DRUG - CODE] PO
[2018-07-28] MEDS ORDERED: fentaNYL PF VIAL 100 MCG/2 ML VIAL IV ONE ×2 (18:15→20:15)
--- NOTE | 2018-07-28 18:27 | PHYS DOC ---
Past Medical History Past Medical History: Other Additional Past Medical Histor: CELLULITIS, back pain, Past Surgical History: Other Additional Past Surgical Histo: R LEG SURG Alcohol Use: Occasionally Drug Use: None Adult General Chief Complaint Chief Complaint: WOUND CHECK [facility] HPI Patient is a 78 year old male who presents with wounds and redness and weeping to bilateral feet that extends up patient's shins to about knees. Patient states that he has been going to wound care has been seen wound care and scheduled to follow-up with wound care tomorrow for this but wanted to come in today. Patient states he has increased pain in the right foot also is rating at a 7 out of 10. Patient states he took Percocet at home earlier but the pain is coming back. He states it is sharp in quality and burning. Review of Systems Review of Systems Constitutional: Denies fever or chills [] Eyes: Denies change in visual acuity, redness, or eye pain [] HENT: Denies nasal congestion or sore throat [] Respiratory: Denies cough or shortness of breath [] Cardiovascular: No additional information not addressed in HPI [] GI: Denies abdominal pain, nausea, vomiting, bloody stools or diarrhea [] : Denies dysuria or hematuria [] Musculoskeletal: Denies back pain or joint pain [] Integument: Bilateral foot weeping with right foot and burning. Denies rash or skin lesions [] Neurologic: Denies headache, focal weakness or sensory changes [] All other systems were reviewed and found to be within normal limits, except as documented in this note. Current Medications Current Medications Current Medications Medications (Trade) Dose Ordered Sig/[facility] Start Time Stop Time Status Last Admin Dose Admin Fentanyl Citrate (Fentanyl 2ml Vial) 50 mcg 1X ONCE 07/28/18 18:15 07/28/18 18:16 DC 07/28/18 18:52 50 MCG Allergies Allergies Allergies Coded Allergies Type Severity Reaction Last Updated Verified No Known Drug Allergies 09/22/16 No Physical Exam Physical Exam Constitutional: Well developed, well nourished, no acute distress, non-toxic appearance. [] HENT: Normocephalic, atraumatic, bilateral external ears normal, oropharynx moist, no oral exudates, nose normal. [] Eyes: PERRLA, EOMI, conjunctiva normal, no discharge. [] Neck: Normal range of motion, no tenderness, supple, no stridor. [] Cardiovascular:Heart rate regular rhythm, no murmur [] Lungs & Thorax: Bilateral breath sounds clear to auscultation [] Abdomen: Bowel sounds normal, soft, no tenderness, no masses, no pulsatile masses. [] Skin: Warm, dry, right and left lower extremity erythema and weeping, no rash. [ ] Back: No tenderness, no CVA tenderness. [] Extremities: Right foot tenderness, no cyanosis, no clubbing, ROM intact, no edema. [] Neurologic: Alert and oriented X 3, normal motor function, normal sensory function, no focal deficits noted. [] Psychologic: Affect normal, judgement normal, mood normal. [] Current Patient Data Vital Signs Vital Signs Date Time Temp Pulse Resp B/P (MAP) Pulse Ox O2 Delivery O2 Flow Rate FiO2 07/28/18 18:52 16 97 07/28/18 17:30 97.6 103 142/65 (90) Room Air 97.6 Lab Values Laboratory Tests Test 07/28/18 18:38 White Blood Count 8.6 x10^3/uL (4.0-11.0) Red Blood Count 5.80 x10^6/uL (4.30-5.70) H Hemoglobin 17.9 g/dL (13.0-17.5) H Hematocrit 54.1 % (39.0-53.0) H Mean Corpuscular Volume 93 fL (79-100) Mean Corpuscular Hemoglobin 31 pg (25-35) Mean Corpuscular Hemoglobin Concent 33 g/dL (31-37) Red Cell Distribution Width 16.7 % (11.5-14.5) H Platelet Count 189 x10^3/uL (140-400) Neutrophils (%) (Auto) 76 % (31-73) H Lymphocytes (%) (Auto) 13 % (24-48) L Monocytes (%) (Auto) 9 % (0-9) Eosinophils (%) (Auto) 2 % (0-3) Basophils (%) (Auto) 1 % (0-3) Neutrophils # (Auto) 6.5 x10^3uL (1.8-7.7) Lymphocytes # (Auto) 1.1 x10^3/uL (1.0-4.8) Monocytes # (Auto) 0.8 x10^3/uL (0.0-1.1) Eosinophils # (Auto) 0.2 x10^3/uL (0.0-0.7) Basophils # (Auto) 0.0 x10^3/uL (0.0-0.2) Sodium Level 142 mmol/L (136-145) Potassium Level 4.3 mmol/L (3.5-5.1) Chloride Level 104 mmol/L (98-107) Carbon Dioxide Level 26 mmol/L (21-32) Anion Gap 12 (6-14) Blood Urea Nitrogen 11 mg/dL (8-26) Creatinine 0.9 mg/dL (0.7-1.3) Estimated GFR (Cockcroft-Gault) 81.6 BUN/Creatinine Ratio 12 (6-20) Glucose Level 92 mg/dL (70-99) Lactic Acid Level 1.6 mmol/L (0.4-2.0) Calcium Level 9.1 mg/dL (8.5-10.1) Total Bilirubin 0.7 mg/dL (0.2-1.0) Aspartate Amino Transferase (AST) 12 U/L (15-37) L Alanine Aminotransferase (ALT) 13 U/L (16-63) L Alkaline Phosphatase 111 U/L (46-116) Total Protein 7.1 g/dL (6.4-8.2) Albumin 3.5 g/dL (3.4-5.0) Albumin/Globulin Ratio 1.0 (1.0-1.7) Laboratory Tests 07/28/18 18:38 Laboratory Tests 07/28/18 18:38 EKG EKG [] Radiology/Procedures Radiology/Procedures [] Course & Med Decision Making Course & Med Decision Making Patient is a 78 year old male who presents with wounds and redness and weeping to bilateral feet that extends up patient's shins to about knees. Patient states that he has been going to wound care has been seen wound care and scheduled to follow-up with wound care tomorrow for this but wanted to come in today. Patient states he has increased pain in the right foot also is rating at a 7 out of 10. Patient states he took Percocet at home earlier but the pain is coming back. He states it is sharp in quality and burning. Patient denies nausea , vomiting, diarrhea, fevers, abdominal pain or chest pain, shortness of air, numbness or tingling or focal weaknesses. Alert and Oriented. Speaks in full clear sentences. Mucus membranes are moist. States he currently does not have a primary care provider. Right and left lower extremities are red, scaly, warm and tender in feet. Patient will have a wound that is covered and dressed by wound care on both right and left dorsal foot. Bilateral pedal's have 1+ edema. Pedal pulses bilaterally are faint. 1945: Bilateral foot x-rays show no obvious osteomyelitis or acute findings and was read by Dr. Bright. I have spoken with Dr. Jc permission of the patient an IV antibiotics. states to put the patient on clindamycin. Also consulted infectious disease. Blood work is unremarkable. Dragon Disclaimer Dragon Disclaimer This electronic medical record was generated, in whole or in part, using a voice recognition dictation system. Departure Departure Impression: Primary Impression: Cellulitis of lower extremity Disposition: ADMITTED INPATIENT Admitting Physician: Elvira Jc Condition: STABLE Referrals: NO PCP (PCP) Problem Qualifiers Primary Impression: Cellulitis of lower extremity Laterality: unspecified laterality Qualified Codes: L03.119 - Cellulitis of unspecified part of limb PANDA BARRAGAN APRN Jul 28, 2018 18:27
[2018-07-28 18:52] LABS: BASO % 1 % (0-3); EOS # 0.2 x10^3/uL (0.0-0.7); EOS % 2 % (0-3); HEMATOCRIT 54.1 % (39.0-53.0); HEMOGLOBIN 17.9 g/dL (13.0-17.5); LYMPH # 1.1 x10^3/uL (1.0-4.8); LYMPH % 13 % (24-48); MEAN CORPUSCULAR HEMOGLOBIN 31 pg (25-35); MEAN CORPUSCULAR HGB CONC 33 g/dL (31-37); MEAN CORPUSCULAR VOLUME 93 fL (79-100); MONO # 0.8 x10^3/uL (0.0-1.1); MONO % 9 % (0-9); NEUT # 6.5 x10^3uL (1.8-7.7); NEUT % 76 % (31-73); PLATELET COUNT 189 x10^3/uL (140-400); RED CELL DISTRIBUTION WIDTH 16.7 % (11.5-14.5); WHITE BLOOD COUNT 8.6 x10^3/uL (4.0-11.0)
[2018-07-28 19:01] LABS: CALCIUM 9.1 mg/dL (8.5-10.1); CREATININE 0.9 mg/dL (0.7-1.3); GFR 81.6; POTASSIUM 4.3 mmol/L (3.5-5.1)
[2018-07-28 19:07] LABS: ALBUMIN 3.5 g/dL (3.4-5.0); TOTAL BILIRUBIN 0.7 mg/dL (0.2-1.0); TOTAL PROTEIN 7.1 g/dL (6.4-8.2)
[2018-07-28] MEDS ORDERED: ONDANSETRON PF 4 MG/2 ML VIAL. IV PRN (20:00)
[2018-07-28] MEDS ORDERED: CLINDAMYCIN 900MG PREMIX 50 ML IV ONE (20:00)
[2018-07-28 21:45] VITALS: BP 125/60
--- NOTE | 2018-07-28 21:45 | NUR ---
Admit from ER, admission done by ANGELES Everett (ICU).
[2018-07-28] MEDS: fentaNYL PF VIAL 100 MCG/2 ML VIAL IV PRN ×2 (21:50→23:35)
[2018-07-28] MEDS ORDERED: DOXY100T9 PO (22:22)
[2018-07-28] MEDS ORDERED: [UNRECOGNIZED DRUG - CODE] PO (22:22)
--- NOTE | 2018-07-28 22:52 | RAD ---
Left leg venous Doppler study: Clinical indications: Left leg and edema. Greater saphenous vein has been surgically removed. Findings: Duplex sonography (including xiong scale evaluation and color flow and waveform spectral analysis) of the proximal aspect of the profunda femoral vein and the entire length of the common femoral and superficial femoral and popliteal veins and the tibioperoneal trunk and the proximal aspect of the posterior tibial and peroneal veins of the left leg was performed. Normal compressibility, augmentation of color Doppler flow after calf compression, and respiratory variation of Doppler flow is seen. Thus, there are no sonographic findings of deep venous thrombosis within these veins. Impression: There are no sonographic findings of deep venous thrombosis within the veins discussed above of the left lower extremity. Right leg venous Doppler study: Clinical indications: Right leg edema. Greater saphenous vein has been surgically removed. Findings: Duplex sonography (including xiong scale evaluation and color flow and waveform spectral analysis) of the proximal aspect of the profunda femoral vein and the entire length of the common femoral and superficial femoral and popliteal veins and the tibioperoneal trunk and the proximal aspect of the posterior tibial and peroneal veins of the right leg was performed. Normal compressibility, augmentation of color Doppler flow after calf compression, and respiratory variation of Doppler flow is seen. Thus, there are no sonographic findings of deep venous thrombosis within these veins. Impression: There are no sonographic findings of deep venous thrombosis within the veins discussed above of the right lower extremity. Electronically signed by: Aditya Swartz MD (07/28/2018 10:49 PM) [facility]
[2018-07-28 23:00] VITALS: BP 120/62
--- NOTE | 2018-07-29 00:43 | RAD ---
Indication:S/P WOUNDS, PAIN TECHNIQUE: 3 views of the right foot COMPARISON:None FINDINGS/ impression: No acute fracture or dislocation. Diffuse soft tissue edema. No significant arthritic changes. No periosteal reaction or cortical erosion to suggest radiographic signs of osteomyelitis. If concern for osteomyelitis persists consider further evaluation with triple phase bone scan. Electronically signed by: Gregorio Britton DO (07/29/2018 12:40 AM) [id number]
[2018-07-29] MEDS: fentaNYL PF VIAL 100 MCG/2 ML VIAL IV PRN ×3 (01:47→07:05)
--- NOTE | 2018-07-29 02:41 | NUR ---
Patient refused to have his legs unwrapped and photographed. Dressings appear to be ABDs and Kerlex and are dry and intact. C/o pain even when touched.
[2018-07-29 03:00] VITALS: BP 131/80
[2018-07-29 07:00] VITALS: BP 118/62
--- NOTE | 2018-07-29 07:39 | RAD ---
Portable left foot, 3 views, 07/28/2018: HISTORY: Pain, wound No fracture or destructive bony lesion is seen. There is mild diffuse soft tissue swelling. IMPRESSION: No acute bony abnormality is detected. Electronically signed by: Tano Zhu MD (07/29/2018 7:36 AM) [facility]
--- NOTE | 2018-07-29 08:00 | NUR ---
Wound Care note Wound care consult for bilateral feet wounds. Pt of wound clinic, R anterior foot and L anterior foot pictured and measured, cleansed with wound wash, skin prep, xeroform and foam applied. BLE dry and flaky, [facility]. No other wounds noted at this time. Pt is self turn, does not want elevate his legs at this time d/t pain. Wound care will continue to follow up.
[2018-07-29] MEDS ORDERED: oxyCODONE/APAP 5/325 1 TAB TABLET PO PRN (08:15)
[2018-07-29] MEDS ORDERED: ACETAMINOPHEN 500 MG TABLET PO PRN (08:15)
[2018-07-29] MEDS ORDERED: MAGNESIUM HYDROXIDE 2,400 MG/30 ML ORAL.SUSP. PO PRN (08:15)
[2018-07-29] MEDS ORDERED: ONDANSETRON PF 4 MG/2 ML VIAL. IV PRN (08:15)
[2018-07-29] MEDS: oxyCODONE/APAP 5/325 1 TAB TABLET PO PRN ×3 (08:43→21:56)
[2018-07-29] MEDS: ASPIRIN ENTERIC COATED 81 MG TABLET.DR. PO SCH (08:43)
[2018-07-29] MEDS ORDERED: CLINDAMYCIN 600MG PREMIX 50 ML IV SCH (09:00)
--- NOTE | 2018-07-29 09:32 | PDOC ---
Infectious Disease Note Vital Sign Vital Signs Vital Signs Date Time Temp Pulse Resp B/P (MAP) Pulse Ox O2 Delivery O2 Flow Rate FiO2 07/29/18 08:43 Room Air 07/29/18 07:05 24 07/29/18 07:00 98.2 97 118/62 (80) 92 98.2 Labs Lab Laboratory Tests Test 07/28/18 18:38 White Blood Count 8.6 x10^3/uL (4.0-11.0) Red Blood Count 5.80 x10^6/uL (4.30-5.70) Hemoglobin 17.9 g/dL (13.0-17.5) Hematocrit 54.1 % (39.0-53.0) Mean Corpuscular Volume 93 fL (79-100) Mean Corpuscular Hemoglobin 31 pg (25-35) Mean Corpuscular Hemoglobin Concent 33 g/dL (31-37) Red Cell Distribution Width 16.7 % (11.5-14.5) Platelet Count 189 x10^3/uL (140-400) Neutrophils (%) (Auto) 76 % (31-73) Lymphocytes (%) (Auto) 13 % (24-48) Monocytes (%) (Auto) 9 % (0-9) Eosinophils (%) (Auto) 2 % (0-3) Basophils (%) (Auto) 1 % (0-3) Neutrophils # (Auto) 6.5 x10^3uL (1.8-7.7) Lymphocytes # (Auto) 1.1 x10^3/uL (1.0-4.8) Monocytes # (Auto) 0.8 x10^3/uL (0.0-1.1) Eosinophils # (Auto) 0.2 x10^3/uL (0.0-0.7) Basophils # (Auto) 0.0 x10^3/uL (0.0-0.2) Sodium Level 142 mmol/L (136-145) Potassium Level 4.3 mmol/L (3.5-5.1) Chloride Level 104 mmol/L (98-107) Carbon Dioxide Level 26 mmol/L (21-32) Anion Gap 12 (6-14) Blood Urea Nitrogen 11 mg/dL (8-26) Creatinine 0.9 mg/dL (0.7-1.3) Estimated GFR (Cockcroft-Gault) 81.6 BUN/Creatinine Ratio 12 (6-20) Glucose Level 92 mg/dL (70-99) Lactic Acid Level 1.6 mmol/L (0.4-2.0) Calcium Level 9.1 mg/dL (8.5-10.1) Total Bilirubin 0.7 mg/dL (0.2-1.0) Aspartate Amino Transf (AST/SGOT) 12 U/L (15-37) Alanine Aminotransferase (ALT/SGPT) 13 U/L (16-63) Alkaline Phosphatase 111 U/L (46-116) Total Protein 7.1 g/dL (6.4-8.2) Albumin 3.5 g/dL (3.4-5.0) Albumin/Globulin Ratio 1.0 (1.0-1.7) Objective Assessment RLE cellulitis R foot wound PAD Tobacco abuse H/o MSSA/Enterobacter Tinea Plan Plan of Care micafungin/Meropenem/Zyvox Needs vascular eval D/c tobacco F/u labs and cults local wound care Thank you # [id number] CJ FORRESTER MD Jul 29, 2018 09:32
[2018-07-29] MEDS: MICAFUNGIN 100 MG in IV DEXTROSE 5% 100ML 100 ML IV SCH (10:07)
[2018-07-29] MEDS: LINEZOLID 600 MG TABLET PO SCH ×2 (10:07→21:56)
[2018-07-29 11:00] VITALS: BP 103/60
--- NOTE | 2018-07-29 11:36 | PDOC1 ---
History and Physical Date of Admission Date of Admission DATE: 07/29/18 TIME: 11:32 Identification/Chief Complaint Chief Complaint Nonhealing wounds both feet right greater than left Source Source: Caregiver, Chart review, Patient History of Present Illness History of Present Illness 78-year-old white male lives alone at home and he manages his wounds, also follows with [facility] care. 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 The right is greater than the left. : Consulted ID and vasc surgery - the latter might be planning some intervention. 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 Puckett. [facility] sx would like heme on c be consulted before proceeding with any intervention Otherwise on exam, pain when I attempt to examine/ remove the bandage Otherwise labs are unimpressive, VS good BS good Past Medical History Cardiovascular: Hyperlipidemia, Other Pulmonary: COPD Heme/Onc: Other Infectious disease: Other Past Surgical History Past Surgical History: No pertinent history Family History Family History: No Significant Social History Smoke: Quit ALCOHOL: none Drugs: None Current Problem List Problem List Problems Medical Problems: (1) Cellulitis of lower extremity Status: Acute Current Medications Current Medications Current Medications Fentanyl Citrate (Fentanyl 2ml Vial) 50 mcg 1X ONCE IV Last administered on 04/07at 18:52; Start 07/28/18 at 18:15; Stop 07/28/18 at 18:16; Status DC Clindamycin Phosphate 50 ml @ 100 mls/hr 1X ONCE IV Last administered on 07/28at 20:21; Start 07/28/18 at 20:00; Stop 07/28/18 at 20:29; Status DC Ondansetron HCl (Zofran) 4 mg PRN Q8HRS PRN IV NAUSEA/VOMITING; Start 07/28/18 at 20:00; Stop 07/29/18 at 08:11; Status DC Fentanyl Citrate (Fentanyl 2ml Vial) 50 mcg PRN Q1HR PRN IV PAIN Last administered on 07/29/18at 07:05; Start 07/28/18 at 20:00; Stop 07/29/18 at 19:59 Fentanyl Citrate (Fentanyl 2ml Vial) 50 mcg 1X ONCE IV Last administered on 04/07at 20:21; Start 07/28/18 at 20:15; Stop 07/28/18 at 20:16; Status DC Ondansetron HCl (Zofran) 4 mg PRN Q6HRS PRN IV NAUSEA/VOMITING; Start 07/29/18 at 08:15 Oxycodone/ Acetaminophen (Percocet 5/325) 1 tab PRN Q4HRS PRN PO PAIN Last administered on 07/29/18at 08:43; Start 07/29/18 at 08:15 Acetaminophen (Tylenol) 500 mg PRN Q6HRS PRN PO HEADACHE / TEMP; Start at 08:15 Clindamycin Phosphate 50 ml @ 100 mls/hr Q8HRS IV ; Start 07/29/18 at 09:00; Stop 07/29/18 at 09:21; Status DC Aspirin (Ecotrin) 81 mg DAILYWBKFT PO Last administered on 07/29/18at 08:43; Start 07/29/18 at 09:00 Atorvastatin Calcium (Lipitor) 40 mg QHS PO ; Start 07/29/18 at 21:00 Magnesium Hydroxide (Milk Of Magnesia) 400 mg PRN DAILY PRN PO CONSTIPATION; Start 07/29/18 at 08:15 Oxycodone/ Acetaminophen (Percocet 5/325) 1 tab PRN Q6HRS PRN PO PAIN; Start at 08:15; Status UNV Linezolid (Zyvox) 600 mg BID PO Last administered on 07/29/18at 10:07; Start 05/07 at 09:30 Meropenem 500 mg/ Sodium Chloride 50 ml @ 100 mls/hr Q6HRS IV ; Start 07/29/18 at 12:00 Micafungin Sodium 100 mg/Dextrose 100 ml @ 100 mls/hr Q24H IV Last administered on 07/29/18at 10:07; Start 07/29/18 at 10:00 Active Scripts Active Percocet 5-325 Mg Tablet (Oxycodone/Acetaminophen) 1 Each Tablet 1 Tab PO PRN Q6HRS PRN Aspirin Ec (Aspirin) 81 Mg Tablet.dr 81 Mg PO DAILYWBKFT Atorvastatin Calcium 40 Mg Tablet 40 Mg PO QHS Reported Snyder' Milk Of Magnesia (Magnesium Hydroxide) 400 Mg/5 Ml Oral.susp 400 Mg PO PRN DAILY PRN Doxycycline Hyclate 100 Mg Tablet. 1 Tab PO BID 1 Days Allergies Allergies: Coded Allergies: No Known Drug Allergies (Unverified , 09/22/16) ROS Review of System PAin In the wounds otherwise rest of ROS 14 point negative Physical Exam General: Alert, Oriented X3, Cooperative, No acute distress HEENT: Atraumatic, PERRLA, EOMI Lungs: Clear to auscultation, Normal air movement Heart: S1S2, RRR, no thrills, no rubs, no gallops, no murmurs Cardiovascular: S1, S2 Abdomen: Normal bowel sounds, Soft, No tenderness, No hepatosplenomegaly, No masses Male Genitals Exam: normal genitalia PELVIC: Nml ext genitalia Skin: Other (bilateral foot wounds, right greater than the left, thickened skin , some erythematous inflammation on both shins, no palpable abscess or fluctuanceMinimal or weak pulses) Neuro: Normal gait, Normal speech, Strength at 5/5 X4 ext, Normal tone, Sensation intact, Cranial nerves 3-12 NL, Reflexes 2+ Psych/Mental Status: Mental status NL, Mood NL Vitals Vitals Vital Signs Date Time Temp Pulse Resp B/P (MAP) Pulse Ox O2 Delivery O2 Flow Rate FiO2 07/29/18 11:00 98.5 52 18 103/60 (74) 95 Room Air 98.5 Labs Labs Laboratory Tests Test 07/28/18 18:38 White Blood Count 8.6 x10^3/uL (4.0-11.0) Red Blood Count 5.80 x10^6/uL (4.30-5.70) Hemoglobin 17.9 g/dL (13.0-17.5) Hematocrit 54.1 % (39.0-53.0) Mean Corpuscular Volume 93 fL (79-100) Mean Corpuscular Hemoglobin 31 pg (25-35) Mean Corpuscular Hemoglobin Concent 33 g/dL (31-37) Red Cell Distribution Width 16.7 % (11.5-14.5) Platelet Count 189 x10^3/uL (140-400) Neutrophils (%) (Auto) 76 % (31-73) Lymphocytes (%) (Auto) 13 % (24-48) Monocytes (%) (Auto) 9 % (0-9) Eosinophils (%) (Auto) 2 % (0-3) Basophils (%) (Auto) 1 % (0-3) Neutrophils # (Auto) 6.5 x10^3uL (1.8-7.7) Lymphocytes # (Auto) 1.1 x10^3/uL (1.0-4.8) Monocytes # (Auto) 0.8 x10^3/uL (0.0-1.1) Eosinophils # (Auto) 0.2 x10^3/uL (0.0-0.7) Basophils # (Auto) 0.0 x10^3/uL (0.0-0.2) Sodium Level 142 mmol/L (136-145) Potassium Level 4.3 mmol/L (3.5-5.1) Chloride Level 104 mmol/L (98-107) Carbon Dioxide Level 26 mmol/L (21-32) Anion Gap 12 (6-14) Blood Urea Nitrogen 11 mg/dL (8-26) Creatinine 0.9 mg/dL (0.7-1.3) Estimated GFR (Cockcroft-Gault) 81.6 BUN/Creatinine Ratio 12 (6-20) Glucose Level 92 mg/dL (70-99) Lactic Acid Level 1.6 mmol/L (0.4-2.0) Calcium Level 9.1 mg/dL (8.5-10.1) Total Bilirubin 0.7 mg/dL (0.2-1.0) Aspartate Amino Transf (AST/SGOT) 12 U/L (15-37) Alanine Aminotransferase (ALT/SGPT) 13 U/L (16-63) Alkaline Phosphatase 111 U/L (46-116) Total Protein 7.1 g/dL (6.4-8.2) Albumin 3.5 g/dL (3.4-5.0) Albumin/Globulin Ratio 1.0 (1.0-1.7) Laboratory Tests Test 07/28/18 18:38 White Blood Count 8.6 x10^3/uL (4.0-11.0) Red Blood Count 5.80 x10^6/uL (4.30-5.70) Hemoglobin 17.9 g/dL (13.0-17.5) Hematocrit 54.1 % (39.0-53.0) Mean Corpuscular Volume 93 fL (79-100) Mean Corpuscular Hemoglobin 31 pg (25-35) Mean Corpuscular Hemoglobin Concent 33 g/dL (31-37) Red Cell Distribution Width 16.7 % (11.5-14.5) Platelet Count 189 x10^3/uL (140-400) Neutrophils (%) (Auto) 76 % (31-73) Lymphocytes (%) (Auto) 13 % (24-48) Monocytes (%) (Auto) 9 % (0-9) Eosinophils (%) (Auto) 2 % (0-3) Basophils (%) (Auto) 1 % (0-3) Neutrophils # (Auto) 6.5 x10^3uL (1.8-7.7) Lymphocytes # (Auto) 1.1 x10^3/uL (1.0-4.8) Monocytes # (Auto) 0.8 x10^3/uL (0.0-1.1) Eosinophils # (Auto) 0.2 x10^3/uL (0.0-0.7) Basophils # (Auto) 0.0 x10^3/uL (0.0-0.2) Sodium Level 142 mmol/L (136-145) Potassium Level 4.3 mmol/L (3.5-5.1) Chloride Level 104 mmol/L (98-107) Carbon Dioxide Level 26 mmol/L (21-32) Anion Gap 12 (6-14) Blood Urea Nitrogen 11 mg/dL (8-26) Creatinine 0.9 mg/dL (0.7-1.3) Estimated GFR (Cockcroft-Gault) 81.6 BUN/Creatinine Ratio 12 (6-20) Glucose Level 92 mg/dL (70-99) Lactic Acid Level 1.6 mmol/L (0.4-2.0) Calcium Level 9.1 mg/dL (8.5-10.1) Total Bilirubin 0.7 mg/dL (0.2-1.0) Aspartate Amino Transf (AST/SGOT) 12 U/L (15-37) Alanine Aminotransferase (ALT/SGPT) 13 U/L (16-63) Alkaline Phosphatase 111 U/L (46-116) Total Protein 7.1 g/dL (6.4-8.2) Albumin 3.5 g/dL (3.4-5.0) Albumin/Globulin Ratio 1.0 (1.0-1.7) VTE Prophylaxis Ordered VTE Prophylaxis Devices: Yes VTE Pharmacological Prophylaxi: Yes Assessment/Plan Assessment/Plan PAD bilateral lower legs with acute on chronic nonhealing wounds bl leg cellulitis PAD with bl iliafemeral A occlusion hypotension, resolved h/o dvt, PE tobacoism COPD polythemia vera PLAN: 2 midnights Heme oncology vascular, ID CONSULTED I have reconciled home meds Pain control as fitted Other supportive meds Further recs pending above TYRELL YEBOAH MD Jul 29, 2018 11:36
[2018-07-29] MEDS: MEROPENEM 500 MG in IV NORMAL SALINE 50ML 50 ML IV SCH ×2 (11:52→17:56)
--- NOTE | 2018-07-29 12:34 | PDOC2 ---
CONSULT Date of Consult Date of Consult DATE: 07/29/18 TIME: 11:34 Reason for Consult Reason for Consult: Severe peripheral vascular disease with bilateral lower extremity cellulitis and forefoot ulcers Referring Physician Referring Physician: Dr. Arsen Dill Identification/Chief Complaint Chief Complaint Bilateral foot pain with cellulitis and swelling. Source Source: Chart review, Patient History of Present Illness Reason for Visit: The patient is a 78-year-old male well known to Vascular Surgery for severe peripheral arterial disease with bilateral lower extremity, non-healing leg/ foot ulcers. He was admitted last night for onset of worsening bilateral lower extremity pain, severe swelling, redness and non-healing ulcers. The patient states " You know what this is? It's cellulitis again." He reports onset of worsening redness and swelling over the weekend and presented to the Emergency Room last night. 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 His current hemoglobin is 17.9. In May of this year, recommendation was made by Vascular Surgery for an aortobifemoral bypass due to bilateral common and right iliac artery occlusion, along with right superficial femoral artery occlusion. He was seen by pulmonary and cardiology medicine and cleared to proceed with surgery. He was to follow up with hematology for treatment of his polycythemia vera with a target hemoglobin of below 15 before proceeding with revascularization. The patient reports he was having IV treatments (of which he cannot recall what these were called) and was to follow up with blood checks with a doctor at [facility]. I have taken the liberty of having our office check the system for records and the patient is listed as having multiple no-shows with the hematology group. He was scheduled to have follow up with vascular surgery on July 09, 2018 and he did not show for this appointment and was rescheduled to see Dr. Wick on August 13, 2018. The patient has a history of non-compliance with his medical regimen. The patient has a remote history of right femoral to popliteal bypass in 2007. He continues to smoke. Past Medical History Cardiovascular: Hyperlipidemia, Other (Peripheral vascular disease) Pulmonary: COPD, Pulmonary embolus, Other (Tobaccoism) GI: No pertinent hx Heme/Onc: Other (Polycythemia vera with thrombocytopenia) Musculoskeletal: Swelling (Severe bilateral lower leg) ENT: No pertinent hx Renal/: No pertinent hx Dermatology: Cellulitis, Other (Bilateral, chronic forefoot non-healing ulcers) Past Surgical History Past Surgical History: Hernia Repair, Other (Right femoral to popliteal bypass 2007) Family History Family History: No Significant Social History <1 pack per day (States he "does not inhale.") ALCOHOL: none Drugs: None Current Problem List Problem List Problems Medical Problems: (1) Cellulitis of lower extremity (2) Peripheral arterial disease, potential limb-threatening (3) Chronic non-healing bilateral forefoot ulcers (4) Polycythemia vera Status: Acute Current Medications Current Medications Current Medications Fentanyl Citrate (Fentanyl 2ml Vial) 50 mcg 1X ONCE IV Last administered on 04/07at 18:52; Start 07/28/18 at 18:15; Stop 07/28/18 at 18:16; Status DC Clindamycin Phosphate 50 ml @ 100 mls/hr 1X ONCE IV Last administered on 07/28at 20:21; Start 07/28/18 at 20:00; Stop 07/28/18 at 20:29; Status DC Ondansetron HCl (Zofran) 4 mg PRN Q8HRS PRN IV NAUSEA/VOMITING; Start 07/28/18 at 20:00; Stop 07/29/18 at 08:11; Status DC Fentanyl Citrate (Fentanyl 2ml Vial) 50 mcg PRN Q1HR PRN IV PAIN Last administered on 07/29/18at 07:05; Start 07/28/18 at 20:00; Stop 07/29/18 at 19:59 Fentanyl Citrate (Fentanyl 2ml Vial) 50 mcg 1X ONCE IV Last administered on 04/07at 20:21; Start 07/28/18 at 20:15; Stop 07/28/18 at 20:16; Status DC Ondansetron HCl (Zofran) 4 mg PRN Q6HRS PRN IV NAUSEA/VOMITING; Start 07/29/18 at 08:15 Oxycodone/ Acetaminophen (Percocet 5/325) 1 tab PRN Q4HRS PRN PO PAIN Last administered on 07/29/18at 08:43; Start 07/29/18 at 08:15 Acetaminophen (Tylenol) 500 mg PRN Q6HRS PRN PO HEADACHE / TEMP; Start at 08:15 Clindamycin Phosphate 50 ml @ 100 mls/hr Q8HRS IV ; Start 07/29/18 at 09:00; Stop 07/29/18 at 09:21; Status DC Aspirin (Ecotrin) 81 mg DAILYWBKFT PO Last administered on 07/29/18at 08:43; Start 07/29/18 at 09:00 Atorvastatin Calcium (Lipitor) 40 mg QHS PO ; Start 07/29/18 at 21:00 Magnesium Hydroxide (Milk Of Magnesia) 400 mg PRN DAILY PRN PO CONSTIPATION; Start 07/29/18 at 08:15 Oxycodone/ Acetaminophen (Percocet 5/325) 1 tab PRN Q6HRS PRN PO PAIN; Start at 08:15; Status UNV Linezolid (Zyvox) 600 mg BID PO Last administered on 07/29/18at 10:07; Start 05/07 at 09:30 Meropenem 500 mg/ Sodium Chloride 50 ml @ 100 mls/hr Q6HRS IV ; Start 07/29/18 at 12:00 Micafungin Sodium 100 mg/Dextrose 100 ml @ 100 mls/hr Q24H IV Last administered on 07/29/18at 10:07; Start 07/29/18 at 10:00 Active Scripts Active Percocet 5-325 Mg Tablet (Oxycodone/Acetaminophen) 1 Each Tablet 1 Tab PO PRN Q6HRS PRN Aspirin Ec (Aspirin) 81 Mg Tablet. 81 Mg PO DAILYWBKFT Atorvastatin Calcium 40 Mg Tablet 40 Mg PO QHS Reported Snyder' Milk Of Magnesia (Magnesium Hydroxide) 400 Mg/5 Ml Oral.susp 400 Mg PO PRN DAILY PRN Doxycycline Hyclate 100 Mg Tablet. 1 Tab PO BID 1 Days Allergies Allergies: Coded Allergies: No Known Drug Allergies (Unverified , 09/22/16) ROS General: No: Chills, Night Sweats, Fatigue, Malaise HEENT: No: Heacaches, Visual Changes, Nasal congestion, Sore Throat, Epistaxis , Vertigo Hematological and Lymphatic: YES: Blood Clots; No: Bleeding Problems, Blood Transfusions, Brusing, Night Sweats ENDOCRINE: No: Unexpected Weight Changes Respiratory: YES: Cough, SOB with excertion, Wheezing; No: Hemoptysis, Orthopnea, Pleuritic Pain, Shortness of breath, Sputum Changes, Tachypnea Cardiovascular: yes Edema (Bilateral lower extremities); No Chest Pain, No Palpitations, No Paroxysmal Noc. Dyspnea Gastrointestinal: No Nausea, No Vomiting, No Abdominal Pain, No Diarrhea, No Constipation, No Melena Genitourinary: YES , YES ; No Dysuria, No Frequency, No Incontinence, No Hematuria, No Retention, No Discharge, No Urgency Musculoskeletal: Yes Pain In: (Bilateral forefoot pain), Yes Swelling In: ( Bilateral lower extremities); No Gait Disturbance, No Joint Pain, No Joint Stiffness, No Joint Swelling, No Muscle Pain, No Muscular Weakness Skin: Yes Dry Skin, Yes Other (Cellulitis to bilateral lower extremities) Physical Exam General: Alert, Oriented X3, Cooperative, mild distress HEENT: Atraumatic, PERRLA, Other (Negative for carotid bruit) Lungs: Other (Bilateral scattered crackles with expiratory wheezes. Very diminished in left base.) Heart: Regular rate (with occassional missed beats), Normal S1, Normal S2, No murmurs, Other (Palpable bilateral carotid, brachial and radial pulses. Unable to palpate femoral, popliteal, dorsalis pedal or post tibial pulses.) Abdomen: Normal bowel sounds, Soft, No tenderness Extremities: Other (Improved lower extremity swelling with diuresis in ER. ) Skin: Other (Well-healed right leg incision from previous bypass. Right forefoot odorous, open ulcer with necrotic tissue to wound base. Left forefoot skin discolored. Bilateral lower extremity erythema with cellulitis and dry- flaking skin. Extreme pain to very light palpation of toes and forefoot. Cracked fissures noted to plantar side of 1st toe. ) Vitals VITALS Vital Signs Date Time Temp Pulse Resp B/P (MAP) Pulse Ox O2 Delivery O2 Flow Rate FiO2 07/29/18 11:00 98.5 52 18 103/60 (74) 95 Room Air 98.5 Labs Labs Laboratory Tests Test 07/28/18 18:38 White Blood Count 8.6 x10^3/uL (4.0-11.0) Red Blood Count 5.80 x10^6/uL (4.30-5.70) Hemoglobin 17.9 g/dL (13.0-17.5) Hematocrit 54.1 % (39.0-53.0) Mean Corpuscular Volume 93 fL (79-100) Mean Corpuscular Hemoglobin 31 pg (25-35) Mean Corpuscular Hemoglobin Concent 33 g/dL (31-37) Red Cell Distribution Width 16.7 % (11.5-14.5) Platelet Count 189 x10^3/uL (140-400) Neutrophils (%) (Auto) 76 % (31-73) Lymphocytes (%) (Auto) 13 % (24-48) Monocytes (%) (Auto) 9 % (0-9) Eosinophils (%) (Auto) 2 % (0-3) Basophils (%) (Auto) 1 % (0-3) Neutrophils # (Auto) 6.5 x10^3uL (1.8-7.7) Lymphocytes # (Auto) 1.1 x10^3/uL (1.0-4.8) Monocytes # (Auto) 0.8 x10^3/uL (0.0-1.1) Eosinophils # (Auto) 0.2 x10^3/uL (0.0-0.7) Basophils # (Auto) 0.0 x10^3/uL (0.0-0.2) Sodium Level 142 mmol/L (136-145) Potassium Level 4.3 mmol/L (3.5-5.1) Chloride Level 104 mmol/L (98-107) Carbon Dioxide Level 26 mmol/L (21-32) Anion Gap 12 (6-14) Blood Urea Nitrogen 11 mg/dL (8-26) Creatinine 0.9 mg/dL (0.7-1.3) Estimated GFR (Cockcroft-Gault) 81.6 BUN/Creatinine Ratio 12 (6-20) Glucose Level 92 mg/dL (70-99) Lactic Acid Level 1.6 mmol/L (0.4-2.0) Calcium Level 9.1 mg/dL (8.5-10.1) Total Bilirubin 0.7 mg/dL (0.2-1.0) Aspartate Amino Transf (AST/SGOT) 12 U/L (15-37) Alanine Aminotransferase (ALT/SGPT) 13 U/L (16-63) Alkaline Phosphatase 111 U/L (46-116) Total Protein 7.1 g/dL (6.4-8.2) Albumin 3.5 g/dL (3.4-5.0) Albumin/Globulin Ratio 1.0 (1.0-1.7) Laboratory Tests Test 07/28/18 18:38 White Blood Count 8.6 x10^3/uL (4.0-11.0) Red Blood Count 5.80 x10^6/uL (4.30-5.70) Hemoglobin 17.9 g/dL (13.0-17.5) Hematocrit 54.1 % (39.0-53.0) Mean Corpuscular Volume 93 fL (79-100) Mean Corpuscular Hemoglobin 31 pg (25-35) Mean Corpuscular Hemoglobin Concent 33 g/dL (31-37) Red Cell Distribution Width 16.7 % (11.5-14.5) Platelet Count 189 x10^3/uL (140-400) Neutrophils (%) (Auto) 76 % (31-73) Lymphocytes (%) (Auto) 13 % (24-48) Monocytes (%) (Auto) 9 % (0-9) Eosinophils (%) (Auto) 2 % (0-3) Basophils (%) (Auto) 1 % (0-3) Neutrophils # (Auto) 6.5 x10^3uL (1.8-7.7) Lymphocytes # (Auto) 1.1 x10^3/uL (1.0-4.8) Monocytes # (Auto) 0.8 x10^3/uL (0.0-1.1) Eosinophils # (Auto) 0.2 x10^3/uL (0.0-0.7) Basophils # (Auto) 0.0 x10^3/uL (0.0-0.2) Sodium Level 142 mmol/L (136-145) Potassium Level 4.3 mmol/L (3.5-5.1) Chloride Level 104 mmol/L (98-107) Carbon Dioxide Level 26 mmol/L (21-32) Anion Gap 12 (6-14) Blood Urea Nitrogen 11 mg/dL (8-26) Creatinine 0.9 mg/dL (0.7-1.3) Estimated GFR (Cockcroft-Gault) 81.6 BUN/Creatinine Ratio 12 (6-20) Glucose Level 92 mg/dL (70-99) Lactic Acid Level 1.6 mmol/L (0.4-2.0) Calcium Level 9.1 mg/dL (8.5-10.1) Total Bilirubin 0.7 mg/dL (0.2-1.0) Aspartate Amino Transf (AST/SGOT) 12 U/L (15-37) Alanine Aminotransferase (ALT/SGPT) 13 U/L (16-63) Alkaline Phosphatase 111 U/L (46-116) Total Protein 7.1 g/dL (6.4-8.2) Albumin 3.5 g/dL (3.4-5.0) Albumin/Globulin Ratio 1.0 (1.0-1.7) Images Images PROCEDURE: VENOUS LOWER EXT BILATERAL Left leg venous Doppler study: Clinical indications: Left leg and edema. Greater saphenous vein has been surgically removed. Impression: There are no sonographic findings of deep venous thrombosis within the veins discussed above of the left lower extremity. Right leg venous Doppler study: Clinical indications: Right leg edema. Greater saphenous vein has been surgically removed. Impression: There are no sonographic findings of deep venous thrombosis within the veins discussed above of the right lower extremity. PROCEDURE: CT ANGIO ABD ILEO/FEMOR RUNOFF April 2018 COMPARISON: 09/22/2016 FINDINGS: Heart is normal in size. No pericardial or pleural effusion. Mild diffuse atherosclerotic disease seen of the suprarenal aorta. The celiac axis, splenic artery, left gastric artery, common hepatic artery, SMA, bilateral renal arteries are patent. Moderate atherosclerotic disease is seen of the infrarenal aorta with circumferential soft plaque and mild narrowing of the aortic lumen. 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 The right internal iliac artery supplied by lumbar collaterals. Mild narrowing seen in the proximal left common iliac artery which demonstrates circumferential soft plaque. There is complete occlusion of the left external iliac artery which is new from previous exam. The left internal iliac arteries patent. The bilateral common femoral arteries are occluded. The right superficial femoral artery and popliteal arteries are occluded. The right profunda femoris artery is patent. The right anterior tibial artery is nonvisualized which may be secondary to diffuse high-grade stenosis or occlusion. The right peroneal artery is patent up to the level of hindfoot. The right posterior tibial artery is patent up to the level of plantar branches. The peroneal and posterior tibial arteries are supplied by collaterals from genicular arteries. The left superficial femoral and popliteal artery is occluded. The left profunda femoris artery is patent and is supplied by gluteal collaterals. The anterior tibial artery is nonopacified likely secondary to diffuse high-grade stenosis or occlusion. The left peroneal arteries are visualized. The posterior tibial artery is patent up to the level of plantar branches. Mild bibasilar subsegmental atelectasis or scarring seen in the subpleural region. The arterial phase appearance of the liver, spleen, gallbladder, pancreas, adrenals and kidneys is within normal limits. No enlarged retroperitoneal or pelvic adenopathy. No free pelvic fluid or ascites. Small bilateral fat-containing inguinal hernias. Prostate is enlarged measuring 5.8 x 4.8 cm. Urinary bladder within normal limits. No bowel obstruction. No enlarged retroperitoneal or pelvic adenopathy. No pneumoperitoneum. Small omental fat-containing medical hernia. Enlarged right groin lymph node measuring 2.7 x 1.0 cm and left groin lymph node measuring 1.8 x 1.1 cm. No suspicious bony lesion. IMPRESSION: 1. 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 2. 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 3. Nonvisualization of the bilateral anterior tibial arteries be secondary to a diffuse high-grade stenosis or complete occlusion. Please see above for details. 4. Enlarged prostate. Correlate with physical exam and PSA. 5. 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 6. Mildly enlarged bilateral inguinal lymph nodes, nonspecific most likely reactive. Critical findings were identified on 05/11/2018 3:39 PM, read back and verified with Nurse Susan on 05/11/2018 3:[address] Gregorio Britton DO. Electronically signed by: Gregorio Britton DO (05/11/2018 3:58 PM) [facility] Assessment/Plan Assessment/Plan The patient is a 78-year-old male well known to Vascular Surgery for severe peripheral arterial disease with bilateral lower extremity, non-healing leg/ foot ulcers who has been admitted for worsening bilateral lower extremity pain, severe swelling, redness and non-healing ulcers. In May of this year, recommendation was made by Vascular Surgery for an aortobifemoral bypass due to bilateral common and right iliac artery occlusion, along with right superficial femoral artery occlusion. He was seen by pulmonary and cardiology medicine and cleared to proceed with surgery. 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 He was scheduled to have follow up with vascular surgery on July 09, 2018 and did not keep his appointment. The patient has been seen by Infectious Disease this morning and IV antibiotic therapy has been initiated. He has also received diuresis in the ER with improvement in peripheral swelling. The patient's lower extremity wounds have worsened and he is having progressive deterioration of his tissues from severe arterial disease, possible limb- threatening with onset of severe forefoot and toe pain to minimal touch. Unfortunately, the patient continues to smoke. The patient verbalizes that he would agree to proceed with the surgical plan that was outlined in great detail in the past by Dr.'s Ava Garcia and Bobby Wick. I will take the liberty of consulting Hematology once again for known polycythemia vera in preparation for surgical revascularization. The patient is on low-dose aspirin. He reports having been on full anticoagulation in the past for a pulmonary embolism but is not on anticoagulation therapy currently. Dr. Ender Murphy will see the patient this afternoon and determine if previous testing is adequate as Aortogram with run-off was performed in April 2018. The patient had a previous vein mapping of bilateral upper extremities in April as well due to bilateral saphenous vein harvest for previous bypass. I will obtain a 2-view chest x-ray in anticipation for an operative procedure. He is currently wheezing and with crackles throughout. We may need formal consultation with Pulmonary medicine if the plan is proceed within this hospitalization for an ABF. Thank you for the opportunity to participate in the care of this patient. Dr. Murphy will provide additional evaluation and recommendations later this afternoon. JIM DYE APRN Jul 29, 2018 12:34
--- NOTE | 2018-07-29 12:55 | PDOC2 ---
CONSULT Date of Consult Date of Consult DATE: 07/29/18 TIME: 12:42 Reason for Consult Reason for Consult: symptomatic nails and non healing wounds bilateral foot Referring Physician Referring Physician: Hosea Identification/Chief Complaint Chief Complaint Long thick symptomatic nails and non healing wounds bilateral feet Source Source: Chart review, Patient History of Present Illness Reason for Visit: 78 year old male admitted to [facility] for cellulitis, PAD, non healing wounds bilateral feet. Patient with history of Bilateral illiofemoral arterial occlusion. He states wound present x 1 year. He is being treated at the [facility] wound care clinic and applying local wound care with xeroform gauze bandage. He notes pain and stiffness to feet. he also relates to long thickened symptomatic toenails. He normally sees a django developer but has not been to see one in quite some time he notes wound to right hallux nail and fissure left hallux at sulcus. Past Medical History Cardiovascular: Hyperlipidemia, Other (Peripheral vascular disease) Pulmonary: COPD, Pulmonary embolus, Other (Tobaccoism) GI: No pertinent hx Heme/Onc: Other (Polycythemia vera with thrombocytopenia) Musculoskeletal: Swelling (Severe bilateral lower leg) ENT: No pertinent hx Renal/: No pertinent hx Dermatology: Cellulitis, Other (Bilateral, chronic forefoot non-healing ulcers) Past Surgical History Past Surgical History: Hernia Repair, Other (Right femoral to popliteal bypass 2007) Family History Family History: No Significant Social History <1 pack per day (States he "does not inhale.") ALCOHOL: none Drugs: None Lives: Alone Current Problem List Problem List Problems Medical Problems: (1) Cellulitis of lower extremity Status: Acute Current Medications Current Medications Current Medications Fentanyl Citrate (Fentanyl 2ml Vial) 50 mcg 1X ONCE IV Last administered on 04/07at 18:52; Start 07/28/18 at 18:15; Stop 07/28/18 at 18:16; Status DC Clindamycin Phosphate 50 ml @ 100 mls/hr 1X ONCE IV Last administered on 07/28at 20:21; Start 07/28/18 at 20:00; Stop 07/28/18 at 20:29; Status DC Ondansetron HCl (Zofran) 4 mg PRN Q8HRS PRN IV NAUSEA/VOMITING; Start 07/28/18 at 20:00; Stop 07/29/18 at 08:11; Status DC Fentanyl Citrate (Fentanyl 2ml Vial) 50 mcg PRN Q1HR PRN IV PAIN Last administered on 07/29/18at 07:05; Start 07/28/18 at 20:00; Stop 07/29/18 at 19:59 Fentanyl Citrate (Fentanyl 2ml Vial) 50 mcg 1X ONCE IV Last administered on 04/07at 20:21; Start 07/28/18 at 20:15; Stop 07/28/18 at 20:16; Status DC Ondansetron HCl (Zofran) 4 mg PRN Q6HRS PRN IV NAUSEA/VOMITING; Start 07/29/18 at 08:15 Oxycodone/ Acetaminophen (Percocet 5/325) 1 tab PRN Q4HRS PRN PO PAIN Last administered on 07/29/18at 08:43; Start 07/29/18 at 08:15 Acetaminophen (Tylenol) 500 mg PRN Q6HRS PRN PO HEADACHE / TEMP; Start at 08:15 Clindamycin Phosphate 50 ml @ 100 mls/hr Q8HRS IV ; Start 07/29/18 at 09:00; Stop 07/29/18 at 09:21; Status DC Aspirin (Ecotrin) 81 mg DAILYWBKFT PO Last administered on 07/29/18at 08:43; Start 07/29/18 at 09:00 Atorvastatin Calcium (Lipitor) 40 mg QHS PO ; Start 07/29/18 at 21:00 Magnesium Hydroxide (Milk Of Magnesia) 400 mg PRN DAILY PRN PO CONSTIPATION; Start 07/29/18 at 08:15 Oxycodone/ Acetaminophen (Percocet 5/325) 1 tab PRN Q6HRS PRN PO PAIN; Start at 08:15; Status UNV Linezolid (Zyvox) 600 mg BID PO Last administered on 07/29/18at 10:07; Start 05/07 at 09:30 Meropenem 500 mg/ Sodium Chloride 50 ml @ 100 mls/hr Q6HRS IV ; Start 07/29/18 at 12:00 Micafungin Sodium 100 mg/Dextrose 100 ml @ 100 mls/hr Q24H IV Last administered on 07/29/18at 10:07; Start 07/29/18 at 10:00 Active Scripts Active Percocet 5-325 Mg Tablet (Oxycodone/Acetaminophen) 1 Each Tablet 1 Tab PO PRN Q6HRS PRN Aspirin Ec (Aspirin) 81 Mg Tablet. 81 Mg PO DAILYWBKFT Atorvastatin Calcium 40 Mg Tablet 40 Mg PO QHS Reported Snyder' Milk Of Magnesia (Magnesium Hydroxide) 400 Mg/5 Ml Oral.susp 400 Mg PO PRN DAILY PRN Doxycycline Hyclate 100 Mg Tablet. 1 Tab PO BID 1 Days Allergies Allergies: Coded Allergies: No Known Drug Allergies (Unverified , 09/22/16) ROS General: YES: Fatigue; No: Chills, Night Sweats, Malaise, Appetite, Other PSYCHOLOGICAL ROS: No: Anxiety, Behavioral Disorder, Concentration difficultie , Decreased libido, Depression, Disorientation, Hallucinations, Hostility, Irritablity, Memory difficulties, Mood Swings, Obsessive thoughts, Physical abuse, Sexual abuse, Sleep disturbances, Suicidal ideation, Other Eyes: No Blurry vision, No Decreased vision, No Double vision, No Dry eyes, No Excessive tearing, No Eye Pain, No Itchy Eyes, No Loss of vision, No Photophobia , No Scotomata, No Uses contacts, No Uses glasses, No Other HEENT: No: Heacaches, Visual Changes, Hearing change, Nasal congestion, Nasal discharge, Oral lesions, Sinus pain, Sore Throat, Epistaxis, Sneezing, Snoring, Tinnitus, Vertigo, Vocal changes, Other ALLERGY AND IMMUNOLOGY: No: Hives, Insect Bite Sensitivity, Itchy/Watery Eyes, Nasal Congestion, Post Nasal Drip, Seasonal Allergies, Other Hematological and Lymphatic: YES: Bleeding Problems ENDOCRINE: YES: Skin Changes; No: Breast Changes, Galactorrhea, Hair Pattern Changes, Hot Flashes, Malaise/ lethargy, Mood Swings, Palpitations, Polydipsia/polyuria, Temperature Intolerance, Unexpected Weight Changes, Other Respiratory: No: Cough, Hemoptysis, Orthopnea, Pleuritic Pain, Shortness of breath, SOB with excertion, Sputum Changes, Stridor, Tachypnea, Wheezing, Other Cardiovascular: No Chest Pain, No Palpitations, No Orthopnea, No Paroxysmal Noc. Dyspnea, No Edema, No Lt Headedness, No Other Gastrointestinal: No Nausea, No Vomiting, No Abdominal Pain, No Diarrhea, No Constipation, No Melena, No Hematochezia, No Other Musculoskeletal: Yes Joint Pain, Yes Joint Stiffness, Yes Muscular Weakness Neurological: No Behavorial Changes, No Bowel/Bladder ControlChng, No Confusion , No Dizziness, No Gait Disturbance, No Headaches, No Impaired Coord/balance, No Memory Loss, No Numbness/Tingling, No Seizures, No Speech Problems, No Tremors, No Visual Changes, No Weakness, No Other Skin: Yes Dry Skin, Yes Hair Changes, Yes Nail Changes Physical Exam Physical Exam Lower extremity: skin is cool, extremely xerotic, atrophic. taught. No hair is present to feet. nails are long (onychogryphotic), thickened 5mm and yellow brown discolored x 10. Note loosening of right hallux nail lateral 1/2 with maceration and superficial discontinuity of skin to nail bed. Note skin fissure with superficial discontinuity of skin to plantar sulcus left hallux. Note full thickness ulceration to dorsal right midfoot with necrotic base measures approximately 5x5x0.3cm. Localized erythema. Note superficial ulceration to dorsal left forefoot measurs 0.3x0.2x0.1cm. Note skin sloughing to bilateral lower extremity. +2 edema to bilateral lower extremity. DP and PT 0/4 bilateral. CFT delayed to digits. Note dorsally contracted digits 2-5 bilateral. note overlap of 2nd digit to hallux right foot. Toes are stiff. Pain with range of motion and palpation. General: Alert, mild distress Vitals VITALS Vital Signs Date Time Temp Pulse Resp B/P (MAP) Pulse Ox O2 Delivery O2 Flow Rate FiO2 07/29/18 11:00 98.5 52 18 103/60 (74) 95 Room Air 98.5 Labs Labs Laboratory Tests Test 07/28/18 18:38 White Blood Count 8.6 x10^3/uL (4.0-11.0) Red Blood Count 5.80 x10^6/uL (4.30-5.70) Hemoglobin 17.9 g/dL (13.0-17.5) Hematocrit 54.1 % (39.0-53.0) Mean Corpuscular Volume 93 fL (79-100) Mean Corpuscular Hemoglobin 31 pg (25-35) Mean Corpuscular Hemoglobin Concent 33 g/dL (31-37) Red Cell Distribution Width 16.7 % (11.5-14.5) Platelet Count 189 x10^3/uL (140-400) Neutrophils (%) (Auto) 76 % (31-73) Lymphocytes (%) (Auto) 13 % (24-48) Monocytes (%) (Auto) 9 % (0-9) Eosinophils (%) (Auto) 2 % (0-3) Basophils (%) (Auto) 1 % (0-3) Neutrophils # (Auto) 6.5 x10^3uL (1.8-7.7) Lymphocytes # (Auto) 1.1 x10^3/uL (1.0-4.8) Monocytes # (Auto) 0.8 x10^3/uL (0.0-1.1) Eosinophils # (Auto) 0.2 x10^3/uL (0.0-0.7) Basophils # (Auto) 0.0 x10^3/uL (0.0-0.2) Sodium Level 142 mmol/L (136-145) Potassium Level 4.3 mmol/L (3.5-5.1) Chloride Level 104 mmol/L (98-107) Carbon Dioxide Level 26 mmol/L (21-32) Anion Gap 12 (6-14) Blood Urea Nitrogen 11 mg/dL (8-26) Creatinine 0.9 mg/dL (0.7-1.3) Estimated GFR (Cockcroft-Gault) 81.6 BUN/Creatinine Ratio 12 (6-20) Glucose Level 92 mg/dL (70-99) Lactic Acid Level 1.6 mmol/L (0.4-2.0) Calcium Level 9.1 mg/dL (8.5-10.1) Total Bilirubin 0.7 mg/dL (0.2-1.0) Aspartate Amino Transf (AST/SGOT) 12 U/L (15-37) Alanine Aminotransferase (ALT/SGPT) 13 U/L (16-63) Alkaline Phosphatase 111 U/L (46-116) Total Protein 7.1 g/dL (6.4-8.2) Albumin 3.5 g/dL (3.4-5.0) Albumin/Globulin Ratio 1.0 (1.0-1.7) Laboratory Tests Test 07/28/18 18:38 White Blood Count 8.6 x10^3/uL (4.0-11.0) Red Blood Count 5.80 x10^6/uL (4.30-5.70) Hemoglobin 17.9 g/dL (13.0-17.5) Hematocrit 54.1 % (39.0-53.0) Mean Corpuscular Volume 93 fL (79-100) Mean Corpuscular Hemoglobin 31 pg (25-35) Mean Corpuscular Hemoglobin Concent 33 g/dL (31-37) Red Cell Distribution Width 16.7 % (11.5-14.5) Platelet Count 189 x10^3/uL (140-400) Neutrophils (%) (Auto) 76 % (31-73) Lymphocytes (%) (Auto) 13 % (24-48) Monocytes (%) (Auto) 9 % (0-9) Eosinophils (%) (Auto) 2 % (0-3) Basophils (%) (Auto) 1 % (0-3) Neutrophils # (Auto) 6.5 x10^3uL (1.8-7.7) Lymphocytes # (Auto) 1.1 x10^3/uL (1.0-4.8) Monocytes # (Auto) 0.8 x10^3/uL (0.0-1.1) Eosinophils # (Auto) 0.2 x10^3/uL (0.0-0.7) Basophils # (Auto) 0.0 x10^3/uL (0.0-0.2) Sodium Level 142 mmol/L (136-145) Potassium Level 4.3 mmol/L (3.5-5.1) Chloride Level 104 mmol/L (98-107) Carbon Dioxide Level 26 mmol/L (21-32) Anion Gap 12 (6-14) Blood Urea Nitrogen 11 mg/dL (8-26) Creatinine 0.9 mg/dL (0.7-1.3) Estimated GFR (Cockcroft-Gault) 81.6 BUN/Creatinine Ratio 12 (6-20) Glucose Level 92 mg/dL (70-99) Lactic Acid Level 1.6 mmol/L (0.4-2.0) Calcium Level 9.1 mg/dL (8.5-10.1) Total Bilirubin 0.7 mg/dL (0.2-1.0) Aspartate Amino Transf (AST/SGOT) 12 U/L (15-37) Alanine Aminotransferase (ALT/SGPT) 13 U/L (16-63) Alkaline Phosphatase 111 U/L (46-116) Total Protein 7.1 g/dL (6.4-8.2) Albumin 3.5 g/dL (3.4-5.0) Albumin/Globulin Ratio 1.0 (1.0-1.7) Assessment/Plan Assessment/Plan 78 year old male with severe peripheral arterial disease, chronic wound to dorsal bilateral feet, clinical onychomycosis, onychogryphosis, onychocryptosis. -Nails debrided x 10. -Begin daily local wound care to right hallux with wet to dry gauze bandage. -Continue local wound care to bilateral foot wounds. Recommend add RX Santyl once daily -Awaiting vascular surgery evaluation and possible intervention -Discussed possible wound debridement and application of allograft pending vascular enhancement. -Patient following with [facility] Wound care -Will sign off. -Reconsult as needed. AUBREY DE SANTIAGO DPM Jul 29, 2018 12:55
--- NOTE | 2018-07-29 14:43 | PDOC ---
PROGRESS NOTES Subjective Subjective "The diseases I have, have been caused by all the drugs you and everyone else have given me. They are poison." Objective Objective Vascular Surgery Follow Up: I accompanied Dr. Murphy when he stepped into room to see the patient and discuss a surgical plan for revascularization. He presented a staged surgical plan that would include beginning with bilateral femoral endarterectomies to be followed by iliac stenting in a hybrid OR suite to improve inflow. This step would hopefully allow for stabilization of tissue loss to his feet while working to improve cellulitis to bilateral lower extremities. Then, once cellulitis better, to proceed with fem-pop bypass for limb and tissue salvage. However, the recommendation was to transfer the patient to [facility] where hybrid operative suites are available. The patient became quite upset and speaking about things that did not make sense. Telling me his diseases are because of drugs he's been given and that we all are making him sick and spreading poison throughout his body. As he talked, his demeanor became more agitated and upset. Therefore, I reviewed his options 1 more time and excused myself. I will update Dr. Murphy when he gets out of the OR tonight. In the meantime, will await hematology consultation and recommendation as if patient were to proceed with surgical intervention, he will need antiplatelet therapy on Plavix as a minimum. Vital Signs Date Time Temp Pulse Resp B/P (MAP) Pulse Ox O2 Delivery O2 Flow Rate FiO2 07/29/18 11:00 98.5 52 18 103/60 (74) 95 Room Air 98.5 Intake and Output 07/29/18 07:00 Intake Total 50 ml Output Total 300 ml Balance -250 ml Intake IV Total 50 ml Output Urine Total 300 ml # Voids 1 Assessment Assessment Problems Medical Problems: (1) Cellulitis of lower extremity Status: Acute Comment Review of Relevant I have reviewed the following items lee (where applicable) has been applied. Labs Laboratory Tests Test 07/28/18 18:38 White Blood Count 8.6 x10^3/uL (4.0-11.0) Red Blood Count 5.80 x10^6/uL (4.30-5.70) Hemoglobin 17.9 g/dL (13.0-17.5) Hematocrit 54.1 % (39.0-53.0) Mean Corpuscular Volume 93 fL (79-100) Mean Corpuscular Hemoglobin 31 pg (25-35) Mean Corpuscular Hemoglobin Concent 33 g/dL (31-37) Red Cell Distribution Width 16.7 % (11.5-14.5) Platelet Count 189 x10^3/uL (140-400) Neutrophils (%) (Auto) 76 % (31-73) Lymphocytes (%) (Auto) 13 % (24-48) Monocytes (%) (Auto) 9 % (0-9) Eosinophils (%) (Auto) 2 % (0-3) Basophils (%) (Auto) 1 % (0-3) Neutrophils # (Auto) 6.5 x10^3uL (1.8-7.7) Lymphocytes # (Auto) 1.1 x10^3/uL (1.0-4.8) Monocytes # (Auto) 0.8 x10^3/uL (0.0-1.1) Eosinophils # (Auto) 0.2 x10^3/uL (0.0-0.7) Basophils # (Auto) 0.0 x10^3/uL (0.0-0.2) Sodium Level 142 mmol/L (136-145) Potassium Level 4.3 mmol/L (3.5-5.1) Chloride Level 104 mmol/L (98-107) Carbon Dioxide Level 26 mmol/L (21-32) Anion Gap 12 (6-14) Blood Urea Nitrogen 11 mg/dL (8-26) Creatinine 0.9 mg/dL (0.7-1.3) Estimated GFR (Cockcroft-Gault) 81.6 BUN/Creatinine Ratio 12 (6-20) Glucose Level 92 mg/dL (70-99) Lactic Acid Level 1.6 mmol/L (0.4-2.0) Calcium Level 9.1 mg/dL (8.5-10.1) Total Bilirubin 0.7 mg/dL (0.2-1.0) Aspartate Amino Transf (AST/SGOT) 12 U/L (15-37) Alanine Aminotransferase (ALT/SGPT) 13 U/L (16-63) Alkaline Phosphatase 111 U/L (46-116) Total Protein 7.1 g/dL (6.4-8.2) Albumin 3.5 g/dL (3.4-5.0) Albumin/Globulin Ratio 1.0 (1.0-1.7) Laboratory Tests Test 07/28/18 18:38 White Blood Count 8.6 x10^3/uL (4.0-11.0) Red Blood Count 5.80 x10^6/uL (4.30-5.70) Hemoglobin 17.9 g/dL (13.0-17.5) Hematocrit 54.1 % (39.0-53.0) Mean Corpuscular Volume 93 fL (79-100) Mean Corpuscular Hemoglobin 31 pg (25-35) Mean Corpuscular Hemoglobin Concent 33 g/dL (31-37) Red Cell Distribution Width 16.7 % (11.5-14.5) Platelet Count 189 x10^3/uL (140-400) Neutrophils (%) (Auto) 76 % (31-73) Lymphocytes (%) (Auto) 13 % (24-48) Monocytes (%) (Auto) 9 % (0-9) Eosinophils (%) (Auto) 2 % (0-3) Basophils (%) (Auto) 1 % (0-3) Neutrophils # (Auto) 6.5 x10^3uL (1.8-7.7) Lymphocytes # (Auto) 1.1 x10^3/uL (1.0-4.8) Monocytes # (Auto) 0.8 x10^3/uL (0.0-1.1) Eosinophils # (Auto) 0.2 x10^3/uL (0.0-0.7) Basophils # (Auto) 0.0 x10^3/uL (0.0-0.2) Sodium Level 142 mmol/L (136-145) Potassium Level 4.3 mmol/L (3.5-5.1) Chloride Level 104 mmol/L (98-107) Carbon Dioxide Level 26 mmol/L (21-32) Anion Gap 12 (6-14) Blood Urea Nitrogen 11 mg/dL (8-26) Creatinine 0.9 mg/dL (0.7-1.3) Estimated GFR (Cockcroft-Gault) 81.6 BUN/Creatinine Ratio 12 (6-20) Glucose Level 92 mg/dL (70-99) Lactic Acid Level 1.6 mmol/L (0.4-2.0) Calcium Level 9.1 mg/dL (8.5-10.1) Total Bilirubin 0.7 mg/dL (0.2-1.0) Aspartate Amino Transf (AST/SGOT) 12 U/L (15-37) Alanine Aminotransferase (ALT/SGPT) 13 U/L (16-63) Alkaline Phosphatase 111 U/L (46-116) Total Protein 7.1 g/dL (6.4-8.2) Albumin 3.5 g/dL (3.4-5.0) Albumin/Globulin Ratio 1.0 (1.0-1.7) Medications Current Medications Fentanyl Citrate (Fentanyl 2ml Vial) 50 mcg 1X ONCE IV Last administered on 04/07at 18:52; Start 07/28/18 at 18:15; Stop 07/28/18 at 18:16; Status DC Clindamycin Phosphate 50 ml @ 100 mls/hr 1X ONCE IV Last administered on 07/28at 20:21; Start 07/28/18 at 20:00; Stop 07/28/18 at 20:29; Status DC Ondansetron HCl (Zofran) 4 mg PRN Q8HRS PRN IV NAUSEA/VOMITING; Start 07/28/18 at 20:00; Stop 07/29/18 at 08:11; Status DC Fentanyl Citrate (Fentanyl 2ml Vial) 50 mcg PRN Q1HR PRN IV PAIN Last administered on 07/29/18at 07:05; Start 07/28/18 at 20:00; Stop 07/29/18 at 19:59 Fentanyl Citrate (Fentanyl 2ml Vial) 50 mcg 1X ONCE IV Last administered on 04/07at 20:21; Start 07/28/18 at 20:15; Stop 07/28/18 at 20:16; Status DC Ondansetron HCl (Zofran) 4 mg PRN Q6HRS PRN IV NAUSEA/VOMITING; Start 07/29/18 at 08:15 Oxycodone/ Acetaminophen (Percocet 5/325) 1 tab PRN Q4HRS PRN PO PAIN Last administered on 07/29/18at 08:43; Start 07/29/18 at 08:15 Acetaminophen (Tylenol) 500 mg PRN Q6HRS PRN PO HEADACHE / TEMP; Start at 08:15 Clindamycin Phosphate 50 ml @ 100 mls/hr Q8HRS IV ; Start 07/29/18 at 09:00; Stop 07/29/18 at 09:21; Status DC Aspirin (Ecotrin) 81 mg DAILYWBKFT PO Last administered on 07/29/18at 08:43; Start 07/29/18 at 09:00 Atorvastatin Calcium (Lipitor) 40 mg QHS PO ; Start 07/29/18 at 21:00 Magnesium Hydroxide (Milk Of Magnesia) 400 mg PRN DAILY PRN PO CONSTIPATION; Start 07/29/18 at 08:15 Oxycodone/ Acetaminophen (Percocet 5/325) 1 tab PRN Q6HRS PRN PO PAIN; Start at 08:15; Status UNV Linezolid (Zyvox) 600 mg BID PO Last administered on 07/29/18at 10:07; Start 05/07 at 09:30 Meropenem 500 mg/ Sodium Chloride 50 ml @ 100 mls/hr Q6HRS IV ; Start 07/29/18 at 12:00 Micafungin Sodium 100 mg/Dextrose 100 ml @ 100 mls/hr Q24H IV Last administered on 07/29/18at 10:07; Start 07/29/18 at 10:00 Lactobacillus Rhamnosus (Culturelle) 1 cap BID PO ; Start 07/29/18 at 21:00 Active Scripts Active Percocet 5-325 Mg Tablet (Oxycodone/Acetaminophen) 1 Each Tablet 1 Tab PO PRN Q6HRS PRN Aspirin Ec (Aspirin) 81 Mg Tablet. 81 Mg PO DAILYWBKFT Atorvastatin Calcium 40 Mg Tablet 40 Mg PO QHS Reported Snyder' Milk Of Magnesia (Magnesium Hydroxide) 400 Mg/5 Ml Oral.susp 400 Mg PO PRN DAILY PRN Doxycycline Hyclate 100 Mg Tablet. 1 Tab PO BID 1 Days Vitals/I & O Vital Sign - Last 24 Hours 07/28/18 07/28/18 07/28/18 07/28/18 17:05 17:30 17:50 18:50 Temp 98.2 97.6 98.2 97.6 Pulse 103 103 100 90 Resp 20 16 18 16 B/P (MAP) 121/66 (84) 142/65 (90) 169/76 (107) 130/68 (88) Pulse Ox 98 97 96 96 O2 Delivery Room Air Room Air Room Air 07/28/18 07/28/18 07/28/18 07/28/18 18:52 18:53 19:23 19:53 Pulse 94 88 106 Resp 16 16 16 18 B/P (MAP) 119/67 (84) 111/56 (74) 133/82 (99) Pulse Ox 97 96 95 97 07/28/18 07/28/18 07/28/18 07/28/18 20:21 20:23 20:53 21:45 Temp 98.0 98.0 Pulse 100 82 96 Resp 18 18 16 18 B/P (MAP) 122/65 (84) 112/56 (74) 125/60 (81) Pulse Ox 97 97 96 94 O2 Delivery Room Air Room Air Room Air Room Air 07/28/18 07/28/18 07/28/18 07/29/18 21:50 23:00 23:35 01:47 Temp 98.2 98.2 Pulse 92 Resp 16 16 20 20 B/P (MAP) 120/62 (81) Pulse Ox 96 O2 Delivery Room Air Room Air Room Air Room Air 07/29/18 07/29/18 07/29/18 07/29/18 03:00 04:34 05:02 07:00 Temp 98.1 98.2 98.1 98.2 Pulse 79 97 Resp 16 24 20 18 B/P (MAP) 131/80 (97) 118/62 (80) Pulse Ox 96 92 O2 Delivery Room Air Room Air Room Air 07/29/18 07/29/18 07/29/18 07/29/18 07:05 07:34 07:37 07:37 Resp 24 O2 Delivery Room Air Room Air Room Air Room Air 07/29/18 07/29/18 07/29/18 08:43 10:07 11:00 Temp 98.5 98.5 Pulse 52 Resp 18 B/P (MAP) 103/60 (74) Pulse Ox 95 O2 Delivery Room Air Room Air Room Air Intake and Output 07/28/18 07/28/18 07/29/18 15:00 23:00 07:00 Intake Total 50 ml Output Total 300 ml Balance 50 ml -300 ml JIM DYE APRN Jul 29, 2018 14:43
[2018-07-29 15:00] VITALS: BP 111/47
--- NOTE | 2018-07-29 15:33 | NUR ---
SW following. Discussed with RN, pt from home. Pt here with wounds. SW will continue to follow.
--- NOTE | 2018-07-29 16:37 | RAD ---
Chest, 2 views, 07/29/2018: HISTORY: Preop evaluation for possible bypass surgery Comparison is made to a study from 05/10/2018. The heart is of normal size. There are mild streaky bibasilar opacities compatible with scarring, although a component of linear atelectasis may also be present. No consolidating infiltrate is seen. There is no evidence of pleural fluid. Mild spurring is present in the spine. IMPRESSION: Mild bibasilar linear atelectasis and/or scarring. Electronically signed by: Tano Zhu MD (07/29/2018 4:33 PM) [facility]
[2018-07-29 19:00] VITALS: BP 109/58
[2018-07-29] MEDS: LACTOBACILLUS RHAMNOSUS GG 1 CAPSULE. PO SCH (21:56)
[2018-07-29] MEDS: ATORVASTATIN CALCIUM 40 MG TABLET. PO SCH (21:57)
[2018-07-29 23:00] VITALS: BP 104/58
[2018-07-30] MEDS: MEROPENEM 500 MG in IV NORMAL SALINE 50ML 50 ML IV SCH ×4 (00:16→17:33)
[2018-07-30 03:00] VITALS: BP 105/50
[2018-07-30 07:31] VITALS: BP 124/52
[2018-07-30] MEDS: ASPIRIN ENTERIC COATED 81 MG TABLET.DR. PO SCH (08:23)
[2018-07-30] MEDS: oxyCODONE/APAP 5/325 1 TAB TABLET PO PRN ×2 (08:45→17:33)
[2018-07-30] MEDS: LACTOBACILLUS RHAMNOSUS GG 1 CAPSULE. PO SCH ×2 (08:46→21:01)
[2018-07-30] MEDS: LINEZOLID 600 MG TABLET PO SCH ×2 (08:46→21:01)
--- NOTE | 2018-07-30 09:29 | PDOC ---
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
--- NOTE | 2018-07-30 09:44 | PDOC2 ---
CONSULT Date of Consult Date of Consult DATE: 07/30/18 TIME: 09:35 Reason for consultation: P vera Consult: Hematology oncology, Dr. 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 Regarding the P vera it is associated with erythrocytosis, chronic, worsen due to smoking likely, not associated with elevated white blood cells or platelets, and has improved with phlebotomy in the past, he was started on Hydrea after recent diagnosis as an inpatient but failed to show up for outpatient follow-up and was not on this prior to admission, he tells me I can order it. 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 Tobacco abuse Noncompliance Past surgical history: Right femoropopliteal bypass Hernia repair Allergies: No known drug allergies Medications: See attached list Social history: Active smoking, no alcohol, lives alone Review of systems: Chronic edema with dry skin and PVD changes, chronic nonhealing leg wounds, agitation, unable to get rest of 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 Physical exam: Vitals reviewed Gen.: thin elderly irritable man in no acute distress HEENT: mucous membranes dry, head normocephalic atraumatic Neck: Supple, no lymphadenopathy Lymph nodes: No palpable lymphadenopathy neck or axilla Lungs: Breathing comfortably, no evidence of respiratory distress Abdomen: Soft, nontender, nondistended Extremities: No cyanosis, does have bilateral lower extremity swelling, chronic PVD changes, ulceration Skin: Erythema and dry skin with chronic PVD changes bilateral lower extremities Neuro: Alert and oriented, using a walker and needing assistance to go to bathroom Psych: unpleasant mood, agitated affect Lab reviewed: Hemoglobin 17.9, creatinine 0.9, hematocrit 54.1, blood cultures negative, normal white blood cells and platelets Rads reviewed: Chest x-ray with mild by basilar linear atelectasis/scarring Right lower extremity ultrasound with no DVT Case discussed with: Patient, records reviewed in [facility] and [facility], including labs and radiology, please see note for summary details. 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 P vera: Recommend phlebotomy weekly for hematocrit greater than 45 (ordered Jul), will restart Hydrea 1000 mg daily, continue aspirin 81 mg daily Need for revascularization surgery: may be transferred to , fine for any anticoagulation as needed from his other physicians Cellulitis: On antibiotics Tobacco abuse: Recommend smoking cessation History of PE and P vera: Recommend DVT prophylaxis, we'll order Lovenox but certainly can be held if needed for possible surgery Disposition: Per others, he can follow-up with Dr. Puckett as an outpatient Thank you kindly for this consultation, and please don't hesitate to call with any further questions. Past Medical History Cardiovascular: Hyperlipidemia, Other (Peripheral vascular disease) Pulmonary: COPD, Pulmonary embolus, Other (Tobaccoism) GI: No pertinent hx Heme/Onc: Other (Polycythemia vera with thrombocytopenia) Musculoskeletal: Swelling (Severe bilateral lower leg) ENT: No pertinent hx Renal/: No pertinent hx Dermatology: Cellulitis, Other (Bilateral, chronic forefoot non-healing ulcers) Past Surgical History Past Surgical History: Hernia Repair, Other (Right femoral to popliteal bypass 2007) Family History Family History: No Significant Social History <1 pack per day (States he "does not inhale.") ALCOHOL: none Drugs: None Lives: Alone Current Problem List Problem List Problems Medical Problems: (1) Cellulitis of lower extremity Status: Acute Current Medications Current Medications Current Medications Fentanyl Citrate (Fentanyl 2ml Vial) 50 mcg 1X ONCE IV Last administered on 04/07at 18:52; Start 07/28/18 at 18:15; Stop 07/28/18 at 18:16; Status DC Clindamycin Phosphate 50 ml @ 100 mls/hr 1X ONCE IV Last administered on 07/28at 20:21; Start 07/28/18 at 20:00; Stop 07/28/18 at 20:29; Status DC Ondansetron HCl (Zofran) 4 mg PRN Q8HRS PRN IV NAUSEA/VOMITING; Start 07/28/18 at 20:00; Stop 07/29/18 at 08:11; Status DC Fentanyl Citrate (Fentanyl 2ml Vial) 50 mcg PRN Q1HR PRN IV PAIN Last administered on 07/29/18at 07:05; Start 07/28/18 at 20:00; Stop 07/29/18 at 19:59 ; Status DC Fentanyl Citrate (Fentanyl 2ml Vial) 50 mcg 1X ONCE IV Last administered on 04/07at 20:21; Start 07/28/18 at 20:15; Stop 07/28/18 at 20:16; Status DC Ondansetron HCl (Zofran) 4 mg PRN Q6HRS PRN IV NAUSEA/VOMITING; Start 07/29/18 at 08:15 Oxycodone/ Acetaminophen (Percocet 5/325) 1 tab PRN Q4HRS PRN PO PAIN Last administered on 07/30/18at 08:45; Start 07/29/18 at 08:15 Acetaminophen (Tylenol) 500 mg PRN Q6HRS PRN PO HEADACHE / TEMP; Start at 08:15 Clindamycin Phosphate 50 ml @ 100 mls/hr Q8HRS IV ; Start 07/29/18 at 09:00; Stop 07/29/18 at 09:21; Status DC Aspirin (Ecotrin) 81 mg DAILYWBKFT PO Last administered on 07/30/18at 08:23; Start 07/29/18 at 09:00 Atorvastatin Calcium (Lipitor) 40 mg QHS PO Last administered on 07/29/18at 21: 57; Start 07/29/18 at 21:00 Magnesium Hydroxide (Milk Of Magnesia) 400 mg PRN DAILY PRN PO CONSTIPATION Last administered on 07/30/18 08:45; Start 07/29/18 at 08:15 Oxycodone/ Acetaminophen (Percocet 5/325) 1 tab PRN Q6HRS PRN PO PAIN; Start at 08:15; Status UNV Linezolid (Zyvox) 600 mg BID PO Last administered on 07/30/18at 08:46; Start 05/07 at 09:30 Meropenem 500 mg/ Sodium Chloride 50 ml @ 100 mls/hr Q6HRS IV Last administered on 07/30/18at 06:07; Start 07/29/18 at 12:00 Micafungin Sodium 100 mg/Dextrose 100 ml @ 100 mls/hr Q24H IV Last administered on 07/29/18at 10:07; Start 07/29/18 at 10:00 Lactobacillus Rhamnosus (Culturelle) 1 cap BID PO Last administered on at 08:46; Start 07/29/18 at 21:00 Active Scripts Active Percocet 5-325 Mg Tablet (Oxycodone/Acetaminophen) 1 Each Tablet 1 Tab PO PRN Q6HRS PRN Aspirin Ec (Aspirin) 81 Mg Tablet. 81 Mg PO DAILYWBKFT Atorvastatin Calcium 40 Mg Tablet 40 Mg PO QHS Reported Snyder' Milk Of Magnesia (Magnesium Hydroxide) 400 Mg/5 Ml Oral.susp 400 Mg PO PRN DAILY PRN Doxycycline Hyclate 100 Mg Tablet. 1 Tab PO BID 1 Days Allergies Allergies: Coded Allergies: No Known Drug Allergies (Unverified , 09/22/16) Vitals VITALS Vital Signs Date Time Temp Pulse Resp B/P (MAP) Pulse Ox O2 Delivery O2 Flow Rate FiO2 07/30/18 08:45 16 Room Air 07/30/18 07:31 98.3 80 124/52 (76) 95 98.3 Labs Labs Laboratory Tests Test 07/28/18 18:38 White Blood Count 8.6 x10^3/uL (4.0-11.0) Red Blood Count 5.80 x10^6/uL (4.30-5.70) Hemoglobin 17.9 g/dL (13.0-17.5) Hematocrit 54.1 % (39.0-53.0) Mean Corpuscular Volume 93 fL (79-100) Mean Corpuscular Hemoglobin 31 pg (25-35) Mean Corpuscular Hemoglobin Concent 33 g/dL (31-37) Red Cell Distribution Width 16.7 % (11.5-14.5) Platelet Count 189 x10^3/uL (140-400) Neutrophils (%) (Auto) 76 % (31-73) Lymphocytes (%) (Auto) 13 % (24-48) Monocytes (%) (Auto) 9 % (0-9) Eosinophils (%) (Auto) 2 % (0-3) Basophils (%) (Auto) 1 % (0-3) Neutrophils # (Auto) 6.5 x10^3uL (1.8-7.7) Lymphocytes # (Auto) 1.1 x10^3/uL (1.0-4.8) Monocytes # (Auto) 0.8 x10^3/uL (0.0-1.1) Eosinophils # (Auto) 0.2 x10^3/uL (0.0-0.7) Basophils # (Auto) 0.0 x10^3/uL (0.0-0.2) Sodium Level 142 mmol/L (136-145) Potassium Level 4.3 mmol/L (3.5-5.1) Chloride Level 104 mmol/L (98-107) Carbon Dioxide Level 26 mmol/L (21-32) Anion Gap 12 (6-14) Blood Urea Nitrogen 11 mg/dL (8-26) Creatinine 0.9 mg/dL (0.7-1.3) Estimated GFR (Cockcroft-Gault) 81.6 BUN/Creatinine Ratio 12 (6-20) Glucose Level 92 mg/dL (70-99) Lactic Acid Level 1.6 mmol/L (0.4-2.0) Calcium Level 9.1 mg/dL (8.5-10.1) Total Bilirubin 0.7 mg/dL (0.2-1.0) Aspartate Amino Transf (AST/SGOT) 12 U/L (15-37) Alanine Aminotransferase (ALT/SGPT) 13 U/L (16-63) Alkaline Phosphatase 111 U/L (46-116) Total Protein 7.1 g/dL (6.4-8.2) Albumin 3.5 g/dL (3.4-5.0) Albumin/Globulin Ratio 1.0 (1.0-1.7) JULITO BARNETT MD Jul 30, 2018 09:44
[2018-07-30] MEDS: ENOXAPARIN 40 MG/0.4 ML SYRINGE. SQ SCH (10:38)
[2018-07-30] MEDS: MICAFUNGIN 100 MG in IV DEXTROSE 5% 100ML 100 ML IV SCH (10:38)
[2018-07-30] MEDS: HYDROXYUREA 500 MG CAPSULE PO SCH (10:47)
[2018-07-30 11:15] VITALS: BP 123/57
--- NOTE | 2018-07-30 12:26 | PDOC ---
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 Enlarged prostate. 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 bl leg cellulitis PAD with bl iliafemeral A occlusion hypotension, h/o dvt, PE tobacco abuse COPD polythemia vera PLAN: ADMIT 2 midnights Heme oncology //vascular, ID CONSULTED home meds Pain control iv micafungin/Meropenem/Zyvox vascular consult D/c tobacco, education provided 07/30 start Hydrea 1000 mg daily, // aspirin 81 mg daily plan transfer the patient to [facility] where hybrid operative suites are available. , if patient agrees Vitals Vitals Vital Signs Date Time Temp Pulse Resp B/P (MAP) Pulse Ox O2 Delivery O2 Flow Rate FiO2 07/30/18 11:15 98.0 97 18 123/57 (79) 94 Room Air 98.0 Physical Exam Physical Exam heent nad neck supple lungs clear heart s1s2 rr abd soft nt no organomegaly ext , dry flaky skin, rt toe has wound, rt dorsal foot has wound with drainage rawhide bone roller nad General: Alert, Cooperative, mild distress Heart: Regular rate (with occassional missed beats), Normal S1, Normal S2, No murmurs, Other (Palpable bilateral carotid, brachial and radial pulses. Unable to palpate femoral, popliteal, dorsalis pedal or post tibial pulses.) Lungs: Clear Abdomen: Normal bowel sounds, Soft, No tenderness Extremities: Other (Improved lower extremity swelling with diuresis in ER. ) Skin: Other (Well-healed right leg incision from previous bypass. Right forefoot odorous, open ulcer with necrotic tissue to wound base. Left forefoot skin discolored. Bilateral lower extremity erythema with cellulitis and dry- flaking skin. Extreme pain to very light palpation of toes and forefoot. Cracked fissures noted to plantar side of 1st toe. ) Labs LABS One or more of the following individualized dose reduction techniques were utilized for this examination: 1. Automated exposure control. 2. Adjustment of the mA and/or kV according to patient size. 3. Use of iterative reconstruction technique. Indication:ulcer to left foot TECHNIQUE: CT angiogram of the abdomen, pelvis and bilateral extrarenal of with IV contrast with multiplanar MIP reformats. COMPARISON: 09/22/2016 FINDINGS: Heart is normal in size. No pericardial or pleural effusion. Mild diffuse atherosclerotic disease seen of the suprarenal aorta. The celiac axis, splenic artery, left gastric artery, common hepatic artery, SMA, bilateral renal arteries are patent. Moderate atherosclerotic disease is seen of the infrarenal aorta with circumferential soft plaque and mild narrowing of the aortic lumen. 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 The right internal iliac artery supplied by lumbar collaterals. Mild narrowing seen in the proximal left common iliac artery which demonstrates circumferential soft plaque. There is complete occlusion of the left external iliac artery which is new from previous exam. The left internal iliac arteries patent. The bilateral common femoral arteries are occluded. The right superficial femoral artery and popliteal arteries are occluded. The right profunda femoris artery is patent. The right anterior tibial artery is nonvisualized which may be secondary to diffuse high-grade stenosis or occlusion. The right peroneal artery is patent up to the level of hindfoot. The right posterior tibial artery is patent up to the level of plantar branches. The peroneal and posterior tibial arteries are supplied by collaterals from genicular arteries. The left superficial femoral and popliteal artery is occluded. The left profunda femoris artery is patent and is supplied by gluteal collaterals. The anterior tibial artery is nonopacified likely secondary to diffuse high-grade stenosis or occlusion. The left peroneal arteries are visualized. The posterior tibial artery is patent up to the level of plantar branches. Mild bibasilar subsegmental atelectasis or scarring seen in the subpleural region. The arterial phase appearance of the liver, spleen, gallbladder, pancreas, adrenals and kidneys is within normal limits. No enlarged retroperitoneal or pelvic adenopathy. No free pelvic fluid or ascites. Small bilateral fat-containing inguinal hernias. Prostate is enlarged measuring 5.8 x 4.8 cm. Urinary bladder within normal limits. No bowel obstruction. No enlarged retroperitoneal or pelvic adenopathy. No pneumoperitoneum. Small omental fat-containing medical hernia. Enlarged right groin lymph node measuring 2.7 x 1.0 cm and left groin lymph node measuring 1.8 x 1.1 cm. No suspicious bony lesion. IMPRESSION: 1. 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 2. 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 3. Nonvisualization of the bilateral anterior tibial arteries be secondary to a diffuse high-grade stenosis or complete occlusion. Please see above for details. 4. Enlarged prostate. Correlate with physical exam and PSA. 5. 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 6. Mildly enlarged bilateral inguinal lymph nodes, nonspecific most likely reactive. Critical findings were identified on 05/11/2018 3:39 PM, read back and verified with Nurse Susan on 05/11/2018 3:[address] Gregorio Britton DO. Electronically signed by: Gregorio Britton DO (05/11/2018 3:58 PM) [facility] Left leg venous Doppler study: Clinical indications: Left leg and edema. Greater saphenous vein has been surgically removed. Findings: Duplex sonography (including xiong scale evaluation and color flow and waveform spectral analysis) of the proximal aspect of the profunda femoral vein and the entire length of the common femoral and superficial femoral and popliteal veins and the tibioperoneal trunk and the proximal aspect of the posterior tibial and peroneal veins of the left leg was performed. Normal compressibility, augmentation of color Doppler flow after calf compression, and respiratory variation of Doppler flow is seen. Thus, there are no sonographic findings of deep venous thrombosis within these veins. Impression: There are no sonographic findings of deep venous thrombosis within the veins discussed above of the left lower extremity. Right leg venous Doppler study: Clinical indications: Right leg edema. Greater saphenous vein has been surgically removed. Findings: Duplex sonography (including xiong scale evaluation and color flow and waveform spectral analysis) of the proximal aspect of the profunda femoral vein and the entire length of the common femoral and superficial femoral and popliteal veins and the tibioperoneal trunk and the proximal aspect of the posterior tibial and peroneal veins of the right leg was performed. Normal compressibility, augmentation of color Doppler flow after calf compression, and respiratory variation of Doppler flow is seen. Thus, there are no sonographic findings of deep venous thrombosis within these veins. Impression: There are no sonographic findings of deep venous thrombosis within the veins discussed above of the right lower extremity. Electronically signed by: Benny Swartz MD (07/28/2018 10:49 PM) [facility] DICTATED and SIGNED BY: BENNY SWARTZ MD Assessment and Plan Assessmemt and Plan Problems Medical Problems: (1) Cellulitis of lower extremity Status: Acute Comment Review of Relevant I have reviewed the following items lee (where applicable) has been applied. Labs Laboratory Tests Test 07/28/18 18:38 White Blood Count 8.6 x10^3/uL (4.0-11.0) Red Blood Count 5.80 x10^6/uL (4.30-5.70) Hemoglobin 17.9 g/dL (13.0-17.5) Hematocrit 54.1 % (39.0-53.0) Mean Corpuscular Volume 93 fL (79-100) Mean Corpuscular Hemoglobin 31 pg (25-35) Mean Corpuscular Hemoglobin Concent 33 g/dL (31-37) Red Cell Distribution Width 16.7 % (11.5-14.5) Platelet Count 189 x10^3/uL (140-400) Neutrophils (%) (Auto) 76 % (31-73) Lymphocytes (%) (Auto) 13 % (24-48) Monocytes (%) (Auto) 9 % (0-9) Eosinophils (%) (Auto) 2 % (0-3) Basophils (%) (Auto) 1 % (0-3) Neutrophils # (Auto) 6.5 x10^3uL (1.8-7.7) Lymphocytes # (Auto) 1.1 x10^3/uL (1.0-4.8) Monocytes # (Auto) 0.8 x10^3/uL (0.0-1.1) Eosinophils # (Auto) 0.2 x10^3/uL (0.0-0.7) Basophils # (Auto) 0.0 x10^3/uL (0.0-0.2) Sodium Level 142 mmol/L (136-145) Potassium Level 4.3 mmol/L (3.5-5.1) Chloride Level 104 mmol/L (98-107) Carbon Dioxide Level 26 mmol/L (21-32) Anion Gap 12 (6-14) Blood Urea Nitrogen 11 mg/dL (8-26) Creatinine 0.9 mg/dL (0.7-1.3) Estimated GFR (Cockcroft-Gault) 81.6 BUN/Creatinine Ratio 12 (6-20) Glucose Level 92 mg/dL (70-99) Lactic Acid Level 1.6 mmol/L (0.4-2.0) Calcium Level 9.1 mg/dL (8.5-10.1) Total Bilirubin 0.7 mg/dL (0.2-1.0) Aspartate Amino Transf (AST/SGOT) 12 U/L (15-37) Alanine Aminotransferase (ALT/SGPT) 13 U/L (16-63) Alkaline Phosphatase 111 U/L (46-116) Total Protein 7.1 g/dL (6.4-8.2) Albumin 3.5 g/dL (3.4-5.0) Albumin/Globulin Ratio 1.0 (1.0-1.7) Microbiology 07/28/18 Blood Culture - Preliminary, Resulted NO GROWTH AFTER 1 DAY Medications Current Medications Fentanyl Citrate (Fentanyl 2ml Vial) 50 mcg 1X ONCE IV Last administered on 04/07at 18:52; Start 07/28/18 at 18:15; Stop 07/28/18 at 18:16; Status DC Clindamycin Phosphate 50 ml @ 100 mls/hr 1X ONCE IV Last administered on 07/28at 20:21; Start 07/28/18 at 20:00; Stop 07/28/18 at 20:29; Status DC Ondansetron HCl (Zofran) 4 mg PRN Q8HRS PRN IV NAUSEA/VOMITING; Start 07/28/18 at 20:00; Stop 07/29/18 at 08:11; Status DC Fentanyl Citrate (Fentanyl 2ml Vial) 50 mcg PRN Q1HR PRN IV PAIN Last administered on 07/29/18at 07:05; Start 07/28/18 at 20:00; Stop 07/29/18 at 19:59 ; Status DC Fentanyl Citrate (Fentanyl 2ml Vial) 50 mcg 1X ONCE IV Last administered on 04/07at 20:21; Start 07/28/18 at 20:15; Stop 07/28/18 at 20:16; Status DC Ondansetron HCl (Zofran) 4 mg PRN Q6HRS PRN IV NAUSEA/VOMITING; Start 07/29/18 at 08:15 Oxycodone/ Acetaminophen (Percocet 5/325) 1 tab PRN Q4HRS PRN PO PAIN Last administered on 07/30/18 08:45; Start 07/29/18 at 08:15 Acetaminophen (Tylenol) 500 mg PRN Q6HRS PRN PO HEADACHE / TEMP; Start at 08:15 Clindamycin Phosphate 50 ml @ 100 mls/hr Q8HRS IV ; Start 07/29/18 at 09:00; Stop 07/29/18 at 09:21; Status DC Aspirin (Ecotrin) 81 mg DAILYWBKFT PO Last administered on 07/30/18 08:23; Start 07/29/18 at 09:00 Atorvastatin Calcium (Lipitor) 40 mg QHS PO Last administered on 07/29/18 21: 57; Start 07/29/18 at 21:00 Magnesium Hydroxide (Milk Of Magnesia) 400 mg PRN DAILY PRN PO CONSTIPATION Last administered on 07/30/18 08:45; Start 07/29/18 at 08:15 Oxycodone/ Acetaminophen (Percocet 5/325) 1 tab PRN Q6HRS PRN PO PAIN; Start at 08:15; Status UNV Linezolid (Zyvox) 600 mg BID PO Last administered on 07/30/18 08:46; Start 05/07 at 09:30 Meropenem 500 mg/ Sodium Chloride 50 ml @ 100 mls/hr Q6HRS IV Last administered on 07/30/18 12:14; Start 07/29/18 at 12:00 Micafungin Sodium 100 mg/Dextrose 100 ml @ 100 mls/hr Q24H IV Last administered on 07/30/18 10:38; Start 07/29/18 at 10:00 Lactobacillus Rhamnosus (Culturelle) 1 cap BID PO Last administered on 08:46; Start 07/29/18 at 21:00 Hydroxyurea (Hydrea) 1,000 mg DAILY PO Last administered on 07/30/18 10:47; Start 07/30/18 at 10:00 Enoxaparin Sodium (Lovenox 40mg Syringe) 40 mg Q24H SQ Last administered on 10:38; Start 07/30/18 at 10:00 Active Scripts Active Percocet 5-325 Mg Tablet (Oxycodone/Acetaminophen) 1 Each Tablet 1 Tab PO PRN Q6HRS PRN Aspirin Ec (Aspirin) 81 Mg Tablet. 81 Mg PO DAILYWBKFT Atorvastatin Calcium 40 Mg Tablet 40 Mg PO QHS Reported Snyder' Milk Of Magnesia (Magnesium Hydroxide) 400 Mg/5 Ml Oral.susp 400 Mg PO PRN DAILY PRN Doxycycline Hyclate 100 Mg Tablet. 1 Tab PO BID 1 Days Vitals/I & O Vital Sign - Last 24 Hours 07/29/18 07/29/18 07/29/18 07/29/18 15:00 15:42 19:00 20:00 Temp 98.1 98.3 98.1 98.3 Pulse 78 89 Resp 18 18 B/P (MAP) 111/47 (68) 109/58 (75) Pulse Ox 93 95 O2 Delivery Room Air Room Air Room Air Room Air 07/29/18 07/29/18 07/30/18 07/30/18 21:56 23:00 03:00 07:31 Temp 98.6 98.3 98.3 98.6 98.3 98.3 Pulse 83 83 80 Resp 20 18 18 20 B/P (MAP) 104/58 (73) 105/50 (68) 124/52 (76) Pulse Ox 95 92 95 O2 Delivery Room Air Room Air Room Air Room Air 07/30/18 07/30/18 07/30/18 07/30/18 08:00 08:45 09:45 11:15 Temp 98.0 98.0 Pulse 97 Resp 16 16 18 B/P (MAP) 123/57 (79) Pulse Ox 94 O2 Delivery Room Air Room Air Room Air Room Air Intake and Output 07/29/18 07/29/18 07/30/18 15:00 23:00 07:00 Intake Total 900 ml Output Total 250 ml 625 ml Balance -250 ml 275 ml NAZIA MORRIS MD Jul 30, 2018 12:26
--- NOTE | 2018-07-30 13:35 | PDOC ---
PROGRESS NOTES Subjective Subjective Pt was seen and examined in his room again this afternoon with JOAQUIN Caro We had a very long discussion with him regarding his significant multi-level vascular disease and his need for revascularization to heal the wounds on his feet. I was very clear with him that he is will end up with major amputation without vascular surgery. He is convinced that there is a conspiracy to get him into an experimental treatment / study. He believes there is a toxin in his legs causing his wounds and that we need to address this. He told me on multiple occasions that "something nefarious is going on". I was clear with him that I was not here or involved in his previous care and that I am simply trying to do what I believe is best for him now and save his leg from amputation. he is also very upset about being admitted in the past and not having had surgery then -- this was a long complicated process and he has also not shown up for follow up appointments. Again, I recommended transfer to where I have more support and tools to do his surgery (hybrid operating room, ICU care, [place] catheter, etc) He still is not convinced and says he will think about it and decide tomorrow. He is not septic so we can wait a little bit of time but he really should have revascularization as soon as possible given his large foot wound. Again, Ms Tim and I spent over an hour today reviewing his films and attempting to discuss this / coordinate care. We also discussed the case with his hospitalist. Objective Objective Vital Signs Date Time Temp Pulse Resp B/P (MAP) Pulse Ox O2 Delivery O2 Flow Rate FiO2 07/30/18 11:15 98.0 97 18 123/57 (79) 94 Room Air 98.0 Intake and Output 07/30/18 06:59 Intake Total 900 ml Output Total 875 ml Balance 25 ml Intake Oral 900 ml Output Urine Total 875 ml # Voids 2 Assessment Assessment Problems Medical Problems: (1) Cellulitis of lower extremity Status: Acute Plan Plan of Care will re-visit with him tomorrow. Would plan on transfer to for hematology Rx and revascularization (likely staged) Comment Review of Relevant I have reviewed the following items lee (where applicable) has been applied. Labs Laboratory Tests Test 07/28/18 18:38 White Blood Count 8.6 x10^3/uL (4.0-11.0) Red Blood Count 5.80 x10^6/uL (4.30-5.70) Hemoglobin 17.9 g/dL (13.0-17.5) Hematocrit 54.1 % (39.0-53.0) Mean Corpuscular Volume 93 fL (79-100) Mean Corpuscular Hemoglobin 31 pg (25-35) Mean Corpuscular Hemoglobin Concent 33 g/dL (31-37) Red Cell Distribution Width 16.7 % (11.5-14.5) Platelet Count 189 x10^3/uL (140-400) Neutrophils (%) (Auto) 76 % (31-73) Lymphocytes (%) (Auto) 13 % (24-48) Monocytes (%) (Auto) 9 % (0-9) Eosinophils (%) (Auto) 2 % (0-3) Basophils (%) (Auto) 1 % (0-3) Neutrophils # (Auto) 6.5 x10^3uL (1.8-7.7) Lymphocytes # (Auto) 1.1 x10^3/uL (1.0-4.8) Monocytes # (Auto) 0.8 x10^3/uL (0.0-1.1) Eosinophils # (Auto) 0.2 x10^3/uL (0.0-0.7) Basophils # (Auto) 0.0 x10^3/uL (0.0-0.2) Sodium Level 142 mmol/L (136-145) Potassium Level 4.3 mmol/L (3.5-5.1) Chloride Level 104 mmol/L (98-107) Carbon Dioxide Level 26 mmol/L (21-32) Anion Gap 12 (6-14) Blood Urea Nitrogen 11 mg/dL (8-26) Creatinine 0.9 mg/dL (0.7-1.3) Estimated GFR (Cockcroft-Gault) 81.6 BUN/Creatinine Ratio 12 (6-20) Glucose Level 92 mg/dL (70-99) Lactic Acid Level 1.6 mmol/L (0.4-2.0) Calcium Level 9.1 mg/dL (8.5-10.1) Total Bilirubin 0.7 mg/dL (0.2-1.0) Aspartate Amino Transf (AST/SGOT) 12 U/L (15-37) Alanine Aminotransferase (ALT/SGPT) 13 U/L (16-63) Alkaline Phosphatase 111 U/L (46-116) Total Protein 7.1 g/dL (6.4-8.2) Albumin 3.5 g/dL (3.4-5.0) Albumin/Globulin Ratio 1.0 (1.0-1.7) Microbiology 07/28/18 Blood Culture - Preliminary, Resulted NO GROWTH AFTER 1 DAY Medications Current Medications Fentanyl Citrate (Fentanyl 2ml Vial) 50 mcg 1X ONCE IV Last administered on 04/07at 18:52; Start 07/28/18 at 18:15; Stop 07/28/18 at 18:16; Status DC Clindamycin Phosphate 50 ml @ 100 mls/hr 1X ONCE IV Last administered on 07/28at 20:21; Start 07/28/18 at 20:00; Stop 07/28/18 at 20:29; Status DC Ondansetron HCl (Zofran) 4 mg PRN Q8HRS PRN IV NAUSEA/VOMITING; Start 07/28/18 at 20:00; Stop 07/29/18 at 08:11; Status DC Fentanyl Citrate (Fentanyl 2ml Vial) 50 mcg PRN Q1HR PRN IV PAIN Last administered on 07/29/18at 07:05; Start 07/28/18 at 20:00; Stop 07/29/18 at 19:59 ; Status DC Fentanyl Citrate (Fentanyl 2ml Vial) 50 mcg 1X ONCE IV Last administered on 04/07at 20:21; Start 07/28/18 at 20:15; Stop 07/28/18 at 20:16; Status DC Ondansetron HCl (Zofran) 4 mg PRN Q6HRS PRN IV NAUSEA/VOMITING; Start 07/29/18 at 08:15 Oxycodone/ Acetaminophen (Percocet 5/325) 1 tab PRN Q4HRS PRN PO PAIN Last administered on 07/30/18at 08:45; Start 07/29/18 at 08:15 Acetaminophen (Tylenol) 500 mg PRN Q6HRS PRN PO HEADACHE / TEMP; Start at 08:15 Clindamycin Phosphate 50 ml @ 100 mls/hr Q8HRS IV ; Start 07/29/18 at 09:00; Stop 07/29/18 at 09:21; Status DC Aspirin (Ecotrin) 81 mg DAILYWBKFT PO Last administered on 07/30/18 08:23; Start 07/29/18 at 09:00 Atorvastatin Calcium (Lipitor) 40 mg QHS PO Last administered on 07/29/18 21: 57; Start 07/29/18 at 21:00 Magnesium Hydroxide (Milk Of Magnesia) 400 mg PRN DAILY PRN PO CONSTIPATION Last administered on 07/30/18 08:45; Start 07/29/18 at 08:15 Oxycodone/ Acetaminophen (Percocet 5/325) 1 tab PRN Q6HRS PRN PO PAIN; Start at 08:15; Status UNV Linezolid (Zyvox) 600 mg BID PO Last administered on 07/30/18 08:46; Start 05/07 at 09:30 Meropenem 500 mg/ Sodium Chloride 50 ml @ 100 mls/hr Q6HRS IV Last administered on 07/30/18 12:14; Start 07/29/18 at 12:00 Micafungin Sodium 100 mg/Dextrose 100 ml @ 100 mls/hr Q24H IV Last administered on 07/30/18 10:38; Start 07/29/18 at 10:00 Lactobacillus Rhamnosus (Culturelle) 1 cap BID PO Last administered on 08:46; Start 07/29/18 at 21:00 Hydroxyurea (Hydrea) 1,000 mg DAILY PO Last administered on 07/30/18 10:47; Start 07/30/18 at 10:00 Enoxaparin Sodium (Lovenox 40mg Syringe) 40 mg Q24H SQ Last administered on 10:38; Start 07/30/18 at 10:00 Active Scripts Active Percocet 5-325 Mg Tablet (Oxycodone/Acetaminophen) 1 Each Tablet 1 Tab PO PRN Q6HRS PRN Aspirin Ec (Aspirin) 81 Mg Tablet. 81 Mg PO DAILYWBKFT Atorvastatin Calcium 40 Mg Tablet 40 Mg PO QHS Reported Snyder' Milk Of Magnesia (Magnesium Hydroxide) 400 Mg/5 Ml Oral.susp 400 Mg PO PRN DAILY PRN Doxycycline Hyclate 100 Mg Tablet. 1 Tab PO BID 1 Days Vitals/I & O Vital Sign - Last 24 Hours 07/29/18 07/29/18 07/29/18 07/29/18 15:00 15:42 19:00 20:00 Temp 98.1 98.3 98.1 98.3 Pulse 78 89 Resp 18 18 B/P (MAP) 111/47 (68) 109/58 (75) Pulse Ox 93 95 O2 Delivery Room Air Room Air Room Air Room Air 07/29/18 07/29/18 07/30/18 07/30/18 21:56 23:00 03:00 07:31 Temp 98.6 98.3 98.3 98.6 98.3 98.3 Pulse 83 83 80 Resp 20 18 18 20 B/P (MAP) 104/58 (73) 105/50 (68) 124/52 (76) Pulse Ox 95 92 95 O2 Delivery Room Air Room Air Room Air Room Air 07/30/18 07/30/18 07/30/18 07/30/18 08:00 08:45 09:45 11:15 Temp 98.0 98.0 Pulse 97 Resp 16 16 18 B/P (MAP) 123/57 (79) Pulse Ox 94 O2 Delivery Room Air Room Air Room Air Room Air Intake and Output 07/29/18 07/29/18 07/30/18 14:59 22:59 06:59 Intake Total 900 ml Output Total 250 ml 625 ml Balance -250 ml 275 ml TINO ELLISON MD Jul 30, 2018 13:35
[2018-07-30 15:03] VITALS: BP 114/53
--- NOTE | 2018-07-30 15:21 | NUR ---
SW following for discharge planning. Discussed with RN, pt is from home. RN spoke of possible [facility] transfer. Chart reviewed, pt deciding on what to do. RN advised no SW needs at this time. SW will continue to follow.
[2018-07-30 19:00] VITALS: BP 101/42
[2018-07-30] MEDS: ATORVASTATIN CALCIUM 40 MG TABLET. PO SCH (21:01)
[2018-07-30 23:00] VITALS: BP 130/41
[2018-07-31] MEDS: MEROPENEM 500 MG in IV NORMAL SALINE 50ML 50 ML IV SCH ×2 (00:22→05:19)
[2018-07-31] MEDS: oxyCODONE/APAP 5/325 1 TAB TABLET PO PRN ×4 (00:23→20:02)
[2018-07-31 03:00] VITALS: BP 106/55
[2018-07-31 05:22] LABS: BASO % 0 % (0-3); EOS # 0.2 x10^3/uL (0.0-0.7); EOS % 4 % (0-3); HEMATOCRIT 50.4 % (39.0-53.0); LYMPH # 1.2 x10^3/uL (1.0-4.8); LYMPH % 19 % (24-48); MEAN CORPUSCULAR HEMOGLOBIN 31 pg (25-35); MEAN CORPUSCULAR HGB CONC 34 g/dL (31-37); MEAN CORPUSCULAR VOLUME 93 fL (79-100); MONO # 0.8 x10^3/uL (0.0-1.1); MONO % 13 % (0-9); NEUT # 4.2 x10^3uL (1.8-7.7); NEUT % 64 % (31-73); PLATELET COUNT 161 x10^3/uL (140-400); RED BLOOD COUNT 5.42 x10^6/uL (4.30-5.70); RED CELL DISTRIBUTION WIDTH 16.4 % (11.5-14.5); WHITE BLOOD COUNT 6.5 x10^3/uL (4.0-11.0)
[2018-07-31 06:04] LABS: ALBUMIN 2.6 g/dL (3.4-5.0); ALBUMIN/GLOBULIN RATIO 0.7 (1.0-1.7); CALCIUM 8.5 mg/dL (8.5-10.1); CREATININE 0.8 mg/dL (0.7-1.3); GFR 93.5; POTASSIUM 3.6 mmol/L (3.5-5.1); TOTAL BILIRUBIN 0.9 mg/dL (0.2-1.0); TOTAL PROTEIN 6.6 g/dL (6.4-8.2)
[2018-07-31 07:00] VITALS: BP 122/61
[2018-07-31] MEDS: ASPIRIN ENTERIC COATED 81 MG TABLET.DR. PO SCH (07:54)
[2018-07-31] MEDS: LINEZOLID 600 MG TABLET PO SCH ×2 (09:05→20:06)
[2018-07-31] MEDS: LACTOBACILLUS RHAMNOSUS GG 1 CAPSULE. PO SCH ×2 (09:05→20:06)
[2018-07-31] MEDS: HYDROXYUREA 500 MG CAPSULE PO SCH (09:32)
--- NOTE | 2018-07-31 10:16 | PDOC ---
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 Labs Lab Laboratory Tests Test 07/31/18 04:10 White Blood Count 6.5 x10^3/uL (4.0-11.0) Red Blood Count 5.42 x10^6/uL (4.30-5.70) Hemoglobin 17.0 g/dL (13.0-17.5) Hematocrit 50.4 % (39.0-53.0) Mean Corpuscular Volume 93 fL (79-100) Mean Corpuscular Hemoglobin 31 pg (25-35) Mean Corpuscular Hemoglobin Concent 34 g/dL (31-37) Red Cell Distribution Width 16.4 % (11.5-14.5) Platelet Count 161 x10^3/uL (140-400) Neutrophils (%) (Auto) 64 % (31-73) Lymphocytes (%) (Auto) 19 % (24-48) Monocytes (%) (Auto) 13 % (0-9) Eosinophils (%) (Auto) 4 % (0-3) Basophils (%) (Auto) 0 % (0-3) Neutrophils # (Auto) 4.2 x10^3uL (1.8-7.7) Lymphocytes # (Auto) 1.2 x10^3/uL (1.0-4.8) Monocytes # (Auto) 0.8 x10^3/uL (0.0-1.1) Eosinophils # (Auto) 0.2 x10^3/uL (0.0-0.7) Basophils # (Auto) 0.0 x10^3/uL (0.0-0.2) Sodium Level 141 mmol/L (136-145) Potassium Level 3.6 mmol/L (3.5-5.1) Chloride Level 104 mmol/L (98-107) Carbon Dioxide Level 26 mmol/L (21-32) Anion Gap 11 (6-14) Blood Urea Nitrogen 12 mg/dL (8-26) Creatinine 0.8 mg/dL (0.7-1.3) Estimated GFR (Cockcroft-Gault) 93.5 BUN/Creatinine Ratio 15 (6-20) Glucose Level 85 mg/dL (70-99) Calcium Level 8.5 mg/dL (8.5-10.1) Total Bilirubin 0.9 mg/dL (0.2-1.0) Aspartate Amino Transf (AST/SGOT) 19 U/L (15-37) Alanine Aminotransferase (ALT/SGPT) 9 U/L (16-63) Alkaline Phosphatase 80 U/L (46-116) Total Protein 6.6 g/dL (6.4-8.2) Albumin 2.6 g/dL (3.4-5.0) Albumin/Globulin Ratio 0.7 (1.0-1.7) Micro Microbiology 07/28/18 Blood Culture - Preliminary, Resulted NO GROWTH AFTER 1 DAY Objective Assessment RLE cellulitis R foot wound PAD Tobacco abuse H/o MSSA/Enterobacter Tinea Plan Plan of Care micafungin/Meropenem/Zyvox,,, change t o po zyvox and cipro vascular at vs d/c D/c tobacco F/u labs and cults local wound care ROLO GALVAN MD Jul 31, 2018 10:15
[2018-07-31] MEDS ORDERED: LINE600T PO (10:31)
[2018-07-31] MEDS ORDERED: CIPR250T30 PO (10:31)
[2018-07-31] MEDS ORDERED: HYDR500C PO (10:31)
--- NOTE | 2018-07-31 10:32 | SNU/HH DC ---
DISCHARGE ORDERS DISCHARGE INFORMATION: DISCHARGE DATE: Jul 31, 2018 FINAL DIAGNOSIS Problems Medical Problems: (1) Cellulitis of lower extremity Status: Acute CONDITION ON DISCHARGE: Stable CODE STATUS: Code Status: Full LONG-TERM: SNF STAY <30 DAYS: No HOSPICE: HOSPICE: No HOSPICE EVAL & TREAT: No LTAC: ADMIT TO LTAC: No POST DISCHARGE ORDERS: ACTIVITY ORDERS: Activity as tolerated DIET AFTER DISCHARGE: Cardiac WOUND/INCISION CARE: Change dressing CHECKS AFTER DISCHARGE: CHECKS AFTER DISCHARGE: Check blood press - daily, Check blood sugar, ac/hs TREATMENT/EQUIPMENT ORDERS: ADAPTIVE EQUIPMENT NEEDED: None Physical Therapy For: Evalulation/Treatment Occupational Therapy For: Evaluation/Treatment DISCHARGE MEDICATIONS: Home Meds Active Scripts Hydroxyurea (HYDREA) 500 Mg Capsule, 1000 MG PO DAILY for p vera MDD 1 for 30 Days, #60 CAP Prov:TYRELL YEBOAH MD 07/31/18 Linezolid (ZYVOX) 600 Mg Tablet, 600 MG PO BID for wound, leg MDD 1 for 10 Days , #20 TAB Prov:TYRELL YEBOAH MD 07/31/18 Ciprofloxacin Hcl (CIPRO) 250 Mg Tablet, 500 MG PO BID for wound, legs MDD 1 for 10 Days, #40 TAB Prov:TYRELL YEBOAH MD 07/31/18 Oxycodone/Apap 5-325 (PERCOCET 5-325 MG TABLET ) 1 Each Tablet, 1 TAB PO PRN Q6HRS PRN for PAIN, #30 TAB 0 Refills Prov:AUSTEN GODWIN MD 06/11/18 Aspirin (ASPIRIN EC) 81 Mg Tablet.dr, 81 MG PO DAILYWBKFT for clot prevention, # 100 TAB.SR Prov:AUSTEN GODWIN MD 05/16/18 Atorvastatin Calcium (ATORVASTATIN CALCIUM) 40 Mg Tablet, 40 MG PO QHS for cholesterol, #30 TAB Prov:AUSTEN GODWIN MD 05/16/18 Reported Medications Magnesium Hydroxide (CRUZ' MILK OF MAGNESIA) 400 Mg/5 Ml Oral.susp, 400 MG PO PRN DAILY PRN for CONSTIPATION, MISC 07/28/18 Doxycycline Hyclate (DOXYCYCLINE HYCLATE) 100 Mg Tablet.dr, 1 TAB PO BID for cellulitis for 1 Day, #2 TAB 07/28/18 TYRELL YEBOAH MD Jul 31, 2018 10:32
--- NOTE | 2018-07-31 10:36 | PDOC3 ---
Discharge Summary Visit Information Date of Admission: Jul 28, 2018 Date of Discharge: Jul 31, 2018 Admitting Diagnosis Comment: PAD bilateral lower legs with acute on chronic nonhealing wounds bl leg cellulitis PAD with bl iliafemeral A occlusion hypotension, resolved h/o dvt, PE tobacoism COPD polythemia vera Final Diagnosis Problems Medical Problems: (1) Cellulitis of lower extremity Status: Acute Brief Hospital Course Allergies Allergies Coded Allergies Type Severity Reaction Last Updated Verified No Known Drug Allergies 09/22/16 No Vital Signs Vital Signs Date Time Temp Pulse Resp B/P (MAP) Pulse Ox O2 Delivery O2 Flow Rate FiO2 07/31/18 08:20 Room Air 07/31/18 07:00 61 16 122/61 (81) 92 07/31/18 03:00 97.9 97.9 Lab Results Laboratory Tests Test 07/31/18 04:10 White Blood Count 6.5 x10^3/uL (4.0-11.0) Red Blood Count 5.42 x10^6/uL (4.30-5.70) Hemoglobin 17.0 g/dL (13.0-17.5) Hematocrit 50.4 % (39.0-53.0) Mean Corpuscular Volume 93 fL (79-100) Mean Corpuscular Hemoglobin 31 pg (25-35) Mean Corpuscular Hemoglobin Concent 34 g/dL (31-37) Red Cell Distribution Width 16.4 % (11.5-14.5) Platelet Count 161 x10^3/uL (140-400) Neutrophils (%) (Auto) 64 % (31-73) Lymphocytes (%) (Auto) 19 % (24-48) Monocytes (%) (Auto) 13 % (0-9) Eosinophils (%) (Auto) 4 % (0-3) Basophils (%) (Auto) 0 % (0-3) Neutrophils # (Auto) 4.2 x10^3uL (1.8-7.7) Lymphocytes # (Auto) 1.2 x10^3/uL (1.0-4.8) Monocytes # (Auto) 0.8 x10^3/uL (0.0-1.1) Eosinophils # (Auto) 0.2 x10^3/uL (0.0-0.7) Basophils # (Auto) 0.0 x10^3/uL (0.0-0.2) Sodium Level 141 mmol/L (136-145) Potassium Level 3.6 mmol/L (3.5-5.1) Chloride Level 104 mmol/L (98-107) Carbon Dioxide Level 26 mmol/L (21-32) Anion Gap 11 (6-14) Blood Urea Nitrogen 12 mg/dL (8-26) Creatinine 0.8 mg/dL (0.7-1.3) Estimated GFR (Cockcroft-Gault) 93.5 BUN/Creatinine Ratio 15 (6-20) Glucose Level 85 mg/dL (70-99) Calcium Level 8.5 mg/dL (8.5-10.1) Total Bilirubin 0.9 mg/dL (0.2-1.0) Aspartate Amino Transf (AST/SGOT) 19 U/L (15-37) Alanine Aminotransferase (ALT/SGPT) 9 U/L (16-63) Alkaline Phosphatase 80 U/L (46-116) Total Protein 6.6 g/dL (6.4-8.2) Albumin 2.6 g/dL (3.4-5.0) Albumin/Globulin Ratio 0.7 (1.0-1.7) Laboratory Tests Test 07/31/18 04:10 White Blood Count 6.5 x10^3/uL (4.0-11.0) Red Blood Count 5.42 x10^6/uL (4.30-5.70) Hemoglobin 17.0 g/dL (13.0-17.5) Hematocrit 50.4 % (39.0-53.0) Mean Corpuscular Volume 93 fL (79-100) Mean Corpuscular Hemoglobin 31 pg (25-35) Mean Corpuscular Hemoglobin Concent 34 g/dL (31-37) Red Cell Distribution Width 16.4 % (11.5-14.5) Platelet Count 161 x10^3/uL (140-400) Neutrophils (%) (Auto) 64 % (31-73) Lymphocytes (%) (Auto) 19 % (24-48) Monocytes (%) (Auto) 13 % (0-9) Eosinophils (%) (Auto) 4 % (0-3) Basophils (%) (Auto) 0 % (0-3) Neutrophils # (Auto) 4.2 x10^3uL (1.8-7.7) Lymphocytes # (Auto) 1.2 x10^3/uL (1.0-4.8) Monocytes # (Auto) 0.8 x10^3/uL (0.0-1.1) Eosinophils # (Auto) 0.2 x10^3/uL (0.0-0.7) Basophils # (Auto) 0.0 x10^3/uL (0.0-0.2) Sodium Level 141 mmol/L (136-145) Potassium Level 3.6 mmol/L (3.5-5.1) Chloride Level 104 mmol/L (98-107) Carbon Dioxide Level 26 mmol/L (21-32) Anion Gap 11 (6-14) Blood Urea Nitrogen 12 mg/dL (8-26) Creatinine 0.8 mg/dL (0.7-1.3) Estimated GFR (Cockcroft-Gault) 93.5 BUN/Creatinine Ratio 15 (6-20) Glucose Level 85 mg/dL (70-99) Calcium Level 8.5 mg/dL (8.5-10.1) Total Bilirubin 0.9 mg/dL (0.2-1.0) Aspartate Amino Transf (AST/SGOT) 19 U/L (15-37) Alanine Aminotransferase (ALT/SGPT) 9 U/L (16-63) Alkaline Phosphatase 80 U/L (46-116) Total Protein 6.6 g/dL (6.4-8.2) Albumin 2.6 g/dL (3.4-5.0) Albumin/Globulin Ratio 0.7 (1.0-1.7) Brief Hospital Course Mr. Flores is a 78 old white male who has significant PAD, multiple admissions related to PAD complications including wounds etc. 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 Puckett. Also history of COPD tobaccoism, history of PE or DVT not sure if on OAC-? Anyways poor historian, some paranoia, hard to keep him focused and focuses on issues regarding "poisoning his legs". In any case severe PAD even amputation might not be able to solve his severe PAD problems but now he has complicated wounds on both legs. Comanagement with vascular surgery and ID. Vascular surgery recommends a transfer because need some equipment that is not available here at [facility] Patient took 24- 48 hrs. to decide initially did not want to go, but seemingly agreeable now. I did try to reach out to a son named? Jose?? [phone] but to no avail. ID has convinced the patient to go to and he seems now agreeable today All meds on chart and paperwork done Patient seen and examined, and significant time in the room today, tensed situation between him and me Consults performed vasc surgery, ID Procedures performed none Discharge Information Condition at Discharge: Improved, Stable Disposition/Orders: Other ( transfer) Scheduled Aspirin (Aspirin Ec) 81 Mg Tablet., 81 MG PO DAILYWBKFT for clot prevention, # 100 Prescribed by: AUSTEN GODWIN on 05/16/181029 Last Action: Continued on 07/29/18810 by TYRELL YEBOAH Atorvastatin Calcium (Atorvastatin Calcium) 40 Mg Tablet, 40 MG PO QHS for cholesterol, #30 Prescribed by: AUSTEN GODWIN on 05/16/181029 Last Action: Continued on 07/29/18810 by TYRELL YEBOAH Ciprofloxacin Hcl (Cipro) 250 Mg Tablet, 500 MG PO BID for wound, legs MDD 1 for 10 Days, #40 Prescribed by: TYRELL YEBOAH on 07/31/18 1031 Doxycycline Hyclate (Doxycycline Hyclate) 100 Mg Tablet., 1 TAB PO BID for cellulitis for 1 Days, #2 (Reported) Entered as Reported by: JOEL WILEY on 07/28/182221 Last Action: HELD on 07/29/18810 by TYRELL YEBOAH Hydroxyurea (Hydrea) 500 Mg Capsule, 1,000 MG PO DAILY for p vera MDD 1 for 30 Days, #60 Prescribed by: TYRELL YEBOAH on 07/31/181030 Linezolid (Zyvox) 600 Mg Tablet, 600 MG PO BID for wound, leg MDD 1 for 10 Days , #20 Prescribed by: TYRELL YEBOAH on 07/31/181 Scheduled PRN Magnesium Hydroxide (Snyder' Milk Of Magnesia) 400 Mg/5 Ml Oral.susp, 400 MG PO PRN DAILY PRN for CONSTIPATION, (Reported) Entered as Reported by: JOEL WILEY on 07/28/182221 Last Action: Continued on 07/29/18810 by TYRELL YEBOAH Oxycodone/Apap 5-325 (Percocet 5-325 Mg Tablet ) 1 Each Tablet, 1 TAB PO PRN Q6HRS PRN for PAIN, #30 Ref 0 Prescribed by: AUSTEN GODWIN on 06/11/18 1228 Last Action: Continued on 07/29/18 08 by TYRELL COON MD Jul 31, 2018 10:36
--- NOTE | 2018-07-31 10:54 | PDOC ---
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 NOT IMPROVED Enlarged prostate. 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 bl leg cellulitis NOT IMPROVED hypotension, h/o dvt, PE tobacco abuse COPD polythemia vera MODERATE PROTEIN-CALORIC MALNUTRITION PLAN: ADMIT 2 midnights Heme oncology //vascular, ID CONSULTED home meds Pain control iv micafungin/Meropenem/Zyvox CONT vascular consult D/c tobacco, education provided 07/30 start Hydrea 1000 mg daily, // aspirin 81 mg daily plan transfer the patient to [facility] where hybrid operative suites are available. , 07/31 transfer to [facility] for revascularization awaiting patient's decision. HIGH RISK OF COMPLICATIONS INCLUDING LIMB LOSS WITHOUT VASCULAR SALVAGE Vitals Vitals Vital Signs Date Time Temp Pulse Resp B/P (MAP) Pulse Ox O2 Delivery O2 Flow Rate FiO2 07/31/18 08:20 Room Air 07/31/18 07:00 61 16 122/61 (81) 92 07/31/18 03:00 97.9 97.9 Physical Exam Physical Exam heent nad neck supple lungs clear heart s1s2 rr abd soft nt no organomegaly ext , dry flaky skin, rt toe has wound, rt dorsal foot has wound with drainage barrel rifler nad General: Alert, Oriented X3, Cooperative, mild distress Heart: Regular rate (with occassional missed beats), Normal S1, Normal S2, No murmurs, Other (Palpable bilateral carotid, brachial and radial pulses. Unable to palpate femoral, popliteal, dorsalis pedal or post tibial pulses.) Lungs: Clear Abdomen: Normal bowel sounds, Soft, No tenderness Extremities: Other (Improved lower extremity swelling with diuresis in ER. ) Skin: Other (Well-healed right leg incision from previous bypass. Right forefoot odorous, open ulcer with necrotic tissue to wound base. Left forefoot skin discolored. Bilateral lower extremity erythema with cellulitis and dry- flaking skin. Extreme pain to very light palpation of toes and forefoot. Cracked fissures noted to plantar side of 1st toe. ) Labs LABS Laboratory Tests Test 07/31/18 04:10 White Blood Count 6.5 x10^3/uL (4.0-11.0) Red Blood Count 5.42 x10^6/uL (4.30-5.70) Hemoglobin 17.0 g/dL (13.0-17.5) Hematocrit 50.4 % (39.0-53.0) Mean Corpuscular Volume 93 fL (79-100) Mean Corpuscular Hemoglobin 31 pg (25-35) Mean Corpuscular Hemoglobin Concent 34 g/dL (31-37) Red Cell Distribution Width 16.4 % (11.5-14.5) Platelet Count 161 x10^3/uL (140-400) Neutrophils (%) (Auto) 64 % (31-73) Lymphocytes (%) (Auto) 19 % (24-48) Monocytes (%) (Auto) 13 % (0-9) Eosinophils (%) (Auto) 4 % (0-3) Basophils (%) (Auto) 0 % (0-3) Neutrophils # (Auto) 4.2 x10^3uL (1.8-7.7) Lymphocytes # (Auto) 1.2 x10^3/uL (1.0-4.8) Monocytes # (Auto) 0.8 x10^3/uL (0.0-1.1) Eosinophils # (Auto) 0.2 x10^3/uL (0.0-0.7) Basophils # (Auto) 0.0 x10^3/uL (0.0-0.2) Sodium Level 141 mmol/L (136-145) Potassium Level 3.6 mmol/L (3.5-5.1) Chloride Level 104 mmol/L (98-107) Carbon Dioxide Level 26 mmol/L (21-32) Anion Gap 11 (6-14) Blood Urea Nitrogen 12 mg/dL (8-26) Creatinine 0.8 mg/dL (0.7-1.3) Estimated GFR (Cockcroft-Gault) 93.5 BUN/Creatinine Ratio 15 (6-20) Glucose Level 85 mg/dL (70-99) Calcium Level 8.5 mg/dL (8.5-10.1) Total Bilirubin 0.9 mg/dL (0.2-1.0) Aspartate Amino Transf (AST/SGOT) 19 U/L (15-37) Alanine Aminotransferase (ALT/SGPT) 9 U/L (16-63) Alkaline Phosphatase 80 U/L (46-116) Total Protein 6.6 g/dL (6.4-8.2) Albumin 2.6 g/dL (3.4-5.0) Albumin/Globulin Ratio 0.7 (1.0-1.7) Assessment and Plan Assessmemt and Plan Problems Medical Problems: (1) Cellulitis of lower extremity Status: Acute Comment Review of Relevant I have reviewed the following items lee (where applicable) has been applied. Labs Laboratory Tests Test 07/31/18 04:10 White Blood Count 6.5 x10^3/uL (4.0-11.0) Red Blood Count 5.42 x10^6/uL (4.30-5.70) Hemoglobin 17.0 g/dL (13.0-17.5) Hematocrit 50.4 % (39.0-53.0) Mean Corpuscular Volume 93 fL (79-100) Mean Corpuscular Hemoglobin 31 pg (25-35) Mean Corpuscular Hemoglobin Concent 34 g/dL (31-37) Red Cell Distribution Width 16.4 % (11.5-14.5) Platelet Count 161 x10^3/uL (140-400) Neutrophils (%) (Auto) 64 % (31-73) Lymphocytes (%) (Auto) 19 % (24-48) Monocytes (%) (Auto) 13 % (0-9) Eosinophils (%) (Auto) 4 % (0-3) Basophils (%) (Auto) 0 % (0-3) Neutrophils # (Auto) 4.2 x10^3uL (1.8-7.7) Lymphocytes # (Auto) 1.2 x10^3/uL (1.0-4.8) Monocytes # (Auto) 0.8 x10^3/uL (0.0-1.1) Eosinophils # (Auto) 0.2 x10^3/uL (0.0-0.7) Basophils # (Auto) 0.0 x10^3/uL (0.0-0.2) Sodium Level 141 mmol/L (136-145) Potassium Level 3.6 mmol/L (3.5-5.1) Chloride Level 104 mmol/L (98-107) Carbon Dioxide Level 26 mmol/L (21-32) Anion Gap 11 (6-14) Blood Urea Nitrogen 12 mg/dL (8-26) Creatinine 0.8 mg/dL (0.7-1.3) Estimated GFR (Cockcroft-Gault) 93.5 BUN/Creatinine Ratio 15 (6-20) Glucose Level 85 mg/dL (70-99) Calcium Level 8.5 mg/dL (8.5-10.1) Total Bilirubin 0.9 mg/dL (0.2-1.0) Aspartate Amino Transf (AST/SGOT) 19 U/L (15-37) Alanine Aminotransferase (ALT/SGPT) 9 U/L (16-63) Alkaline Phosphatase 80 U/L (46-116) Total Protein 6.6 g/dL (6.4-8.2) Albumin 2.6 g/dL (3.4-5.0) Albumin/Globulin Ratio 0.7 (1.0-1.7) Laboratory Tests Test 07/31/18 04:10 White Blood Count 6.5 x10^3/uL (4.0-11.0) Red Blood Count 5.42 x10^6/uL (4.30-5.70) Hemoglobin 17.0 g/dL (13.0-17.5) Hematocrit 50.4 % (39.0-53.0) Mean Corpuscular Volume 93 fL (79-100) Mean Corpuscular Hemoglobin 31 pg (25-35) Mean Corpuscular Hemoglobin Concent 34 g/dL (31-37) Red Cell Distribution Width 16.4 % (11.5-14.5) Platelet Count 161 x10^3/uL (140-400) Neutrophils (%) (Auto) 64 % (31-73) Lymphocytes (%) (Auto) 19 % (24-48) Monocytes (%) (Auto) 13 % (0-9) Eosinophils (%) (Auto) 4 % (0-3) Basophils (%) (Auto) 0 % (0-3) Neutrophils # (Auto) 4.2 x10^3uL (1.8-7.7) Lymphocytes # (Auto) 1.2 x10^3/uL (1.0-4.8) Monocytes # (Auto) 0.8 x10^3/uL (0.0-1.1) Eosinophils # (Auto) 0.2 x10^3/uL (0.0-0.7) Basophils # (Auto) 0.0 x10^3/uL (0.0-0.2) Sodium Level 141 mmol/L (136-145) Potassium Level 3.6 mmol/L (3.5-5.1) Chloride Level 104 mmol/L (98-107) Carbon Dioxide Level 26 mmol/L (21-32) Anion Gap 11 (6-14) Blood Urea Nitrogen 12 mg/dL (8-26) Creatinine 0.8 mg/dL (0.7-1.3) Estimated GFR (Cockcroft-Gault) 93.5 BUN/Creatinine Ratio 15 (6-20) Glucose Level 85 mg/dL (70-99) Calcium Level 8.5 mg/dL (8.5-10.1) Total Bilirubin 0.9 mg/dL (0.2-1.0) Aspartate Amino Transf (AST/SGOT) 19 U/L (15-37) Alanine Aminotransferase (ALT/SGPT) 9 U/L (16-63) Alkaline Phosphatase 80 U/L (46-116) Total Protein 6.6 g/dL (6.4-8.2) Albumin 2.6 g/dL (3.4-5.0) Albumin/Globulin Ratio 0.7 (1.0-1.7) Microbiology 07/28/18 Blood Culture - Preliminary, Resulted NO GROWTH AFTER 2 DAYS Medications Current Medications Fentanyl Citrate (Fentanyl 2ml Vial) 50 mcg 1X ONCE IV Last administered on 04/07at 18:52; Start 07/28/18 at 18:15; Stop 07/28/18 at 18:16; Status DC Clindamycin Phosphate 50 ml @ 100 mls/hr 1X ONCE IV Last administered on 07/28at 20:21; Start 07/28/18 at 20:00; Stop 07/28/18 at 20:29; Status DC Ondansetron HCl (Zofran) 4 mg PRN Q8HRS PRN IV NAUSEA/VOMITING; Start 07/28/18 at 20:00; Stop 07/29/18 at 08:11; Status DC Fentanyl Citrate (Fentanyl 2ml Vial) 50 mcg PRN Q1HR PRN IV PAIN Last administered on 07/29/18 07:05; Start 07/28/18 at 20:00; Stop 07/29/18 at 19:59 ; Status DC Fentanyl Citrate (Fentanyl 2ml Vial) 50 mcg 1X ONCE IV Last administered on 04/07at 20:21; Start 07/28/18 at 20:15; Stop 07/28/18 at 20:16; Status DC Ondansetron HCl (Zofran) 4 mg PRN Q6HRS PRN IV NAUSEA/VOMITING; Start 07/29/18 at 08:15 Oxycodone/ Acetaminophen (Percocet 5/325) 1 tab PRN Q4HRS PRN PO PAIN Last administered on 07/31/18at 05:21; Start 07/29/18 at 08:15 Acetaminophen (Tylenol) 500 mg PRN Q6HRS PRN PO HEADACHE / TEMP; Start at 08:15 Clindamycin Phosphate 50 ml @ 100 mls/hr Q8HRS IV ; Start 07/29/18 at 09:00; Stop 07/29/18 at 09:21; Status DC Aspirin (Ecotrin) 81 mg DAILYWBKFT PO Last administered on 07/31/18at 07:54; Start 07/29/18 at 09:00 Atorvastatin Calcium (Lipitor) 40 mg QHS PO Last administered on 07/30/18at 21: 01; Start 07/29/18 at 21:00 Magnesium Hydroxide (Milk Of Magnesia) 400 mg PRN DAILY PRN PO CONSTIPATION Last administered on 07/30/18at 08:45; Start 07/29/18 at 08:15 Oxycodone/ Acetaminophen (Percocet 5/325) 1 tab PRN Q6HRS PRN PO PAIN; Start at 08:15; Status UNV Linezolid (Zyvox) 600 mg BID PO Last administered on 07/31/18at 09:05; Start 05/07 at 09:30 Meropenem 500 mg/ Sodium Chloride 50 ml @ 100 mls/hr Q6HRS IV Last administered on 07/31/18at 05:19; Start 07/29/18 at 12:00; Stop 07/31/18 at 10:17 ; Status DC Micafungin Sodium 100 mg/Dextrose 100 ml @ 100 mls/hr Q24H IV Last administered on 07/30/18at 10:38; Start 07/29/18 at 10:00; Stop 07/31/18 at 10:17 ; Status DC Lactobacillus Rhamnosus (Culturelle) 1 cap BID PO Last administered on at 09:05; Start 07/29/18 at 21:00 Hydroxyurea (Hydrea) 1,000 mg DAILY PO Last administered on 07/31/18at 09:32; Start 07/30/18 at 10:00 Enoxaparin Sodium (Lovenox 40mg Syringe) 40 mg Q24H SQ Last administered on at 10:38; Start 07/30/18 at 10:00 Ciprofloxacin (Cipro) 500 mg BID PO ; Start 07/31/18 at 21:00 Active Scripts Active Hydrea (Hydroxyurea) 500 Mg Capsule 1,000 Mg PO DAILY MDD 1 30 Days Zyvox (Linezolid) 600 Mg Tablet 600 Mg PO BID MDD 1 10 Days Cipro (Ciprofloxacin Hcl) 250 Mg Tablet 500 Mg PO BID MDD 1 10 Days Percocet 5-325 Mg Tablet (Oxycodone/Acetaminophen) 1 Each Tablet 1 Tab PO PRN Q6HRS PRN Aspirin Ec (Aspirin) 81 Mg Tablet. 81 Mg PO DAILYWBKFT Atorvastatin Calcium 40 Mg Tablet 40 Mg PO QHS Reported Snyder' Milk Of Magnesia (Magnesium Hydroxide) 400 Mg/5 Ml Oral.susp 400 Mg PO PRN DAILY PRN Doxycycline Hyclate 100 Mg Tablet. 1 Tab PO BID 1 Days Vitals/I & O Vital Sign - Last 24 Hours 07/30/18 07/30/18 07/30/18 07/30/18 11:15 15:03 17:33 19:00 Temp 98.0 98.1 98.5 98.0 98.1 98.5 Pulse 97 64 76 Resp 18 20 16 18 B/P (MAP) 123/57 (79) 114/53 (73) 101/42 (61) Pulse Ox 94 94 93 O2 Delivery Room Air Room Air Room Air Room Air 07/30/18 07/30/18 07/31/18 07/31/18 20:00 23:00 00:23 03:00 Temp 98.3 97.9 98.3 97.9 Pulse 68 83 Resp 18 20 18 B/P (MAP) 130/41 (70) 106/55 (72) Pulse Ox 92 92 94 O2 Delivery Room Air Room Air Room Air Room Air 07/31/18 07/31/18 07/31/18 07/31/18 05:21 06:21 07:00 08:20 Pulse 61 Resp 20 20 16 B/P (MAP) 122/61 (81) Pulse Ox 94 94 92 O2 Delivery Room Air Room Air Room Air Room Air Intake and Output 07/30/18 07/30/18 07/31/18 15:00 23:00 07:00 Intake Total 680 ml 360 ml 0 ml Output Total 250 ml 200 ml 800 ml Balance 430 ml 160 ml -800 ml NAZIA MORRIS MD Jul 31, 2018 10:54
--- NOTE | 2018-07-31 10:54 | NUR ---
SW following. Discussed with RN. Dr. Jc requesting inpatient transfer to and advised SW she had initiated the transfer. SW confirmed with [facility] and faxed clinicals and had radiology cloud the images. SW awaiting updates from regarding transfer acceptance or denial. RN notified.
[2018-07-31 11:00] VITALS: BP 99/52
[2018-07-31] MEDS: ENOXAPARIN 40 MG/0.4 ML SYRINGE. SQ SCH (11:12)
--- NOTE | 2018-07-31 11:28 | PDOC ---
PROGRESS NOTES Subjective Subjective Patient seen and examined in room. Discussed plan of care with nurse prior to visit. Again had a very long discussion with patient regarding his significant multi- level vascular disease and his need for revascularization to heal the wounds on his feet. I was very clear with him that he is will end up with major amputation without vascular surgery. He believes there is a toxin in his legs causing his wounds and that we need to address this. Again, we recommended transfer to where there is more support and tools to do his surgery (hybrid operating room, ICU care, [place] catheter, etc) He was to decide by this am if he was willing to transfer, he stated "Let's put a time limit on this". He still has not decided, again discussed the importance of limb salvage with patient. He will again try to discuss with family and decide today. He is not septic so we can wait a little bit of time but he really should have revascularization as soon as possible given his large foot wound. I spent over an hour today reviewing his films and attempting to discuss this / coordinate care. I did discuss care with the Nurse and asked that if he transfers to request assistance from the Hospitalist. Objective Objective Vital Signs Date Time Temp Pulse Resp B/P (MAP) Pulse Ox O2 Delivery O2 Flow Rate FiO2 07/31/18 11:12 16 Room Air 07/31/18 07:00 61 122/61 (81) 92 07/31/18 03:00 97.9 97.9 Intake and Output 07/31/18 06:59 Intake Total 1040 ml Output Total 1250 ml Balance -210 ml Intake Oral 1040 ml Output Urine Total 1250 ml Physical Exam General: Alert Lungs: Normal air movement Skin: Other (BLE swelling, scaly skin and erythema, necrotic wounds dorsum bilateral feet R>L, unable to appreciate distal pulses) Assessment Assessment Problems Medical Problems: (1) Cellulitis of lower extremity Status: Acute Sever atherosclerosis with ulceration Recommend transfer to [facility] for revascularization awaiting patient's decision. Comment Review of Relevant I have reviewed the following items lee (where applicable) has been applied. Labs Laboratory Tests Test 07/31/18 04:10 White Blood Count 6.5 x10^3/uL (4.0-11.0) Red Blood Count 5.42 x10^6/uL (4.30-5.70) Hemoglobin 17.0 g/dL (13.0-17.5) Hematocrit 50.4 % (39.0-53.0) Mean Corpuscular Volume 93 fL (79-100) Mean Corpuscular Hemoglobin 31 pg (25-35) Mean Corpuscular Hemoglobin Concent 34 g/dL (31-37) Red Cell Distribution Width 16.4 % (11.5-14.5) Platelet Count 161 x10^3/uL (140-400) Neutrophils (%) (Auto) 64 % (31-73) Lymphocytes (%) (Auto) 19 % (24-48) Monocytes (%) (Auto) 13 % (0-9) Eosinophils (%) (Auto) 4 % (0-3) Basophils (%) (Auto) 0 % (0-3) Neutrophils # (Auto) 4.2 x10^3uL (1.8-7.7) Lymphocytes # (Auto) 1.2 x10^3/uL (1.0-4.8) Monocytes # (Auto) 0.8 x10^3/uL (0.0-1.1) Eosinophils # (Auto) 0.2 x10^3/uL (0.0-0.7) Basophils # (Auto) 0.0 x10^3/uL (0.0-0.2) Sodium Level 141 mmol/L (136-145) Potassium Level 3.6 mmol/L (3.5-5.1) Chloride Level 104 mmol/L (98-107) Carbon Dioxide Level 26 mmol/L (21-32) Anion Gap 11 (6-14) Blood Urea Nitrogen 12 mg/dL (8-26) Creatinine 0.8 mg/dL (0.7-1.3) Estimated GFR (Cockcroft-Gault) 93.5 BUN/Creatinine Ratio 15 (6-20) Glucose Level 85 mg/dL (70-99) Calcium Level 8.5 mg/dL (8.5-10.1) Total Bilirubin 0.9 mg/dL (0.2-1.0) Aspartate Amino Transf (AST/SGOT) 19 U/L (15-37) Alanine Aminotransferase (ALT/SGPT) 9 U/L (16-63) Alkaline Phosphatase 80 U/L (46-116) Total Protein 6.6 g/dL (6.4-8.2) Albumin 2.6 g/dL (3.4-5.0) Albumin/Globulin Ratio 0.7 (1.0-1.7) Laboratory Tests Test 07/31/18 04:10 White Blood Count 6.5 x10^3/uL (4.0-11.0) Red Blood Count 5.42 x10^6/uL (4.30-5.70) Hemoglobin 17.0 g/dL (13.0-17.5) Hematocrit 50.4 % (39.0-53.0) Mean Corpuscular Volume 93 fL (79-100) Mean Corpuscular Hemoglobin 31 pg (25-35) Mean Corpuscular Hemoglobin Concent 34 g/dL (31-37) Red Cell Distribution Width 16.4 % (11.5-14.5) Platelet Count 161 x10^3/uL (140-400) Neutrophils (%) (Auto) 64 % (31-73) Lymphocytes (%) (Auto) 19 % (24-48) Monocytes (%) (Auto) 13 % (0-9) Eosinophils (%) (Auto) 4 % (0-3) Basophils (%) (Auto) 0 % (0-3) Neutrophils # (Auto) 4.2 x10^3uL (1.8-7.7) Lymphocytes # (Auto) 1.2 x10^3/uL (1.0-4.8) Monocytes # (Auto) 0.8 x10^3/uL (0.0-1.1) Eosinophils # (Auto) 0.2 x10^3/uL (0.0-0.7) Basophils # (Auto) 0.0 x10^3/uL (0.0-0.2) Sodium Level 141 mmol/L (136-145) Potassium Level 3.6 mmol/L (3.5-5.1) Chloride Level 104 mmol/L (98-107) Carbon Dioxide Level 26 mmol/L (21-32) Anion Gap 11 (6-14) Blood Urea Nitrogen 12 mg/dL (8-26) Creatinine 0.8 mg/dL (0.7-1.3) Estimated GFR (Cockcroft-Gault) 93.5 BUN/Creatinine Ratio 15 (6-20) Glucose Level 85 mg/dL (70-99) Calcium Level 8.5 mg/dL (8.5-10.1) Total Bilirubin 0.9 mg/dL (0.2-1.0) Aspartate Amino Transf (AST/SGOT) 19 U/L (15-37) Alanine Aminotransferase (ALT/SGPT) 9 U/L (16-63) Alkaline Phosphatase 80 U/L (46-116) Total Protein 6.6 g/dL (6.4-8.2) Albumin 2.6 g/dL (3.4-5.0) Albumin/Globulin Ratio 0.7 (1.0-1.7) Microbiology 07/28/18 Blood Culture - Preliminary, Resulted NO GROWTH AFTER 2 DAYS Medications Current Medications Fentanyl Citrate (Fentanyl 2ml Vial) 50 mcg 1X ONCE IV Last administered on 04/07at 18:52; Start 07/28/18 at 18:15; Stop 07/28/18 at 18:16; Status DC Clindamycin Phosphate 50 ml @ 100 mls/hr 1X ONCE IV Last administered on 07/28at 20:21; Start 07/28/18 at 20:00; Stop 07/28/18 at 20:29; Status DC Ondansetron HCl (Zofran) 4 mg PRN Q8HRS PRN IV NAUSEA/VOMITING; Start 07/28/18 at 20:00; Stop 07/29/18 at 08:11; Status DC Fentanyl Citrate (Fentanyl 2ml Vial) 50 mcg PRN Q1HR PRN IV PAIN Last administered on 07/29/18at 07:05; Start 07/28/18 at 20:00; Stop 07/29/18 at 19:59 ; Status DC Fentanyl Citrate (Fentanyl 2ml Vial) 50 mcg 1X ONCE IV Last administered on 04/07at 20:21; Start 07/28/18 at 20:15; Stop 07/28/18 at 20:16; Status DC Ondansetron HCl (Zofran) 4 mg PRN Q6HRS PRN IV NAUSEA/VOMITING; Start 07/29/18 at 08:15 Oxycodone/ Acetaminophen (Percocet 5/325) 1 tab PRN Q4HRS PRN PO PAIN Last administered on 07/31/18at 11:12; Start 07/29/18 at 08:15 Acetaminophen (Tylenol) 500 mg PRN Q6HRS PRN PO HEADACHE / TEMP; Start at 08:15 Clindamycin Phosphate 50 ml @ 100 mls/hr Q8HRS IV ; Start 07/29/18 at 09:00; Stop 07/29/18 at 09:21; Status DC Aspirin (Ecotrin) 81 mg DAILYWBKFT PO Last administered on 07/31/18at 07:54; Start 07/29/18 at 09:00 Atorvastatin Calcium (Lipitor) 40 mg QHS PO Last administered on 07/30/18at 21: 01; Start 07/29/18 at 21:00 Magnesium Hydroxide (Milk Of Magnesia) 400 mg PRN DAILY PRN PO CONSTIPATION Last administered on 07/30/18 08:45; Start 07/29/18 at 08:15 Oxycodone/ Acetaminophen (Percocet 5/325) 1 tab PRN Q6HRS PRN PO PAIN; Start at 08:15; Status UNV Linezolid (Zyvox) 600 mg BID PO Last administered on 07/31/18at 09:05; Start 05/07 at 09:30 Meropenem 500 mg/ Sodium Chloride 50 ml @ 100 mls/hr Q6HRS IV Last administered on 07/31/18at 05:19; Start 07/29/18 at 12:00; Stop 07/31/18 at 10:17 ; Status DC Micafungin Sodium 100 mg/Dextrose 100 ml @ 100 mls/hr Q24H IV Last administered on 07/30/18at 10:38; Start 07/29/18 at 10:00; Stop 07/31/18 at 10:17 ; Status DC Lactobacillus Rhamnosus (Culturelle) 1 cap BID PO Last administered on at 09:05; Start 07/29/18 at 21:00 Hydroxyurea (Hydrea) 1,000 mg DAILY PO Last administered on 07/31/18at 09:32; Start 07/30/18 at 10:00 Enoxaparin Sodium (Lovenox 40mg Syringe) 40 mg Q24H SQ Last administered on at 11:12; Start 07/30/18 at 10:00 Ciprofloxacin (Cipro) 500 mg BID PO ; Start 07/31/18 at 21:00 Active Scripts Active Hydrea (Hydroxyurea) 500 Mg Capsule 1,000 Mg PO DAILY MDD 1 30 Days Zyvox (Linezolid) 600 Mg Tablet 600 Mg PO BID MDD 1 10 Days Cipro (Ciprofloxacin Hcl) 250 Mg Tablet 500 Mg PO BID MDD 1 10 Days Percocet 5-325 Mg Tablet (Oxycodone/Acetaminophen) 1 Each Tablet 1 Tab PO PRN Q6HRS PRN Aspirin Ec (Aspirin) 81 Mg Tablet. 81 Mg PO DAILYWBKFT Atorvastatin Calcium 40 Mg Tablet 40 Mg PO QHS Reported Snyder' Milk Of Magnesia (Magnesium Hydroxide) 400 Mg/5 Ml Oral.susp 400 Mg PO PRN DAILY PRN Doxycycline Hyclate 100 Mg Tablet. 1 Tab PO BID 1 Days Vitals/I & O Vital Sign - Last 24 Hours 07/30/18 07/30/18 07/30/18 07/30/18 11:15 15:03 17:33 19:00 Temp 98.0 98.1 98.5 98.0 98.1 98.5 Pulse 97 64 76 Resp 18 20 16 18 B/P (MAP) 123/57 (79) 114/53 (73) 101/42 (61) Pulse Ox 94 94 93 O2 Delivery Room Air Room Air Room Air Room Air 07/30/18 07/30/18 07/31/18 07/31/18 20:00 23:00 00:23 03:00 Temp 98.3 97.9 98.3 97.9 Pulse 68 83 Resp 18 20 18 B/P (MAP) 130/41 (70) 106/55 (72) Pulse Ox 92 92 94 O2 Delivery Room Air Room Air Room Air Room Air 07/31/18 07/31/18 07/31/18 07/31/18 05:21 06:21 07:00 08:20 Pulse 61 Resp 20 20 16 B/P (MAP) 122/61 (81) Pulse Ox 94 94 92 O2 Delivery Room Air Room Air Room Air Room Air 07/31/18 11:12 Resp 16 O2 Delivery Room Air Intake and Output 07/30/18 07/30/18 07/31/18 14:59 22:59 06:59 Intake Total 680 ml 360 ml 0 ml Output Total 250 ml 200 ml 800 ml Balance 430 ml 160 ml -800 ml PURNIMA MOONEY [employer] Jul 31, 2018 11:28
[2018-07-31 15:00] VITALS: BP 114/59
--- NOTE | 2018-07-31 17:30 | NUR ---
Spoke with ANGELES Garduno with [facility]. Discussed POC/hx/medication. [facility] accepts pt. Exit wound pictures obtained.
[2018-07-31] MEDS: ATORVASTATIN CALCIUM 40 MG TABLET. PO SCH (20:06)
[2018-07-31] MEDS ORDERED: CIPROFLOXACIN HCL 250 MG TABLET. PO SCH (21:00)
--- NOTE | 2018-07-31 21:30 | NUR ---
EMS here for pt to transfer to [facility], pt dc .
== END 2018-07-31 21:30 | disposition short-term general hospital (02) | DRG 872 ==
LOC: ER 16:35 → 4 NORTH 19:52
PROVIDERS: ADMIT Internal Medicine; ATTEND Internal Medicine
PROC: 0HBRXZZ Excision of Toe Nail, External Approach (ICD-10-PCS; principal; 2018-07-29)
PROC: 0HBRXZZ Excision of Toe Nail, External Approach (ICD-10-PCS; 2018-07-29)
PROC: 0HBRXZZ Excision of Toe Nail, External Approach (ICD-10-PCS; 2018-07-29)
PROC: 0HBRXZZ Excision of Toe Nail, External Approach (ICD-10-PCS; 2018-07-29)
PROC: 0HBRXZZ Excision of Toe Nail, External Approach (ICD-10-PCS; 2018-07-29)
PROC: 0HBRXZZ Excision of Toe Nail, External Approach (ICD-10-PCS; 2018-07-29)
PROC: 0HBRXZZ Excision of Toe Nail, External Approach (ICD-10-PCS; 2018-07-29)
PROC: 0HBRXZZ Excision of Toe Nail, External Approach (ICD-10-PCS; 2018-07-29)
PROC: 0HBRXZZ Excision of Toe Nail, External Approach (ICD-10-PCS; 2018-07-29)
PROC: 0HBRXZZ Excision of Toe Nail, External Approach (ICD-10-PCS; 2018-07-29)
DX: A41.9 Sepsis, unspecified organism (principal); L03.116 Cellulitis of left lower limb; E44.0 Moderate protein-calorie malnutrition; L03.115 Cellulitis of right lower limb; I73.9 Peripheral vascular disease, unspecified; S91.301A Unspecified open wound, right foot, initial encounter; D45 Polycythemia vera; I77.9 Disorder of arteries and arterioles, unspecified; B35.1 Tinea unguium; E78.5 Hyperlipidemia, unspecified; F17.200 Nicotine dependence, unspecified, uncomplicated; F22 Delusional disorders; I25.10 Atherosclerotic heart disease of native coronary artery without angina pectoris; L60.0 Ingrowing nail; J44.9 Chronic obstructive pulmonary disease, unspecified; L60.2 Onychogryphosis; I99.8 Other disorder of circulatory system; I95.9 Hypotension, unspecified; L97.509 Non-pressure chronic ulcer of other part of unspecified foot with unspecified severity; N40.0 Benign prostatic hyperplasia without lower urinary tract symptoms; S91.302A Unspecified open wound, left foot, initial encounter; I25.2 Old myocardial infarction; Z68.23 Body mass index [BMI] 23.0-23.9, adult; Z79.899 Other long term (current) drug therapy; Z79.82 Long term (current) use of aspirin; Z86.711 Personal history of pulmonary embolism; Z86.718 Personal history of other venous thrombosis and embolism; Z91.19 Patient's noncompliance with other medical treatment and regimen
CPT/HCPCS: 36415; 71046; 73630; 80053; 83605; 85025; 87040; 93970; 96365; 96375; 96376; J1650; J2185; J2248; J3010; J3490; 99285-25

== ENCOUNTER 2021-10-08 00:14 | Emergency (ER) | payer MEDICARE ==
[~2021-10-08] VITALS: Ht 172.7 cm; Wt 68.2 kg
[~2021-10-08 00:14] MED LIST changes: -ASPI-612 PO; +ASPI-886 PO; +CIPR250T30 PO; +CYCL10TA19 PO; -CYCL10TA2 PO; +DOXY-96 PO; +HYDR500C PO; +LINE600T12 PO; -PANT40TA5 PO; +PANT40TA77 PO; -PREG25CA PO; +PREG25CA41 PO; +[UNRECOGNIZED DRUG - CODE] PO
[2021-10-08 00:51] LABS: BASO % 0 % (0-3); EOS % 1 % (0-3); HEMATOCRIT 57.5 % (39.0-53.0); LYMPH # 0.6 x10^3/uL (1.0-4.8); LYMPH % 8 % (24-48); MEAN CORPUSCULAR HEMOGLOBIN 32 pg (25-35); MEAN CORPUSCULAR HGB CONC 35 g/dL (31-37); MEAN CORPUSCULAR VOLUME 91 fL (79-100); MONO # 0.6 x10^3/uL (0.0-1.1); MONO % 9 % (0-9); NEUT # 5.7 x10^3/uL (1.8-7.7); NEUT % 82 % (31-73); PLATELET COUNT 202 x10^3/uL (140-400); RED BLOOD COUNT 6.29 x10^6/uL (4.30-5.70); RED CELL DISTRIBUTION WIDTH 16.8 % (11.5-14.5); WHITE BLOOD COUNT 6.9 x10^3/uL (4.0-11.0)
--- NOTE | 2021-10-08 01:10 | EKG ---
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
[2021-10-08 01:26] LABS: PROTHROMBIN TIME PATIENT 22.7 SEC (11.7-14.0)
[2021-10-08 01:27] LABS: CALCIUM 9.9 mg/dL (8.5-10.1); CREATININE 1.2 mg/dL (0.7-1.3); GFR 58.1
[2021-10-08 01:35] LABS: ALBUMIN 3.6 g/dL (3.4-5.0); ALBUMIN/GLOBULIN RATIO 0.8 (1.0-1.7); DIRECT BILIRUBIN 0.4 mg/dL (0.0-0.2); TOTAL PROTEIN 8.2 g/dL (6.4-8.2)
--- NOTE | 2021-10-08 01:52 | RAD ---
Abdominal and Pelvis CT, Without Contrast: History: Reason: abdominal pain / Spl. Instructions: / History: Comparison: May 11, 2018. Procedure: Axial images are obtained of the abdomen and pelvis, without IV or oral contrast. Oral Contrast: No Findings: Evaluation of solid organs is limited without contrast. The gallbladder appears normal. There is a fat-containing umbilical hernia. There is aortic bifemoral bypass. There is ankle canal hernias continuing multiple loops of small bow el in the right is much larger than the left and continues down into the scrotum. The appendix is not well seen but could be within the right inguinal canal. Liver: Normal. Spleen: Normal. Pancreas: Normal. Adrenal Glands: Normal. Kidneys: Normal. There is no free air or free fluid. There is no lymphadenopathy. The urinary bladder appears normal. There is no pericolonic inflammation identified. Impression: Large bilateral inguinal canal hernias right much worse than left containing numerous loops of small bowel. There is no CT evidence of obstruction or incarceration. Previously the inguinal canal hernias only contained fat. End impression PQRS Compliance Statement: One or more of the following individualized dose reduction techniques were utilized for this examinat ion: 1. Automated exposure control 2. Adjustment of the mA and/or kV according to patient size 3. Use of iterative reconstruction technique Electronically signed by: Didier Liang III, MD (10/08/2021 1:49 AM) [facility]
--- NOTE | 2021-10-08 01:58 | PHYS DOC ---
Past Medical History Past Medical History: Other Additional Past Medical Histor: CELLULITIS, back pain,BOWEL OBSTRUCTION Past Surgical History: Other Additional Past Surgical Histo: R LEG SURG,BOWEL OBSTRUCTION Smoking Status: Current Every Day Smoker Alcohol Use: Occasionally Drug Use: None General Adult EDM: Chief Complaint: ABDOMINAL PAIN HPI: HPI: 81-year-old male, past medical history CAD, DVT, on Xarelto, peripheral arterial disease, right lower extremity stent versus bypass?, Cellulitis, back pain, previous bowel obstruction, right inguinal hernia, presents with sudden onset right inguinal pain that woke him up from sleep tonight. Upon ED arrival, patient states that his pain is resolved. No fever, chills, nausea, vomiting, chest pain, shortness of breath. No urinary complaints. Patient endorses watery, dark, granular diarrhea which has been going on for several months. Review of Systems: Review of Systems: Constitutional: Denies fever or chills. [] Eyes: Denies change in visual acuity. [] HENT: Denies nasal congestion or sore throat. [] Respiratory: Denies cough or shortness of breath. [] Cardiovascular: Denies chest pain or edema. [] GI: + R inguinal hernia pain, Denies abdominal pain, nausea, vomiting, bloody stools; +diarrhea. [] : Denies dysuria. [] Musculoskeletal: Denies back pain or joint pain. [] Integument: Denies rash. [] Neurologic: Denies headache, focal weakness or sensory changes. [] Endocrine: Denies polyuria or polydipsia. [] Lymphatic: Denies swollen glands. [] Psychiatric: Denies depression or anxiety. [] Heart Score: C/O Chest Pain: No Risk Factors: Risk Factors: DM, Current or recent (<one month) smoker, HTN, HLP, family history of CAD, obesity. Risk Scores: Score 0 - 3: 2.5% MACE over next 6 weeks - Discharge Home Score 4 - 6: 20.3% MACE over next 6 weeks - Admit for Clinical Observation Score 7 - 10: 72.7% MACE over next 6 weeks - Early Invasive Strategies Allergies: Allergies: Allergies Coded Allergies Type Severity Reaction Last Updated Verified No Known Drug Allergies 09/22/16 No Physical Exam: PE: Constitutional: Elderly male, well nourished, no acute distress, non-toxic appearance. [] HENT: Hearing aids in, normocephalic, atraumatic, bilateral external ears normal, oropharynx moist, no oral exudates, nose normal. [] Eyes: PERRLA, EOMI, conjunctiva normal, no discharge. [] Neck: Normal range of motion, no tenderness, supple, no stridor. [] Cardiovascular:Heart rate regular rhythm, no murmur [] Lungs & Thorax: Bilateral breath sounds clear to auscultation [] Abdomen: Bowel sounds normal, soft, no tenderness, no masses, no pulsatile masses. [] : + Large R inguinal hernia that is soft and reducible, no TTP, no warmth/firmness/erythema/or edema Skin: Warm, dry, no erythema, no rash. [] Back: No tenderness, no CVA tenderness. [] Extremities: No tenderness, no cyanosis, no clubbing, ROM intact, no edema. [] Neurologic: Alert and oriented X 3, normal motor function, normal sensory function, no focal deficits noted. [] Psychologic: Affect normal, judgement normal, mood normal. [] Current Patient Data: Labs: Laboratory Tests Test 10/08/21 00:41 10/08/21 01:05 White Blood Count 6.9 x10^3/uL (4.0-11.0) Red Blood Count 6.29 x10^6/uL (4.30-5.70) H Hemoglobin 20.0 g/dL (13.0-17.5) H Hematocrit 57.5 % (39.0-53.0) H Mean Corpuscular Volume 91 fL (79-100) Mean Corpuscular Hemoglobin 32 pg (25-35) Mean Corpuscular Hemoglobin Concent 35 g/dL (31-37) Red Cell Distribution Width 16.8 % (11.5-14.5) H Platelet Count 202 x10^3/uL (140-400) Neutrophils (%) (Auto) 82 % (31-73) H Lymphocytes (%) (Auto) 8 % (24-48) L Monocytes (%) (Auto) 9 % (0-9) Eosinophils (%) (Auto) 1 % (0-3) Basophils (%) (Auto) 0 % (0-3) Neutrophils # (Auto) 5.7 x10^3/uL (1.8-7.7) Lymphocytes # (Auto) 0.6 x10^3/uL (1.0-4.8) L Monocytes # (Auto) 0.6 x10^3/uL (0.0-1.1) Eosinophils # (Auto) 0.0 x10^3/uL (0.0-0.7) Basophils # (Auto) 0.0 x10^3/uL (0.0-0.2) Prothrombin Time 22.7 SEC (11.7-14.0) H Prothrombin Time INR 2.1 (0.8-1.1) H Sodium Level 142 mmol/L (136-145) Potassium Level 4.0 mmol/L (3.5-5.1) Chloride Level 102 mmol/L (98-107) Carbon Dioxide Level 31 mmol/L (21-32) Anion Gap 9 (6-14) Blood Urea Nitrogen 15 mg/dL (8-26) Creatinine 1.2 mg/dL (0.7-1.3) Estimated GFR (Cockcroft-Gault) 58.1 BUN/Creatinine Ratio 13 (6-20) Glucose Level 145 mg/dL (70-99) H Calcium Level 9.9 mg/dL (8.5-10.1) Total Bilirubin 1.0 mg/dL (0.2-1.0) Direct Bilirubin 0.4 mg/dL (0.0-0.2) H Aspartate Amino Transferase (AST) 17 U/L (15-37) Alanine Aminotransferase (ALT) 19 U/L (16-63) Alkaline Phosphatase 128 U/L (46-116) H Total Protein 8.2 g/dL (6.4-8.2) Albumin 3.6 g/dL (3.4-5.0) Albumin/Globulin Ratio 0.8 (1.0-1.7) L Lipase 46 U/L (73-393) L Laboratory Tests 10/08/21 00:41 Laboratory Tests 10/08/21 01:05 Vital Signs: Vital Signs Date Time Temp Pulse Resp B/P (MAP) Pulse Ox O2 Delivery O2 Flow Rate FiO2 10/08/21 00:15 97.4 90 17 138/65 (89) 97 Room Air 97.4 EKG: EKG: [] Radiology/Procedures: Radiology/Procedures: [] Course & Med Decision Making: Course & Med Decision Making Pertinent Labs and Imaging studies reviewed. (See chart for details) Additional Social History: PMD from non-affiliated facility. Patient Lives at home. Family History: Non-pertinent to today's complaint. Nursing Notes Reviewed Previous Medical Records requested via [facility] Web: Reviewed by me. EMERGENT LABS AND DIAGNOSTIC STUDIES: Results were reviewed and interpreted by me as below CBC: Shows no evidence of leukocytosis or anemia. Platelet count is normal Chemistry: Shows no electrolyte abnormalities Otherwise within normal limits, unremarkable or as noted above. PROCEDURE: CT ABDOMEN PELVIS WO CONTRAST Impression: Large bilateral inguinal canal hernias right much worse than left containing numerous loops of small bowel. There is no CT evidence of obstruction or incarceration. Previously the inguinal canal hernias only contained fat. EMERGENCY DEPARTMENT COURSE/ MEDICAL DECISION MAKING: The patient was placed on a azure principal solution specialist, continuous pulse oximetry and was given supplemental oxygen. I examined the patient, evaluated and addressed patient's chief complaint. Patient with R inguinal hernia presents with sudden pain this evening that has since resolved since ED arrival. Hernia is soft and reducible. Low suspicion for incarceration. Given patient's complaing ot dark/granular diarrhea and on xarelto, I performed stool guaic which is negative. Vitals wnl. Well appearing. On re-assessment, patient feels well and has no complaints. Vitals wnl. No obstruction or incarceration on CT. Per patient's son at bedside, patient had an appointment w/Gen Surg outpatient for hernia eval but he refused to go because they said they would not do surgery given his anticoagulation hx. Encouraged to wear a hernia belt. Noted elevated Hg at 20 which appears similar to previous labs, otherwise patient asymptomatic. The patient understands that todays Emergency Department evaluation does not represent a comprehensive medical workup, and it is impossible to diagnose all possible illnesses from a single Emergency Department visit. The patient verbalized understanding that it is absolutely necessary to have follow-up with regular primary care physician within 1-2 days for more detailed workup and continued exam. I explained the findings and plan to the patient, who expressed verbal understanding and agreed with plan for discharge and follow up. The patient was given after care instructions and welcomed to return to the ED for re-evaluation in 8-12 hours, especially for any new or worsening symptoms. Patient's blood pressure was elevated (>120/80) but appears stable without ev idence of end organ damage, malignant hypertension, hypertensive emergency or urgency. The patient was counseled about the risks of hypertension and urged to pursue outpatient monitoring and therapy within a week with their primary care physician. The patient was stable at the time of discharge. DIAGNOSTIC IMPRESSION: 1. R inguinal hernia, no obstruction or gangrene DISPOSITION: Disposition: Discharge Home. Condition: Improved Follow-Up: PMD, Gen Surg Prescriptions: None Return to the Emergency Department for new or worsening symptoms. Dragon Disclaimer: Dragon Disclaimer: This electronic medical record was generated, in whole or in part, using a voice recognition dictation system. Departure Departure Impression: Primary Impression: Recurrent inguinal hernia of right side without obstruction or gangrene Disposition: 01 HOME / SELF CARE / HOMELESS Condition: STABLE Referrals: Beverly EUGENE MD (PCP) MAXIM HICKS MD October 08, 2021 01:58
[2021-10-08 02:36] VITALS: BP 132/96
== END 2021-10-08 02:30 | disposition home or self-care (01) ==
LOC: ER 00:14
DX: K40.90 Unilateral inguinal hernia, without obstruction or gangrene, not specified as recurrent (principal); Z95.5 Presence of coronary angioplasty implant and graft; F17.200 Nicotine dependence, unspecified, uncomplicated
CPT/HCPCS: 36415; 74176; 80053; 82248; 83690; 85025; 85610; 86850; 86900; 86901; 93005; 99285-25